=== PATIENT | male | born 1945 | race Two or more races ===

== ENCOUNTER 2020-02-05 03:41 | Emergency (ER) | payer MEDICAID, SELFPAY ==
[2020-02-05 03:40] VITALS: BP 144/79; PULSE 85; RESP 17; TEMP 36.6; O2SAT 97
[2020-02-05 04:21] LABS: Basophils Absolute Auto 0.1 K/mm3 (0.0-0.1); Basophils Percent Auto 0.6 % (0.2-1.2); Eosinophils Absolute Auto 0.3 K/mm3 (0-0.3); Eosinophils Percent Auto 2.2 % (0-4.4); Hemoglobin 11.4 g/dL (14.0-18.0); Immature Granulocyte Absolute 0.04 K/mm3 (0.00-0.031); Immature Granulocyte Percent A 0.3 % (0-0.5); Lymphocytes Absolute Auto 6.45 K/mm3 (0.9-3.2); Lymphocytes Percent Auto 51.7 % (18.3-44.2); Mean Corpuscular HGB Conc 30.8 g/dl (32-36); Mean Corpuscular Hemoglobin 26.5 pg (26-34); Mean Corpuscular Volume 85.8 fl (80-100); Monocytes Absolute Auto 0.9 K/mm3 (0.1-0.6); Neutrophils Absolute Auto 4.8 K/mm3 (1.3-6.7); Neutrophils Percent Auto 38.2 % (45.5-73.1); Platelet Count Result 405 k/mm3 (150-375); Red Blood Count 4.31 M/mm3 (4.6-6.20); Red Cell Distribution Width 16.6 % (11.5-14.5); White Blood Count 12.5 K/mm3 (4.5-10.0)
[2020-02-05 04:35] LABS: Add Urine Microscopic? YES; Appearance Urine Cloudy (Clear); Bacteria Urine Trace /hpf; Bilirubin Urine Negative (Negative); Blood Urine 3+ (Negative); Calcium Oxalate Crystals Urine Present /hpf; Color Urine Yellow (Yellow); Glucose Urine UA 1+ mg/dL (Negative); Ketones Urine Negative (Negative); Leukocyte Esterase Ur Negative LEU/UL (Negative); Mucus Urine Rare /lpf; Nitrate Urine Negative (Negative); Protein Urine 2+ mg/dL (Negative); RBC Urine >75 /hpf (0-2); Specific Grav Ur 1.014 (1.001-1.035); Squamous Epithelial Cell Urine Rare /hpf (Few); Urobilinogen Urine Negative mg/dL (<2.0)
[2020-02-05 04:37] LABS: Anion Gap 6 mmol/L (8-16); Blood Urea Nitrogen 17 mg/dL (9-20); Calcium 8.6 mg/dL (8.4-10.2); Carbon Dioxide 34 mmol/L (22-30); Chloride 98 mmol/L (98-107); Estimated Glomerular Filt Rate > 60; Glucose 208 mg/dL (75-110); Potassium 3.5 mmol/L (3.4-5.0); Sodium 138 mmol/L (137-145)
[2020-02-05 04:52] LABS: Atypical Lymphocytes Present; Hypochromasia 1+ (NORMAL); Platelet Estimate Adequate (Adequate); Stomatocytes 1+ (NORMAL)
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
--- NOTE | 2020-02-05 05:20 | PC.NURSE ---
Patient incont of stool-pericare given. Coccyx/buttock dressings remain in place that patient arrived with. Patient has large sore per his son
[2020-02-05 05:39] VITALS: BP 150/85; PULSE 87; RESP 17; O2SAT 99
--- NOTE | 2020-02-05 05:46 | PC.NURSE ---
Discharge instructions given to son. Explained about color of urine changing with the new prescription given. Encouraged follow up with patients private doctor
[2020-02-05 06:00] VITALS: BP 143/88; PULSE 79; RESP 15; O2SAT 98
[2020-02-05 07:00] VITALS: BP 162/82; PULSE 81; RESP 17; O2SAT 98
[2020-02-05 07:45] VITALS: BP 165/70; PULSE 80; RESP 12; O2SAT 99
== END 2020-02-05 07:45 | disposition home or self-care (01) ==
PROVIDERS: Emergency Provider Emergency Medicine
DX: Z46.6 Encounter for fitting and adjustment of urinary device (principal); E11.9 Type 2 diabetes mellitus without complications
CPT/HCPCS: 36415; 80048; 81001; 85025; 99283

== ENCOUNTER 2020-02-07 17:27 | Emergency (ER) | payer MEDICAID, SELFPAY ==
--- NOTE | ~2020-02-07 | CT_ITS ---
EXAMINATION: CT abdomen pelvis w con DATE: 02/07/2020 20:48 INDICATION: Abdominal pain. Epps catheter malfunction. TECHNIQUE: Computed tomography (CT) of the abdomen and pelvis was performed with 100 mL Omnipaque 350 intravenous contrast. Automated exposure control and iterative reconstruction technique were employe d. The dose-length product was 672.99 mGy-cm. COMPARISON: None. FINDINGS: The visualized portions of the lung bases demonstrate a small right-sided hydropneumothorax . There is mild atelectasis bilaterally. The heart size is normal. There are coronary artery calcific ations. No pericardial effusion. There are multiple healing right-sided rib fractures. There is plate and screw fixation of at least 5 of the right ribs. The liver, gallbladder, spleen, pancreas, and ad renal glands are normal. There are cysts in the kidneys measuring up to 4.1 cm on the left. There is cortical thinning of the kidneys. There is a large volume of stool in the colon. Stool distends the r ectum. The Epps catheter is in expected position. There are bilateral inguinal hernias containing fa t. The appendix is normal. There are no pathologically enlarged lymph nodes. There is no free intrape ritoneal fluid. There are comminuted fractures of the right superior and inferior pubic rami and righ t parasymphyseal pubis. There are fractures of the right sacral ala and right posterior ilium. There is screw fixation of the right sacroiliac joint and right sacral ala fracture. There is a fracture of the right L5 transverse process. A decubitus ulcer overlies the coccyx. There is no specific evidenc e of osteomyelitis. There is a chronic burst fracture of L1. IMPRESSION: 1. Epps catheter in expected position. 2. Small right-sided hydropneumothorax. 3. Large volume of stool in the colon with distention of the rectum. 4. Decubitus ulcer overlying the coccyx. 5. Many healing fractures. Reviewed, dictated and finalized at location A. RNMENT CLERK
[2020-02-07 17:23] VITALS: PULSE 88; RESP 18; TEMP 36.8; O2SAT 100
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
--- NOTE | 2020-02-07 18:45 | PC.NURSE ---
Patient refusing new addison cather but requesting old addison be removed. Patient's grandson on patient's cell phone. Grandson speaks Syriac and Greek. Grandson explained need for addison catheter to patient due to retention history. Patient agrees to allow addison catheter placement. 18 [place] addison placed x1 attempt. Small amount of pink tinged urine obtained. Unable to send sample at this time due to small amount of urine obtained upon placement. Patient denies pain. Patient refusing labs or IV. MD Haas informed.
[2020-02-07 19:13] LABS: Add Urine Microscopic? YES; Appearance Urine Cloudy (Clear); Bilirubin Urine Negative (Negative); Blood Urine 3+ (Negative); Color Urine Red (Yellow); Glucose Urine UA Negative (Negative); Ketones Urine Negative (Negative); Leukocyte Esterase Ur 1+ LEU/UL (Negative); Mucus Urine Rare /lpf; Nitrate Urine Negative (Negative); Protein Urine 2+ mg/dL (Negative); RBC Urine >75 /hpf (0-2); Specific Grav Ur 1.018 (1.001-1.035); Urobilinogen Urine Negative mg/dL (<2.0); WBC Clumps Urine Present /HPF; WBC Urine >75 /hpf
[2020-02-07 20:02] LABS: Basophils Absolute Auto 0.1 K/mm3 (0.0-0.1); Basophils Percent Auto 0.6 % (0.2-1.2); Eosinophils Absolute Auto 0.3 K/mm3 (0-0.3); Eosinophils Percent Auto 1.8 % (0-4.4); Hematocrit 35.7 % (42.0-52.0); Hemoglobin 11.1 g/dL (14.0-18.0); Immature Granulocyte Absolute 0.03 K/mm3 (0.00-0.031); Immature Granulocyte Percent A 0.2 % (0-0.5); Lymphocytes Absolute Auto 7.51 K/mm3 (0.9-3.2); Lymphocytes Percent Auto 52.4 % (18.3-44.2); Mean Corpuscular HGB Conc 31.1 g/dl (32-36); Mean Corpuscular Hemoglobin 26.1 pg (26-34); Mean Platelet Volume 9.8 fl (7.4-10.4); Monocytes Absolute Auto 1.1 K/mm3 (0.1-0.6); Monocytes Percent Auto 7.8 % (2.6-8.5); Neutrophils Absolute Auto 5.3 K/mm3 (1.3-6.7); Neutrophils Percent Auto 37.2 % (45.5-73.1); Platelet Count Result 432 k/mm3 (150-375); Red Blood Count 4.25 M/mm3 (4.6-6.20); Red Cell Distribution Width 16.3 % (11.5-14.5); White Blood Count 14.3 K/mm3 (4.5-10.0)
[2020-02-07 20:13] LABS: Atypical Lymphocytes Present; Platelet Estimate Increased (Adequate)
[2020-02-07 20:14] LABS: Anion Gap 10 mmol/L (8-16); Blood Urea Nitrogen 30 mg/dL (9-20); Calcium 8.6 mg/dL (8.4-10.2); Carbon Dioxide 29 mmol/L (22-30); Chloride 98 mmol/L (98-107); Estimated CRCL calculation 38 ml/min; Estimated Glomerular Filt Rate 60; Glucose 171 mg/dL (75-110); Potassium 3.5 mmol/L (3.4-5.0); Sodium 137 mmol/L (137-145)
--- NOTE | 2020-02-07 21:41 | PC.NURSE ---
Patient's daughter Destiney updated via phone with patient's permission. Destiney's phone number given to
--- NOTE | 2020-02-07 22:33 | PC.NURSE ---
Patient complaining of back pain from sitting up. Patient assisted to lying position. Patient given home dose of Gabapentin 100mg from prescription bottle labeled properly with VO from MD. Patient and spouse updated on plan of care and provided with ice water.
[2020-02-07 22:34] VITALS: BP 151/75; PULSE 83; RESP 16; O2SAT 99
--- NOTE | 2020-02-07 23:48 | PC.NURSE ---
called [facility] to transfer patient home. company declined. [employer] accepted eta [id number]
--- NOTE | 2020-02-07 23:51 | PC.NURSE ---
previous rn unable to get transport for pt home via family d/t falls . Previous rn attempted to set up ems to home from er. ETA [id number].
--- NOTE | 2020-02-08 01:39 | PC.NURSE ---
called [facility] for a new eta 0218
--- NOTE | 2020-02-08 02:23 | PC.NURSE ---
[facility] has arrived
--- NOTE | 2020-02-08 02:24 | PC.NURSE ---
report given to [facility] for transfer of pt to home.
--- NOTE | 2020-03-12 13:17 | PC.NURSE ---
03/12/20 - This is a late entry. Verbal Order from MD for addison catheter placement.
== END 2020-02-08 02:26 | disposition home or self-care (01) ==
PROVIDERS: Emergency Provider Emergency Medicine
DX: N30.01 Acute cystitis with hematuria (principal); E11.9 Type 2 diabetes mellitus without complications; L89.159 Pressure ulcer of sacral region, unspecified stage; S22.41XD Multiple fractures of ribs, right side, subsequent encounter for fracture with routine healing; S32.591D Other specified fracture of right pubis, subsequent encounter for fracture with routine healing; S27.30 Unspecified injury of lung; V49.9XXD Car occupant (driver) (passenger) injured in unspecified traffic accident, subsequent encounter
CPT/HCPCS: 36415; 51702; 74177; 80048; 81001; 85025; 87086; 96365; 99284; J0696; Q9967

== ENCOUNTER 2020-02-18 20:26 | Inpatient (IN) | payer MEDICAID, SELFPAY ==
--- NOTE | ~2020-02-18 | CT_ITS ---
EXAMINATION: CT pelvis w con INDICATION: Wound infection TECHNIQUE: Computed tomographic images of the pelvis were obtained after the administration of 100 cc of Omnipaque 350 intravenous contrast. The dose-length product (DLP) was 395.52 mGy-cm. Automated ex posure control and iterative reconstruction technique were employed. COMPARISON: None FINDINGS: There is screw fixation of the right sacroiliac joint traversing a subacute right sacral fr acture. There is a 2.7 x 2.0 cm rim-enhancing fluid collection in the right gluteus rachel muscle ad jacent to the head of the fixation screw. There are also healing fractures of the right ilium, the ri ght inferior and superior pubic rami, and the right L5 transverse process. The bladder is decompresse d by a Epps catheter. No pathologically enlarged pelvic lymph nodes are identified. A decubitus ulce ration is seen in the midline which extends to the coccyx. IMPRESSION: 1. 2.7 cm abscess of the right gluteus rachel muscle adjacent to the head of the sacroiliac stabiliz ation screw. 2. Healing fractures as detailed above. 3. Midline decubitus ulceration. Reviewed, dictated and finalized at location A. PRINT ASSEMBLER IMPRESSION: 1. 2.7 cm abscess of the right gluteus rachel muscle adjacent to the head of t he sacroiliac stabilization screw. 2. Healing fractures as detailed above. 3. Midline decubitus ulceration.
--- NOTE | 2020-02-18 20:48 | ED.WOUNDLAC ---
HPI - Wound/Laceration General Chief Complaint: Skin/Abscess/Foreign Body <Nirav Corona MD - Last Filed: 02/19/20 23:59> Stated Complaint: ulcer to buttocks <Nirav Corona MD - Last Filed: 02/19/20 23:59> Time Seen by Provider: 02/18/20 20:31 <Nirav Corona MD - Last Filed: 02/19/20 23:59> History of Present Illness HPI narrative: History limited by poor historians and language barrier stratus used. Brought in by EMS from home for a sacral ulcer. He has a chronic ulcer to his sacrum. They deny any wound care to the area. Over the past few days the wound has become very painful and begun putting out purulent drainage. No fever. He was recently put on antibiotics for a UTI. He should have completed the course by now, but still has several left. <Nirav Corona MD - Last Filed: 02/19/20 23:59> Related Data Home Medications: Home Medications Medication Instructions Recorded Confirmed apixaban [Eliquis] 5 mg PO BID 02/19/20 02/19/20 ascorbic acid (vitamin C) 500 mg PO DAILY 02/19/20 02/19/20 gabapentin 100 mg PO BID 02/19/20 02/19/20 melatonin 3 mg PO HS PRN 02/19/20 02/19/20 <Nirav Corona MD - Last Filed: 02/19/20 23:59> Allergies/Adverse Reactions: Allergies Allergy/AdvReac Type Severity Reaction Status Date / Time gentamicin Allergy Verified 06/21/13 23:36 <Nirav Corona MD - Last Filed: 02/19/20 23:59> Review of Systems Review of Systems: All systems reviewed & are unremarkable except as noted in HPI and below <Nirav Corona MD - Last Filed: 02/19/20 23:59> Constitutional: Constitutional: Denies fever(s) <Nirav Corona MD - Last Filed: 02/19/20 23:59> Cardiovascular: Cardiovascular: Denies chest pain <Nirav Corona MD - Last Filed: 02/19/20 23:59> Respiratory: Respiratory: Denies dyspnea <Nirav Corona MD - Last Filed: 02/19/20 23:59> Neurologic: Reports weakness <Nirav Corona MD - Last Filed: 02/19/20 23:59> PMFSH Social History Social History: Social History (Updated 02/18/20 @ 21:14 by Nirav Corona MD) Gender identity (if verbalized by the patient): Male Sexual Orientation (if Verbalized by the Patient): Straight or Heterosexual <Nirav Corona MD - Last Filed: 02/19/20 23:59> Exam Const: General: alert <Nirav Corona MD - Last Filed: 02/19/20 23:59> Nutritional Appearance: well nourished <Nirav Corona MD - Last Filed: 02/19/20 23:59> HENMT: Head: normal to inspection <Nirav Corona MD - Last Filed: 02/19/20 23:59> Resp: Effort & Inspection: normal respiratory effort <Nirav Corona MD - Last Filed: 02/19/20 23:59> Auscultation: clear to auscultation bilaterally <Nirav Corona MD - Last Filed: 02/19/20 23:59> Cardio: Rate: regular rate <Nirav Corona MD - Last Filed: 02/19/20 23:59> Rhythm: regular rhythm <Nirav Corona MD - Last Filed: 02/19/20 23:59> GI: GI Palp: Yes Soft to palpation and No Tenderness to palpation present (GI) <Nirav Corona MD - Last Filed: 02/19/20 23:59> Skin: Other: Large tunneling sacral ulcer with moderate purulent drainage <Nirav Corona MD - Last Filed: 02/19/20 23:59> Neuro: General: moves all extremities and no focal motor deficits <Nirav Corona MD - Last Filed: 02/19/20 23:59> Extrem: General: normal to inspection <Nirav Corona MD - Last Filed: 02/19/20 23:59> Course Course Emergency Course: He appears to have infected hardware at the surgical site. [facility] As this was a complication of the surgery performed there I attempted to arrange transfer there. I discussed this with [facility]o at [facility] and they asked me to transfer him to the ED there. Patient placement said that the ED is on diversion and would not be accepting the patient at this time. <Nirav Corona MD - Last Filed: 02/19/20 23:59> Reevaluation(s) Reevaluation #1
[2020-02-18 20:50] VITALS: BP 158/63; PULSE 73; RESP 18; TEMP 37.3; O2SAT 98
[2020-02-18 21:28] LABS: Basophils Absolute Auto 0.1 K/mm3 (0.0-0.1); Basophils Percent Auto 0.7 % (0.2-1.2); Eosinophils Absolute Auto 0.3 K/mm3 (0-0.3); Eosinophils Percent Auto 2.5 % (0-4.4); Hematocrit 37.5 % (42.0-52.0); Hemoglobin 11.6 g/dL (14.0-18.0); Immature Granulocyte Absolute 0.03 K/mm3 (0.00-0.031); Immature Granulocyte Percent A 0.2 % (0-0.5); Lymphocytes Absolute Auto 6.94 K/mm3 (0.9-3.2); Lymphocytes Percent Auto 56.6 % (18.3-44.2); Mean Corpuscular HGB Conc 30.9 g/dl (32-36); Mean Corpuscular Hemoglobin 26.1 pg (26-34); Mean Corpuscular Volume 84.3 fl (80-100); Mean Platelet Volume 9.7 fl (7.4-10.4); Monocytes Absolute Auto 0.9 K/mm3 (0.1-0.6); Monocytes Percent Auto 7.4 % (2.6-8.5); Neutrophils Percent Auto 32.6 % (45.5-73.1); Platelet Count Result 370 k/mm3 (150-375); Red Blood Count 4.45 M/mm3 (4.6-6.20); Red Cell Distribution Width 15.9 % (11.5-14.5); White Blood Count 12.3 K/mm3 (4.5-10.0)
[2020-02-18 21:39] LABS: Lactic Acid Reflex 0.9 mmol/L (0.7-2.1); Partial Thromboplastin Time 29.2 SECONDS (22.3-36.8); Prothrombin Time 13.9 Seconds (11.1-14.7)
[2020-02-18 21:45] LABS: Estimated CRCL calculation 49 ml/min; Estimated Glomerular Filt Rate > 60
[2020-02-18 22:42] VITALS: BP 162/80; PULSE 80; RESP 18; O2SAT 98
[2020-02-18 23:33] LABS: Anion Gap 8 mmol/L (8-16); Blood Urea Nitrogen 18 mg/dL (9-20); Calcium 8.8 mg/dL (8.4-10.2); Carbon Dioxide 32 mmol/L (22-30); Chloride 99 mmol/L (98-107); Estimated CRCL calculation 55 ml/min; Estimated Glomerular Filt Rate > 60; Glucose 173 mg/dL (75-110); Sodium 139 mmol/L (137-145)
[2020-02-19] VITALS (14 sets, daily range): BP systolic 114–168; BP diastolic 61–93; PULSE 66–89; RESP 15–20; O2SAT 95–100
--- NOTE | 2020-02-19 01:45 | PC.NURSE ---
Pt refusing pain medication. Richard used to translate. Pt also educated about plan of care with electronic typesetting machine operator. Pt verbalized that he wants to leave. Pt educated on risks of leaving and benefits of staying. Pt verbalized understanding and does not want medication at this time.
[2020-02-19] MEDS: MORPHINE SULFATE (*CRX) 2 MG/ML INJ IV PUSH ×2 (02:01→13:45)
--- NOTE | 2020-02-19 07:19 | PC.NURSE ---
Assumed care of pt, pt is alert on stretcher, family member at bedside. VSS.
[2020-02-19] MEDS: MORPHINE SULFATE (*CRX) 4 MG/ML INJ IV PUSH ×2 (11:02→22:11)
--- NOTE | 2020-02-19 15:57 | PC.NURSE ---
called [facility] at 1325, still waiting discharges, no bed at this time.
--- NOTE | 2020-02-19 17:54 | PC.NURSE ---
food tray ordered for pt at this time
[2020-02-20 00:42] VITALS: PULSE 72; RESP 18; O2SAT 95
[2020-02-20 04:33] VITALS: BP 120/78; PULSE 77; RESP 18; O2SAT 99
--- NOTE | 2020-02-20 05:01 | PC.NURSE ---
05:01: Called [facility] and spoke with Rhea regarding bed status. Still waiting for bed assignment. Nothing available at this time.
[2020-02-20 06:15] VITALS: BP 120/60; PULSE 78; RESP 18; O2SAT 97
[2020-02-20 09:13] VITALS: BP 121/68; PULSE 79; RESP 16; O2SAT 100
[2020-02-20 10:00] LABS: Estimated CRCL calculation 55 ml/min; Estimated Glomerular Filt Rate > 60
--- NOTE | 2020-02-20 11:36 | PC.NURSE ---
pt had very small bowel movement
[2020-02-20] MEDS: DOCUSATE SODIUM 100 MG CAPSULE PO (12:25)
[2020-02-20 15:11] VITALS: BP 120/81; PULSE 89; RESP 18; O2SAT 97
--- NOTE | 2020-02-20 15:18 | PC.NURSE ---
states that pt arrived to hospital with urinary cath in place
--- NOTE | 2020-02-20 15:33 | PC.NURSE ---
stat lock on addison adjusted to give more slack to avoid tugging/pulling on cath. dr. henriquez notified that hematuria increasing. family concerned. urine sent to lab per orders.
[2020-02-20 15:40] LABS: Add Urine Microscopic? YES; Appearance Urine Cloudy (Clear); Bacteria Urine Trace /hpf; Bilirubin Urine Negative (Negative); Blood Urine 3+ (Negative); Color Urine Red (Yellow); Glucose Urine UA 2+ mg/dL (Negative); Ketones Urine Negative (Negative); Leukocyte Esterase Ur Trace LEU/UL (Negative); Nitrate Urine Negative (Negative); Protein Urine 2+ mg/dL (Negative); RBC Urine >75 /hpf (0-2); Squamous Epithelial Cell Urine Few /hpf (Few); Urobilinogen Urine Negative mg/dL (<2.0); WBC Urine >75 /hpf
[2020-02-20 15:44] LABS: Specific Grav Ur 1.031 (1.001-1.035)
--- NOTE | 2020-02-20 17:13 | PC.NURSE ---
I called [facility] to touch base and see where we are standing on a bed. [facility] let me know that they still have no bed available
--- NOTE | 2020-02-20 19:52 | PC.NURSE ---
PT REQUESTS BED FOR HIS TO REST IN. INFORMED PT THAT THIS IS NOT POSSIBLE, BUT THIS RN WOULD CHECK TO SEE IF THERE IS ANOTHER OPTION AVAILABLE. PT VERBALIZED UNDERSTANDING AND RESPONDED BY SAYING ANYTHING YOU CAN DO .
[2020-02-20 20:42] VITALS: BP 118/65; PULSE 85; RESP 12; TEMP 36.6; O2SAT 100
--- NOTE | 2020-02-21 00:35 | PC.NURSE ---
02/21/2020 at 0025: addison catheter discontinued per QUIN from Dr. Marcos Duke per pt's request.
[2020-02-21 05:06] VITALS: BP 155/87; PULSE 84; RESP 15; TEMP 36.5; O2SAT 99
[2020-02-21 05:55] LABS: Vancomycin Trough 15.9 ug/mL (10.0-20.0)
--- NOTE | 2020-02-21 06:21 | PC.NURSE ---
0620- called [facility] transfer center to check status of bed placement- [facility] is still at capacity and will call if bed opens up.
--- NOTE | 2020-02-21 06:50 | PC.NURSE ---
fax to [facility] for medical records at [phone]
[2020-02-21 07:14] LABS: Anion Gap 9 mmol/L (8-16); Blood Urea Nitrogen 13 mg/dL (9-20); Carbon Dioxide 30 mmol/L (22-30); Chloride 98 mmol/L (98-107); Estimated CRCL calculation 55 ml/min; Estimated Glomerular Filt Rate > 60; Glucose 244 mg/dL (75-110); Potassium 3.9 mmol/L (3.4-5.0); Sodium 137 mmol/L (137-145)
[2020-02-21 07:21] VITALS: BP 155/87; PULSE 84; RESP 16; O2SAT 99
--- NOTE | 2020-02-21 07:30 | ADMGEN ---
This patient, Tal George, was admitted to 2 Medical Room 252-01. Patient/family oriented to hospital policies and general routines including ID bracelet, bed and alarms, visiting hours, pain management, procedures, bathroom and other care routines, personal items, smoking policy, room service/diet, and visiting hours. Information on how to activate the Rapid Response Team has been discussed. Patient/Family are encouraged to report perceived risks to care and to ask questions if they do not understand what they are told or what they should do.
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
[2020-02-21] MEDS: SODIUM CHLORIDE 0.9% IV 1,000 ML 75 ML IV CONT ×2 (07:46→21:53)
[2020-02-21] MEDS: ACETAMINOPHEN 325 MG TABLET 650 MG PO ×2 (07:48→21:49)
[2020-02-21 08:00] VITALS: BP 124/68; PULSE 80; RESP 20; TEMP 36.6; O2SAT 100; BMI 23.2
[2020-02-21 08:02] VITALS: PULSE 84; RESP 16; O2SAT 100
[2020-02-21 08:50] LABS: Basophils Absolute Auto 0.1 K/mm3 (0.0-0.1); Eosinophils Absolute Auto 0.2 K/mm3 (0-0.3); Hematocrit 36.3 % (42.0-52.0); Hemoglobin 11.3 g/dL (14.0-18.0); Immature Granulocyte Absolute 0.03 K/mm3 (0.00-0.031); Immature Granulocyte Percent A 0.4 % (0-0.5); Lymphocytes Absolute Auto 3.89 K/mm3 (0.9-3.2); Lymphocytes Percent Auto 50.5 % (18.3-44.2); Mean Corpuscular HGB Conc 31.1 g/dl (32-36); Mean Corpuscular Volume 83.6 fl (80-100); Monocytes Absolute Auto 0.6 K/mm3 (0.1-0.6); Monocytes Percent Auto 8.2 % (2.6-8.5); Neutrophils Absolute Auto 2.9 K/mm3 (1.3-6.7); Neutrophils Percent Auto 36.9 % (45.5-73.1); Platelet Count Result 249 k/mm3 (150-375); Red Blood Count 4.34 M/mm3 (4.6-6.20); Red Cell Distribution Width 15.8 % (11.5-14.5); White Blood Count 7.7 K/mm3 (4.5-10.0)
[2020-02-21] MEDS: GABAPENTIN 100 MG CAPSULE PO ×2 (10:42→17:20)
[2020-02-21] MEDS: traMADol HCL (*CRX) 50 MG TABLET PO ×3 (11:36→23:49)
--- NOTE | 2020-02-21 12:03 | WPDINFPN2 ---
Progress Note: A&P Assessment and Plan (1) Post-operative infection: Code(s): T81.40XA - Infection following a procedure, unspecified, initial encounter Status: Acute Assessment and Plan: Post op wound infection, deep REC Cefepime #1 and Vanc #4, until surgical intervention at [facility] is done. Will f/u prn, call if Qs Subjective Date/time seen: 02/21/20 12:03 Objective Data Vital Signs Vital Signs: Vital Signs - 24 hr 02/20/20 15:11 02/20/20 20:42 02/21/20 05:06 Temperature 36.6 C 36.5 C Pulse Rate 89 85 84 Respiratory Rate 18 12 15 Blood Pressure 120/81 118/65 155/87 H Pulse Oximetry 97 100 99 02/21/20 07:21 02/21/20 08:00 02/21/20 08:02 Temperature 36.6 C Pulse Rate 84 80 84 Respiratory Rate 16 20 16 Blood Pressure 155/87 H 124/68 Pulse Oximetry 99 100 100 Intake/Output Intake/Output: Intake & Output 02/18/20 02/19/20 02/20/20 02/21/20 23:59 23:59 23:59 23:59 Intake Total 50 400 700 470 Output Total 850 1075 575 Balance 94 -876 -375 -105 Meds/Results Medications: Active Medications Generic Name Dose Route Start Last Admin Trade Name Freq PRN Reason Stop Dose Admin Acetaminophen 650 mg 02/21/20 06:33 02/21/20 07:48 Acetaminophen 325 Mg Tablet PO 650 mg Q4H PRN Administration Mild Pain (1-3) or Fever Docusate Sodium 100 mg 02/20/20 12:00 Docusate Sodium 100 Mg Capsule PO Q12H PRN Constipation Gabapentin 100 mg 02/21/20 09:00 02/21/20 10:42 Gabapentin 100 Mg Capsule PO 100 mg BID DESIRAE Administration Piperacillin/Tazobactam/Dextrose 3.375 gm in 50 mls @ 100 mls/hr 02/20/20 12:00 02/21/20 07:51 Zosyn 3.375 Gm/D5w 50ml Pm IVPB Not Given Q6H DESIRAE Vancomycin HCl 1,000 mg in 250 mls @ 250 mls/hr 02/20/20 12:00 02/21/20 07:46 Vancomycin 1,000 Mg/D5w 250 Ml IVPB Infused Q18H DESIRAE Infusion Sodium Chloride 1,000 mls @ 75 mls/hr 02/21/20 07:40 02/21/20 07:46 Normal Saline Iv IV CONT 75 mls/hr .[id number] DESIRAE Administration Melatonin 3 mg 02/21/20 07:32 Melatonin 3 Mg Tablet PO HS PRN Sleep Tramadol HCl 50 mg 02/21/20 08:26 02/21/20 11:36 Tramadol Hcl (*Crx) 50 Mg Tablet PO 50 mg Q6H PRN Administration Pain Rated 7-10 Radiology Results: ITS Impressions Pelvis CT 02/19/20 10:09 IMPRESSION: 1. 2.7 cm abscess of the right gluteus rachel muscle adjacent to the head of the sacroiliac stabilization screw. 2. Healing fractures as detailed above. 3. Midline decubitus ulceration. Labs Labs: Laboratory Results - last 24 hr 02/20/20 02/21/20 02/21/20 15:20 05:04 05:07 WBC RBC Hgb Hct MCV MCH MCHC RDW Plt Count MPV Immature Gran % (Auto) Neut % (Auto) Lymph % (Auto) [place] % (Auto) Eos % (Auto) Baso % (Auto) Lymph # (Auto) [place] # (Auto) Eos # (Auto) Baso # (Auto) Abs Immat Gran (auto) Absolute Neuts (auto) Absolute Nucleated RBC Nucleated RBC % Sodium 137 Potassium 3.9 Chloride 98 Carbon Dioxide 30 Anion Gap 9 BUN 13 D Creatinine 0.90 Estim Creat Clear Calc 55 Estimated GFR > 60 Glucose 244 H Calcium 9.0 Urine Color Red H Urine Appearance Cloudy H Urine pH 6.0 Ur Specific [place] 1.031 Urine Protein 2+ H Urine Glucose (UA) 2+ H Urine Ketones Negative Ur Blood (Man) 3+ H Urine Nitrate Negative Urine Bilirubin Negative Urine Urobilinogen Negative Leukocyte Esterase Rfl Trace H Urine RBC >75 H Urine WBC >75 H Ur Squamous Epith Cells Few Urine Bacteria Trace Vancomycin Trough 15.9 02/21/20 08:40 WBC 7.7 RBC 4.34 L Hgb 11.3 L Hct 36.3 L MCV 83.6 MCH 26.0 MCHC 31.1 L RDW 15.8 H Plt Count 249 MPV 12.0 H Immature Gran % (Auto) 0.4 Neut % (Auto) 36.9 L Lymph % (Auto) 50.5 H [place] % (Auto) 8.2 Eos % (Auto) 3.0 Baso % (Auto) 1.0 Lymph # (Auto) 3.89 H [place]
[2020-02-21 14:00] VITALS: BP 117/54; PULSE 82; RESP 18; TEMP 36.2; O2SAT 99
--- NOTE | 2020-02-21 14:20 | CONS_ITS ---
DATE OF CONSULTATION: 02/21/2020 REASON FOR CONSULTATION: Wound abscess. HISTORY OF PRESENT ILLNESS: A 74-year-old male who can provide limited history. He was apparently at [facility] sometime in the recent past for a decubitus ulcer. He presented to the emergency room here with purulent drainage over his sacral decubitus. There is no documentation as to why he came to this hospital, but he is awaited transfer to [facility] ever since and eventually was brought to acute care floor while he awaits a bed. He has been on piperacillin and vancomycin since arrival. He still has pain. There has been no further drainage. He cannot provide any details about his recent surgical intervention if any. PRESENT MEDICATIONS: No immunosuppressants. ALLERGIES: GENTAMICIN, REACTION NOT AVAILABLE. PAST MEDICAL HISTORY: No chronic medical illnesses documented. HABITS: No tobacco. FAMILY HISTORY: Not pertinent to his present illness. SOCIAL HISTORY: He lives in [place]. Does not work outside the home and has a child who lives locally as well. REVIEW OF SYSTEMS: 5-point review otherwise negative though limited by the patient's language barrier. PHYSICAL EXAMINATION: GENERAL: This is an elderly male who appears his actual age, well nourished. No acute distress. VITAL SIGNS: His temperature readings have been quite intermittent. No fever has been found. 124/68, 80, 20, 100% room air. SKIN: Normal turgor with no rashes. EENT: The conjunctivae are normal. Pupils equal, round, and reactive to light. The oral mucosa is normal. NECK: No masses, thyromegaly or meningismus. LUNGS: Clear to auscultation. CARDIAC: Regular rate and rhythm. No murmur or gallop. ABDOMEN: Soft, nontender. No masses. No organomegaly. EXTREMITIES: Trace ankle edema. No clubbing. No cyanosis. BACK: He has a midline sacral decubitus ulcer without necrosis, surrounding erythema, tenderness, or warmth. There is no slough. RADIOLOGY: CT of the pelvis was performed on the , showed a 2.7 cm abscess in the right gluteus rachel adjacent to the head of the sacroiliac stabilization screw. Also healing are pubic ramus and other pelvic fractures, also right L5 transverse process. Epps catheter was present at the time, now removed. LABORATORY DATA: Blood cultures, no growth after 2-1/2 days incubation. White count 7.7, hemoglobin 11.3, platelets are 249, he has 37% PMNs 50% lymphocytes. Chemistry panel normal except for glucose of 244, was 173 on arrival. Urinalysis, multiple abnormalities, which are reviewed. Vancomycin trough 16. ASSESSMENT: 1. Decubitus ulcer, sacral. 2. Wound pain, multifactorial, perhaps in part due to the visualized abscess in the gluteus muscle. This sits adjacent to his metallic hardware, and I believe that the hardware itself is infected. Multiple microbiologic possibilities. 3. Hyperglycemia. Home medication list indicates no medical treatment for diabetes. RECOMMENDATIONS: 1. Glycemic control. 2. Cefepime and vancomycin day 1 and day 4 respectively until surgical intervention can be carried out at [facility]. 3. Further antibiotics depending upon his clinical course thereafter. Thank you very much for asking me to see him. Please call if further questions arise. ISAI VICTOR M.D. INVESTIGATIVE AGENT INVESTIGATIVE AGENT D I MT: [place]
[2020-02-21] MEDS: SILVERGEL (ELTA) 45 ML 1 APPLIC TOPICAL (14:39)
[2020-02-21 22:00] VITALS: BP 143/67; PULSE 72; RESP 18; TEMP 36.9; O2SAT 100
[2020-02-21] MEDS: diphenhydrAMINE HCl CAP 25 MG CAPSULE PO (22:30)
[2020-02-22 06:00] VITALS: BP 135/69; PULSE 63; RESP 18; TEMP 36.3; O2SAT 98
[2020-02-22 08:11] LABS: Basophils Absolute Auto 0.1 K/mm3 (0.0-0.1); Basophils Percent Auto 1.1 % (0.2-1.2); Eosinophils Absolute Auto 0.3 K/mm3 (0-0.3); Eosinophils Percent Auto 4.2 % (0-4.4); Hematocrit 34.9 % (42.0-52.0); Hemoglobin 10.8 g/dL (14.0-18.0); Immature Granulocyte Absolute 0.01 K/mm3 (0.00-0.031); Immature Granulocyte Percent A 0.1 % (0-0.5); Lymphocytes Absolute Auto 4.38 K/mm3 (0.9-3.2); Lymphocytes Percent Auto 58.7 % (18.3-44.2); Mean Corpuscular HGB Conc 30.9 g/dl (32-36); Mean Corpuscular Hemoglobin 26.5 pg (26-34); Mean Corpuscular Volume 85.7 fl (80-100); Mean Platelet Volume 9.9 fl (7.4-10.4); Monocytes Absolute Auto 0.7 K/mm3 (0.1-0.6); Monocytes Percent Auto 9.1 % (2.6-8.5); Neutrophils Percent Auto 26.8 % (45.5-73.1); Platelet Count Result 299 k/mm3 (150-375); Red Blood Count 4.07 M/mm3 (4.6-6.20); Red Cell Distribution Width 15.9 % (11.5-14.5); White Blood Count 7.5 K/mm3 (4.5-10.0)
[2020-02-22 08:26] LABS: Anion Gap 5 mmol/L (8-16); Blood Urea Nitrogen 11 mg/dL (9-20); Calcium 8.5 mg/dL (8.4-10.2); Carbon Dioxide 33 mmol/L (22-30); Chloride 100 mmol/L (98-107); Estimated CRCL calculation 58 ml/min; Estimated Glomerular Filt Rate > 60; Glucose 189 mg/dL (75-110); Potassium 3.6 mmol/L (3.4-5.0); Sodium 138 mmol/L (137-145)
[2020-02-22] MEDS: GABAPENTIN 100 MG CAPSULE PO ×2 (09:21→17:45)
[2020-02-22] MEDS: SILVERGEL (ELTA) 45 ML 1 APPLIC TOPICAL (09:22)
[2020-02-22 11:35] VITALS: BMI 23.2
--- NOTE | 2020-02-22 11:39 | PM.IMPN ---
Progress Note: A&P Assessment and Plan (1) Multiple pelvic fractures: Code(s): S32.82XA - Multiple fractures of pelvis without disruption of pelvic ring, initial encounter for closed fracture Status: Acute Assessment and Plan: Patient had care at [facility] currently at our facility due to no beds available at [facility]. Supportive care. Pain management. (2) Abscess of skin or subcutaneous tissue: Code(s): L02.91 - Cutaneous abscess, unspecified Status: Acute Assessment and Plan: Appreciate ID note. Will resume care with [facility] when bed becomes available. (3) Post-operative infection: Code(s): T81.40XA - Infection following a procedure, unspecified, initial encounter Status: Acute Assessment and Plan: On Cefepime and Vanc. Subjective Date/time seen: 02/22/20 11:39 Feels fine, not much pain. Review of Systems Review of Systems: Narrative: Unable to obtain a thorough review of systems as patient is non Croatian speaker can communicate some. Exam Narrative: Exam Narrative: In bed lying on his right side. Const: General: cooperative, comfortable, no acute distress and other (chronically ill looking.) Nutritional Appearance: thin HENMT: Head: normal to inspection and normocephalic Ears: hearing grossly normal bilaterally General nose exam: Normal external nose present Eyes: General: appearance normal, both eyes and all related structures Pupils: Equal, round and reactive pupils present EOM: EOMs intact bilaterally Neck: Neck: normal visual inspection, full ROM, no lymphadenopathy and no JVD Resp: Effort & Inspection: normal respiratory effort Auscultation: clear to auscultation bilaterally Cardio: Jugular venous distension: no JVD Rate: regular rate Rhythm: regular rhythm GI: Inspection: normal to inspection GI Palp: Yes Soft to palpation and Yes No hepatosplenomegaly present Auscultation: normal bowel sounds Skin: General skin exam: normal color Lesions: no lesions Rashes: no rashes Neuro: General: patient oriented x3 and CN's II-XI intact bilaterally Cranial nerves: Yes CN's II-XII intact bilaterally and Yes Equal, round and reactive pupils present Cognition (Neuro): normal cognition Motor exam (neuro): 5/5 motor strength present throughout Sensory Exam: normal sensation Extrem: General: normal to inspection Objective Data Vital Signs Vital Signs: Vital Signs - 24 hr 02/21/20 14:00 02/21/20 22:00 02/22/20 06:00 Temperature 97.2 F L 98.4 F 97.4 F L Pulse Rate 82 72 63 Respiratory Rate 18 18 18 Blood Pressure 117/54 L 143/67 H 135/69 Pulse Oximetry 99 100 98 Intake/Output Intake/Output: Intake & Output 02/19/20 02/20/20 02/21/20 02/22/20 23:59 23:59 23:59 23:59 Intake Total 308 015 3598 1240 Output Total 850 1075 575 200 Balance -450 -375 1535 1040 Meds/Results Medications: Active Medications Generic Name Dose Route Start Last Admin Trade Name Freq PRN Reason Stop Dose Admin Acetaminophen 650 mg 02/21/20 06:33 02/21/20 21:49 Acetaminophen 325 Mg Tablet PO 650 mg Q4H PRN Administration Mild Pain (1-3) or Fever Docusate Sodium 100 mg 02/20/20 12:00 Docusate Sodium 100 Mg Capsule PO Q12H PRN Constipation Gabapentin 100 mg 02/21/20 09:00 02/22/20 09:21 Gabapentin 100 Mg Capsule PO 100 mg BID DESIRAE Administration Vancomycin HCl 1,000 mg in 250 mls @ 250 mls/hr 02/20/20 12:00 02/22/20 07:00 Vancomycin 1,000 Mg/D5w 250 Ml IVPB Infused Q18H DESIRAE Infusion Sodium Chloride 1,000 mls @ 75 mls/hr 02/21/20 07:40 02/21/20 21:53 Normal Saline Iv IV CONT 75 mls/hr .[id number] DESIRAE Administration Cefepime HCl 1 gm in 50 mls @ 100 mls/hr 02/21/20 14:00 02/22/20 07:00 Maxipime 1 Gm/D5w 50 Ml IVPB Infused Q8H DESIRAE Infusion Melatonin 3 mg 02/21/20 07:32 Melatonin 3 Mg Tablet PO HS PRN Sleep Silver Nitrate 1 applic 02/21/20 09:00 02/22/20 09:22 Silvergel (Elta)
[2020-02-22] MEDS: SODIUM CHLORIDE 0.9% IV 1,000 ML 75 ML IV CONT (13:22)
[2020-02-22 14:00] VITALS: BP 115/55; PULSE 89; RESP 18; TEMP 36.7; O2SAT 98
[2020-02-22] MEDS: DOCUSATE SODIUM 100 MG CAPSULE PO (17:23)
[2020-02-22 20:00] VITALS: BP 150/82; PULSE 81; RESP 20; TEMP 37.3; O2SAT 99
[2020-02-22] MEDS: MELATONIN 3 MG TABLET PO (20:36)
[2020-02-22] MEDS: traMADol HCL (*CRX) 50 MG TABLET PO (20:36)
[2020-02-23 04:00] VITALS: BP 145/63; PULSE 70; RESP 20; TEMP 36.9; O2SAT 98
--- NOTE | 2020-02-23 04:14 | PC.NURSE ---
Call from Jeannette at [facility] to inform they are still at capacity and will transfer patient once a bed is available.
[2020-02-23 05:39] LABS: Estimated CRCL calculation 65 ml/min; Estimated Glomerular Filt Rate > 60
[2020-02-23] MEDS: SODIUM CHLORIDE 0.9% IV 1,000 ML 75 ML IV CONT (06:29)
[2020-02-23] MEDS: SILVERGEL (ELTA) 45 ML 1 APPLIC TOPICAL (08:17)
[2020-02-23] MEDS: GABAPENTIN 100 MG CAPSULE PO ×2 (08:17→17:17)
[2020-02-23 10:13] VITALS: O2SAT 98
[2020-02-23] MEDS: traMADol HCL (*CRX) 50 MG TABLET PO (10:34)
[2020-02-23] MEDS: DOCUSATE SODIUM 100 MG CAPSULE PO (10:35)
[2020-02-23 14:00] VITALS: BP 143/62; PULSE 77; RESP 12; TEMP 36.5; O2SAT 98
--- NOTE | 2020-02-23 14:09 | PM.IMPN ---
Progress Note: A&P Assessment and Plan (1) Multiple pelvic fractures: Code(s): S32.82XA - Multiple fractures of pelvis without disruption of pelvic ring, initial encounter for closed fracture Status: Acute Assessment and Plan: S/p ORIF at [facility] Will follow up as needed No beds available (2) Abscess of skin or subcutaneous tissue: Code(s): L02.91 - Cutaneous abscess, unspecified Status: Acute Assessment and Plan: Continue iv antibiotics Supportive care. (3) Post-operative infection: Code(s): T81.40XA - Infection following a procedure, unspecified, initial encounter Status: Acute Assessment and Plan: Currently on iv antibiotics Appreciate ID note. Subjective Date/time seen: 02/23/20 14:09 Has pain. Review of Systems Review of Systems: Narrative: Unable to obtain thorough review of systems as patient is other than Polish speaker. Exam Narrative: Exam Narrative: Apprehensive, grimaces to pain when walking and transferring. Const: General: cooperative, no acute distress, alert, awake, Physically active and uncomfortable Nutritional Appearance: thin Orientation/consciousness: patient oriented x3 Limitations: language barrier HENMT: Head: normal to inspection and normocephalic Ears: hearing grossly normal bilaterally General nose exam: Normal external nose present Face and sinus: normal facial exam Eyes: General: appearance normal, both eyes and all related structures Sclera: sclerae normal Pupils: Equal, round and reactive pupils present EOM: EOMs intact bilaterally Neck: Neck: full ROM, no lymphadenopathy and no JVD Resp: Effort & Inspection: normal respiratory effort Auscultation: clear to auscultation bilaterally Cardio: Jugular venous distension: no JVD Rate: regular rate Rhythm: regular rhythm GI: Inspection: normal to inspection GI Palp: Yes Soft to palpation and Yes No hepatosplenomegaly present Skin: Wounds: no wounds (Sacral area.) Neuro: General: patient oriented x3 Cranial nerves: Yes CN's II-XII intact bilaterally and Yes Equal, round and reactive pupils present Cognition (Neuro): normal cognition Speech: normal speech Gait exam (Neuro): Normal gait present Motor exam (neuro): 5/5 motor strength present throughout Sensory Exam: normal sensation Extrem: General: normal to inspection, full ROM and no pedal edema Objective Data Vital Signs Vital Signs: Vital Signs - 24 hr 02/22/20 20:00 02/23/20 04:00 02/23/20 10:13 Temperature 99.1 F 98.5 F Pulse Rate 81 70 Respiratory Rate 20 20 Blood Pressure 150/82 H 145/63 H Pulse Oximetry 99 98 98 Intake/Output Intake/Output: Intake & Output 02/20/20 02/21/20 02/22/20 02/23/20 23:59 23:59 23:59 23:59 Intake Total 700 2110 2990 1550 Output Total 8209 027 5734 900 Balance -375 1535 1945 650 Meds/Results Medications: Active Medications Generic Name Dose Route Start Last Admin Trade Name Freq PRN Reason Stop Dose Admin Acetaminophen 650 mg 02/21/20 06:33 02/21/20 21:49 Acetaminophen 325 Mg Tablet PO 650 mg Q4H PRN Administration Mild Pain (1-3) or Fever Docusate Sodium 100 mg 02/20/20 12:00 02/23/20 10:35 Docusate Sodium 100 Mg Capsule PO 100 mg Q12H PRN Administration Constipation Gabapentin 100 mg 02/21/20 09:00 02/23/20 08:17 Gabapentin 100 Mg Capsule PO 100 mg BID DESIRAE Administration Vancomycin HCl 1,000 mg in 250 mls @ 250 mls/hr 02/20/20 12:00 02/23/20 12:29 Vancomycin 1,000 Mg/D5w 250 Ml IVPB Infused Q18H DESIRAE Infusion Sodium Chloride 1,000 mls @ 75 mls/hr 02/21/20 07:40 02/23/20 06:29 Normal Saline Iv IV CONT 75 mls/hr .[id number] DESIRAE Administration Cefepime HCl 1 gm in 50 mls @ 100 mls/hr 02/21/20 14:00 02/23/20 14:01 Maxipime 1 Gm/D5w 50 Ml IVPB 100 mls/hr Q8H DESIRAE Administration Melatonin 3 mg 02/21/20 07:32 02/22/20 20:36 Melatonin 3 Mg Tablet PO 3 mg HS PRN Administrat
[2020-02-23 20:00] VITALS: BP 160/98; PULSE 78; RESP 20; TEMP 36.3; O2SAT 100
--- NOTE | 2020-02-23 20:28 | PC.NURSE ---
Samanta from [facility] called on 02/23/2020 at 2026 for an update on the transfer status of the pt. No bed available yet and the pt will remain on the waiting list.
[2020-02-24] MEDS: SODIUM CHLORIDE 0.9% IV 1,000 ML 75 ML IV CONT (00:30)
[2020-02-24 04:46] VITALS: BP 152/78; PULSE 75; RESP 18; TEMP 36.2; O2SAT 99
[2020-02-24] MEDS: GABAPENTIN 100 MG CAPSULE PO ×2 (09:26→17:48)
[2020-02-24] MEDS: SILVERGEL (ELTA) 45 ML 1 APPLIC TOPICAL (09:27)
[2020-02-24] MEDS: DOCUSATE SODIUM 100 MG CAPSULE PO (13:34)
[2020-02-24 14:00] VITALS: BP 126/60; PULSE 78; RESP 16; TEMP 36.7; O2SAT 98
--- NOTE | 2020-02-24 14:44 | PC.NURSE ---
call from Fay at [facility] about pending transfer of this patient, she states they are still waiting on a bed to become available for this transfer and they will continue to update us and be in touch
--- NOTE | 2020-02-24 15:04 | PM.IMPN ---
Progress Note: A&P Assessment and Plan (1) Multiple pelvic fractures: Code(s): S32.82XA - Multiple fractures of pelvis without disruption of pelvic ring, initial encounter for closed fracture Status: Acute Assessment and Plan: S/p ORIF at [facility]. (2) Abscess of skin or subcutaneous tissue: Code(s): L02.91 - Cutaneous abscess, unspecified Status: Acute Assessment and Plan: Continue iv antibiotics. Awaiting bed at [facility]. Follow ID recs. (3) Post-operative infection: Code(s): T81.40XA - Infection following a procedure, unspecified, initial encounter Status: Acute Assessment and Plan: On antibiotics. (4) Wound of sacral region: Code(s): S31.000A - Unspecified open wound of lower back and pelvis without penetration into retroperitoneum, initial encounter Status: Acute Assessment and Plan: Local care. 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 Subjective Date/time seen: 02/24/20 15:04 I'm fine. Review of Systems Review of Systems: Narrative: Unable to do a thorough review of systems as patient is other than Mohawk speaker so history obtaining is limited. Psychiatric: Comments: Patient became tearful and wants to go home. Exam Narrative: Exam Narrative: Sitting on the chair. Const: General: cooperative and comfortable Nutritional Appearance: thin Orientation/consciousness: patient oriented x3 HENMT: Head: normal to inspection Ears: hearing grossly normal bilaterally Eyes: General: appearance normal, both eyes and all related structures Pupils: Equal, round and reactive pupils present EOM: EOMs intact bilaterally Neck: Neck: no lymphadenopathy and no JVD Resp: Effort & Inspection: normal respiratory effort Auscultation: clear to auscultation bilaterally Cardio: Jugular venous distension: no JVD Heart sounds: S1 normal heart sound present and S2 normal heart sound present GI: Inspection: normal to inspection GI Palp: Yes Soft to palpation and Yes No hepatosplenomegaly present Skin: Wounds: wounds noted (Sacral area.) Neuro: General: patient oriented x3 and CN's II-XI intact bilaterally Cranial nerves: Yes CN's II-XII intact bilaterally and Yes Equal, round and reactive pupils present Cognition (Neuro): normal cognition Speech: normal speech Gait exam (Neuro): Normal gait present Motor exam (neuro): 5/5 motor strength present throughout Extrem: General: normal to inspection and no pedal edema Objective Data Vital Signs Vital Signs: Vital Signs - 24 hr 02/23/20 20:00 02/24/20 04:46 Temperature 97.4 F L 97.1 F L Pulse Rate 78 75 Respiratory Rate 20 18 Blood Pressure 160/98 H 152/78 H Pulse Oximetry 100 99 Intake/Output Intake/Output: Intake & Output 02/21/20 02/22/20 02/23/20 02/24/20 23:59 23:59 23:59 23:59 Intake Total 2110 2990 3290 740 Output Total 575 1045 1525 1200 Balance 1535 1945 1765 -460 Meds/Results Medications: Active Medications Generic Name Dose Route Start Last Admin Trade Name Freq PRN Reason Stop Dose Admin Acetaminophen 650 mg 02/21/20 06:33 02/21/20 21:49 Acetaminophen 325 Mg Tablet PO 650 mg Q4H PRN Administration Mild Pain (1-3) or Fever Docusate Sodium 100 mg 02/20/20 12:00 02/24/20 13:34 Docusate Sodium 100 Mg Capsule PO 100 mg Q12H PRN Administration Constipation Gabapentin 100 mg 02/21/20 09:00 02/24/20 09:26 Gabapentin 100 Mg Capsule PO 100 mg BID DESIRAE Administration Vancomycin HCl 1,000 mg in 250 mls @ 250 mls/hr 02/20/20 12:00 02/24/20 07:35 Vancomycin 1,000 Mg/D5w 250 Ml IVPB Infused Q18H DESIRAE Infusion Cefepime HCl 1 gm in 50 mls @ 100 mls/hr 02/21/20 14:00 02/24/20 14:13 Maxipime 1 Gm/D5w 50 Ml IVPB Infused Q8H DESIRAE Infusion Melatonin 3 mg
--- NOTE | 2020-02-24 18:46 | PC.NURSE ---
call from Fay at [facility] for update on bed situation, [facility] is needing to do a doctor to doctor consultation due to time from original acceptance of this pt, she requested Dr Acevedo's cell phone number which I provided
--- NOTE | 2020-02-24 20:19 | PC.NURSE ---
Calling report to [facility]. Angely asked to call back pt not sounding like pt she is supposed to be getting. Called daughter and let her know that he was accepted at a [facility] bed. Daughter wanting to speak with patient. Awaiting call back from [facility]. Wound pictures taken. Pt highly anxious and tearful.
--- NOTE | 2020-02-24 20:42 | PC.NURSE ---
Attempting second time to call [facility] back have not received call return. In pt room she will be calling me back.
[2020-02-24 21:00] VITALS: BP 151/65; PULSE 77; RESP 16; TEMP 36.8; O2SAT 99
--- NOTE | 2020-02-24 21:13 | PC.NURSE ---
report called to Angely at [facility]. [facility] will be here at 9:30 to 9:45. Pt made aware. Angely called back with ambulance time table.
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
== END 2020-02-24 21:38 | disposition swing bed (61) | DRG 349 ==
LOC: ANHED 02-21 06:35 → ANH2MED 02-21 06:57
PROVIDERS: Emergency Medicine; Admitting Provider Family Medicine; Emergency Provider Emergency Medicine; PCP Family Medicine Sports Medicine; Visit Provider Internal Medicine
DX: T84.63XA Infection and inflammatory reaction due to internal fixation device of spine, initial encounter (principal); L89.153 Pressure ulcer of sacral region, stage 3; L02.818 Cutaneous abscess of other sites; R73.9 Hyperglycemia, unspecified; F06.31 Mood disorder due to known physiological condition with depressive features; S32.82XD Multiple fractures of pelvis without disruption of pelvic ring, subsequent encounter for fracture with routine healing; V89.2XXD Person injured in unspecified motor-vehicle accident, traffic, subsequent encounter; Z79.01 Long term (current) use of anticoagulants; Z79.899 Other long term (current) drug therapy
CPT/HCPCS: 36415; 72193; 80048; 80202; 81001; 82565; 83605; 85025; 85610; 85730; 87040; 87086; 96361; 96365; 96366; 96367; 96375; 96376; 99285; A9270; G0378; G0379; J0692; J2270; J2543; J3370; J7030; Q9967

== ENCOUNTER 2020-11-13 13:23 | Emergency (ER) | payer OTHER, SELFPAY ==
--- NOTE | ~2020-11-13 | XR_ITS ---
EXAMINATION: XR humerus RT DATE: 11/13/2020 14:07 INDICATION: Right upper arm pain. TECHNIQUE: 2 views of right humerus were obtained. COMPARISON: None. FINDINGS: Bone alignment is normal. No acute fracture. There is plate and screw fixation of multiple right-sided ribs. There is mild osteoarthritis of glenohumeral joint. Acromioclavicular joint is norm al. There are enthesophytes at medial and lateral humeral epicondyles. IMPRESSION: 1. Mild right glenohumeral joint osteoarthritis. Reviewed, dictated and finalized at location A.
--- NOTE | ~2020-11-13 | XR_ITS ---
EXAMINATION: XR shoulder RT min 2V DATE: 11/13/2020 14:07 INDICATION: Right shoulder pain. TECHNIQUE: 4 views of right shoulder were obtained. COMPARISON: None. FINDINGS: Bone alignment is normal. No acute fracture. There is plate and screw fixation of multiple right-sided ribs. There is mild osteoarthritis of glenohumeral joint. Acromioclavicular joint is norm al. IMPRESSION: 1. Mild right glenohumeral joint osteoarthritis. Reviewed, dictated and finalized at location A.
[2020-11-13 13:47] VITALS: BP 157/74; PULSE 80; RESP 16; TEMP 36.5; O2SAT 100
--- NOTE | 2020-11-13 14:33 | ED.UPPEXIN ---
HPI - Extremity Injury (Upper) General Chief Complaint: Extremity Injury, Upper Stated Complaint: right arm pain Time Seen by Provider: 11/13/20 14:03 Source: patient, EMS and RN notes reviewed Mode of arrival: ambulatory Limitations: no limitations History of Present Illness HPI narrative: Patient tripped and fell last night, landed on the right upper extremity. Complaining of right shoulder, right arm pain. Patient denies other injuries. Patient denies any fever, chills, nausea, vomiting, shortness of breath, chest pain, headache, neck pain or back pain. Related Data Home Medications Medication Instructions Recorded Confirmed apixaban [Eliquis] 5 mg PO BID 02/19/20 02/19/20 ascorbic acid (vitamin C) 500 mg PO DAILY 02/19/20 02/19/20 gabapentin 100 mg PO BID 02/19/20 02/19/20 melatonin 3 mg PO HS PRN 02/19/20 02/19/20 Allergies Allergy/AdvReac Type Severity Reaction Status Date / Time gentamicin Allergy Verified 06/21/13 23:36 Review of Systems Review of Systems: CONSTITUTIONAL: Denies fever, chills, or sweats. EYES: Denies visual changes, redness, or discharge. ENT: Denies rhinorrhea, congestion, sore throat, or otalgia. CARDIOVASCULAR: Denies chest pain, palpitations, or edema. RESPIRATORY: Denies cough or dyspnea. GASTROINTESTINAL: Denies abdominal pain, nausea, vomiting, or diarrhea. GENITOURINARY: Denies dysuria or hematuria. SKIN: Denies rash or itching. MUSCULOSKELETAL: Denies back pain, joint pain, or myalgia. NEUROLOGIC: Denies headache, numbness, or weakness. PSYCHIATRIC: Denies anxiety or depression. [facility] Social History Social History Smoking status: Never smoker Alcohol intake: never Substance use: never Gender identity (if verbalized by the patient): Male Spiritual care concerns: No Exam Narrative: General appearance: Well-developed, well-nourished Skin: Normal color Head: Normocephalic, nontraumatic Eyes: Clear conjunctiva ENT: Oropharynx normal, ears normal, nose normal Neck: Supple, nontender Chest and respiratory: Airway patent, no respiratory distress, no accessory muscle use Heart: Regular rate/rhythm Abdomen: Soft, nontender, no organomegaly, quiet bowel sounds Vascular: Normal peripheral pulses, normal capillary refill. Musculoskeletal: Diffuse tenderness right shoulder, right no bruises, no swelling, slight limited range of motion. 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 is normal as tested, no gross motor deficit Course Course Emergency Course: Stable Vital Signs Vital signs: Vital Signs Temperature 36.5 C 11/13/20 13:47 Pulse Rate 80 11/13/20 13:47 Respiratory Rate 16 11/13/20 13:47 Blood Pressure 157/74 H 11/13/20 13:47 Pulse Oximetry 100 11/13/20 13:47 Temperature 36.5 C 11/13/20 13:47 Pulse Rate 80 11/13/20 13:47 Respiratory Rate 16 11/13/20 13:47 Blood Pressure 157/74 H 11/13/20 13:47 Pulse Oximetry 100 11/13/20 13:47 MDM - Extremity Injury (Upper) MDM Narrative Medical decision making narrative: Patient tripped and fell, complaining of right shoulder and right arm pain, x-ray ordered. Ibuprofen and Tylenol ordered. Differential Diagnosis Differential diagnosis: Likely dislocation of shoulder and fracture of humerus Imaging Data Radiologist's impression: Impressions Shoulder X-Ray 11/13/20 14:09 IMPRESSION: 1. Mild right glenohumeral joint osteoarthritis. Humerus X-Ray 11/13/20 14:10 IMPRESSION: 1. Mild right glenohumeral joint osteoarthritis. Critical Care Time Critical Care Time Critical Care Time: No Discharge Plan Discharge Clinical Impression: Cont
[2020-11-13] MEDS: ACETAMINOPHEN 325 MG TABLET 650 MG PO (14:47)
[2020-11-13] MEDS: IBUPROFEN 600 MG TABLET PO (14:48)
[2020-11-13 15:31] VITALS: BP 152/82; PULSE 76; RESP 18; O2SAT 100
== END 2020-11-13 15:10 | disposition home or self-care (01) ==
PROVIDERS: Emergency Provider Emergency Medicine; PCP Family Medicine Sports Medicine
DX: S40.021A Contusion of right upper arm, initial encounter (principal); Z79.01 Long term (current) use of anticoagulants; W01.0XXA Fall on same level from slipping, tripping and stumbling without subsequent striking against object, initial encounter
CPT/HCPCS: 73030; 73060; 99283; A9270

== ENCOUNTER 2021-04-27 09:58 | Emergency (ER) | payer OTHER, SELFPAY ==
--- NOTE | ~2021-04-27 | XR_ITS ---
XR knee LT 3V DATE: 04/27/2021 10:47 INDICATION: Anterior left knee pain following fall TECHNIQUE: AP, lateral, sunrise views COMPARISON: None FINDINGS: There is osteopenia. No fracture or dislocation or joint effusion. No periosteal reaction or bone destruction. No radiopaq ue intra-articular loose body or chondrocalcinosis. Joint spaces are relatively preserved. There is calcification of the femoral and popliteal and trifurcation arteries. IMPRESSION: No fracture or dislocation or joint effusion Osteopenia Reviewed, dictated and finalized at location A. 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
--- NOTE | ~2021-04-27 | XR_ITS ---
XR abdomen/kub 1V DATE: 04/27/2021 10:47 INDICATION: Constipation for one week. No nausea or vomiting. TECHNIQUE: 2 supine views of the abdomen and pelvis COMPARISON: 02/24/2020 CT abdomen pelvis FINDINGS: There is a prominent of fecal material in the rectum and sigmoid colon and. There is promin ent amount of fecal material scattered throughout the remainder of the colon. Findings suggest consti pation. No bowel obstruction is evident. The psoas shadows are intact. No visceromegaly or significant abnormal calcification is noted. Chronic fracture deformity of L1. Plate and screws of multiple right ribs and right iliosacral screw are noted. Diffuse osteopenia. IMPRESSION: Prominent amount of fecal material in the rectum and colon consistent with constipation; no apparent obstruction Reviewed, dictated and finalized at Location A. Reviewed, dictated and finalized at location A. T SERVICES LEAD IMPRESSION: Prominent amount of fecal material in the rectum and colon consiste nt with constipation; no apparent obstruction
[2021-04-27 10:01] VITALS: BP 155/91; PULSE 86; RESP 16; TEMP 37; O2SAT 100
--- NOTE | 2021-04-27 10:29 | ED.GENADULT ---
HPI - General Adult General Chief complaint: Extremity Injury, Lower Stated complaint: L knee pain Time Seen by Provider: 04/27/21 10:06 Source: patient Mode of arrival: ambulatory Limitations: no limitations History of Present Illness HPI narrative: Patient presents for evaluation of left knee pain. 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 He did not hit his head or have loss of consciousness. No other injury. Reports aching pain in the anterior aspect of the left knee that is constant, rated 8 out of 10 in severity, without radicular component. Ambulation makes the pain worse. He has been ambulating with a cane since the time of the injury. Baseline functional status is ambulatory without assistive device. He has not taken any medication for his symptoms. He also reports one week history of constipation. Normal bowel pattern is once every one to two days. He denies any abdominal pain, nausea, vomiting. No history of abdominal surgeries. Related Data Allergies Allergy/AdvReac Type Severity Reaction Status Date / Time No Known Allergies Allergy Verified 02/05/20 05:16 Review of Systems Review of Systems: CONSTITUTIONAL: Denies fever, chills, or sweats. EYES: Denies visual changes, redness, or discharge. ENT: Denies rhinorrhea, congestion, sore throat, or otalgia. CARDIOVASCULAR: Denies chest pain, palpitations, or edema. RESPIRATORY: Denies cough or dyspnea. GASTROINTESTINAL: Reports constipation. Denies abdominal pain, nausea, vomiting, or diarrhea. GENITOURINARY: Denies dysuria or hematuria. SKIN: Denies rash or itching. MUSCULOSKELETAL: Reports left knee pain. Denies back pain or myalgia. NEUROLOGIC: Denies headache, numbness, dizziness, or weakness. PSYCHIATRIC: Denies anxiety or depression. [facility] Past Medical History Medical History (Updated 04/27/21 @ 10:30 by Jens Chen, GEGE, BRITT) Chronic indwelling Epps catheter Diabetes type 2, controlled Hypertension Urinary retention Surgical History Surgical History Surgical history unknown Family History Family History Mother Family history unknown Social History Social History Smoking status: Never smoker Alcohol intake: never Substance use: never Living arrangements: with family Gender identity (if verbalized by the patient): Male Sexual Orientation (if Verbalized by the Patient): Straight or Heterosexual Spiritual care concerns: No Exam Narrative: GENERAL: Well-appearing, well-nourished, and in no acute distress. HEAD: Normocephalic, atraumatic. EYES: PERRLA and EOMI. ENT: Nares clear, no rhinorrhea or epistaxis. Mucous membranes moist. Oropharynx without tonsillar hypertrophy exudate or other lesions. Bilateral TMs pearly delarosa nonbulging NECK: Supple. No adenopathy or masses. No carotid bruits or JVD CHEST: Clear to auscultation. No respiratory distress. No wheezes rales or rhonchi HEART: Regular rate and rhythm. No murmur heard. Normal peripheral pulses. ABDOMEN: Soft, nontender, nondistended, normal active bowel sounds. EXTREMITIES: Tenderness noted to anterior aspect of left knee. Trace swelling noted to left knee. Normal range of motion. No crepitus or deformity. SKIN: (2) scabbed lesions to anterior aspect of left knee NEURO: No focal deficits. Alert and oriented x3. PSYCH: Normal mood and affect. Course Course Emergency Course: This is a 75-year-old male who presented with complaints of left knee pain following a fall a week ago. X-ray negative for fracture. He declined analgesics in the emergency department. He also reported constipation without any abdominal pain, nausea or vomiting. X-ray was consistent with constipation without evidence of obstruction. Will discharge with m
== END 2021-04-27 11:53 | disposition home or self-care (01) ==
PROVIDERS: Emergency Provider Nurse Practitioner
DX: S80.02XA Contusion of left knee, initial encounter (principal); K59.09 Other constipation; E11.9 Type 2 diabetes mellitus without complications; I10 Essential (primary) hypertension; M85.862 Other specified disorders of bone density and structure, left lower leg; W01.0XXA Fall on same level from slipping, tripping and stumbling without subsequent striking against object, initial encounter; Z79.84 Long term (current) use of oral hypoglycemic drugs
CPT/HCPCS: 73562; 74018; 99284

== ENCOUNTER 2022-01-22 09:25 | Outpatient (CLI) | payer OTHER, SELFPAY ==
--- NOTE | ~2022-01-22 | XR_ITS ---
EXAMINATION: XR hip BI wo pelvis DATE: 01/22/2022 10:06 INDICATION: Bilateral hip pain. TECHNIQUE: 2 views of right hip and 2 views of left hip were obtained. COMPARISON: None. FINDINGS: There are old fractures of right superior and inferior pubic rami. There is arthrodesis of right sacroiliac joint with a screw. No acute fracture. There is mild osteoarthritis of the hips. IMPRESSION: 1. Mild osteoarthritis of the hips. Reviewed, dictated and finalized at location B.
--- NOTE | ~2022-01-22 | XR_ITS ---
EXAMINATION: XR knee RT 3V DATE: 01/22/2022 10:06 INDICATION: Right knee pain. TECHNIQUE: 3 views of right knee were obtained. COMPARISON: None. FINDINGS: Bone alignment is normal. No fracture. There is mild osteoarthritis of medial and patellofe moral compartments characterized by tiny osteophytes. No joint space narrowing. No knee joint effusio n. IMPRESSION: 1. Mild right knee osteoarthritis. Reviewed, dictated and finalized at location B.
--- NOTE | ~2022-01-22 | XR_ITS ---
EXAMINATION: XR knee LT 3V DATE: 01/22/2022 10:06 INDICATION: Left knee pain. TECHNIQUE: 3 views of left knee were obtained. COMPARISON: Left knee radiographs 04/27/2021 FINDINGS: Bone alignment is normal. No fracture. There is mild osteoarthritis of medial and lateral c ompartments characterized by tiny osteophytes. No joint space narrowing. No knee joint effusion. IMPRESSION: 1. Mild left knee osteoarthritis. Reviewed, dictated and finalized at location B.
== END 2022-01-22 09:26 | disposition home or self-care (01) ==
PROVIDERS: PCP Family Medicine Sports Medicine; Visit Provider Family Medicine Sports Medicine
DX: M25.561 Pain in right knee (principal); M25.562 Pain in left knee; M16.0 Bilateral primary osteoarthritis of hip; M17.0 Bilateral primary osteoarthritis of knee
CPT/HCPCS: 73521; 73562

== ENCOUNTER 2022-05-07 20:25 | Inpatient (IN) | payer OTHER, SELFPAY ==
--- NOTE | ~2022-05-07 | CT_ITS ---
CT Abdomen and Pelvis with contrast. History: Abdominal pain. Spiral CT of the abdomen and pelvis was performed after the administration of intravenous contrast. 1 00 cc of Omnipaque 350 was administered intravenously without complication. Dose reduction technique was used on this scan by utilizing automated exposure control and iterative reconstruction technique. The dose-length product (DLP) was 923.67 mGy-cm. COMPARISON: 02/07/2020, 02/18/2020 Findings: Scans through the lung bases demonstrate mild atelectatic change. There is orthopedic hardw are along several right-sided lower ribs. The liver, spleen, pancreas, gallbladder, adrenals and kidneys are within normal limits. No evidence of aortic aneurysm. No lymphadenopathy is seen. There is no evidence of bowel obstruction. There is no evidence to suggest acute appendicitis or dive rticulitis. Images through the pelvis were performed. Urinary bladder unremarkable. Prostate gland mildly enlarge d. No ascites is seen. There are chronic fracture deformities of the right superior and inferior pubi c rami. Orthopedic bolt is present traversing the right SI joint, unchanged. Stable compression fract ure deformity of L1 noted. Impression: No acute abnormality seen. Stable compression fracture of L1. Postsurgical changes related to prior orthopedic surgical procedur es, as noted above. Reviewed, dictated and finalized at location M. L PHOTOGRAPHERS' Impression: No acute abnormality seen. Stable compression fracture of L1. Postsurgical changes related to prior orthop edic surgical procedures, as noted above.
--- NOTE | ~2022-05-07 | XR_ITS ---
EXAMINATION: XR chest 2V DATE: 05/07/2022 21:07 INDICATION: Leg swelling. TECHNIQUE: Frontal and lateral views of the chest were obtained. COMPARISON: CT abdomen and pelvis 02/07/2020 FINDINGS: There is mild atelectasis in left lower lung zone. No pleural effusion or pneumothorax. The heart size is normal. There is plate and screw fixation of multiple right-sided ribs. IMPRESSION: 1. Mild atelectasis in left lower lung zone. Reviewed, dictated and finalized at location A. 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
--- NOTE | ~2022-05-07 | CT_ITS ---
CT head without contrast Indication: Confusion COMPARISON: 10/26/2011 Technique: Serial scans were obtained through the brain without the administration of contrast. Dose reduction technique was used on this scan by utilizing automated exposure control and iterative recon struction technique. The dose-length product (DLP) was 605.33 mGy-cm. Findings: There is no evidence of intracranial hemorrhage, mass lesion, or acute infarct. The ventri cles and subarachnoid spaces are dilated, consistent with mild atrophy. Low attenuation regions are seen within the periventricular white matter bilaterally, likely representing changes from chronic mi crovascular ischemic disease. There is no evidence of edema, mass effect or midline shift. There is mild sinus disease in the bilateral maxillary sinuses and bilateral ethmoid air cells. The remaining visualized paranasal sinuses and mastoid air cells are clear. Impression: No intracranial hemorrhage, mass, or acute infarct. Atrophy and chronic white matter changes, as above. Mild sinus disease, as above. Reviewed, dictated and finalized at location . ULTING PSYCHIATRIST Impression: No intracranial hemorrhage, mass, or acute infarct. Atrophy and chronic white matter changes, as above. Mild sinus disease, as above.
--- NOTE | ~2022-05-07 | CT_ITS ---
CT Scan of the Chest without Contrast: Clinical Indication: Sepsis Technique: Contiguous sections were acquired throughout the chest without intravenous contrast. Dose reduction technique was used on this scan by utilizing automated exposure control and iterative recon struction technique. The dose-length product (DLP) was 273.50 mGy-cm. Findings: There is no evidence of any significant mediastinal, hilar or axillary lymphadenopathy. Coronary sandra ry calcifications are present. Ascending aorta is upper limits of normal in diameter. There is no evidence of pleural or pericardial effusion. The lungs are clear, aside from minimal dependent atelectatic changes. Images through the upper abdomen reveal no abnormalities. Prior ORIF of right-sided rib fractures not ed. Old, healed left rib fracture deformities are also present. Impression: No significant pulmonary abnormality. Bilateral rib fractures, with orthopedic hardware along right-sided ribs. Reviewed, dictated and finalized at [facility]. 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 Bilateral rib fractures, with orthopedic hardware along right-sided ribs.
[2022-05-07 20:36] VITALS: BP 154/98; PULSE 104; RESP 20; TEMP 37.5; O2SAT 98
--- NOTE | 2022-05-07 20:40 | ECG_ITS ---
Measurements Intervals [place] Rate: 110 P: 38 NV: 178 QRS: 2 QRSD: 86 T: 45 QT: 314 QTc: 426 Interpretive Statements SINUS TACHYCARDIA POSSIBLE LEFT ATRIAL ENLARGEMENT [-0.1mV P WAVE IN V1/V2] NONSPECIFIC T-WAVE ABNORMALITY ABNORMAL ECG NO PREVIOUS ECG AVAILABLE FOR COMPARISON Electronically Signed On 05-08-2022 10:05:41 GIFT CONSULTANT by Jens Dan M.D.
[2022-05-07 21:19] LABS: Basophils Absolute Auto 0.1 K/mm3 (0.0-0.1); Basophils Percent Auto 0.6 % (0.2-1.2); Eosinophils Percent Auto 0.2 % (0-4.4); Hematocrit 42.2 % (42.0-52.0); Immature Granulocyte Absolute 0.11 K/mm3 (0.00-0.031); Immature Granulocyte Percent A 0.6 % (0-0.5); Lymphocytes Absolute Auto 2.44 K/mm3 (0.9-3.2); Lymphocytes Percent Auto 13.5 % (18.3-44.2); Mean Corpuscular HGB Conc 33.2 g/dl (32-36); Mean Corpuscular Hemoglobin 28.6 pg (26-34); Mean Corpuscular Volume 86.3 fl (80-100); Mean Platelet Volume 11.1 fl (7.4-10.4); Monocytes Absolute Auto 1.2 K/mm3 (0.1-0.6); Monocytes Percent Auto 6.7 % (2.6-8.5); Neutrophils Absolute Auto 14.2 K/mm3 (1.3-6.7); Neutrophils Percent Auto 78.4 % (45.5-73.1); Platelet Count Result 253 k/mm3 (150-375); Red Blood Count 4.89 M/mm3 (4.6-6.20); Red Cell Distribution Width 13.3 % (11.5-14.5); White Blood Count 18.1 K/mm3 (4.5-10.0)
[2022-05-07 21:26] LABS: Prothrombin Time 12.7 Seconds (11.1-14.7)
[2022-05-07 21:27] LABS: Partial Thromboplastin Time 22.6 SECONDS (22.3-36.8)
[2022-05-07 22:33] VITALS: TEMP 38.6
--- NOTE | 2022-05-07 22:54 | PC.NURSE ---
Pt presents with his son with fever, chills, body aches, abdominal pain, new onset urinary incontinence, new onset mild confusion, and 3+ pitting edema to bilateral lower extremities that started 2 days ago. shelter monitor shows sinus tach with rate of 110. Pt also endorses mild SOB. No increase work of breathing noted. Abdomen soft and non-tender. Last BM was this afternoon and normal. Pt denies sore throat, cough, nausea, or vomiting.
[2022-05-07 23:01] VITALS: BP 168/79; PULSE 105; RESP 20; O2SAT 96
[2022-05-07 23:09] LABS: Alanine Aminotransferase 22 U/L (6-50); Albumin Level 4.3 g/dL (3.5-5.1); Alkaline Phosphatase 132 U/L (38-126); Anion Gap 7 mmol/L (8-16); Aspartate Amino Transferase 25 U/L (17-59); Bilirubin,Total 0.7 mg/dL (0.2-1.3); Blood Urea Nitrogen 22 mg/dL (9-20); Calcium 8.7 mg/dL (8.4-10.2); Carbon Dioxide 33 mmol/L (22-30); Chloride 86 mmol/L (98-107); Estimated CRCL calculation 39 ml/min; Estimated Glomerular Filt Rate 54; Glucose 372 mg/dL (65-110); Potassium 4.2 mmol/L (3.4-5.0); Sodium 126 mmol/L (137-145)
[2022-05-07 23:20] LABS: NT Pro B Type Natriuretic Pept 167 pg/mL (19.9-100); Troponin I < 0.012 ng/mL (0.000-0.034)
[2022-05-07 23:24] LABS: Lipase 188 U/L (23-300)
[2022-05-07] MEDS: SODIUM CHLORIDE 0.9% IV 1,000 ML 999 ML IV CONT (23:31)
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
[2022-05-07 23:39] LABS: Lactic Acid Reflex 2.5 mmol/L (0.7-2.0)
[2022-05-07 23:56] LABS: Appearance Urine Clear (Clear); Bilirubin Urine Negative (Negative); Blood Urine 2+ (Negative); Color Urine Yellow (Yellow); Glucose Urine UA 2+ mg/dL (Negative); Ketones Urine 1+ mg/dL (Negative); Leukocyte Esterase Ur Negative LEU/UL (Negative); Nitrate Urine Negative (Negative); Protein Urine 2+ mg/dL (Negative); Specific Grav Ur 1.015 (1.001-1.035); Urobilinogen Urine 0.2 mg/dL (<2.0); pH Urine 7.5 (5.0-9.0)
[2022-05-08] VITALS (7 sets, daily range): BP systolic 126–156; BP diastolic 68–77; PULSE 76–90; RESP 16–20; TEMP 36.6–37; O2SAT 95–100; BMI 23.3
[2022-05-08] LABS: Add Urine Microscopic? YES; Bacteria Urine Trace /hpf; WBC Urine 0-3 /hpf
--- NOTE | 2022-05-08 | ECHO_ITS ---
Patient Info Name: Tal Chan Age: 76 years : 1945 Gender: Male Ht: 65 in Wt: 139 lbs BSA: 1.71 m2 HR: 82 bpm BP: 156 / 73 mmHg Heart Rhythm: Sinus Rhythm Technical Quality: Good Exam Date: 05/08/2022 1:49 PM Exam Location: [facility] Pulmonary Patient Status: Inpatient Admit Date: 05/08/2022 Staff Ordering Physician: Gerry Rodriguez MD Mud Jack Nozzle Worker: Dariela Ponce RDCS Attending Provider: Heather Tripathi DO Exam Type: CA echo doppler color flow Study Info Indications R60.9 - Edema, unspecified R06.02 - Shortness of breath Complete two-dimensional, color flow and Doppler transthoracic echocardiogram is performed. Summary 1. Complete two-dimensional, color flow and Doppler transthoracic echocardiogram is performed. 2. Normal left ventricular size with hyperdynamic systolic function suggesting increased state of inotropic stimulation. 3. Grade 1 diastolic noncompliance. 4. No valvular dysfunction. Left Ventricle Left ventricular chamber dimension is normal. Left ventricular systolic function is hyperdynamic, estimated at >70%. The left ventricular diastolic function is grade I diastolic dysfunction. Right Ventricle Right ventricular chamber dimension is normal. Left Atria Left atrial chamber dimension is normal. Right Atria Right atrial chamber dimension is normal. Aortic Valve The aortic valve is normal. Pulmonic Valve The pulmonic valve is not well visualized. Mitral Valve The mitral valve has normal leaflets. Tricuspid Valve The tricuspid valve leaflets are normal. Pericardium/Pleural The pericardium appears normal. Aorta The aortic root size at the sinus of Valsalva is normal. Left Ventricular Outflow Tract Name Value Normal LVOT 2D LVOT Diameter 2.0 cm LVOT Doppler LVOT Peak Gradient 5 mmHg LVOT Mean Gradient 3 mmHg LVOT VTI 21 cm LVOT VTI/AV VTI Ratio 0.8 LVOT Stroke Volume 70 ml LVOT CO 5.6 l/min LVOT CI 3.3 l/min/m2 Pulmonic Valve Name Value Normal RVOT Doppler RVOT Peak Gradient 3 mmHg PV Doppler PV Peak Gradient 6 mmHg Mitral Valve Name Value Normal MV Doppler MV Decel Bell 482 cm/s2 MV PHT 46 ms MV Area (PHT) 4.7 cm2
[2022-05-08 00:08] LABS: Influenza A QL RT-PCR Negative (Negative); Influenza B QL RT-PCR Negative (Negative); RSV RNA, RT-PCR Negative (Negative); SARS-CoV-2 RNA PCR Negative
--- NOTE | 2022-05-08 01:23 | PC.NURSE ---
Reassessment completed using Bengali grain manager. Pt reports his abdominal pain has resolved and his bodyaches improved from 9/10 to 6/10. He still reports bilateral lower leg and feet pain. Informed him that we are waiting on reports for both of his scans. He has no questions, concerns, or complaints at this time. Instructed pt to use his call light if he needs anything. Son remains at bedside.
[2022-05-08 02:28] LABS: Reflex Lactic Acid Yes or No Add Lactic
[2022-05-08] MEDS: SODIUM CHLORIDE 0.9% IV 1,000 ML 999 ML IV CONT (02:30)
[2022-05-08 02:54] LABS: Glucose Point of Care 370 mg/dl (65-105)
[2022-05-08] MEDS: INSULIN HUMAN REGULAR (*BKC) 100 UNITS/ML 8 UNITS SUB-Q (03:14)
[2022-05-08 03:52] LABS: Glucose Point of Care 347 mg/dl (65-105)
[2022-05-08 04:05] LABS: Lactic Acid 1.1 mmol/L (0.7-2.0)
--- NOTE | 2022-05-08 04:57 | PC.NURSE ---
Admission Note: The patient,Tal Chan,76 y/o, was given written information regarding hospital policies, unit procedures and contact persons.
[2022-05-08 08:51] LABS: Glucose Point of Care 266 mg/dl (65-105)
[2022-05-08 12:26] LABS: Glucose Point of Care 372 mg/dl (65-105)
--- NOTE | 2022-05-08 12:45 | PM.IMHP ---
H&P: HPI History of Present Illness Date/Time: 05/08/22 12:45 Chief Complaint: Shortness of breath and leg edema Narrative: History was obtained through daughter who was at bedside, reported that patient presented to the ER on account of SOB and leg swelling. Noted that he has been having SOB and leg edema the past 3 weeks, worsening over this period, denies any chest pain, abd pain or vomiting but noted dysuria but no fever. In the ER evaluation notable for lactic acid 2.5, UA positive for leukocyte esterase, BG 347, CXR, CT AP, head CT unremarkable. T 101.5 and HR 105. He was started on Rocephin prior to admission. Review of Systems Review of Systems: All systems reviewed & are unremarkable except as noted in HPI and below PMFSH Past Medical History Medical History Chronic indwelling Epps catheter Diabetes type 2, controlled Hypertension Urinary retention Surgical History Surgical History (Updated 07/03/21 @ 14:46 by Anamika Jackson) Surgical history unknown Family History Family History (Updated 05/08/22 @ 13:15 by Gerry Rodriguez MD) Mother Family history unknown Social History Social History Smoking status: Never smoker Alcohol intake: never Substance use: never Living arrangements: with family Gender identity (if verbalized by the patient): Male Sexual Orientation (if Verbalized by the Patient): Straight or Heterosexual Spiritual care concerns: No Meds Home Medications and Allergies Home Medications Medication Instructions Recorded Confirmed Type phenazopyridine 200 mg tablet 200 mg PO TID 6 doses #6 tabs 02/05/20 05/08/22 Rx (Pyridium) polyethylene glycol 3350 17 17 g PO BID 10 days #340 grams 02/07/20 05/08/22 Rx gram/dose oral powder (Miralax) apixaban 5 mg tablet (Eliquis) 5 mg PO BID 02/19/20 05/08/22 History ascorbic acid (vitamin C) 500 mg 500 mg PO DAILY 02/19/20 05/08/22 History capsule,extended release melatonin 3 mg capsule 3 mg PO HS PRN Sleep 02/19/20 05/08/22 History magnesium citrate (Citrate of 150 ml PO DAILY PRN constipation 04/27/21 05/08/22 Rx Magnesia oral) #296 mL glipizide 5 mg tablet 5 mg PO QAM 05/08/22 05/08/22 History hydrochlorothiazide 12.5 mg capsule 12.5 mg PO QAM 05/08/22 05/08/22 History metformin 1,000 mg tablet 1,000 mg PO BID 05/08/22 05/08/22 History ofloxacin 0.3 % eye drops 1 drp ophthalmic (eye) DAILY 05/08/22 05/08/22 History prednisolone acetate 1 % eye 1 drp ophthalmic (eye) DAILY 05/08/22 05/08/22 History drops,suspension rosuvastatin 10 mg tablet 10 mg PO QAM 05/08/22 05/08/22 History valsartan 160 mg tablet 160 mg PO QAM 05/08/22 05/08/22 History Allergies Allergy/AdvReac Type Severity Reaction Status Date / Time gentamicin Allergy Swelling Verified 05/08/22 05:00 Vital Signs Vital Signs - 24 hr 05/07/22 20:36 05/07/22 22:33 05/08/22 01:26 Temperature 99.5 F 101.5 F H Pulse Rate 104 H 90 Respiratory Rate 20 20 Blood Pressure 154/98 H 156/73 H Pulse Oximetry 98 98 Oxygen Delivery Room Air 05/07/22 23:01 05/08/22 04:31 Temperature Pulse Rate 105 H 90 Respiratory Rate 20 20 Blood Pressure 168/79 H Pulse Oximetry 96 98 Oxygen Delivery Room Air Exam Narrative: Const:?? General: alert and oriented to perso n, place, year and month but not day , daughter noted i t is his baseline HENMT:?? Head: normal to in spection? Face and sinus: normal fac ial exam? Mouth: Y es Normal oral and palatal mucosa pr esent and Yes mois t mucous membranes ? Throat: posterio r oropharynx gorge
[2022-05-08] MEDS: INSULIN ASPART (*BKC) 100 UNITS/ML SUB-Q ×2 (13:55→17:28)
[2022-05-08 14:49] LABS: Basophils Absolute Auto 0.1 K/mm3 (0.0-0.1); Basophils Percent Auto 0.5 % (0.2-1.2); Eosinophils Absolute Auto 0.1 K/mm3 (0-0.3); Eosinophils Percent Auto 0.4 % (0-4.4); Hematocrit 38.3 % (42.0-52.0); Hemoglobin 12.9 g/dL (14.0-18.0); Immature Granulocyte Absolute 0.13 K/mm3 (0.00-0.031); Immature Granulocyte Percent A 0.8 % (0-0.5); Lymphocytes Absolute Auto 2.99 K/mm3 (0.9-3.2); Lymphocytes Percent Auto 17.3 % (18.3-44.2); Mean Corpuscular HGB Conc 33.7 g/dl (32-36); Mean Corpuscular Hemoglobin 29.5 pg (26-34); Mean Corpuscular Volume 87.4 fl (80-100); Mean Platelet Volume 11.1 fl (7.4-10.4); Monocytes Absolute Auto 1.1 K/mm3 (0.1-0.6); Monocytes Percent Auto 6.1 % (2.6-8.5); Neutrophils Absolute Auto 12.9 K/mm3 (1.3-6.7); Neutrophils Percent Auto 74.9 % (45.5-73.1); Platelet Count Result 196 k/mm3 (150-375); Red Blood Count 4.38 M/mm3 (4.6-6.20); Red Cell Distribution Width 13.6 % (11.5-14.5); White Blood Count 17.3 K/mm3 (4.5-10.0)
[2022-05-08 15:03] LABS: Alanine Aminotransferase 18 U/L (6-50); Albumin Level 3.5 g/dL (3.5-5.1); Alkaline Phosphatase 107 U/L (38-126); Anion Gap 8 mmol/L (8-16); Aspartate Amino Transferase 25 U/L (17-59); Bilirubin,Total 0.6 mg/dL (0.2-1.3); Blood Urea Nitrogen 20 mg/dL (9-20); Calcium 7.8 mg/dL (8.4-10.2); Carbon Dioxide 28 mmol/L (22-30); Chloride 93 mmol/L (98-107); Estimated CRCL calculation 46 ml/min; Estimated Glomerular Filt Rate > 60; Glucose 376 mg/dL (65-110); Magnesium 1.7 mg/dL (1.6-2.3); Potassium 3.3 mmol/L (3.4-5.0); Sodium 129 mmol/L (137-145)
[2022-05-08 15:05] LABS: Lactic Acid Reflex 1.5 mmol/L (0.7-2.0)
[2022-05-08 17:06] LABS: Glucose Point of Care 264 mg/dl (65-105)
[2022-05-08] MEDS: APIXABAN 5 MG TABLET PO (17:32)
[2022-05-08] MEDS: INSULIN GLARGINE (*BKC) 100 UNITS/ML 10 UNITS SUB-Q (21:07)
[2022-05-09] VITALS: PULSE 71
[2022-05-09 04:00] VITALS: PULSE 71
[2022-05-09 05:09] LABS: Basophils Absolute Auto 0.1 K/mm3 (0.0-0.1); Basophils Percent Auto 0.5 % (0.2-1.2); Eosinophils Absolute Auto 0.3 K/mm3 (0-0.3); Eosinophils Percent Auto 1.8 % (0-4.4); Hematocrit 37.9 % (42.0-52.0); Hemoglobin 12.2 g/dL (14.0-18.0); Immature Granulocyte Percent A 0.7 % (0-0.5); Lymphocytes Absolute Auto 3.96 K/mm3 (0.9-3.2); Lymphocytes Percent Auto 27.1 % (18.3-44.2); Mean Corpuscular HGB Conc 32.2 g/dl (32-36); Mean Corpuscular Hemoglobin 28.2 pg (26-34); Mean Corpuscular Volume 87.5 fl (80-100); Mean Platelet Volume 11.4 fl (7.4-10.4); Monocytes Absolute Auto 1.2 K/mm3 (0.1-0.6); Monocytes Percent Auto 8.2 % (2.6-8.5); Neutrophils Percent Auto 61.7 % (45.5-73.1); Platelet Count Result 185 k/mm3 (150-375); Red Blood Count 4.33 M/mm3 (4.6-6.20); Red Cell Distribution Width 13.5 % (11.5-14.5); White Blood Count 14.6 K/mm3 (4.5-10.0)
[2022-05-09 05:23] LABS: Alanine Aminotransferase 16 U/L (6-50); Albumin Level 3.3 g/dL (3.5-5.1); Alkaline Phosphatase 90 U/L (38-126); Anion Gap 4 mmol/L (8-16); Aspartate Amino Transferase 22 U/L (17-59); Bilirubin,Total 0.7 mg/dL (0.2-1.3); Blood Urea Nitrogen 20 mg/dL (9-20); Calcium 7.8 mg/dL (8.4-10.2); Carbon Dioxide 30 mmol/L (22-30); Chloride 97 mmol/L (98-107); Estimated CRCL calculation 46 ml/min; Estimated Glomerular Filt Rate > 60; Glucose 251 mg/dL (65-110); Potassium 3.2 mmol/L (3.4-5.0); Sodium 131 mmol/L (137-145)
[2022-05-09 06:00] VITALS: BP 131/61; PULSE 69; RESP 18; TEMP 36.8; O2SAT 96
[2022-05-09 08:00] VITALS: PULSE 67
[2022-05-09 08:33] LABS: Glucose Point of Care 230 mg/dl (65-105)
[2022-05-09] MEDS: INSULIN ASPART (*BKC) 100 UNITS/ML SUB-Q ×3 (09:49→17:04)
[2022-05-09] MEDS: hydroCHLOROthiazide 12.5 MG CAPSULE PO (09:51)
[2022-05-09] MEDS: ROSUVASTATIN 10 MG TABLET PO (09:51)
[2022-05-09] MEDS: APIXABAN 5 MG TABLET PO ×2 (09:51→17:06)
[2022-05-09 11:53] LABS: Glucose Point of Care 317 mg/dl (65-105)
[2022-05-09 12:00] VITALS: BP 149/67; PULSE 72; PULSE 76; RESP 18; TEMP 36.7; O2SAT 98
--- NOTE | 2022-05-09 12:58 | ECG_ITS ---
Measurements Intervals [place] Rate: 73 P: 44 WI: 182 QRS: 3 QRSD: 90 T: 32 QT: 401 QTc: 445 Interpretive Statements SINUS RHYTHM WITHIN NORMAL LIMITS COMPARED TO ECG 05/07/2022 20:48:28 HEART RATE IS REDUCED NO OTHER DIFFERENCE Electronically Signed On 05-09-2022 15:02:14 CONDITIONING YARD SUPERVISOR by Dk Schumacher M.D.
--- NOTE | 2022-05-09 13:06 | PC.NURSE ---
pt speaks limited yi, called to pt's room by daughter for c/o chest pain, upon arrival to room pt points to upper abdomen, has just finished a lunch tray of tuna and a banana, call to MD to report findings
--- NOTE | 2022-05-09 13:15 | PC.NURSE ---
stat EKG completed, NSR normal ECG
[2022-05-09] MEDS: FAMOTIDINE 20 MG/2 ML VIAL IV PUSH (13:42)
[2022-05-09 16:00] VITALS: PULSE 78
--- NOTE | 2022-05-09 16:11 | PM.IMPN ---
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 General: alert and oriented to perso n, place, year and month but not day , daughter noted i t is his baseline HENMT:?? Head: normal to in spection? Face and sinus: normal fac ial exam? Mouth: Y es Normal oral and palatal mucosa pr esent and Yes mois t mucous membranes ? Throat: posterio r oropharynx gorge l Neck:?? Neck: normal visua l inspection Chest:?? Chest palpation & inspection: normal inspection of the chest Resp:?? Effort & Inspectio n: normal respirat ory effort? Auscul tation: clear to a uscultation bilate rally Cardio:?? Rate: tachycardic? Rhythm: regular r hythm? Heart sound s: no murmurs GI:?? GI Palp: Yes Soft to palpation, Yes Tenderness to palp ation present (GI) (generalized), No Guarding due to p alpation present ( GI) and No Rigid d ue to palpation? A uscultation: gorge l bowel sounds Skin:?? General skin exam: normal color? Hermes hes: no rashes? Wo unds: no wounds Neuro:?? General: moves all extremities and C N's II-XI intact b ilaterally? Other: unable to assess gait Extrem:?? General: edema rey ateral (lower extr emity) Psych:?? Affect: Anxious af fect present Objective Data Vital Signs Vital Signs: Vital Signs - 24 hr 05/08/22 18:00 05/08/22 17:44 05/08/22 20:00 Temperature 98.4 F Pulse Rate 79 76 79 Respiratory Rate 16 16 Blood Pressure 149/76 H Pulse Oximetry 100 100 Oxygen Delivery Room Air 05/08/22 21:38 05/08/22 20:00 05/09/22 00:00 Temperature 98.6 F Pulse Rate 79 80 71 Respiratory Rate 20 Blood Pressure 126/77 Pulse Oximetry 99 Oxygen Delivery 05/09/22 04:00 05/09/22 06:00 05/09/22 08:20 Temperature 98.3 F Pulse Rate 71 69 Respiratory Rate 18 Blood Pressure 131/61 Pulse Oximetry 96 Oxygen Delivery Room Air 05/09/22 12:00 05/09/22 08:00 05/09/22 12:00 Temperature 98.0 F Pulse Rate 76 67 72 Respiratory Rate 18 Blood Pressure 149/67 H Pulse Oximetry 98 Oxygen Delivery Intake/Output I
--- NOTE | 2022-05-09 16:19 | PM.DS ---
DS: Admitting Diagnosis Discharge Date 05/09/22 Admitting Diagnosis Sepsis from UTI DS: Discharge Diagnosis Discharge Diagnosis Plan Sepsis likely from UTI Vital stable, lactic resolved Noted dysuria the past few days F/u blood and urine culture continue Rocephin CXR, CT head and CT AP unremarkable CT chest unremarkable SOB and leg edema ECHO showed normal EF with grade diastolic dysfunction Hyponatremia, resolved Na 131 gentle rehydration monitor DM2 with hyperglycemia SSI with acchucheks, and lantus monitor HTN Titrate home meds with clinical course Patient on Eliquis will investigate reason 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 blood culture negative, Confusion has resolved, vital signs stable. CT chest and abd unremarkable. ECHo notable for grade I diastolic dysfunction. Patient discharged home today on 3 more days of Levaquin. F/u w PCP in 3-5 days Time Spent with Patient Time attestation: Total time spent providing and/or coordinating discharge services: DS: Data Data Completed and Pending Labs on day of discharge: Labs from last 24 hours 05/09/22 05/09/22 05/09/22 11:48 08:28 04:47 WBC RBC Hgb Hct MCV MCH MCHC RDW Plt Count MPV Immature Gran % (Auto) Neut % (Auto) Lymph % (Auto) [place] % (Auto) Eos % (Auto) Baso % (Auto) Lymph # (Auto) [place] # (Auto) Eos # (Auto) Baso # (Auto) Abs Immat Gran (auto) Absolute Neuts (auto) Absolute Nucleated RBC Nucleated RBC % Sodium 131 L Potassium 3.2 L Chloride 97 L Carbon Dioxide 30 Anion Gap 4 L BUN 20 Creatinine 1.10 Estim Creat Clear Calc 46 Estimated GFR > 60 Glucose 251 H POC Capillary Glucose 317 H 230 H Calcium 7.8 L Total Bilirubin 0.7 AST 22 ALT 16 Alkaline Phosphatase 90 Total Protein 7.0 Albumin 3.3 L 05/09/22 05/08/22 04:47 16:59 WBC 14.6 H RBC 4.33 L Hgb 12.2 L Hct 37.9 L MCV 87.5 MCH 28.2 MCHC 32.2 RDW 13.5 Plt Count 185 MPV 11.4 H Immature Gran % (Auto) 0.7 H Neut % (Auto) 61.7 Lymph % (Auto) 27.1 [place] % (Auto) 8.2 Eos % (Auto) 1.8 Baso % (Auto) 0.5 Lymph # (Auto) 3.96 H [place] # (Auto) 1.2 H Eos # (Auto) 0.3 Baso # (Auto) 0.1 Abs Immat Gran (auto) 0.10 H Absolute Neuts (auto) 9.0 H Absolute Nucleated RBC 0.0 Nucleated RBC % 0.0 Sodium Potassium Chloride Carbon Dioxide Anion Gap BUN Creatinine Estim Creat Clear Calc Estimated GFR Glucose POC Capillary Glucose 264 H Calcium Total Bilirubin AST ALT Alkaline Phosphatase Total Protein Albumin Preliminary micro results at discharge 05/07/22 22:52 Blood Culture - Preliminary Blood 05/07/22 22:52 Blood Culture - Preliminary Blood Discharge Plan Discharge Attending physician on discharge: Gerry Rodriguez Discharging Clinician: Gerry Rodriguez Anticipated Discharge Date/Time: 05/09/22 16:14 Patient Disposition: Home, Self-Care Activity: as tolerated Diet: as tolerated Patient Instructions: Antibiotic Form Stand Alone Forms: General Discharge Information Follow-up/Referrals: Bonnie,Chad Perry MD [Primary Care Provider] - (f/u in 3-5 days ) Discharge Medications: New levofloxacin 750 mg tablet 750 mg PO DAILY Qty: 3 0RF potassium chloride 20 mEq tablet extended release 20 meq PO DAILY Qty: 4 0RF Continued phenazopyridine [Pyridium] 200 mg tablet 200 mg PO TID Qty: 6 0RF Eliquis 5 mg Tablet 5 mg PO BID ascorbic acid (vitamin C) 500 mg Capsule, Extended Release 500 mg PO DAILY melatonin 3 mg Capsule 3 mg PO HS PRN (Reason: Sleep) magnesium citrate [Citrate of Magnesia] Solution
[2022-05-09 16:40] LABS: Glucose Point of Care 314 mg/dl (65-105)
[2022-05-09] MEDS: POTASSIUM CHLORIDE 20 MEQ TABLET 40 MEQ PO (17:06)
== END 2022-05-09 19:40 | disposition home or self-care (01) | DRG 720 ==
LOC: ANHED 23:03 → ANH2MED 05-08 03:20
PROVIDERS: Emergency Medicine; Admitting Provider Internal Medicine; Emergency Provider General Practice; PCP Family Medicine Sports Medicine; Visit Provider Internal Medicine
DX: A41.9 Sepsis, unspecified organism (principal); N39.0 Urinary tract infection, site not specified; E11.65 Type 2 diabetes mellitus with hyperglycemia; E87.21 Acute metabolic acidosis; E87.1 Hypo-osmolality and hyponatremia; I10 Essential (primary) hypertension; Z20.822 Contact with and (suspected) exposure to COVID-19; R32 Unspecified urinary incontinence; R33.9 Retention of urine, unspecified; I51.89 Other ill-defined heart diseases
CPT/HCPCS: 36415; 70450; 71046; 71250; 74177; 80053; 81001; 82948; 83605; 83690; 83735; 83880; 84484; 85025; 85610; 85730; 87040; 87637; 93005; 93306; 96365; 96367; 99285; A9270; G0378; G0379; J0131; J0696; J1815; J1956; J7030; Q9967

== ENCOUNTER 2022-05-26 13:37 | Emergency (ER) | payer OTHER, SELFPAY ==
[2022-05-26 13:40] VITALS: BP 184/82; PULSE 83; RESP 17; TEMP 36.9; O2SAT 98
[2022-05-26 13:54] LABS: Glucose Point of Care 396 mg/dl (65-105)
[2022-05-26 15:18] VITALS: BP 153/84; PULSE 69; RESP 18; O2SAT 99
--- NOTE | 2022-05-26 16:02 | ED.RECABL ---
HPI - Recheck/Abnormal Lab/Rx General Chief Complaint: Recheck/Abnormal Lab/Rx Stated Complaint: elevated blood sugar Time Seen by Provider: 05/26/22 16:01 Source: patient Limitations: language barrier History of Present Illness HPI narrative: Patient is 76 years old male, from [place], speaks Yi, was scheduled for eye surgery today, blood glucose found to be elevated, at 438, the procedure postponed it and patient came to our emergency room to manage his hyperglycemia. Patient did not take his metformin today because of the procedure. He denies any symptoms. And he would like to go home. Related Data Allergies Allergy/AdvReac Type Severity Reaction Status Date / Time No Known Allergies Allergy Verified 05/26/22 15:57 Review of Systems Review of Systems: All systems reviewed & are unremarkable except as noted in HPI and below Exam Narrative: General appearance: Well-developed, well-nourished Skin: Normal color Head: Normocephalic, nontraumatic Eyes: Clear conjunctiva ENT: Dry oral Cavity Neck: Supple, nontender Chest and respiratory: Airway patent, no respiratory distress, no accessory muscle use Heart: Regular rate/rhythm Abdomen: Soft, nontender, no organomegaly, quiet bowel sounds Vascular: Normal peripheral pulses, normal capillary refill. Musculoskeletal: Normal range of motion, nontender back Neurologic: Alert and oriented ?3, SWING FRAME GRINDER OPERATOR is normal as tested, no gross motor deficit Course Vital Signs Vital signs: Vital Signs Temperature 36.9 C 05/26/22 13:40 Pulse Rate 83 05/26/22 13:40 Respiratory Rate 17 05/26/22 13:40 Blood Pressure 184/82 H 05/26/22 13:40 Pulse Oximetry 98 05/26/22 13:40 Oxygen Delivery Room Air 05/26/22 13:40 Temperature 37.1 C 05/26/22 17:47 Pulse Rate 70 05/26/22 18:47 Respiratory Rate 24 H 05/26/22 18:47 Blood Pressure 141/72 H 05/26/22 18:47 Pulse Oximetry 98 05/26/22 18:47 Oxygen Delivery Room Air 05/26/22 13:40 MDM - Recheck/Abnormal Lab/Rx Lab Data 05/26/22 18:53 05/26/22 18:53 Labs: Lab Results 02/20/23 02/20/23 02/20/23 Range/Units 13:50 17:42 18:23 WBC (4.5-10.0) K/mm3 RBC (4.6-6.20) M/mm3 Hgb (14.0-18.0) g/dL Hct (42.0-52.0) % MCV (80-100) fl MCH (26-34) pg MCHC (32-36) g/dl RDW (11.5-14.5) % Plt Count (150-375) k/mm3 MPV (7.4-10.4) fl Immature Gran % (Auto) (0-0.5) % Neut % (Auto) (45.5-73.1) % Lymph % (Auto) (18.3-44.2) % [place] % (Auto) (2.6-8.5) % Eos % (Auto) (0-4.4) % Baso % (Auto) (0.2-1.2) % Lymph # (Auto) (0.9-3.2) K/mm3 [place] # (Auto) (0.1-0.6) K/mm3 Eos # (Auto) (0-0.3) K/mm3 Baso # (Auto) (0.0-0.1) K/mm3 Abs Immat Gran (auto) (0.00-0.031) K/mm3 Absolute Neuts (auto) (1.3-6.7) K/mm3 Absolute Nucleated RBC (0.0-0.012) K/mm3 Nucleated RBC % (0.0-0.2) % Sodium (137-145) mmol/L Potassium (3.4-5.0) mmol/L Chloride (98-107) mmol/L Carbon Dioxide (22-30) mmol/L Anion Gap (8-16) mmol/L BUN (9-20) mg/dL Creatinine (0.7-1.3) mg/dL Estim Creat Clear Calc ml/min Estimated GFR (59 - ) Glucose (65-110) mg/dL POC Capillary Glucose 396 H 453 H (65-105) mg/dl Calcium (8.4-10.2) mg/dL Phosphorus (2.5-4.5) mg/dL Magnesium (1.6-2.3) mg/dL Total Bilirubin (0.2-1.3) mg/dL AST (17-59) U/L ALT (6-50) U/L Alkaline Phosphatase (38-126) U/L Total Protein (6.3-8.2) g/dL Albumin (3.5-5.1) g/dL Beta-Hydroxybutyrate/Acetoacetate (0.02-0.27) mmol/L Urine Color Yellow (Yellow) Urine Appearanc
[2022-05-26] MEDS: SODIUM CHLORIDE 0.9% IV 1,000 ML 999 ML IV CONT ×2 (16:15)
--- NOTE | 2022-05-26 16:59 | PC.NURSE ---
Spoke with Son Colton [phone], gave update regarding the current plan on the pt. Son did not voice any concerns and asked for a call back when patient is ready for discharge
--- NOTE | 2022-05-26 17:10 | PC.NURSE ---
This RN spoke to Colton (pts son) and requested he come sit with his father while fluids infusing due to pt is apprehensive and trying to get up. Pt is requesting someone stay with him and sit by him. Pt reassured by EDP at bedside, Dr Powers, who discussed son coming to sit w/ pt until discharge. Pt repositioned and fluids cont. to infuse. Pts son says he will be on the way.
[2022-05-26 17:47] VITALS: BP 146/69; PULSE 70; RESP 15; TEMP 37.1; O2SAT 100
[2022-05-26 17:56] LABS: Glucose Point of Care 453 mg/dl (65-105)
[2022-05-26 18:33] LABS: Appearance Urine Clear (Clear); Bilirubin Urine Negative (Negative); Blood Urine Trace-lysed (Negative); Color Urine Yellow (Yellow); Glucose Urine UA 2+ mg/dL (Negative); Ketones Urine Negative (Negative); Leukocyte Esterase Ur Negative LEU/UL (Negative); Nitrate Urine Negative (Negative); Protein Urine Negative (Negative); Urobilinogen Urine 0.2 mg/dL (<2.0)
[2022-05-26 18:38] LABS: RBC Urine 0-2 /hpf (0-2); Squamous Epithelial Cell Urine Rare /hpf (Few); WBC Urine 0-3 /hpf
[2022-05-26 18:39] LABS: Add Urine Microscopic? YES
[2022-05-26] MEDS: INSULIN HUMAN REGULAR (*BKC) 100 UNITS/ML 7 UNITS IV PUSH (18:45)
[2022-05-26 18:47] VITALS: BP 141/72; PULSE 70; RESP 24; O2SAT 98
[2022-05-26] MEDS: INSULIN HUMAN REGULAR (*BKC) 100 UNITS in SODIUM CHLORIDE 0.9% IV 99 ML 7.86 UNITS IV CONT (18:55)
[2022-05-26 19:00] LABS: Basophils Percent Auto 0.6 % (0.2-1.2); Eosinophils Absolute Auto 0.1 K/mm3 (0-0.3); Eosinophils Percent Auto 1.7 % (0-4.4); Hematocrit 40.1 % (42.0-52.0); Hemoglobin 12.8 g/dL (14.0-18.0); Immature Granulocyte Absolute 0.01 K/mm3 (0.00-0.031); Immature Granulocyte Percent A 0.2 % (0-0.5); Lymphocytes Absolute Auto 2.83 K/mm3 (0.9-3.2); Lymphocytes Percent Auto 44.3 % (18.3-44.2); Mean Corpuscular HGB Conc 31.9 g/dl (32-36); Mean Corpuscular Hemoglobin 28.4 pg (26-34); Mean Corpuscular Volume 88.9 fl (80-100); Mean Platelet Volume 10.7 fl (7.4-10.4); Monocytes Absolute Auto 0.2 K/mm3 (0.1-0.6); Monocytes Percent Auto 2.3 % (2.6-8.5); Neutrophils Absolute Auto 3.3 K/mm3 (1.3-6.7); Neutrophils Percent Auto 50.9 % (45.5-73.1); Platelet Count Result 240 k/mm3 (150-375); Red Blood Count 4.51 M/mm3 (4.6-6.20); Red Cell Distribution Width 13.5 % (11.5-14.5); White Blood Count 6.4 K/mm3 (4.5-10.0)
[2022-05-26 19:11] LABS: Fractional Inspired Oxygen 21 %; HCO3 VBG 28.7 mEq/l (24.0-30.0); PCO2 VBG 43.2 mmHg (42.0-48.0); PO2 VBG 50.7 mmHg (35.0-45.0)
[2022-05-26 19:13] LABS: Device ROOM AIR; pH VBG 7.441 (7.300-7.400)
[2022-05-26 19:15] LABS: Alanine Aminotransferase 23 U/L (6-50); Albumin Level 3.7 g/dL (3.5-5.1); Alkaline Phosphatase 91 U/L (38-126); Anion Gap 6 mmol/L (8-16); Aspartate Amino Transferase 29 U/L (17-59); Bilirubin,Total 0.4 mg/dL (0.2-1.3); Blood Urea Nitrogen 15 mg/dL (9-20); Calcium 7.9 mg/dL (8.4-10.2); Carbon Dioxide 30 mmol/L (22-30); Chloride 102 mmol/L (98-107); Estimated CRCL calculation 54 ml/min; Estimated Glomerular Filt Rate > 60; Glucose 431 mg/dL (65-110); Magnesium 1.7 mg/dL (1.6-2.3); Phosphorus 2.4 mg/dL (2.5-4.5); Potassium 3.8 mmol/L (3.4-5.0); Sodium 138 mmol/L (137-145)
[2022-05-26 19:17] LABS: Beta-Hydroxybutyrate/Acetoacetate 0.14 mmol/L (0.02-0.27)
[2022-05-26 20:42] LABS: Glucose Point of Care 115 mg/dl (65-105)
[2022-05-26 21:07] VITALS: BP 130/70; PULSE 75; RESP 17; TEMP 36.9; O2SAT 96
== END 2022-05-26 21:42 | disposition home or self-care (01) ==
PROVIDERS: Emergency Provider Emergency Medicine; PCP Family Medicine Sports Medicine
DX: E11.65 Type 2 diabetes mellitus with hyperglycemia (principal); Z91.14 Patient's other noncompliance with medication regimen
CPT/HCPCS: 36415; 80053; 81001; 82010; 82803; 82948; 83735; 84100; 85025; 96361; 96374; 96376; 99284; J1815; J7030

== ENCOUNTER 2022-06-02 12:43 | Observation (INO) | payer OTHER, SELFPAY ==
[2022-06-02] VITALS (58 sets, daily range): BP systolic 125–176; BP diastolic 65–98; PULSE 62–74; RESP 14–18; TEMP 35.9–36.8; O2SAT 92–100; BMI 25.8
--- NOTE | ~2022-06-02 | US_ITS ---
EXAMINATION:US venous doppler LE BI INDICATION:Calf pain for 2 days TECHNIQUE: Multiple grayscale, color flow and Doppler images of the right and left lower extremity de ep venous systems were obtained and reviewed. COMPARISON:No prior studies for comparison. FINDINGS: The common femoral, superficial femoral and popliteal veins demonstrate normal respiratory variation, augmentation and compressibility. Color flow is also seen within the posterior tibial, pe roneal, greater saphenous and profunda veins. IMPRESSION: 1: No lower extremity deep venous thrombosis. Reviewed, dictated and finalized at location B. HONER
--- NOTE | ~2022-06-02 | XR_ITS ---
EXAMINATION: XR abdomen obstructive series DATE: 06/05/2022 09:28 INDICATION: Abdominal pain. TECHNIQUE: Upright and supine views of the abdomen on 3 radiographs were obtained. COMPARISON: CT abdomen and pelvis 06/02/2022 FINDINGS: There are no dilated loops of bowel. There is a large volume of stool in the colon. No free intraperitoneal gas. There is plate and screw fixation of multiple ribs. There are old fractures of right superior and inferior pubic rami. There is arthrodesis of the right sacroiliac joint with a scr ew with washer. IMPRESSION: 1. Nonobstructive bowel gas pattern. Reviewed, dictated and finalized at location A. ENGINEER
--- NOTE | ~2022-06-02 | XR_ITS ---
EXAMINATION: XR sacroiliac joints min 3V DATE: 06/03/2022 15:28 INDICATION: Low back pain. Posterior hip pain. TECHNIQUE: 3 views of the sacroiliac joints were obtained. COMPARISON: Pelvis and hip radiograph 01/22/2022, CT abdomen and pelvis 06/02/2022 FINDINGS: There are old healed fractures of right superior and inferior pubic rami. There is a screw with washer across the right sacroiliac joint. No acute fracture. There is mild osteoarthritis of the hips characterized by tiny osteophytes. IMPRESSION: 1. Arthrodesis of right sacroiliac joint. 2. Mild osteoarthritis of the hips. Reviewed, dictated and finalized at location A. [facility]
--- NOTE | ~2022-06-02 | CT_ITS ---
EXAMINATION: CT abdomen pelvis w con DATE: 06/02/2022 17:12 INDICATION: abdominal pain, rectal bleeding TECHNIQUE: Computed tomography (CT) of the abdomen and pelvis was performed with 100 mL Omnipaque-350 intravenous contrast. Automated exposure control and iterative reconstruction technique were employe d. The dose-length product was 375.17 mGy-cm. COMPARISON: 05/07/2022. FINDINGS: Lower thorax: Heavy coronary artery calcification. Partially visualized, uncomplicated appearing scre w and plate fixation of multiple right posterior ribs. Motion artifact in the inferior lungs. Liver: Normal. Biliary/Gallbladder: Gallbladder is normal. No bile duct dilation. Pancreas: Mild fatty atrophy. Spleen: Normal. Adrenals:No mass. Kidneys: Punctate nonobstructing right upper pole calculus. Multiple bilateral simple cysts. No suspi cious mass. Mild bilateral ureterectasis and urothelial enhancement. GI tract: Mild distal esophageal and gastric wall edema. Distal rectal wall edema. No small or large bowel dilation. Normal appendix. Mesentery/Peritoneum: No ascites, mass, or free air. Retroperitoneum: No mass. Atherosclerotic abdominal aortic and/or arterial calcifications. Pelvis: Bladder wall thickening and inflammatory change. Prostatomegaly. Soft Tissues: Uncomplicated small fat-containing umbilical and left inguinal hernias. Small fat-conta ining right inguinal hernia with mild surrounding inflammatory change. Bones: No acute osseous finding. Stable old pelvic fractures. Stable old L1 compression fracture. Ri ght sacroiliac fixation screw extends 3.6 cm proud of the right iliac cortex, stable finding. IMPRESSION: Mild esophagitis/gastritis. Bladder wall thickening and mild bilateral ureterectasis with urothelial enhancement, may be secondary to outlet compromise or cystitis with ascending infection. Mildly infla med right inguinal hernia. Proctitis. Reviewed, dictated and finalized at location K. [employer]UC[employer] IMPRESSION: Mild esophagitis/gastritis. Bladder wall thickening and mild bilateral ureterec tasis with urothelial enhancement, may be secondary to outlet compromise or cys titis with ascending infection. Mildly inflamed right inguinal hernia. Proctiti s.
--- NOTE | 2022-06-02 13:28 | PC.NURSE ---
[facility] number- [phone] Brynn
--- NOTE | 2022-06-02 16:02 | ED.SKABFB ---
HPI - Skin/Abscess/Foreign Bdy General Chief complaint: Skin/Abscess/Foreign Body Stated complaint: back pain Time Seen by Provider: 06/02/22 14:43 History of Present Illness HPI narrative: Patient is a 76-year-old male presenting with GI bleed. Patient states that he has been struggling with constipation for the last 3 months. States that he last had a bowel movement 3 days ago and there was minimal stool but there was blood. States that he had severe pain with this bowel movement. Complains of decreased appetite but no nausea or vomiting. Patient is unsure if he has ever had a colonoscopy. Denies fevers or chills, chest pain, shortness of breath, cough, dysuria, hematuria. Patient is Italian speaking and history was obtained using the information technology teacher. Related Data Home Medications Medication Instructions Recorded Confirmed glipizide 5 mg tablet 5 mg PO QAM 05/08/22 06/03/22 hydrochlorothiazide 12.5 mg capsule 12.5 mg PO QAM 05/08/22 06/03/22 metformin 1,000 mg tablet 1,000 mg PO BID 05/08/22 06/03/22 rosuvastatin 10 mg tablet 10 mg PO QAM 05/08/22 06/03/22 valsartan 160 mg tablet 160 mg PO QAM 05/08/22 06/03/22 Allergies Allergy/AdvReac Type Severity Reaction Status Date / Time gentamicin Allergy Swelling Verified 06/02/22 19:48 Review of Systems Review of Systems: All systems reviewed & are unremarkable except as noted in HPI and below PMFSH Past Medical History Medical History (Updated 06/03/22 @ 19:43 by Gia Johnson DO) Chronic indwelling Epps catheter Diabetes Diabetes type 2, controlled Hyperlipidemia Hypertension Urinary retention Surgical History Surgical History Surgical history unknown Family History Family History Mother Family history unknown Social History Social History Smoking status: Never smoker Alcohol intake: never Substance use: never Living arrangements: with family Gender identity (if verbalized by the patient): Male Sexual Orientation (if Verbalized by the Patient): Straight or Heterosexual Spiritual care concerns: Yes Exam Narrative: GENERAL: Well-appearing, well-nourished, and in no acute distress. HEAD: Normocephalic, atraumatic. EYES: PERRLA and EOMI. ENT: Nares clear, no rhinorrhea or epistaxis. Mucous membranes moist. NECK: Supple. CHEST: Clear to auscultation. No respiratory distress. HEART: Regular rate and rhythm. No murmur heard. Normal peripheral pulses. ABDOMEN: Soft, nontender, nondistended RECTAL: rectum very tender with palpation, stool is light brown with small amount of blood in it EXTREMITIES: Normal range of motion. No edema. SKIN: Warm, dry, no rash. NEURO: No focal deficits. Alert and oriented x3. PSYCH: Normal mood and affect. Course Vital Signs Vital signs: Vital Signs Temperature 97.4 F L 06/02/22 12:49 Pulse Rate 74 06/02/22 12:49 Respiratory Rate 16 06/02/22 12:49 Blood Pressure 173/84 H 06/02/22 12:49 Pulse Oximetry 100 06/02/22 12:49 Oxygen Delivery Room Air 06/02/22 12:49 Temperature 96.7 F L 06/03/22 13:45 Pulse Rate 74 06/03/22 20:00 Respiratory Rate 18 06/03/22 20:00 Blood Pressure 143/65 H 06/03/22 13:45 Pulse Oximetry 100 06/03/22 20:00 Oxygen Delivery Room Air 06/03/22 20:00 MDM - Skin/Abscess/Foreign Bdy MDM Narrative Medical decision making narrative: Patient is a 76-year-old male presenting with rectal pain and bleeding. Vitals within normal limits. Exam remarkable for the above. CT abdomen pelvis is concerning for proctitis. There is evidence of chronic outlet obstruction. There is inflammation of the urinary bladder but his urine does not appear infected. We will go ahead and cover him with Rocephin. Will admit patient to medicine for further management. Urology will be consult
[2022-06-02 16:23] LABS: Appearance Urine Clear (Clear); Bilirubin Urine Negative (Negative); Blood Urine Negative (Negative); Color Urine Yellow (Yellow); Glucose Urine UA Negative (Negative); Ketones Urine Negative (Negative); Leukocyte Esterase Ur Negative LEU/UL (Negative); Nitrate Urine Negative (Negative); Protein Urine Negative (Negative); Urobilinogen Urine 0.2 mg/dL (<2.0)
[2022-06-02 16:36] LABS: Basophils Absolute Auto 0.1 K/mm3 (0.0-0.1); Basophils Percent Auto 0.5 % (0.2-1.2); Eosinophils Absolute Auto 0.1 K/mm3 (0-0.3); Eosinophils Percent Auto 1.2 % (0-4.4); Hematocrit 42.2 % (42.0-52.0); Hemoglobin 13.4 g/dL (14.0-18.0); Immature Granulocyte Absolute 0.03 K/mm3 (0.00-0.031); Immature Granulocyte Percent A 0.3 % (0-0.5); Lymphocytes Absolute Auto 3.65 K/mm3 (0.9-3.2); Lymphocytes Percent Auto 38.3 % (18.3-44.2); Mean Corpuscular HGB Conc 31.8 g/dl (32-36); Mean Corpuscular Hemoglobin 28.2 pg (26-34); Mean Corpuscular Volume 88.7 fl (80-100); Mean Platelet Volume 10.1 fl (7.4-10.4); Monocytes Absolute Auto 0.7 K/mm3 (0.1-0.6); Monocytes Percent Auto 7.1 % (2.6-8.5); Neutrophils Percent Auto 52.6 % (45.5-73.1); Platelet Count Result 261 k/mm3 (150-375); Red Blood Count 4.76 M/mm3 (4.6-6.20); Red Cell Distribution Width 13.6 % (11.5-14.5); White Blood Count 9.5 K/mm3 (4.5-10.0)
[2022-06-02 16:39] LABS: Add Urine Microscopic? NO
[2022-06-02 16:49] LABS: Partial Thromboplastin Time 25.4 SECONDS (22.3-36.8); Prothrombin Time 12.7 Seconds (11.1-14.7)
[2022-06-02 16:50] LABS: Alanine Aminotransferase 21 U/L (6-50); Albumin Level 4.3 g/dL (3.5-5.1); Alkaline Phosphatase 89 U/L (38-126); Anion Gap 5 mmol/L (8-16); Aspartate Amino Transferase 32 U/L (17-59); Bilirubin,Total 0.6 mg/dL (0.2-1.3); Blood Urea Nitrogen 14 mg/dL (9-20); Calcium 9.1 mg/dL (8.4-10.2); Carbon Dioxide 33 mmol/L (22-30); Chloride 96 mmol/L (98-107); Estimated CRCL calculation 52 ml/min; Estimated Glomerular Filt Rate > 60; Glucose 172 mg/dL (65-110); Potassium 3.6 mmol/L (3.4-5.0); Sodium 134 mmol/L (137-145)
--- NOTE | 2022-06-02 17:00 | PC.NURSE ---
CT at bedside, using customer development representative to explain procedure. Pt assisted OOB to urine, repositioned by radiology and nurse.
--- NOTE | 2022-06-02 17:01 | PC.NURSE ---
Pt off floor to CT scan
--- NOTE | 2022-06-02 17:28 | PC.NURSE ---
Daughter called with update.
--- NOTE | 2022-06-02 19:30 | PC.NURSE ---
PA at bedside explaining CT results.
--- NOTE | 2022-06-02 19:48 | PC.NURSE ---
Called son to inform him of patient's status. Pt to stay in the hospital overnight, start on antibiotics. Confirmed allergies with son. Son to report to ER to sit with patient. Pt tearful about being in ER and about staying in the hospital.
--- NOTE | 2022-06-02 19:59 | PM.IMHP ---
H&P: HPI History of Present Illness Date/Time: 06/02/22 19:59 Chief Complaint: RECTAL PAIN Narrative: This is a 76-year-old male with past medical history significant for hardware recurrent infection, chronic decubitus sacral ulcer. Patient is at a week speaking only. He comes to the emergency room due to rectal pain with rectal bleed a digital rectal exam was extremely painful and prostate felt enlarged. A CT of abdomen and pelvis was reported as: FINDINGS: Lower thorax: Heavy coronary artery calcification. Partially visualized, uncomplicated appearing screw and plate fixation of multiple right posterior ribs. Motion artifact in the inferior lungs. Liver: Normal.? Biliary/Gallbladder: Gallbladder is normal. No bile duct dilation. Pancreas: Mild fatty atrophy. Spleen: Normal. Adrenals:No mass. Kidneys: Punctate nonobstructing right upper pole calculus. Multiple bilateral simple cysts. No suspicious mass. Mild bilateral ureterectasis and urothelial enhancement. GI tract: Mild distal esophageal and gastric wall edema. Distal rectal wall edema. No small or large bowel dilation. Normal appendix. Mesentery/Peritoneum: No ascites, mass, or free air. Retroperitoneum: No mass. Atherosclerotic abdominal aortic and/or arterial calcifications. Pelvis: Bladder wall thickening and inflammatory change. Prostatomegaly. Soft Tissues: Uncomplicated small fat-containing umbilical and left inguinal hernias. Small fat-containing right inguinal hernia with mild surrounding inflammatory change. Bones:? No acute osseous finding. Stable old pelvic fractures. Stable old L1 compression fracture. Right sacroiliac fixation screw extends 3.6 cm proud of the right iliac cortex, stable finding. IMPRESSION: Mild esophagitis/gastritis. Bladder wall thickening and mild bilateral ureterectasis with urothelial enhancement, may be secondary to outlet compromise or cystitis with ascending infection. Mildly inflamed right inguinal hernia. Proctitis. Patient is been admitted for further evaluation management and treatment pending urology consult is in progress. Patient has been started on Rocephin for presumable prostatitis and proctitis. Review of Systems Review of Systems: Rectal pain, rectal bleed. [facility] Past Medical History Medical History Chronic indwelling Epps catheter Diabetes type 2, controlled Hypertension Urinary retention Surgical History Surgical History Surgical history unknown Family History Family History Mother Family history unknown Social History Social History Smoking status: Never smoker Alcohol intake: never Substance use: never Living arrangements: with family Gender identity (if verbalized by the patient): Male Sexual Orientation (if Verbalized by the Patient): Straight or Heterosexual Spiritual care concerns: Yes Meds Home Medications and Allergies Home Medications Medication Instructions Recorded Confirmed Type phenazopyridine 200 mg tablet 200 mg PO TID 6 doses #6 tabs 02/05/20 05/08/22 Rx (Pyridium) polyethylene glycol 3350 17 17 g PO BID 10 days #340 grams 02/07/20 05/08/22 Rx gram/dose oral powder (Miralax) apixaban 5 mg tablet (Eliquis) 5 mg PO BID 02/19/20 05/08/22 History ascorbic acid (vitamin C) 500 mg 500 mg PO DAILY 02/19/20 05/08/22 History capsule,extended release melatonin 3 mg capsule 3 mg PO HS PRN Sleep 02/19/20 05/08/22 History magnesium citrate (Citrate of 150 ml PO DAILY PRN constipation 04/27/21 05/08/22 Rx Magnesia oral) #296 mL glipizide 5 mg tablet 5 mg PO QAM 05/08/22 05/08/22 History hydrochlorothiazide 12.5 mg capsule 12.5 mg PO QAM 05/08/22 05/08/22 History metformin 1,000 mg tablet 1,000 mg PO BID 05/08/22 05/08/22 History ofloxacin 0.3 % eye drop
--- NOTE | 2022-06-02 21:18 | PC.NURSE ---
[facility]
[2022-06-02 21:21] LABS: Influenza A QL RT-PCR Negative (Negative); Influenza B QL RT-PCR Negative (Negative); SARS-CoV-2 RNA PCR Negative
--- NOTE | 2022-06-02 21:24 | PC.NURSE ---
Pt taken to room by Shelley research and development technician, to 3rd Med/Surg via wheelchair.
--- NOTE | 2022-06-02 22:44 | ADMGEN ---
This patient, Tal George, was admitted to [address] [place] [address] Room 305-02 at 2126. Patient/family oriented to hospital policies and general routines including ID bracelet, bed and alarms, visiting hours, pain management, procedures, bathroom and other care routines, personal items, smoking policy, room service/diet, and visiting hours. Information on how to activate the Rapid Response Team has been discussed. Patient/Family are encouraged to report perceived risks to care and to ask questions if they do not understand what they are told or what they should do.
[2022-06-03 06:00] VITALS: BP 116/68; PULSE 76; RESP 16; TEMP 35.9; O2SAT 99
--- NOTE | 2022-06-03 08:39 | PC.NURSE ---
Home medications verified with pt s home pharmacy.
--- NOTE | 2022-06-03 11:31 | PM.IMPN ---
Progress Note: A&P Assessment and Plan (1) Prostatitis: Code(s): N41.9 - Inflammatory disease of prostate, unspecified Status: Acute Assessment and Plan: Rocephin transition to Cipro for better prostate coverage, appreciate urology consultation, follow up urine culture Check PVRs to look for retention Continue tamsulosin and finasteride (2) Constipation: Code(s): K59.00 - Constipation, unspecified Status: Acute Assessment and Plan: Bowel regimen with MiraLax (3) Diabetes: Code(s): E11.9 - Type 2 diabetes mellitus without complications Status: Acute Assessment and Plan: Check A1c Accu-Cheks with sliding scale insulin ordered (4) Hypertension: Code(s): I10 - Essential (primary) hypertension Status: Acute Assessment and Plan: Blood pressures reviewed 06/03, continue home meds (5) Hyperlipidemia: Code(s): E78.5 - Hyperlipidemia, unspecified Status: Acute Assessment and Plan: Check lipid panel in the morning Plan DVT prophylaxis with ambulation, SCDs ordered when patient is resting GI prophylaxis not indicated Code status full code Subjective Date/time seen: 06/03/22 11:31 Interval history: Patient is primarily Hungarian speaking and history taking utilized the translation service. No overnight events noted. No chest pain or shortness of breath. No nausea, vomiting or diarrhea. No fevers or chills. Patient continues to complain of back pain for the last year, he would like an x-ray of this. He also states he is constipated and has not had a bowel movement in several days. He denies dysuria, urgency, frequency or retention. Review of Systems Review of Systems: 12 point review of systems was assessed and was negative except as noted in the HPI Exam Narrative: General: No acute distress, alert and oriented per baseline HEENT: Atraumatic, normocephalic, mucous membranes moist CV: Regular rate and rhythm, S1, S2 Lungs: Clear to auscultation bilaterally, no rales or crackles noted, no wheezes, good air entry Abdomen: Soft, nontender, nondistended Extremities: Normal to inspection, back without point tenderness over thoracolumbar sacral vertebral bodies as well as transverse vertebral bodies Skin: No rashes noted, no lesions or wounds seen Psych: Euthymic, normal affect Objective Data Vital Signs Vital Signs: Vital Signs - 24 hr 06/02/22 12:49 06/02/22 14:30 06/02/22 14:46 Temperature 97.4 F L 98.1 F Pulse Rate 74 69 Respiratory Rate 16 18 Blood Pressure 173/84 H 176/87 H Pulse Oximetry 100 100 100 Oxygen Delivery Room Air Room Air 06/02/22 14:47 06/02/22 14:48 06/02/22 15:00 Temperature Pulse Rate Respiratory Rate Blood Pressure 165/87 H Pulse Oximetry 97 99 99 Oxygen Delivery 06/02/22 15:02 06/02/22 15:03 06/02/22 15:15 Temperature Pulse Rate 68 Respiratory Rate Blood Pressure 139/97 H Pulse Oximetry 99 99 99 Oxygen Delivery 06/02/22 15:17 06/02/22 15:31 06/02/22 15:33 Temperature Pulse Rate 63 Respiratory Rate Blood Pressure Pulse Oximetry 100 98 99 Oxygen Delivery 06/02/22 15:34 06/02/22 15:45 06/02/22 15:46 Temperature Pulse Rate 63 Respiratory Rate Blood Pressure 149/87 H 149/87 H Pulse Oximetry 92 99 100 Oxygen Delivery 06/02/22 16:00 06/02/22 16:01 06/02/22 16:02 Temperature Pulse Rate Respiratory Rate Blood Pressure 147/65 H Pulse Oximetry 100 98 97 Oxygen Delivery 06/02/22 16:15 06/02/22 16:30 06/02/22 16:45 Temperature Pulse Rate Respiratory Rate Blood Pressure Pulse Oximetry 100 99 98 Oxygen Delivery 06/02/22 17:15 06/02/22 17:17 06/02/22 17:18 Temperature Pulse Rate Respiratory Rate Blood Pressure 169/92 H Pulse Oximetry 100 100 100 Oxygen Delivery 06/02/22 17:30 06/02/22 17:31 06/02/22 17:45 Temperat
[2022-06-03 13:45] VITALS: BP 143/65; PULSE 74; RESP 18; TEMP 35.9; O2SAT 100
--- NOTE | 2022-06-03 14:36 | WPDURCON ---
Assessment and Plan Assessment and plan (1) Prostatitis: Code(s): N41.9 - Inflammatory disease of prostate, unspecified Status: Acute Assessment and Plan: Continue Cipro, UA isn't suggestive of a UTI which is common with prostatitis, however CT does show inflammation in the bladder and bilateral ureters. Would recommend doing a repeat SANCHEZ in a few weeks to a month to re-evaluate. (2) BPH (benign prostatic hyperplasia): Code(s): N40.0 - Benign prostatic hyperplasia without lower urinary tract symptoms Status: Acute Assessment and Plan: Start Tamsulosin and FInasteride. Bladder scan to ensure proper emptying, place addison if PVR is >300cc. No further evaluation at this time. (3) Cystitis: Code(s): N30.90 - Cystitis, unspecified without hematuria Status: Acute Urology Consult Note HPI Date Seen: 06/03/22 Time Seen: 12:30 Requesting Physician: Selene Acevedo MD Primary Care Provider: Chad Nicole, Consult Narrative Reason for consult: Prostatitis/Bilateral Ascending infection/Cystitis Narrative: Tal George is a 76 year old male who initially was seen in the ER for a GI bleed 06/02/22. Incidentally he was found to have rectal pain from what was thought to be not only his sacral wound but prostatitis as he was tender on his MAGGIE. He had a CT scan showing bladder wall thickening with mild bilateral ureterectasis and urothelial enhancement indicating possible ascending infection on 06/02/22. Creatinine is 1.00, WBC is 9.5, UA is negative for UTI, he is afebrile and otherwise c/o regular frequency of urination, nocturia x 5 and straining/hesitancy of his stream. He has never been diagnosed with a UTI or BPH/OAB. His daughter is at the bedside and is translating for us since he speaks only Korean. She states he is an uncontrolled diabetic and has trouble with chronic infections. Review of Systems Cardiovascular: Cardiovascular: Denies chest pain Gastrointestinal: Gastrointestinal: Reports no additional gastrointestinal complaints Genitourinary: Genitourinary: Denies hematuria, Denies dysuria, Denies flank pain, Reports urinary frequency, Reports urinary hesitancy, Denies urinary incontinence and Reports urinary urgency [facility] Past Medical History Medical History Chronic indwelling Addison catheter Diabetes type 2, controlled Hypertension Urinary retention Surgical History Surgical History Surgical history unknown Family History Family History Mother Family history unknown Social History Social History Smoking status: Never smoker Alcohol intake: never Substance use: never Living arrangements: with family Gender identity (if verbalized by the patient): Male Sexual Orientation (if Verbalized by the Patient): Straight or Heterosexual Spiritual care concerns: Yes Meds Home Medications and Allergies Home Medications Medication Instructions Recorded Confirmed Type glipizide 5 mg tablet 5 mg PO QAM 05/08/22 06/03/22 History hydrochlorothiazide 12.5 mg capsule 12.5 mg PO QAM 05/08/22 06/03/22 History metformin 1,000 mg tablet 1,000 mg PO BID 05/08/22 06/03/22 History rosuvastatin 10 mg tablet 10 mg PO QAM 05/08/22 06/03/22 History valsartan 160 mg tablet 160 mg PO QAM 05/08/22 06/03/22 History Allergies Allergy/AdvReac Type Severity Reaction Status Date / Time gentamicin Allergy Swelling Verified 06/02/22 19:48 Vital Signs Vital Signs - 24 hr 06/02/22 14:46 06/02/22 14:47 06/02/22 14:48 Temperature Pulse Rate Respiratory Rate Blood Pressure 165/87 H Pulse Oximetry 100 97 99 Oxygen Delivery 06/02/22 15:00 06/02/22 15:02 06/02/22 15:03 Temperature Pulse Rate 68 Re
[2022-06-03] MEDS: TAMSULOSIN HCL 0.4 MG CAPSULE PO (14:55)
[2022-06-03 15:11] LABS: Basophils Absolute Auto 0.1 K/mm3 (0.0-0.1); Basophils Percent Auto 0.9 % (0.2-1.2); Eosinophils Absolute Auto 0.2 K/mm3 (0-0.3); Eosinophils Percent Auto 2.7 % (0-4.4); Hematocrit 42.4 % (42.0-52.0); Hemoglobin 13.4 g/dL (14.0-18.0); Immature Granulocyte Absolute 0.02 K/mm3 (0.00-0.031); Immature Granulocyte Percent A 0.3 % (0-0.5); Lymphocytes Percent Auto 37.4 % (18.3-44.2); Mean Corpuscular HGB Conc 31.6 g/dl (32-36); Mean Corpuscular Hemoglobin 28.5 pg (26-34); Mean Platelet Volume 10.2 fl (7.4-10.4); Monocytes Absolute Auto 0.8 K/mm3 (0.1-0.6); Monocytes Percent Auto 10.1 % (2.6-8.5); Neutrophils Absolute Auto 3.8 K/mm3 (1.3-6.7); Neutrophils Percent Auto 48.6 % (45.5-73.1); Platelet Count Result 246 k/mm3 (150-375); Red Blood Count 4.71 M/mm3 (4.6-6.20); Red Cell Distribution Width 13.7 % (11.5-14.5); White Blood Count 7.8 K/mm3 (4.5-10.0)
[2022-06-03 15:23] LABS: Alanine Aminotransferase 21 U/L (6-50); Albumin Level 4.2 g/dL (3.5-5.1); Alkaline Phosphatase 87 U/L (38-126); Anion Gap 9 mmol/L (8-16); Aspartate Amino Transferase 28 U/L (17-59); Bilirubin,Total 0.7 mg/dL (0.2-1.3); Blood Urea Nitrogen 19 mg/dL (9-20); Calcium 8.7 mg/dL (8.4-10.2); Carbon Dioxide 31 mmol/L (22-30); Chloride 93 mmol/L (98-107); Estimated CRCL calculation 47 ml/min; Estimated Glomerular Filt Rate > 60; Glucose 186 mg/dL (65-110); Potassium 3.7 mmol/L (3.4-5.0); Sodium 133 mmol/L (137-145)
[2022-06-03] MEDS: CIPROFLOXACIN 400 MG/D5W 200ML 200 ML 200 MG IVPB ×2 (15:37→22:39)
[2022-06-03] MEDS: FAMOTIDINE 20 MG TABLET PO ×2 (15:38→20:09)
[2022-06-03] MEDS: polyethylene glycoL 3350 17 GM POWD.PACK PO ×2 (15:41→20:24)
--- NOTE | 2022-06-03 17:33 | PC.NURSE ---
Pt voided per BR. Bladder scan results 31mls.
[2022-06-03 20:00] VITALS: PULSE 74; RESP 18; O2SAT 100
[2022-06-03] MEDS: ACETAMINOPHEN 500 MG TABLET 1000 MG PO (20:01)
[2022-06-03] MEDS: SENNA/DOCUSATE SODIUM TABLET 1 TAB PO (20:09)
[2022-06-03 22:00] VITALS: BP 116/66; PULSE 59; RESP 16; TEMP 35.8; O2SAT 99
[2022-06-03 22:51] LABS: Glucose Point of Care 248 mg/dl (65-105)
[2022-06-04 01:45] LABS: Glucose Point of Care 239 mg/dl (65-105)
[2022-06-04 06:00] VITALS: BP 115/63; PULSE 60; RESP 17; TEMP 35.9; O2SAT 100
[2022-06-04 06:19] LABS: Alanine Aminotransferase 17 U/L (6-50); Albumin Level 3.6 g/dL (3.5-5.1); Alkaline Phosphatase 79 U/L (38-126); Anion Gap 6 mmol/L (8-16); Aspartate Amino Transferase 24 U/L (17-59); Bilirubin,Total 0.6 mg/dL (0.2-1.3); Blood Urea Nitrogen 19 mg/dL (9-20); Calcium 8.1 mg/dL (8.4-10.2); Carbon Dioxide 32 mmol/L (22-30); Chloride 92 mmol/L (98-107); Cholesterol 172 mg/dL (0-200); Estimated CRCL calculation 47 ml/min; Estimated Glomerular Filt Rate > 60; Glucose 257 mg/dL (65-110); HDL Direct 27 mg/dL; Potassium 3.4 mmol/L (3.4-5.0); Sodium 130 mmol/L (137-145); Triglycerides 161 mg/dL (<150)
[2022-06-04 06:30] LABS: Basophils Absolute Auto 0.1 K/mm3 (0.0-0.1); Basophils Percent Auto 1.1 % (0.2-1.2); Eosinophils Absolute Auto 0.2 K/mm3 (0-0.3); Eosinophils Percent Auto 4.2 % (0-4.4); Hematocrit 35.6 % (42.0-52.0); Hemoglobin 11.5 g/dL (14.0-18.0); Immature Granulocyte Absolute 0.01 K/mm3 (0.00-0.031); Immature Granulocyte Percent A 0.2 % (0-0.5); LDL Cholesterol Direct 110 mg/dL; Lymphocytes Absolute Auto 2.81 K/mm3 (0.9-3.2); Lymphocytes Percent Auto 49.6 % (18.3-44.2); Mean Corpuscular HGB Conc 32.3 g/dl (32-36); Mean Corpuscular Volume 86.6 fl (80-100); Mean Platelet Volume 10.5 fl (7.4-10.4); Monocytes Absolute Auto 0.6 K/mm3 (0.1-0.6); Monocytes Percent Auto 11.1 % (2.6-8.5); Neutrophils Absolute Auto 1.9 K/mm3 (1.3-6.7); Neutrophils Percent Auto 33.8 % (45.5-73.1); Platelet Count Result 210 k/mm3 (150-375); Red Blood Count 4.11 M/mm3 (4.6-6.20); Red Cell Distribution Width 13.5 % (11.5-14.5); White Blood Count 5.7 K/mm3 (4.5-10.0)
[2022-06-04 07:37] LABS: Hemoglobin A1C 11.1 % (<5.7)
[2022-06-04 07:54] LABS: Glucose Point of Care 247 mg/dl (65-105)
[2022-06-04] MEDS: CIPROFLOXACIN 400 MG/D5W 200ML 200 ML 200 MG IVPB ×2 (09:03→20:19)
[2022-06-04] MEDS: VALSARTAN 160 MG TABLET PO (09:03)
[2022-06-04] MEDS: FAMOTIDINE 20 MG TABLET PO ×2 (09:04→20:19)
[2022-06-04] MEDS: hydroCHLOROthiazide 12.5 MG CAPSULE PO (09:04)
[2022-06-04] MEDS: FINASTERIDE 5 MG TABLET PO (09:04)
[2022-06-04] MEDS: ROSUVASTATIN 10 MG TABLET PO (09:04)
[2022-06-04] MEDS: INSULIN ASPART (*BKC) 100 UNITS/ML SUB-Q ×3 (09:05→16:47)
[2022-06-04] MEDS: polyethylene glycoL 3350 17 GM POWD.PACK PO ×2 (09:06→16:45)
[2022-06-04 11:42] LABS: Glucose Point of Care 368 mg/dl (65-105)
[2022-06-04 14:00] VITALS: BP 159/72; PULSE 68; RESP 18; TEMP 35.8; O2SAT 100
[2022-06-04] MEDS: BISACODYL 10 MG SUPPOSITORY RECTAL (14:25)
[2022-06-04 16:32] LABS: Glucose Point of Care 225 mg/dl (65-105)
[2022-06-04] MEDS: metFORMIN HCL 500 MG TABLET 1000 MG PO (16:45)
[2022-06-04] MEDS: glipiZIDE 5 MG TABLET PO (16:45)
--- NOTE | 2022-06-04 18:39 | PM.IMPN ---
Progress Note: A&P Assessment and Plan (1) Prostatitis: Code(s): N41.9 - Inflammatory disease of prostate, unspecified Status: Acute Assessment and Plan: UA clear. No UCx collected. BCx NGTD. WBC normal and remains normal. CT Abdomen/Pelvis showing bladder wall thickening an dmild bilateral ureterectasis with urothelial enhancement possibly from outlet compromise. or cystitis with ascending infection. Urine clear so doubt an ascending infection. Mildly inflamed right inguinual hernia and proctitis also noted. Prostatomegaly noted. Started on Rocephin but transitioned to Cipro for better prostate coverage. Appreciate urology consultation. Check PVRs as needed for evidence of urine retention. Tamsulosin and finasteride added. Consider proctitis causing some of his pain; Cipro should cover this. (2) Constipation: Code(s): K59.00 - Constipation, unspecified Status: Acute Assessment and Plan: Bowel regimen with MiraLax. Add suppositories. (3) Diabetes: Code(s): E11.9 - Type 2 diabetes mellitus without complications Status: Acute Assessment and Plan: A1c 11.1 The patient's blood glucose was reviewed on 06/04 Glucose is poorly controlled. Continue AccuCheks covering with sliding scale. Hypoglycemia protocol available as needed. Resume current medications. Advance Glipizide. (4) Hypertension: Code(s): I10 - Essential (primary) hypertension Status: Acute Assessment and Plan: Patient's blood pressure was reviewed on 06/04 Blood pressure remains reasonably well controlled. Will continue current medications. (5) Hyperlipidemia: Code(s): E78.5 - Hyperlipidemia, unspecified Status: Acute Assessment and Plan: LFTs normal. Lipid panel noted. Continue Crestor. Plan DVT prophylaxis with ambulation, SCDs ordered when patient is resting Code status full code Subjective Date/time seen: 06/04/22 18:39 Interval history: 76yo male with DM here for back pain. Assuming care. Chart reviewed. Patient is primarily Estonian speaking but does understand some Hebrew. His family is in the room and does translate as well. He denied dysuria. No Cp. No abdominal pain. Complains of no BM x 2 or more days. He was having crampy abdominal pain on my 2nd visit and repeats 'I am sick'. Exam Narrative: AF 96.4 159/72 68 18 100% ra Gen - NARD Chest - CTA bilaterally, nml RR CV - RRR S1/S2 Abd - Soft, NT/ND, Positive BS. No inguinal hernias appreciated and no pain in the lower abdomen to suggest incarcerated hermia. Ext - trace pedal edema with right Homans sign Psych - Nml mood and affect Skin - Warm and dry Objective Data Vital Signs Vital Signs: Vital Signs - 24 hr 06/03/22 20:00 06/03/22 22:00 06/04/22 06:00 Temperature 96.5 F L 96.6 F L Pulse Rate 74 59 L 60 Respiratory Rate 18 16 17 Blood Pressure 116/66 115/63 Pulse Oximetry 100 99 100 Oxygen Delivery Room Air 06/04/22 14:00 Temperature 96.4 F L Pulse Rate 68 Respiratory Rate 18 Blood Pressure 159/72 H Pulse Oximetry 100 Oxygen Delivery Intake/Output Intake/Output: Intake & Output 06/01/22 06/02/22 06/03/22 06/04/22 23:59 23:59 23:59 23:59 Intake Total 50 2700 2200 Output Total 250 Balance 50 2450 2200 Meds/Results Medications: Active Medications Generic Name Dose Route Start Last Admin Trade Name Freq PRN Reason Stop Dose Admin Acetaminophen 1,000 mg 06/03/22 14:45 06/03/22 20:01 Acetaminophen 500 Mg Tablet PO 1,000 mg Q6H PRN Administration Mild Pain (1-3) or Fever Bisacodyl 10 mg 06/05/22 09:00 Bisacodyl 10 Mg Suppository RECTAL 06/06/22 09:01 QAM [facility] Dextrose 12.5 gm 06/03/22 19:43 Dextrose 50% 25 Gm/50 Ml Syringe IV PUSH PRN PRN Hypoglycemia Protocol Famotidine 20 mg 06/03/22 14:50 06/04/22 09:04 Famotidine 20 Mg Tablet PO 20 mg Q12HR [facility] Adminis
[2022-06-04] MEDS: POTASSIUM CHLORIDE 20 MEQ TABLET PO (20:19)
[2022-06-04] MEDS: SENNA/DOCUSATE SODIUM TABLET 1 TAB PO (20:19)
[2022-06-04 20:22] LABS: Glucose Point of Care 195 mg/dl (65-105)
[2022-06-04 22:00] VITALS: BP 158/94; PULSE 87; RESP 19; TEMP 35.9; O2SAT 100
[2022-06-05 06:00] VITALS: BP 150/70; PULSE 68; RESP 18; TEMP 36.3; O2SAT 91
[2022-06-05 06:44] LABS: Basophils Percent Auto 0.3 % (0.2-1.2); Eosinophils Absolute Auto 0.3 K/mm3 (0-0.3); Eosinophils Percent Auto 3.3 % (0-4.4); Hemoglobin 12.1 g/dL (14.0-18.0); Immature Granulocyte Absolute 0.02 K/mm3 (0.00-0.031); Immature Granulocyte Percent A 0.3 % (0-0.5); Lymphocytes Absolute Auto 3.34 K/mm3 (0.9-3.2); Lymphocytes Percent Auto 42.5 % (18.3-44.2); Mean Corpuscular HGB Conc 31.8 g/dl (32-36); Mean Corpuscular Hemoglobin 27.9 pg (26-34); Mean Corpuscular Volume 87.8 fl (80-100); Monocytes Absolute Auto 0.9 K/mm3 (0.1-0.6); Monocytes Percent Auto 11.3 % (2.6-8.5); Neutrophils Absolute Auto 3.3 K/mm3 (1.3-6.7); Neutrophils Percent Auto 42.3 % (45.5-73.1); Platelet Count Result 191 k/mm3 (150-375); Red Blood Count 4.33 M/mm3 (4.6-6.20); Red Cell Distribution Width 13.6 % (11.5-14.5); White Blood Count 7.9 K/mm3 (4.5-10.0)
[2022-06-05 06:55] LABS: Alanine Aminotransferase 18 U/L (6-50); Albumin Level 3.7 g/dL (3.5-5.1); Alkaline Phosphatase 76 U/L (38-126); Anion Gap 5 mmol/L (8-16); Aspartate Amino Transferase 24 U/L (17-59); Bilirubin,Total 0.5 mg/dL (0.2-1.3); Blood Urea Nitrogen 16 mg/dL (9-20); Calcium 8.7 mg/dL (8.4-10.2); Carbon Dioxide 32 mmol/L (22-30); Chloride 98 mmol/L (98-107); Estimated CRCL calculation 47 ml/min; Estimated Glomerular Filt Rate > 60; Glucose 155 mg/dL (65-110); Potassium 3.3 mmol/L (3.4-5.0); Sodium 135 mmol/L (137-145)
[2022-06-05 07:46] LABS: Glucose Point of Care 176 mg/dl (65-105)
[2022-06-05] MEDS: hydroCHLOROthiazide 12.5 MG CAPSULE PO (08:40)
[2022-06-05] MEDS: ROSUVASTATIN 10 MG TABLET PO (08:40)
[2022-06-05] MEDS: VALSARTAN 160 MG TABLET PO (08:40)
[2022-06-05] MEDS: glipiZIDE 5 MG TABLET PO ×2 (08:40→17:11)
[2022-06-05] MEDS: FAMOTIDINE 20 MG TABLET PO (08:40)
[2022-06-05] MEDS: FINASTERIDE 5 MG TABLET PO (08:40)
[2022-06-05] MEDS: polyethylene glycoL 3350 17 GM POWD.PACK PO (08:41)
[2022-06-05] MEDS: BISACODYL 10 MG SUPPOSITORY RECTAL (08:43)
[2022-06-05] MEDS: CIPROFLOXACIN 400 MG/D5W 200ML 200 ML 200 MG IVPB (08:46)
[2022-06-05] MEDS: metFORMIN HCL 500 MG TABLET 1000 MG PO ×2 (08:56→17:11)
[2022-06-05 11:59] LABS: Glucose Point of Care 254 mg/dl (65-105)
[2022-06-05] MEDS: INSULIN ASPART (*BKC) 100 UNITS/ML SUB-Q (12:23)
[2022-06-05 13:47] VITALS: BP 152/84; PULSE 68; RESP 16; O2SAT 100
--- NOTE | 2022-06-05 15:40 | PM.DS ---
DS: Admitting Diagnosis Discharge Date 06/05/22 Admitting Diagnosis back pain DS: Discharge Diagnosis Discharge Diagnosis (1) Prostatitis: Code(s): N41.9 - Inflammatory disease of prostate, unspecified Status: Acute (2) Constipation: Code(s): K59.00 - Constipation, unspecified Status: Acute (3) Diabetes: Code(s): E11.9 - Type 2 diabetes mellitus without complications Status: Acute (4) Hypertension: Code(s): I10 - Essential (primary) hypertension Status: Acute (5) Hyperlipidemia: Code(s): E78.5 - Hyperlipidemia, unspecified Status: Acute (6) Acute proctitis: Code(s): K62.89 - Other specified diseases of anus and rectum Status: Acute DS: Summary Hospital Course Reason for hospitalization: 76yo male with DM here for back pain. Please see H&P for details Hospital Course: Patient presents with back pain. UA was clear. No UCx collected. BCx NGTD. WBC normal and remained normal. CT Abdomen/Pelvis showing bladder wall thickening and mild bilateral ureterectasis with urothelial enhancement possibly from outlet compromise or cystitis with ascending infection. Urine clear so doubt an ascending infection. Mildly inflamed right inguinal hernia and proctitis also noted. Prostatomegaly noted. o clinical evidence of incarcerated hernia. He was started on Rocephin but transitioned to Cipro for better prostate coverage. Appreciate urology consultation. Finasteride and Flomax added. Consider proctitis causing some of his pain; Cipro should cover this. He was complaining of constipation. KUB showing no obstruction but large volume of stools. Miralax started with benefits. A1c 11.1 The patient's blood glucose was monitored with AccuCheks covering with sliding scale.? Hypoglycemia protocol was available as needed.?We resumed home medications and advanced his Glipizide. Glucose did improve probably related to controlling his diet here. He does have a meter at home. Blood pressure remained reasonably well controlled.? Patient overall did well and was able to be discharged home on 06/05/2022. Discharge instructions were discussed at length with the patient with a family cloth bleaching supervisor in the room. All questions were answered. Status at Discharge Cognitive/behavioral status at discharge: stable Time Spent with Patient Time attestation: Total time spent providing and/or coordinating discharge services: 38 minutes Time spent: Greater than 30 minutes Exam Narrative: AF 152/84 68 16 100% ra Gen - NARD Chest - CTA bilaterally, nml RR CV - RRR S1/S2 Abd - Soft, NT/ND, Positive BS Ext - No pedal edema Psych - Nml mood and affect Skin - Warm and dry DS: Data Data Completed and Pending Labs on day of discharge: Labs from last 24 hours 06/05/22 06/05/22 06/05/22 11:47 07:34 06:06 WBC RBC Hgb Hct MCV MCH MCHC RDW Plt Count MPV Immature Gran % (Auto) Neut % (Auto) Lymph % (Auto) [place] % (Auto) Eos % (Auto) Baso % (Auto) Lymph # (Auto) [place] # (Auto) Eos # (Auto) Baso # (Auto) Abs Immat Gran (auto) Absolute Neuts (auto) Absolute Nucleated RBC Nucleated RBC % Sodium 135 L Potassium 3.3 L Chloride 98 Carbon Dioxide 32 H Anion Gap 5 L BUN 16 Creatinine 1.10 Estim Creat Clear Calc 47 Estimated GFR > 60 Glucose 155 H POC Capillary Glucose 254 H 176 H Calcium 8.7 Total Bilirubin 0.5 AST 24 ALT 18 Alkaline Phosphatase 76 Total Protein 7.0 Albumin 3.7 06/05/22 06/04/22 06/04/22 06:06 20:17 16:29 WBC 7.9 RBC 4.33 L Hgb 12.1 L Hct 38.0 L MCV 87.8 MCH 27.9 MCHC 31.8 L RDW 13.6 Plt Count 191 MPV 11.0 H Immature Gran % (Auto) 0.3 Neut % (Auto) 42.3 L Lymph % (Auto) 42.5 [place] % (Auto) 11.3 H Eos % (Auto) 3.3 Baso % (Auto) 0.3 Lymph # (Auto) 3.34 H
== END 2022-06-05 17:55 | disposition home or self-care (01) ==
LOC: ANHED 15:27 → ANH3MEDSUR 22:58
PROVIDERS: Student in an Organized Health Care Education/Training Program; Admitting Provider Internal Medicine; Emergency Provider Emergency Medicine; PCP Family Medicine Sports Medicine; Visit Provider Internal Medicine
DX: N41.9 Inflammatory disease of prostate, unspecified (principal); K59.00 Constipation, unspecified; E11.9 Type 2 diabetes mellitus without complications; I10 Essential (primary) hypertension; E78.5 Hyperlipidemia, unspecified; K62.89 Other specified diseases of anus and rectum; N30.90 Cystitis, unspecified without hematuria; K40.90 Unilateral inguinal hernia, without obstruction or gangrene, not specified as recurrent; Z20.822 Contact with and (suspected) exposure to COVID-19; M54.9 Dorsalgia, unspecified; M25.552 Pain in left hip; M25.551 Pain in right hip; M79.606 Pain in leg, unspecified; Z98.1 Arthrodesis status; R63.0 Anorexia; Z68.25 Body mass index [BMI] 25.0-25.9, adult; R33.9 Retention of urine, unspecified; L89.159 Pressure ulcer of sacral region, unspecified stage; Z96.0 Presence of urogenital implants; Z79.01 Long term (current) use of anticoagulants; Z79.52 Long term (current) use of systemic steroids; Z79.84 Long term (current) use of oral hypoglycemic drugs; Z79.899 Other long term (current) drug therapy; M16.9 Osteoarthritis of hip, unspecified
CPT/HCPCS: 36415; 72202; 74019; 74177; 80053; 80061; 81003; 82948; 83036; 85025; 85610; 85730; 86850; 86900; 86901; 87636; 93970; 96365; 96366; 96367; 99285; A9270; G0378; G0379; J0696; J0744; J1815; Q9967

== ENCOUNTER 2022-06-06 15:09 | Emergency (ER) | payer OTHER, SELFPAY ==
[2022-06-06 15:34] VITALS: BP 135/78; PULSE 78; RESP 16; TEMP 36.6; O2SAT 99
[2022-06-06 16:21] LABS: Alanine Aminotransferase 22 U/L (6-50); Albumin Level 4.2 g/dL (3.5-5.1); Alkaline Phosphatase 86 U/L (38-126); Anion Gap 7 mmol/L (8-16); Aspartate Amino Transferase 32 U/L (17-59); Bilirubin,Total 0.7 mg/dL (0.2-1.3); Blood Urea Nitrogen 18 mg/dL (9-20); Calcium 8.7 mg/dL (8.4-10.2); Carbon Dioxide 31 mmol/L (22-30); Chloride 97 mmol/L (98-107); Estimated Glomerular Filt Rate 50; Glucose 143 mg/dL (65-110); Lipase 157 U/L (23-300); Potassium 3.8 mmol/L (3.4-5.0); Sodium 135 mmol/L (137-145)
[2022-06-06 16:30] LABS: Basophils Absolute Auto 0.1 K/mm3 (0.0-0.1); Basophils Percent Auto 0.5 % (0.2-1.2); Eosinophils Absolute Auto 0.2 K/mm3 (0-0.3); Eosinophils Percent Auto 2.2 % (0-4.4); Hematocrit 39.9 % (42.0-52.0); Hemoglobin 12.6 g/dL (14.0-18.0); Immature Granulocyte Absolute 0.03 K/mm3 (0.00-0.031); Immature Granulocyte Percent A 0.3 % (0-0.5); Lymphocytes Absolute Auto 3.84 K/mm3 (0.9-3.2); Lymphocytes Percent Auto 40.4 % (18.3-44.2); Mean Corpuscular HGB Conc 31.6 g/dl (32-36); Mean Corpuscular Hemoglobin 28.3 pg (26-34); Mean Corpuscular Volume 89.7 fl (80-100); Mean Platelet Volume 10.1 fl (7.4-10.4); Monocytes Absolute Auto 0.9 K/mm3 (0.1-0.6); Neutrophils Absolute Auto 4.5 K/mm3 (1.3-6.7); Neutrophils Percent Auto 47.6 % (45.5-73.1); Platelet Count Result 246 k/mm3 (150-375); Red Blood Count 4.45 M/mm3 (4.6-6.20); Red Cell Distribution Width 13.8 % (11.5-14.5); White Blood Count 9.5 K/mm3 (4.5-10.0)
--- NOTE | 2022-06-06 18:35 | PC.NURSE ---
Pt son ambulatory to intake desk w/ pt, states Yeah, he isnt willing to wait any longer. He is just gonna leave. Pt ambulated out to bench w/ tech assist and pt son went to get car for [address]. NAD noted.
== END 2022-06-06 18:35 | disposition left against medical advice (07) ==
PROVIDERS: Emergency Provider Emergency Medicine; PCP Family Medicine Sports Medicine
DX: R10.9 Unspecified abdominal pain (principal)
CPT/HCPCS: 36415; 80053; 83690; 85025; 99199

== ENCOUNTER 2022-07-17 22:57 | Emergency (ER) | payer OTHER, SELFPAY ==
--- NOTE | ~2022-07-17 | CT_ITS ---
Non-contrast CT scan of the Abdomen and Pelvis Clinical indication: Left-sided pain Technique: 2.5 mm axial scans were obtained through the abdomen and pelvis without intravenous or or al contrast. Dose reduction technique was used on this scan by utilizing automated exposure control a nd iterative reconstruction technique. The dose-length product (DLP) was 591.64 mGy-cm. COMPARISON: 06/02/2022 Findings: Images through the lung bases reveal no abnormalities. Prior ORIF of right-sided rib fract ures noted, unchanged. The liver, spleen, pancreas, gallbladder, and adrenals appear normal. Small nonobstructing right yovani l stone present. Bilateral renal cysts present. There are atherosclerotic calcifications of the aorta . There is no evidence of bowel obstruction. Images through the pelvis were performed. There is no evidence of ascites or lymphadenopathy. Urinary bladder unremarkable. Prostate gland mildly enlarged. Chronic fracture deformities of the right superior and inferior pubic rami are present. Orthopedic sc rew is present through the right SI joint. Stable chronic compression fracture of L1 noted. There is probable minimal loss of height of L4 as compared to prior exam. Impression: Probable mild acute compression fracture the superior endplate of L4, new since 06/02/2022. No other acute abnormality seen. Additional chronic findings, as noted above, are stable from prior e xam. Reviewed, dictated and finalized at location . Impression: Probable mild acute compression fracture the superior endplate of L4, new since 06/02/2022. No other acute abnormality seen. Additional chronic findings, as noted above, a re stable from prior exam.
[2022-07-17 23:08] VITALS: BP 162/92; PULSE 87; RESP 18; TEMP 36.9; O2SAT 97
--- NOTE | 2022-07-18 02:05 | ED.BACK ---
HPI - Back Pain/Injury General Chief Complaint: Back Pain/Injury Stated Complaint: LOW BACK PAIN S/P FALL 2 DAYS AGO Time Seen by Provider: 07/18/22 01:13 Source: patient Mode of arrival: ambulatory Limitations: language barrier History of Present Illness HPI Narrative: Patient is a 76 y/o male who presents to the ED with c/o L low back/hip/flank pain. Patient is primarily Slovak speaking. He does understand some Maltese. [employer] top lift compresser was utilized for assistance with translation. Patient reports he slipped and fell while walking up the stairs 2 days ago. He denied any prodromal symptoms prior to the fall. Denied head injury or LOC. He landed on his left buttock. He complains of pain to his left flank/lower back/upper hip. He has not taken anything for the pain. He has been able to ambulate since the fall, but complains of pain with this. Denies any other injuries. Denies numbness, saddle anesthesia, incontinence, weakness of legs, abdominal pain. Related Data Home Medications Medication Instructions Recorded Confirmed hydrochlorothiazide 12.5 mg capsule 12.5 mg PO QAM 05/08/22 06/03/22 metformin 1,000 mg tablet 1,000 mg PO BID 05/08/22 06/03/22 rosuvastatin 10 mg tablet 10 mg PO QAM 05/08/22 06/03/22 valsartan 160 mg tablet 160 mg PO QAM 05/08/22 06/03/22 Allergies Allergy/AdvReac Type Severity Reaction Status Date / Time gentamicin Allergy Swelling Verified 06/02/22 19:48 Review of Systems Review of Systems: CONSTITUTIONAL: Denies fever, chills, or sweats. CARDIOVASCULAR: Denies chest pain. RESPIRATORY: Denies dyspnea. GASTROINTESTINAL: Denies abdominal pain, nausea, vomiting. GENITOURINARY: Denies incontinence, dysuria or hematuria. MUSCULOSKELETAL: See HPI. NEUROLOGIC: See HPI. All systems reviewed & are unremarkable except as noted in HPI and below PMFSH Past Medical History Medical History (Updated 07/18/22 @ 04:54 by Zahida Morejon PA-C) Chronic indwelling Epps catheter Compression fracture of L4 vertebra Diabetes Diabetes type 2, controlled Hyperlipidemia Hypertension Urinary retention Surgical History Surgical History Surgical history unknown Family History Family History Mother Family history unknown Social History Social History Smoking status: Never smoker Alcohol intake: never Substance use: never Living arrangements: with family Gender identity (if verbalized by the patient): Male Sexual Orientation (if Verbalized by the Patient): Straight or Heterosexual Spiritual care concerns: Yes Exam Narrative: GENERAL: Well appearing, well-nourished, non-toxic, in mild acute distress due to pain. HEAD: Normocephalic, atraumatic. NECK: Supple. No adenopathy, no masses. RESPIRATORY: Airway patent, respirations nonlabored. Clear to auscultation bilaterally, no rales, rhonchi, wheezing. CARDIOVASCULAR: Regular rate and rhythm without murmurs, rubs, or gallops. Peripheral pulses 2+ and equal bilaterally. ABDOMINAL: Soft, no tenderness throughout abdomen, nondistended, no hepatosplenomegaly. Normoactive BS. MUSCULOSKELETAL: Moves all extremities. Strength/ROM intact without gross deformities. No significant midline lumbar or thoracic spinal tenderness. Tenderness to palpation over left-sided lumbosacral region, left iliac crest. Pain reported in left sided low back with flexion and extension of left lower extremity. No tenderness to palpation directly over left hip. No tenderness along thigh or knee. SKIN: Warm, dry, normal color. No rashes. NEURO: A&O X3. Speech clear. Cranial nerves II-XII grossly intact. No ataxic movements. PSYCHIATRIC: Appropriate mood and affect. Normal interaction. Course Vital Signs Vital signs: Vital Signs Temperature 98.5 F 07/17/22 23:08 Pulse Rate
[2022-07-18] MEDS: ACETAMINOPHEN 325 MG TABLET 650 MG PO (02:12)
[2022-07-18] MEDS: traMADol HCL (*CRX) 50 MG TABLET PO (04:30)
[2022-07-18 07:14] VITALS: BP 165/89; PULSE 74; RESP 15; O2SAT 99
--- NOTE | 2022-07-18 07:17 | PC.NURSE ---
Assumed care of pt, pt is resting - alert to verbal stimuli w/ VSS. Per Shama COLLADO during bedside report - pt is d/c'd and awaiting or family to pick pt up.
== END 2022-07-18 08:10 | disposition home or self-care (01) ==
PROVIDERS: Emergency Provider Physician Assistant; PCP Family Medicine Sports Medicine
DX: S32.040A Wedge compression fracture of fourth lumbar vertebra, initial encounter for closed fracture (principal); E11.9 Type 2 diabetes mellitus without complications; E78.5 Hyperlipidemia, unspecified; I10 Essential (primary) hypertension; Z79.84 Long term (current) use of oral hypoglycemic drugs; W10.9XXA Fall (on) (from) unspecified stairs and steps, initial encounter
CPT/HCPCS: 74176; 99284; A9270

== ENCOUNTER 2024-01-19 14:03 | Emergency (ER) | payer OTHER, SELFPAY ==
--- NOTE | ~2024-01-19 | CT_ITS ---
CT chest abdomen pelvis w con Ordering provider: Landy Pinon APRN History: 78 years Male with . generalized abominal pain, no BM 15 days . Comparison: None. Technique: CT chest with IV contrast. CT abdomen and pelvis CT abdomen and pelvis with IV and with or al contrast. Radiation reduction technique utilized The dose-length product was 749.17 mGy-cm. 100 MLO Omnipaque 350 was given IV. FINDINGS: CHEST: --VISUALIZED THORACIC INLET: Normal. --MEDIASTINUM: Aorta/coronary arteries: Mild atheromatous disease. Heart/other: The heart is not enlarged. Ascending aorta to measures 3.9 cm. Small lymph nodes are see n in the mediastinum and axillary areas. Lymph nodes: No mediastinal or hilar adenopathy. --LUNGS: No pulmonary nodules or masses. No infiltrates or effusions. No pneumothorax. Dependent atel ectatic changes. --MUSCULOSKELETAL: Soft tissues: Small Left inguinal hernia with fat content. The superficial soft tissues are normal. Bones: Age appropriate degenerative changes of the spine. No suspicious bony lytic or sclerotic lesio ns. Multiple right hemithorax fixation of fractures by plate and screws. Healed second, third and fou rth rib fractures in the left hemithorax. ABDOMEN/PELVIS: --MUSCULOSKELETAL: Bones: Age appropriate degenerative changes of the spine. No suspicious bony lytic or sclerotic lesio ns. Compression fracture of L1 is noted. Fixation of the right sacroiliac joint by a screw. Bilateral sacroiliacs. All old fracture in the right superior and inferior pubic ramus Superficial soft tissues: The superficial soft tissues are normal. --UPPER ABDOMINAL ORGANS: Liver: Normal. Gallbladder: Normal. Spleen: Normal. Stomach/duodenum: Normal. Pancreas: Normal. Adrenals: Slightly prominent left adrenal gland. Kidneys: Bilateral renal cyst the largest on the left side in the lower pole measures 4.7 cm and on t he right side in the mid pole measures 3.5 cm. --PELVIC ORGANS: The bladder is normal. No bladder stones. --BOWEL AND MESENTERY: Colon: No evidence of diverticulitis.. Thickened wall of the rectum suggestive of proctitis. The appe ndix is not demonstrated. Fecal material is loaded in the colon. Small Bowel: Normal. No obstruction. Peritoneum/mesentery: No free air or free fluid. No mesenteric lymphadenopathy. --RETROPERITONEUM: Mild atheromatous disease of the abdominal aorta. No retroperitoneal lymphadenop athy. IMPRESSION: CHEST: 1. No acute cardiopulmonary pathology. ABDOMEN/PELVIS: 1. No acute abdominal process with no evidence of appendicitis, diverticulitis or intestinal obstruc tion. 2. Thickened wall of the rectum suggestive of proctitis. 3. Constipation 4. Bilateral renal cysts. Reviewed, dictated and finalized at location A. IMPRESSION: CHEST: 1. No acute cardiopulmonary pathology. ABDOMEN/PELVIS: 1. No acute abdominal process with no evidence of appendicitis, diverticulitis or intestinal obstruction. 2. Thickened wall of the rectum suggestive of proctitis. 3. Constipation 4. Bilateral renal cysts.
[2024-01-19 14:08] VITALS: BP 158/85; PULSE 78; RESP 18; TEMP 36.4; O2SAT 99
[2024-01-19 14:35] LABS: Basophils Absolute Auto 0.1 K/mm3 (0.0-0.1); Basophils Percent Auto 0.8 % (0.2-1.2); Eosinophils Absolute Auto 0.2 K/mm3 (0-0.3); Eosinophils Percent Auto 1.9 % (0-4.4); Hematocrit 49.5 % (42.0-52.0); Hemoglobin 16.2 g/dL (14.0-18.0); Immature Granulocyte Absolute 0.04 K/mm3 (0.00-0.031); Immature Granulocyte Percent A 0.3 % (0-0.5); Lymphocytes Absolute Auto 3.33 K/mm3 (0.9-3.2); Lymphocytes Percent Auto 27.4 % (18.3-44.2); Mean Corpuscular HGB Conc 32.7 g/dl (32-36); Mean Corpuscular Hemoglobin 28.8 pg (26-34); Mean Corpuscular Volume 87.9 fl (80-100); Mean Platelet Volume 10.9 fl (7.4-10.4); Monocytes Absolute Auto 0.8 K/mm3 (0.1-0.6); Monocytes Percent Auto 6.7 % (2.6-8.5); Neutrophils Absolute Auto 7.6 K/mm3 (1.3-6.7); Neutrophils Percent Auto 62.9 % (45.5-73.1); Platelet Count Result 230 k/mm3 (150-375); Red Blood Count 5.63 M/mm3 (4.6-6.20); White Blood Count 12.1 K/mm3 (4.5-10.0)
[2024-01-19 14:47] LABS: Alanine Aminotransferase 19 U/L (6-50); Albumin Level 4.7 g/dL (3.5-5.1); Alkaline Phosphatase 113 U/L (38-126); Anion Gap 14 mmol/L (4-12); Aspartate Amino Transferase 30 U/L (17-59); Bilirubin,Total 0.6 mg/dL (0.2-1.3); Blood Urea Nitrogen 24 mg/dL (9-20); Calcium 9.4 mg/dL (8.4-10.2); Carbon Dioxide 24 mmol/L (22-30); Chloride 99 mmol/L (98-107); Estimated CRCL calculation 50 ml/min; Estimated Glomerular Filt Rate > 60; Glucose 166 mg/dL (65-110); Lipase 183 U/L (23-300); Potassium 4.3 mmol/L (3.4-5.0); Sodium 137 mmol/L (137-145)
--- NOTE | 2024-01-19 14:58 | ECG_ITS ---
Test Date: 2024-01-19 15:27:53 Measurements Intervals [place] Rate: 73 P: 27 MO: 178 QRS: 2 QRSD: 86 T: 46 QT: 367 QTc: 405 Interpretive Statements SINUS RHYTHM NONSPECIFIC T-WAVE ABNORMALITY No previous ECG available for comparison Electronically Signed On 01-20-2024 09:37:45 CDT by Milo Sumner M.D.
--- NOTE | 2024-01-19 15:01 | ED.ABDPAIN ---
HPI - Abdominal Pain General Chief Complaint: Abdominal Pain <Landy Pinon APRN - Last Filed: 01/19/24 15:09> Stated Complaint: CONSTIPATION <Landy Pinon APRN - Last Filed: 01/19/24 15:09> Time Seen by Provider: 01/19/24 14:55 <Landy Pinon APRN - Last Filed: 01/19/24 15:09> Focused HPI: Patient is a 78-year-old male who presents to the ER with abdominal pain. He reports he has not had a bowel movement for 15 days. Patient endorses abdominal pain and his left lower, right upper and left upper quadrants. He denies nausea or vomiting. According to patient's chart he has a history of diabetes, abscess, and proctitis. GENERAL: Well-appearing, well-nourished, and in no acute distress. HEAD: Normocephalic, atraumatic. CHEST: Clear to auscultation. ?No respiratory distress. HEART: Regular rate and rhythm.? ABDOMEN: Increased tenderness with palpation in RUQ, LUQ, and LLQ. + BS NEURO: ?Alert and oriented x3. Patient screened in triage and initial orders placed.? ?Additional care and disposition to be based upon?diagnostic testing and treatment. <Landy Pinon APRN - Last Filed: 01/19/24 15:09> History of Present Illness HPI narrative: I agree with the above HPI <Stephen Granado MD - Last Filed: 01/19/24 21:04> Related Data Home Medications: Home Medications Medication Instructions Recorded Confirmed hydrochlorothiazide 12.5 mg capsule 12.5 mg PO QAM 05/08/22 06/03/22 metformin 1,000 mg tablet 1,000 mg PO BID 05/08/22 06/03/22 rosuvastatin 10 mg tablet 10 mg PO QAM 05/08/22 06/03/22 valsartan 160 mg tablet 160 mg PO QAM 05/08/22 06/03/22 <Landy Pinon APRN - Last Filed: 01/19/24 15:09> Allergies/Adverse Reactions: Allergies Allergy/AdvReac Type Severity Reaction Status Date / Time gentamicin Allergy Swelling Verified 01/19/24 14:13 <Landy Pinon APRN - Last Filed: 01/19/24 15:09> Review of Systems Review of Systems: All systems reviewed & are unremarkable except as noted in HPI and below <Stephen Granado MD - Last Filed: 01/19/24 21:04> PMFSH Past Medical History Medical History: Medical History (Updated 01/19/24 @ 18:21 by Stephen Granado MD) Chronic indwelling Epps catheter Compression fracture of L4 vertebra Diabetes Diabetes type 2, controlled Hyperlipidemia Hypertension Urinary retention <Landy Pinon APRN - Last Filed: 01/19/24 15:09> Surgical History Surgical History: Surgical History Surgical history unknown <Landy Pinon APRN - Last Filed: 01/19/24 15:09> Family History Family History: Family History Mother Family history unknown <Landy Pinon APRN - Last Filed: 01/19/24 15:09> Social History Social History: Social History Smoking status: Never smoker Alcohol intake: never Substance use: never Living arrangements: with family Gender identity (if verbalized by the patient): Male Sexual Orientation (if Verbalized by the Patient): Straight or Heterosexual Spiritual care concerns: Yes <Landy Pinon APRN - Last Filed: 01/19/24 15:09> Exam Narrative: APPEARANCE: Well appearing, no pain, no distress, well-nourished. HEAD: normocephalic, atraumatic. EYES: PERRLA/EOMI, conjunctivae clear. NOSE: Normal no drainage EARS:TMS clear with good light reflex. THROAT: Pharynx clear, no exudate. NECK: Supple. No adenopathy, no masses. RESPIRATORY: Airway patent, respirations nonlabored. Clear to auscultation bilaterally, no rales, rhonchi, wheezing. CARDIOVASCULAR: Regular rate and rhythm without murmurs rubs or gallops. ABDOMINAL: Soft, nontender, nondistended, normal bowel sounds MUSCULOSKELETAL: Moves all extremities. Strength/ROM intact, No edema, No calf tenderness. NE
[2024-01-19 15:56] LABS: Lactic Acid Reflex 1.1 mmol/L (0.7-2.0)
[2024-01-19 16:03] LABS: INR 0.9; Prothrombin Time 12.8 Seconds (11.1-14.7)
[2024-01-19 16:04] LABS: Partial Thromboplastin Time 25.3 Seconds (22.3-36.8)
[2024-01-19 16:09] VITALS: BP 189/94; PULSE 83; RESP 18; O2SAT 97
[2024-01-19 16:09] LABS: Troponin I < 0.012 ng/mL (0.000-0.034)
[2024-01-19 16:21] LABS: Add Urine Microscopic? YES; Appearance Urine Clear (Clear); Bacteria Urine None Seen /hpf; Bilirubin Urine Negative (Negative); Blood Urine Negative (Negative); Color Urine Yellow (Yellow); Glucose Urine UA Negative (Negative); Ketones Urine Trace mg/dL (Negative); Leukocyte Esterase Ur Negative LEU/UL (Negative); Nitrate Urine Negative (Negative); Non Pathogenic Casts 0-2; Protein Urine Trace mg/dL (Negative); Squamous Epithelial Cell Urine None Seen /hpf (Few); Urobilinogen Urine 0.2 mg/dL (<2.0); WBC Urine 0-5 /hpf (0-3)
--- NOTE | 2024-01-19 16:48 | PC.NURSE ---
Pts daughter called for an update on pt as well as to discuss POC. Per request, please call at time of discharge. [phone]
[2024-01-19 18:11] VITALS: BP 184/87; PULSE 75; RESP 16; O2SAT 100
--- NOTE | 2024-01-19 18:25 | PC.NURSE ---
called daughter Mary regarding pt discharge and update on pt, will send brother Juan Antonio to order picker pt
== END 2024-01-19 18:50 | disposition home or self-care (01) ==
PROVIDERS: Registered Nurse; Emergency Provider Emergency Medicine; PCP Family Medicine Sports Medicine
DX: K59.00 Constipation, unspecified (principal); E11.9 Type 2 diabetes mellitus without complications; Z79.84 Long term (current) use of oral hypoglycemic drugs; I10 Essential (primary) hypertension; E78.5 Hyperlipidemia, unspecified
CPT/HCPCS: 36415; 71260; 74177; 80053; 81001; 83605; 83690; 84484; 85025; 85610; 85730; 87040; 93005; 99284; Q9967

== ENCOUNTER 2024-04-30 13:52 | Inpatient (IN) | payer OTHER, SELFPAY ==
[2024-04-30] VITALS (22 sets, daily range): BP systolic 107–138; BP diastolic 55–78; PULSE 62–83; RESP 16–212; TEMP 36.4–37.2; O2SAT 94–98
--- NOTE | ~2024-04-30 | XR_ITS ---
CHEST RADIOGRAPH CLINICAL HISTORY: stemi . COMPARISON: None available TECHNIQUE: Single portable view of the chest. FINDINGS The cardiomediastinal silhouette is unremarkable. The lungs are clear. Fixation hardware projecting over multiple right sided rib fractures IMPRESSION: No focal infiltrate or effusion. Reviewed, dictated and finalized at location A. CLEANING MANAGER
--- NOTE | 2024-04-30 13:56 | ECG_ITS ---
Test Date: 2024-04-30 13:54:40 Measurements Intervals [place] Rate: 78 P: 7 AK: 187 QRS: -30 QRSD: 86 T: -7 QT: 367 QTc: 419 Interpretive Statements SINUS RHYTHM WITH OCCASIONAL SUPRAVENTRICULAR PREMATURE COMPLEXES POSSIBLE RIGHT VENTRICULAR CONDUCTION DELAY [RSR (QR) IN V1/V2] SEPTAL MYOCARDIAL INFARCTION , POSSIBLY ACUTE [40+ ms Q WAVE IN V1/V2] ACUTE CA Compared to ECG 09/05/2023 20:47:57 Myocardial infarct finding now present T-wave abnormality no longer present Electronically Signed On 04-30-2024 14:17:40 COMPANY MANAGER by Sergio Ojeda M.D.
--- NOTE | 2024-04-30 14:04 | ED.CHESTPAIN ---
HPI - Chest Pain General Chief Complaint: Chest Pain Stated Complaint: stemi Time Seen by Provider: 04/30/24 13:57 Source: patient and EMS Mode of arrival: EMS History of Present Illness HPI narrative: 78 YEARS OLD MAN CAME FROM HOME BY AMBULANCE BECAUSE SUDDEN ONSETS OF RETROSTERNAL LEFT CHEST PAIN STARTED FEW HOURS AGO WHILE SITTING. HE DENIES RADIATION OF PAIN OR SHORTNESS OF BREATH. PAIN IS 10/10. HISTORY OF DIABETES, HYPERTENSION, HYPERLIPIDEMIA. DOES NOT SMOKE OR DRINK. EKG ON ARRIVAL POSITIVE FOR STEMI. JAVASCRIPT APPLICATION DEVELOPER IS IN THE EMERGENCY ROOM ON PATIENT ARRIVAL. Related Data Home Medications ?Medication ?Instructions ?Recorded ?Confirmed ?Last Taken ?Type clonidine HCl 0.1 mg tablet 0.1 mg PO TID high blood pressure 09/05/23 09/05/23 Unknown History dapagliflozin propanediol 10 mg 10 mg PO DAILY 09/05/23 09/05/23 Unknown History tablet (Farxiga) insulin glargine 100 unit/mL 18 unit subcut DAILY DM 09/06/23 09/06/23 Unknown History subcutaneous solution (Lantus U-100 Insulin) insulin lispro 100 unit/mL 1 sliding scale dose subcut ACHS dm 09/06/23 09/06/23 Unknown History subcutaneous pen Allergies Allergy/AdvReac Type Severity Reaction Status Date / Time No Known Allergies Allergy Verified 09/05/23 19:10 Review of Systems Review of Systems: All systems reviewed & are unremarkable except as noted in HPI and below PMFSH Social History Social History Smoking status: Never smoker Alcohol intake: never Substance use: never Do You Feel Safe in your Home?: Yes Lack of Transportation: No Lack of Food: Never True Current Housing: I Have Housing Concerned About Future Housing: No Difficulty Paying Gas/Electric Bills: No Difficulty Paying for Meds: No Currently Unemployed: No Education: Bachelor's Degree Difficulty w/ Childcare or Family Care: No Spiritual care concerns: No Exam Narrative: GENERAL APPEARANCE: WELL-DEVELOPED, WELL-NOURISHED SKIN: NORMAL COLOR HEAD: NORMOCEPHALIC, NONTRAUMATIC EYES: CLEAR CONJUNCTIVA ENT: OROPHARYNX NORMAL, EARS NORMAL, NOSE NORMAL NECK: SUPPLE, NONTENDER CHEST AND RESPIRATORY: AIRWAY PATENT, NO RESPIRATORY DISTRESS, NO ACCESSORY MUSCLE USE HEART: REGULAR RATE/RHYTHM ABDOMEN: SOFT, NONTENDER, NO ORGANOMEGALY, QUIET BOWEL SOUNDS NEUROLOGIC: ALERT AND ORIENTED ?3, INPATIENT CODER IS NORMAL TESTED, NO GROSS MOTOR DEFICIT Course Vital Signs Vital signs: Vital Signs Temperature 36.4 C L 04/30/24 13:52 Pulse Rate 81 04/30/24 13:52 Respiratory Rate 18 04/30/24 13:52 Blood Pressure 138/74 04/30/24 13:52 Pulse Oximetry 97 04/30/24 13:52 Oxygen Delivery Room Air 04/30/24 13:52 Temperature 36.4 C L 04/30/24 13:52 Pulse Rate 81 04/30/24 13:52 Respiratory Rate 18 04/30/24 13:52 Blood Pressure 138/74 04/30/24 13:52 Pulse Oximetry 97 04/30/24 13:52 Oxygen Delivery Room Air 04/30/24 14:01 MDM - Chest Pain MDM Narrative Medical decision making narrative: PATIENT CAME TO THE ED BY AMBULANCE WITH CHEST PAIN VITAL SIGNS WITHIN NORMAL LIMIT EKG ON ARRIVAL SHOWED STEMI STEMI PROTOCOL APPLIED, PATIENT WAS TRANSFERRED TO THE CARDIAC CATHETERIZATION IMMEDIATELY. Differential Diagnosis Differential diagnosis: Likely other (STEMI) Medical Records Data Attestation: I reviewed the patient's medical records. Lab Data Attestation: I reviewed the patient's lab results. Imaging Data Radiologist's impression: CHEST X-RAY SHOWED NO ACUTE ABNORMALITIES ECG Data EKG #1: Attestation: I personally reviewed and interpreted this ECG as follows: ECG completion date: 04/30/24 Interpretation: NORMAL SINUS RHYTHM 78 BEATS PER MINUTE, OCCASIONAL PVCS, ACUTE SEPTAL INFARCTION, STEMI, Critical Care Time Critical Care Time Critical Care Time: No Discharge Plan Discharge Clinical Impression: ST elevation (STEMI) myocardial infarction Patient Disposition: Still a Patient Condition: Guarded Prognosis Patient Language: Divehi Prescriptions: No Action clonidine HCl 0.1 mg tablet 0.1 mg PO TID dapagliflozin propanediol [Farxiga] 10 mg tablet 10 mg PO DAILY insulin glargine [Lantus U-100 Insulin] 100 unit/mL solution 18 unit SUBCUT DAILY insulin lispro 100 unit/mL insulin pen 1 sliding scale dose SUBCUT ACHS polyethylene glycol 3350 [Miralax] 17 gram Powder In Packet 17 g PO QAM 14 Days Qty: 14 0RF levofloxacin 750 mg tablet 750 mg PO DAILY Qty: 7 0RF multivitamin with folic acid [Thera] 400 mcg tablet 1 tablet PO DAILY Qty: 30 0RF Follow-up/Referrals: Bonnie,Chad Perry MD [Primary Care Provider] -
--- NOTE | 2024-04-30 14:05 | PC.NURSE ---
Heparin 5000 units given at this time via IVP per cpc verbal order
[2024-04-30 14:08] LABS: Basophils Absolute Auto 0.1 K/mm3 (0.0-0.1); Basophils Percent Auto 0.5 % (0.2-1.2); Eosinophils Absolute Auto 0.2 K/mm3 (0-0.3); Eosinophils Percent Auto 1.5 % (0-4.4); Hematocrit 40.6 % (42.0-52.0); Hemoglobin 13.6 g/dL (14.0-18.0); Immature Granulocyte Absolute 0.03 K/mm3 (0.00-0.031); Immature Granulocyte Percent A 0.3 % (0-0.5); Lymphocytes Absolute Auto 3.53 K/mm3 (0.9-3.2); Lymphocytes Percent Auto 33.3 % (18.3-44.2); Mean Corpuscular HGB Conc 33.5 g/dl (32-36); Mean Corpuscular Hemoglobin 29.1 pg (26-34); Mean Corpuscular Volume 86.9 fl (80-100); Mean Platelet Volume 11.5 fl (7.4-10.4); Monocytes Percent Auto 9.7 % (2.6-8.5); Neutrophils Absolute Auto 5.8 K/mm3 (1.3-6.7); Neutrophils Percent Auto 54.7 % (45.5-73.1); Platelet Count Result 213 k/mm3 (150-375); Red Blood Count 4.67 M/mm3 (4.6-6.20); Red Cell Distribution Width 13.6 % (11.5-14.5); White Blood Count 10.6 K/mm3 (4.5-10.0)
--- NOTE | 2024-04-30 14:09 | PC.NURSE ---
STEMI 1337 - O/H [address] 2[address] [facility] due to no response from 1st [facility] 1420 Cath Team to ER 1352 [facility] ETA 16min
[2024-04-30 14:19] LABS: Alanine Aminotransferase 26 U/L (6-50); Albumin Level 3.8 g/dL (3.5-5.1); Alkaline Phosphatase 102 U/L (38-126); Anion Gap 10 mmol/L (4-12); Aspartate Amino Transferase 24 U/L (17-59); Bilirubin,Total 0.6 mg/dL (0.2-1.3); Blood Urea Nitrogen 26 mg/dL (9-20); Calcium 8.4 mg/dL (8.4-10.2); Carbon Dioxide 24 mmol/L (22-30); Chloride 101 mmol/L (98-107); Cholesterol 232 mg/dL (0-200); Estimated CRCL calculation 61 ml/min; Estimated Glomerular Filt Rate > 60; Glucose 199 mg/dL (65-110); HDL Direct 29 mg/dL; Potassium 3.7 mmol/L (3.4-5.0); Sodium 135 mmol/L (137-145); Triglycerides 379 mg/dL (<150)
[2024-04-30 14:21] LABS: Partial Thromboplastin Time 25.6 Seconds (22.3-36.8); Prothrombin Time 13.1 Seconds (11.1-14.7)
[2024-04-30 14:30] LABS: LDL Cholesterol Direct 144 mg/dL
--- NOTE | 2024-04-30 15:56 | PM.IMHP ---
H&P: HPI History of Present Illness Date/Time: 04/30/24 14:15 Chief Complaint: Chest pain Narrative: 78 year old Indonesian speaking male with past medical history of hypertension, diabetes mellitus presented with chief complaint of chest pain that started 3-4 hours prior to presentation. Pain is located in the left chest without any radiation and is of intensity 7/10. No diaphoresis, shortness of breath, lightheadedness, dizziness, presyncope, syncope, leg swelling, recent weight gain. EKG shows ST elevation in anterior leads with reciprocal depressions in inferior leads. Troponin is elevated. Review of Systems Review of Systems: A complete review of systems was performed and negative other than those mentioned in the HPI. [facility] Social History Social History Smoking status: Never smoker Alcohol intake: never Substance use: never Do You Feel Safe in your Home?: Yes Lack of Transportation: No Lack of Food: Never True Current Housing: I Have Housing Concerned About Future Housing: No Difficulty Paying Gas/Electric Bills: No Difficulty Paying for Meds: No Currently Unemployed: No Education: Bachelor's Degree Difficulty w/ Childcare or Family Care: No Spiritual care concerns: No Meds Home Medications and Allergies Home Medications ?Medication ?Instructions ?Recorded ?Confirmed ?Type clonidine HCl 0.1 mg tablet 0.1 mg PO TID high blood pressure 09/05/23 09/05/23 History dapagliflozin propanediol 10 mg 10 mg PO DAILY 09/05/23 09/05/23 History tablet (Farxiga) insulin glargine 100 unit/mL 18 unit subcut DAILY DM 09/06/23 09/06/23 History subcutaneous solution (Lantus U-100 Insulin) insulin lispro 100 unit/mL 1 sliding scale dose subcut ACHS dm 09/06/23 09/06/23 History subcutaneous pen levofloxacin 750 mg tablet 750 mg PO DAILY #7 tabs 09/08/23 Rx multivitamin with folic acid 400 1 tablet PO DAILY #30 tabs 09/08/23 Rx mcg tablet (Thera) polyethylene glycol 3350 17 gram 17 g PO QAM 14 days #14 ea 09/08/23 Rx oral powder packet (Miralax) Allergies Allergy/AdvReac Type Severity Reaction Status Date / Time No Known Allergies Allergy Verified 09/05/23 19:10 Vital Signs Vital Signs - 24 hr 04/30/24 13:52 04/30/24 14:01 04/30/24 14:08 Temperature 36.4 C L Pulse Rate 81 76 Respiratory Rate 18 18 Blood Pressure 138/74 128/75 Pulse Oximetry 97 97 Oxygen Delivery Room Air Room Air Exam Narrative: General: Alert oriented x3, no acute distress Neck: Supple, no JVD Chest: Bilaterally clear to auscultation, no rales or rhonchi Cardiac: S1, S2 +, regular rate, regular rhythm, no murmurs or rubs Extremities: no pedal edema, no skin rash Neurologic: Alert and oriented x3, no focal neurological deficits H&P: Results Labs Labs: Short CBC 04/30/24 Range/Units 14:02 WBC 10.6 H (4.5-10.0) K/mm3 Hgb 13.6 L (14.0-18.0) g/dL Hct 40.6 L (42.0-52.0) % Plt Count 213 (150-375) k/mm3 BMP 04/30/24 14:02 Sodium 135 L Potassium 3.7 Chloride 101 Carbon Dioxide 24 BUN 26 H Creatinine 0.88 Glucose 199 H Calcium 8.4 Cardiac Enzymes 04/30/24 Range/Units 14:02 Troponin I 0.050 H* (0.000-0.034) ng/mL Liver Function 04/30/24 Range/Units 14:02 Total Bilirubin 0.6 (0.2-1.3) mg/dL AST 24 (17-59) U/L ALT 26 (6-50) U/L Alkaline Phosphatase 102 (38-126) U/L Albumin 3.8 (3.5-5.1) g/dL Assessment and Plan Assessment and plan (1) Diabetes mellitus: Qualifiers: Diabetes mellitus type: type 2 Diabetes mellitus complication status: without complication Code(s): E11.9 - Type 2 diabetes mellitus without complications Status: Acute (2) ST elevation (STEMI) myocardial infarction: Qualifiers: Involved coronary artery: LAD coronary artery Qualified Code(s): I21.02 - ST elevation (STEMI) myocardial infarction involving left anterior descending coronary artery Code(s): I21.3 - ST elevation (STEMI) myocardial infarction of unspecified site Status: Acute Plan Assessment: Anterior STEMI s/p PCI to proximal to mid LAD with 2.75 x18mm and 3.0x26mm [place] JOSE; 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 Hold for SBP<90mmHg and/or HR<50 -TTE in am -EKG post PCI -Continue home meds for HTN and DM -Monitor on telemetry -Staged PCI to LCX and RCA in 1 month -Cardiac rehab at one month Quality VTE Prophylaxis VTE prophylaxis: pharmacologic ordered
--- NOTE | 2024-04-30 16:09 | WPDHPUPDATE1 ---
History and Physical Update Update Date/Time: 04/30/24 14:30 History and Physical has been reviewed, including an updated exam of the patient. There are NO changes in the patient's condition. Risks, benefits, and alternatives have been discussed and questions answered. Patient agrees to proceed with procedure.
--- NOTE | 2024-04-30 16:09 | WPDCARDPROC ---
Cardiac Cath Procedure Note Date of procedure:: 04/30/24 Performing physician:: Raysa Mays MD Indication:: Anterior STEMI Brief clinical history:: 78 year old Mongolian speaking male with past medical history of hypertension, diabetes mellitus presented with chief complaint of chest pain that started 3-4 hours prior to presentation. Pain is located in the left chest without any radiation and is of intensity 7/10. No diaphoresis, shortness of breath, lightheadedness, dizziness, presyncope, syncope, leg swelling, recent weight gain. EKG shows ST elevation in anterior leads with reciprocal depressions in inferior leads. Troponin is elevated. Procedure Procedure performed:: Radial artery access Selective left and right coronary angiogram PCI to proximal to mid LAD with 2.75 x18mm and 3.0x26mm [employer] JOSE stents from distal to proximal post dilated with 3.0x12mm NC balloon Sedation/Medication given:: Versed 2mg Fentanyl 100mcg Procedure and sedation start time: 14:28 Procedure and sedation end time: 15:49 Total time for sedation monitorinmin Access site:: Right radial artery Estimated blood loss:: 30cc Procedure note:: Hemodynamic data: Opening aortic pressure: 112/59mmHg Closing aortic pressure: 121/67mmHg Procedure technique: After informed consent was obtained, the patient was brought to the cardiac cytology laboratory manager and was placed in the supine position. Access site was prepped and draped in usual sterile manner. Right radial access was obtained using modified Seldinger technique. [place] sheath was inserted in the right radial artery. 200mg of nitroglycerin was administered through the radial sheath. We started 1st with coronary angiography. Selective right coronary angiography was performed in a standard fashion using diagnostic JR 4 catheter. The JR4 catheter was removed from the body. 5000 Units of heparin were administered. Patient already received 5000 units of heparin in the ER for a total of 10,000 unites of heparin. ACT was 251. Following heparin administration, an EBU 3.5 guide catheter was used to engage the left coronary artery and selective left coronary angiography was performed. A coronary Runthrough wire was advanced into the hypertrophied septal branch of the LAD to anchor the guide and a second Runthrough coronary wire was advanced into the distal LAD. The 90% stenotic lesion in the mid LAD which is the culprit lesion and the 80% stenosis in the mid LAD were predilated with 2.0x15 and 3.0x20mm compliant balloons with PIA flow in the distal LAD. An IVUS was advanced after predilation but did not pass the proximal mid LAD lesion due to calcification and tortuosity. The mid LAD lesions were predilated again with 2.0x15 and 3.0x20mm compliant balloon at higher pressures. The IVUS was re-advanced but did not cross the lesions. A [id number] [employer] stent did not cross the proximal lesion. The stent was removed from the body and a guideliner was advanced into the LAD beyond the proximal lesion with the help of a 2.0x15mm compliant balloon. Two [employer] stents of size 2.20x16bt and 3.0x26mm were deployed in the mid LAD from distal to proximal in an overlapping fashion. The LAD stents were postdilated with 3.0x12mm non compliant balloons to high pressures. Coronary angiography after postdilation showed PIA III flow in the distal LAD without any complications. The coronary guidewires and guide catheter were removed from the body. Patient tolerated the procedure well without any complications. Radial artery sheath was removed from the body. TR band was applied to the radial access site. Catheters used for selective coronary angiograms: [place] EBU 3.[address] [place] JR4 diagnostic catheter Coronary guidewires: Runthrough hypercoat wire x2 Findings:: 1. The left main coronary artery arises from the left coronary cusp and divides into the left anterior descending and left circumflex. It is free of angiographic disease. 2. The left anterior descending artery arises from the left main and gives off multiple diagonals. The proximal LAD has kqadnty89% stenosis, mid LAD has 90% (culprit lesion) 80% serial stenosis. The distal LAD is diffusely diseased. There is a large septal branch that takes off from the proximal LAD. 3. The left circumflex artery arises from the left main and is a non dominant artery. The proximal left circumflex has 80% stenosis, mid left circumflex has 80% stenosis just prior to take off of a large OM2 branch. There are 2 large OM branches. OM1 has diffuse 90% stenosis in its proximal portion and OM2 has 80% stenosis in its body. 4. RCA is a large vessel and dominant. Mid RCA has 6% stenosis. The distal RPDA is a small vessel with 90% stenosis in the distal vessel. Conclusion:: Anterior STEMI s/p PCI to proximal to mid LAD with 2.75 x18mm and 3.0x26mm [employer] JOSE stents from distal to proximal post dilated with 3.0x12mm NC balloon Obstructive CAD in the proximal LCX and mid RCA Assessment and Plan Assessment and plan (1) ST elevation (STEMI) myocardial infarction: Qualifiers: Involved coronary artery: LAD coronary artery Qualified Code(s): I21.02 - ST elevation (STEMI) myocardial infarction involving left anterior descending coronary artery Code(s): I21.3 - ST elevation (STEMI) myocardial infarction of unspecified site Status: Acute (2) Diabetes mellitus: Qualifiers: Diabetes mellitus type: type 2 Diabetes mellitus complication status: without complication Code(s): E11.9 - Type 2 diabetes mellitus without complications Status: Acute Plan Assessment: Anterior STEMI s/p PCI to proximal to mid LAD with 2.75 x18mm and 3.0x26mm [place] JOSE; 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 Hold for SBP<90mmHg and/or HR<50 -TTE in am -EKG post PCI -Continue home meds for HTN and DM -Monitor on telemetry -Staged PCI to LCX and RCA in 1 month -Cardiac rehab at one month
--- NOTE | 2024-04-30 16:24 | ADMGEN ---
This patient, Tal Dillon, was admitted to Intensive Care Unit-3 at 1624. Patient/family oriented to hospital policies and general routines including ID bracelet, bed and alarms, visiting hours, pain management, procedures, bathroom and other care routines, personal items, smoking policy, room service/diet, and visiting hours. Information on how to activate the Rapid Response Team has been discussed. Patient/Family are encouraged to report perceived risks to care and to ask questions if they do not understand what they are told or what they should do.
[2024-04-30 17:27] LABS: Glucose Point of Care 173 mg/dl (65-105)
[2024-04-30] MEDS: SODIUM CHLORIDE 0.9% IV 1,000 ML 125 ML IV CONT (18:06)
[2024-04-30 18:07] LABS: Activated Clotting Time 222 SEC (74-137)
[2024-04-30 18:07] LABS: Activated Clotting Time 251 SEC (74-137)
[2024-04-30 19:48] LABS: MRSA (PCR) NOT DETECTED (NOT DETECTE)
[2024-04-30] MEDS: METOPROLOL TARTRATE 25 MG TABLET PO (20:58)
--- NOTE | 2024-04-30 21:08 | ECG_ITS ---
Test Date: 2024-04-30 21:11:53 Measurements Intervals [place] Rate: 68 P: 48 [place]: 189 QRS: 25 QRSD: 92 T: 116 QT: 408 QTc: 435 Interpretive Statements SINUS RHYTHM SEPTAL MYOCARDIAL INFARCTION [40+ ms Q WAVE IN V1/V2], PROBABLY RECENT ACUTE [place] Compared to ECG 04/30/2024 13:54:[address] elevation V2 Electronically Signed On 04-30-2024 21:21:49 CAREER RESOURCE TECHNICIAN by Sergio Ojeda M.D.
[2024-04-30] MEDS: NITROGLYCERIN SL 0.4 MG TABLET (21:13)
[2024-04-30] MEDS: NITROGLYCERIN SL 0.4 MG TABLET SUBLINGUAL (23:15)
--- NOTE | 2024-04-30 23:16 | ECG_ITS ---
Test Date: 2024-04-30 23:19:40 Measurements Intervals [place] Rate: 67 P: 63 [place]: 189 QRS: 24 QRSD: 82 T: 110 QT: 442 QTc: 469 Interpretive Statements SINUS RHYTHM SEPTAL MYOCARDIAL INFARCTION [40+ ms Q WAVE IN V1/V2], PROBABLY RECENT ACUTE [place] Compared to ECG 04/30/2024 21:11:53 No significant changes Electronically Signed On 05-01-2024 22:12:16 FACILITIES SUPERVISOR by Sergio Ojeda M.D.
[2024-04-30] MEDS: NITROGLYCERIN OINTMENT 1 INCH DOSE TRANSDERM (23:42)
[2024-05-01] VITALS (26 sets, daily range): BP systolic 100–144; BP diastolic 59–93; PULSE 62–83; RESP 16–26; TEMP 36.3–37.1; O2SAT 93–99
--- NOTE | 2024-05-01 00:52 | ECG_ITS ---
Test Date: 2024-05-01 00:56:42 Measurements Intervals [place] Rate: 68 P: 35 VA: 171 QRS: 25 QRSD: 84 T: 106 QT: 408 QTc: 436 Interpretive Statements SINUS RHYTHM WITH OCCASIONAL VENTRICULAR PREMATURE COMPLEXES SEPTAL MYOCARDIAL INFARCTION [40+ ms Q WAVE IN V1/V2], PROBABLY RECENT ACUTE [place] Compared to ECG 04/30/2024 23:19:40 Ventricular premature complex(es) now present Myocardial infarct finding still present Electronically Signed On 05-01-2024 22:11:35 BOMB LOADER by Sergio Ojeda M.D.
[2024-05-01] MEDS: NITROGLYCERIN/D5W 200 MCG/ML 50 MG/250 ML BTL IV CONT (01:17)
[2024-05-01 02:08] LABS: Basophils Absolute Auto 0.1 K/mm3 (0.0-0.1); Basophils Percent Auto 0.5 % (0.2-1.2); Eosinophils Absolute Auto 0.1 K/mm3 (0-0.3); Eosinophils Percent Auto 1.1 % (0-4.4); Hematocrit 36.1 % (42.0-52.0); Hemoglobin 12.1 g/dL (14.0-18.0); Immature Granulocyte Absolute 0.03 K/mm3 (0.00-0.031); Immature Granulocyte Percent A 0.3 % (0-0.5); Lymphocytes Absolute Auto 2.13 K/mm3 (0.9-3.2); Lymphocytes Percent Auto 21.8 % (18.3-44.2); Mean Corpuscular HGB Conc 33.5 g/dl (32-36); Mean Corpuscular Hemoglobin 28.7 pg (26-34); Mean Corpuscular Volume 85.5 fl (80-100); Monocytes Absolute Auto 1.1 K/mm3 (0.1-0.6); Monocytes Percent Auto 11.1 % (2.6-8.5); Neutrophils Absolute Auto 6.4 K/mm3 (1.3-6.7); Neutrophils Percent Auto 65.2 % (45.5-73.1); Platelet Count Result 202 k/mm3 (150-375); Red Blood Count 4.22 M/mm3 (4.6-6.20); Red Cell Distribution Width 13.4 % (11.5-14.5); White Blood Count 9.8 K/mm3 (4.5-10.0)
[2024-05-01 02:21] LABS: INR 1.1; Prothrombin Time 14.9 Seconds (11.1-14.7)
[2024-05-01 02:22] LABS: Partial Thromboplastin Time 27.9 Seconds (22.3-36.8)
[2024-05-01] MEDS: HEPARIN SOD/D5W 100 UNITS/ML 25,000 UNITS/250 ML BAG 8 UNITS IV CONT (02:38)
[2024-05-01 05:03] LABS: Alanine Aminotransferase 36 U/L (6-50); Albumin Level 3.6 g/dL (3.5-5.1); Alkaline Phosphatase 86 U/L (38-126); Anion Gap 10 mmol/L (4-12); Aspartate Amino Transferase 149 U/L (17-59); Bilirubin,Total 1.1 mg/dL (0.2-1.3); Blood Urea Nitrogen 15 mg/dL (9-20); Calcium 8.2 mg/dL (8.4-10.2); Carbon Dioxide 21 mmol/L (22-30); Chloride 107 mmol/L (98-107); Estimated CRCL calculation 62 ml/min; Estimated Glomerular Filt Rate > 60; Glucose 241 mg/dL (65-110); Magnesium 1.8 mg/dL (1.6-2.3); Phosphorus 2.7 mg/dL (2.5-4.5); Potassium 3.4 mmol/L (3.4-5.0); Sodium 138 mmol/L (137-145)
[2024-05-01 08:54] LABS: Partial Thromboplastin Time 29.2 Seconds (22.3-36.8)
[2024-05-01] MEDS: ATORVASTATIN 40 MG TABLET 80 MG PO (08:55)
[2024-05-01] MEDS: TICAGRELOR 90 MG TABLET PO ×2 (08:56→21:44)
[2024-05-01] MEDS: METOPROLOL TARTRATE 25 MG TABLET PO ×2 (08:56→21:44)
[2024-05-01] MEDS: ASPIRIN 81 MG ENTERIC TABLET PO (08:56)
[2024-05-01] MEDS: MAGNESIUM SULF 2 GM/WATER 50ML 2 GM/50 ML BAG IVPB (09:00)
[2024-05-01] MEDS: INSULIN GLARGINE (*BKC) 100 UNITS/ML 15 UNITS SUB-Q (09:08)
[2024-05-01] MEDS: POTASSIUM CHLORIDE 20 MEQ PACKET (FOR LIQUID) 40 MEQ PO (09:08)
[2024-05-01] MEDS: INSULIN ASPART (*BKC) 100 UNITS/ML SUB-Q ×3 (09:09→17:03)
[2024-05-01 09:16] LABS: Glucose Point of Care 210 mg/dl (65-105)
[2024-05-01] MEDS: HEPARIN SODIUM 5,000 UNITS/ML VIAL 4000 UNITS IV PUSH ×2 (09:58→09:59)
--- NOTE | 2024-05-01 09:59 | WPDCNINT ---
Assessment and Plan Assessment and plan (1) ST elevation (STEMI) myocardial infarction: Qualifiers: Involved coronary artery: LAD coronary artery Qualified Code(s): I21.02 - ST elevation (STEMI) myocardial infarction involving left anterior descending coronary artery Code(s): I21.3 - ST elevation (STEMI) myocardial infarction of unspecified site Status: Acute Assessment and Plan: Status post PCI and 2 stents placement in LAD Patient has other lesions also which will need staged management Patient complaining of very mild chest pain which is hard to differentiate whether it is cardiac or not. Discussed with Cardiology Continue heparin infusion and nitroglycerin infusion for now and try to wean off nitroglycerin infusion through the day Continue aspirin Brilinta statin and beta-jacquelyn Check echocardiogram ICU telemetry monitoring (2) Diabetes mellitus: Qualifiers: Diabetes mellitus type: type 2 Diabetes mellitus complication status: without complication Code(s): E11.9 - Type 2 diabetes mellitus without complications Status: Acute Assessment and Plan: Resume Lantus and continue sliding scale (3) Hypertension: Code(s): I10 - Essential (primary) hypertension Status: Acute Assessment and Plan: Continue metoprolol Plan DVT prophylaxis -heparin infusion Nutrition - npo Code Status - Full Code Total Critical Care Time - 35 minutes Due to a high probability of clinically significant, life threatening deterioration, the patient required my highest level of preparedness to intervene emergently and I personally spent this critical care time directly and personally managing the patient. This critical care time included obtaining a history; examining the patient; pulse oximetry; ordering and review of studies; arranging urgent treatment with development of a management plan; evaluation of patient's response to treatment; frequent reassessment; and discussions with other providers. It was exclusive of separately billable procedures and treating other patients and teaching time. Please see Assessment and Plan section and the rest of the note for further information on patient assessment and treatment Counter Checker Consult Note Consult date: 05/01/24 Reason for consult: STEMI HPI: Tal Dillon is a 78 year old male Welsh speaking male with past medical history of hypertension and diabetes mellitus presented yesterday to ER with with chief complaint of chest pain that started 3-4 hours prior to presentation. Pain was located in the left chest without any radiation and is of intensity 8/10. He denied diaphoresis, shortness of breath, lightheadedness, dizziness, presyncope, syncope, leg swelling, recent weight gain. EKG shows ST elevation in anterior leads with reciprocal depressions in inferior leads. Troponin was elevated. Patient was diagnosed in STEMI and was taken to cardiac catheterization lab where he had 2 stents placed in LAD had admitted to ICU for further evaluation management. Later in the night patient complained of chest pain and was started on nitroglycerin infusion and heparin infusion. This morning when I saw the patient I spoke to him and used his daughter as senior living sales counselor who speaks [place]ian. He states that he has /10 pain in left side of his chest. He was unable to give me any further details about the pain whether it was quality radiation or aggravating or relieving factors. He kept on repeating 10 for every question. He denied any shortness of breath nausea vomiting belly pain cough fever. Daughter states the patient has had balance issues and mostly uses walker for his mobility. She does states the patient has memory issues. During my interview patient appeared very anxious and fidgety and kept on pointing towards the alarm security or surveillance monitor Review of Systems Review of Systems: All systems reviewed & are unremarkable except as noted in HPI and below (HPI) [facility] Past Medical History Medical History (Updated 05/01/24 @ 10:18 by Kyler Tobin MD) Hypertension Diabetes mellitus Social History Social History Smoking status: Never smoker Alcohol intake: never Substance use: never Substance use type: does not use Do You Feel Safe in your Home?: Yes Lack of Transportation: No Lack of Food: Never True Current Housing: I Have Housing Concerned About Future Housing: No Difficulty Paying Gas/Electric Bills: YES Difficulty Paying for Meds: No Currently Unemployed: No Education: Bachelor's Degree Difficulty w/ Childcare or Family Care: No Spiritual care concerns: No Meds Home Medications and Allergies Home Medications ?Medication ?Instructions ?Recorded ?Confirmed ?Type insulin glargine 100 unit/mL 18 unit subcut DAILY DM 09/06/23 04/30/24 History subcutaneous solution (Lantus U-100 Insulin) insulin lispro 100 unit/mL 1 sliding scale dose subcut ACHS dm 09/06/23 04/30/24 History subcutaneous pen amlodipine 5 mg tablet 5 mg PO DAILY 04/30/24 04/30/24 History lactulose 10 gram/15 mL oral 30 ml PO TID 04/30/24 04/30/24 History solution losartan 25 mg tablet 25 mg PO DAILY 04/30/24 04/30/24 History Allergies Allergy/AdvReac Type Severity Reaction Status Date / Time No Known Allergies Allergy Verified 04/30/24 16:45 Vital Signs Vital Signs - 24 hr 04/30/24 13:52 04/30/24 14:01 04/30/24 14:08 Temperature 36.4 C L Pulse Rate 81 76 Pulse Rate [Right Radial Palpation] Respiratory Rate 18 18 Blood Pressure 138/74 128/75 Pulse Oximetry 97 97 Oxygen Delivery Room Air Room Air 04/30/24 16:25 04/30/24 16:33 04/30/24 16:48 Temperature Pulse Rate 72 72 Pulse Rate [Right Radial Palpation] Respiratory Rate 20 20 Blood Pressure 110/75 110/56 L 110/56 L Pulse Oximetry 96 96 Oxygen Delivery 04/30/24 17:03 04/30/24 17:18 04/30/24 17:48 Temperature Pulse Rate 72 68 83 Pulse Rate [Right Radial Palpation] Respiratory Rate 20 17 212 H Blood Pressure 122/78 110/67 118/69 Pulse Oximetry 97 94 96 Oxygen Delivery 04/30/24 18:00 04/30/24 18:00 04/30/24 18:18 Temperature Pulse Rate 63 66 66 Pulse Rate [Right Radial Palpation] Respiratory Rate 20 18 Blood Pressure 122/55 L 124/58 L Pulse Oximetry 94 98 Oxygen Delivery 04/30/24 18:40 04/30/24 19:40 04/30/24 20:00 Temperature Pulse Rate 68 64 Pulse Rate [Right Radial Palpation] 68 Respiratory Rate 20 22 H Blood Pressure 124/58 L 121/64 Pulse Oximetry 97 98 Oxygen Delivery Room Air 04/30/24 20:00 04/30/24 20:34 04/30/24 20:58 Temperature Pulse Rate 64 62 75 Pulse Rate [Right Radial Palpation] Respiratory Rate 24 H Blood Pressure 128/62 Pulse Oximetry 98 Oxygen Delivery 04/30/24 21:00 04/30/24 21:15 04/30/24 21:30 Temperature Pulse Rate 66 73 70 Pulse Rate [Right Radial Palpation] 73 Respiratory Rate 20 20 16 Blood Pressure 118/71 108/57 L 138/61 Pulse Oximetry 95 94 95 Oxygen Delivery 04/30/24 22:00 04/30/24 22:11 04/30/24 23:15 Temperature 37.2 C Pulse Rate 63 63 64 Pulse Rate [Right Radial Palpation] Respiratory Rate 20 Blood Pressure 109/72 Pulse Oximetry 94 Oxygen Delivery 04/30/24 23:16 05/01/24 00:00 05/01/24 00:00 Temperature Pulse Rate 69 69 62 Pulse Rate [Right Radial Palpation] Respiratory Rate 18 18 Blood Pressure 107/61 Pulse Oximetry 94 94 Oxygen Delivery Room Air 05/01/24 00:00 05/01/24 00:17 05/01/24 01:17 Temperature 37.0 C Pulse Rate 62 64 67 Pulse Rate [Right Radial Palpation] Respiratory Rate 20 20 Blood Pressure 128/75 128/75 138/66 Pulse Oximetry 95 95 Oxygen Delivery 05/01/24 01:40 05/01/24 02:00 05/01/24 02:00 Temperature Pulse Rate 69 70 70 Pulse Rate [Right Radial Palpation] Respiratory Rate Blood Pressure 115/66 118/68 Pulse Oximetry Oxygen Delivery 05/01/24 02:00 05/01/24 02:30 05/01/24 03:30 Temperature Pulse Rate 70 82 72 Pulse Rate [Right Radial Palpation] Respiratory Rate 16 Blood Pressure 118/68 123/59 L 126/70 Pulse Oximetry 95 Oxygen Delivery 05/01/24 03:36 05/01/24 03:38 05/01/24 04:09 Temperature 36.9 C Pulse Rate 69 71 77 Pulse Rate [Right Radial Palpation] Respiratory Rate 16 26 H Blood Pressure 120/82 Pulse Oximetry 95 93 Oxygen Delivery Room Air 05/01/24 05:27 05/01/24 06:09 05/01/24 08:00 Temperature 37.1 C Pulse Rate 63 72 79 Pulse Rate [Right Radial Palpation] Respiratory Rate 21 H Blood Pressure 110/74 134/77 Pulse Oximetry 96 Oxygen Delivery 05/01/24 08:56 Temperature Pulse Rate 68 Pulse Rate [Right Radial Palpation] Respiratory Rate Blood Pressure Pulse Oximetry Oxygen Delivery Exam Narrative: General: Pt is alert awake and in NAD Lungs/Chest: Trachea central Clear BS B/L, No crackles or wheezing. On palpation of left side of his chest he does state that it hurts but unable to differentiate whether this is the pain he is having or defer Cardiac: RRR. Normal S1 S2. No murmurs Circulation: Pedal pulses are intact and symmetrical. Abdomen: Normal bowel sounds.. Soft. NT. ND. Extremities: No clubbing, cyanosis or edema. Warm right hand has adequate cap refill : Epps in place Neurologic: Follows commands. Moves all 4 extremities PERRL AO x2 Skin: No Rash Results Labs 05/01/24 02:02 05/01/24 04:01 Labs: Short CBC 04/30/24 05/01/24 Range/Units 14:02 02:02 WBC 10.6 H 9.8 (4.5-10.0) K/mm3 Hgb 13.6 L 12.1 L (14.0-18.0) g/dL Hct 40.6 L 36.1 L (42.0-52.0) % Plt Count 213 202 (150-375) k/mm3 BMP 04/30/24 05/01/24 14:02 04:01 Sodium 135 L 138 Potassium 3.7 3.4 Chloride 101 107 Carbon Dioxide 24 21 L BUN 26 H 15 D Creatinine 0.88 0.80 Glucose 199 H 241 H Calcium 8.4 8.2 L Cardiac Enzymes 04/30/24 Range/Units 14:02 Troponin I 0.050 H* (0.000-0.034) ng/mL Liver Function 04/30/24 05/01/24 Range/Units 14:02 04:01 Total Bilirubin 0.6 1.1 (0.2-1.3) mg/dL AST 24 149 H (17-59) U/L ALT 26 36 (6-50) U/L Alkaline Phosphatase 102 86 (38-126) U/L Albumin 3.8 3.6 (3.5-5.1) g/dL Quality VTE Prophylaxis VTE prophylaxis: pharmacologic ordered Hospitalist MIPS Advance Care Plan I have confirmed that the patient's Advanced Care Plan is present, code status is documented, or surrogate decision maker is listed in patient medical record.: Yes Medication Reconciliation I have utilized all available resources to obtain, update and review the patients current medications (includes all prescriptions, OTC, herbals, cannabis, and nutritional supplements).: Yes
--- NOTE | 2024-05-01 11:49 | PM.PNCARD ---
Progress Note: A&P Assessment and Plan (1) ST elevation (STEMI) myocardial infarction: Qualifiers: Involved coronary artery: LAD coronary artery Qualified Code(s): I21.02 - ST elevation (STEMI) myocardial infarction involving left anterior descending coronary artery Code(s): I21.3 - ST elevation (STEMI) myocardial infarction of unspecified site Status: Acute (2) Chest pain: Qualifiers: Chest pain type: chest pain due to myocardial ischemia Ischemic chest pain type: unspecified angina pectoris type Qualified Code(s): I25.9 - Chronic ischemic heart disease, unspecified Code(s): R07.9 - Chest pain, unspecified Status: Acute (3) Hypertension: Qualifiers: Hypertension type: primary hypertension Qualified Code(s): I10 - Essential (primary) hypertension Code(s): I10 - Essential (primary) hypertension Status: Acute (4) Diabetes mellitus: Qualifiers: Diabetes mellitus type: type 2 Diabetes mellitus complication status: without complication Code(s): E11.9 - Type 2 diabetes mellitus without complications Status: Acute Plan Assessment: Anterior STEMI s/p PCI to proximal to mid LAD with 2.75 x18mm and 3.0x26mm Cliff Maries JOSE; 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 Will reassess patient after stopping nitro and heparin pain -Continue DAPT with asa and ticagrelor for 1 year, then asa only indefinitely -Continue atorvastatin -Continue metoprolol 25 mg BID. Hold for SBP<90mmHg and/or HR<50 -TTE today -Staged PCI to LCX -Cardiac rehab at one month Subjective Date/time seen: 05/01/24 11:49 Interval history: Reason for the encounter: Anterior STEMI status post PCI to proximal LAD on 02/28/25 Relevant history: 78 year old Green[place]ic speaking male with past medical history of hypertension, diabetes mellitus presented with chest pain and noted to have anterior STEMI. He underwent emergent cardiac catheterization on 02/28/2025 with PCI to 90% stenosis (culprit lesion) in the proximal LAD. Catheterization also showed obstructive 90% stenosis in the proximal left circumflex artery and nonobstructive 60% stenosis in the proximal RCA. He is on DAPT with aspirin and Brilinta. Interval history: Post cardiac catheterization, patient's chest pain relieved but he developed 5/10 chest pain last night requiring nitroglycerin drip and heparin drip was resumed. Patient's chest pain came down to 1/10 with this intervention. This morning he complains of chest pain of 1/10 in intensity. No shortness of breath, dizziness, lightheadedness, palpitations, bleeding, nausea, abdominal pain. Review of Systems Review of Systems: Review of systems was performed and pertinent positives are noted in HPI Exam Narrative: General: Alert oriented x3, no acute distress Neck: Supple, no JVD Chest: Bilaterally clear to auscultation, no rales or rhonchi Cardiac: S1, S2 +, regular rate, regular rhythm, no murmurs or rubs Extremities: No pedal edema, no skin rash Neurologic: Alert and oriented x3, no focal neurological deficits Objective Data Vital Signs Vital Signs: Vital Signs - 24 hr 04/30/24 13:52 04/30/24 14:01 04/30/24 14:08 Temperature 36.4 C L Pulse Rate 81 76 Pulse Rate [Right Radial Palpation] Respiratory Rate 18 18 Blood Pressure 138/74 128/75 Pulse Oximetry 97 97 Oxygen Delivery Room Air Room Air 04/30/24 16:25 04/30/24 16:33 04/30/24 16:48 Temperature Pulse Rate 72 72 Pulse Rate [Right Radial Palpation] Respiratory Rate 20 20 Blood Pressure 110/75 110/56 L 110/56 L Pulse Oximetry 96 96 Oxygen Delivery 04/30/24 17:03 04/30/24 17:18 04/30/24 17:48 Temperature Pulse Rate 72 68 83 Pulse Rate [Right Radial Palpation] Respiratory Rate 20 17 212 H Blood Pressure 122/78 110/67 118/69 Pulse Oximetry 97 94 96 Oxygen Delivery 04/30/24 18:00 04/30/24 18:00 04/30/24 18:18 Temperature Pulse Rate 63 66 66 Pulse Rate [Right Radial Palpation] Respiratory Rate 20 18 Blood Pressure 122/55 L 124/58 L Pulse Oximetry 94 98 Oxygen Delivery 04/30/24 18:40 04/30/24 19:40 04/30/24 20:00 Temperature Pulse Rate 68 64 Pulse Rate [Right Radial Palpation] 68 Respiratory Rate 20 22 H Blood Pressure 124/58 L 121/64 Pulse Oximetry 97 98 Oxygen Delivery Room Air 04/30/24 20:00 04/30/24 20:34 04/30/24 20:58 Temperature Pulse Rate 64 62 75 Pulse Rate [Right Radial Palpation] Respiratory Rate 24 H Blood Pressure 128/62 Pulse Oximetry 98 Oxygen Delivery 04/30/24 21:00 04/30/24 21:15 04/30/24 21:30 Temperature Pulse Rate 66 73 70 Pulse Rate [Right Radial Palpation] 73 Respiratory Rate 20 20 16 Blood Pressure 118/71 108/57 L 138/61 Pulse Oximetry 95 94 95 Oxygen Delivery 04/30/24 22:00 04/30/24 22:11 04/30/24 23:15 Temperature 37.2 C Pulse Rate 63 63 64 Pulse Rate [Right Radial Palpation] Respiratory Rate 20 Blood Pressure 109/72 Pulse Oximetry 94 Oxygen Delivery 04/30/24 23:16 05/01/24 00:00 05/01/24 00:00 Temperature Pulse Rate 69 69 62 Pulse Rate [Right Radial Palpation] Respiratory Rate 18 18 Blood Pressure 107/61 Pulse Oximetry 94 94 Oxygen Delivery Room Air 05/01/24 00:00 05/01/24 00:17 05/01/24 01:17 Temperature 37.0 C Pulse Rate 62 64 67 Pulse Rate [Right Radial Palpation] Respiratory Rate 20 20 Blood Pressure 128/75 128/75 138/66 Pulse Oximetry 95 95 Oxygen Delivery 05/01/24 01:40 05/01/24 02:00 05/01/24 02:00 Temperature Pulse Rate 69 70 70 Pulse Rate [Right Radial Palpation] Respiratory Rate Blood Pressure 115/66 118/68 Pulse Oximetry Oxygen Delivery 05/01/24 02:00 05/01/24 02:30 05/01/24 03:30 Temperature Pulse Rate 70 82 72 Pulse Rate [Right Radial Palpation] Respiratory Rate 16 Blood Pressure 118/68 123/59 L 126/70 Pulse Oximetry 95 Oxygen Delivery 05/01/24 03:36 05/01/24 03:38 05/01/24 04:09 Temperature 36.9 C Pulse Rate 69 71 77 Pulse Rate [Right Radial Palpation] Respiratory Rate 16 26 H Blood Pressure 120/82 Pulse Oximetry 95 93 Oxygen Delivery Room Air 05/01/24 05:27 05/01/24 06:09 05/01/24 08:00 Temperature 37.1 C Pulse Rate 63 72 79 Pulse Rate [Right Radial Palpation] Respiratory Rate 21 H Blood Pressure 110/74 134/77 Pulse Oximetry 96 Oxygen Delivery 05/01/24 08:00 05/01/24 08:00 05/01/24 08:00 Temperature 36.4 C Pulse Rate 74 83 Pulse Rate [Right Radial Palpation] Respiratory Rate 22 H Blood Pressure 134/77 Pulse Oximetry 95 Oxygen Delivery Room Air 05/01/24 08:56 05/01/24 10:00 05/01/24 10:00 Temperature Pulse Rate 68 70 62 Pulse Rate [Right Radial Palpation] Respiratory Rate 19 Blood Pressure 100/62 Pulse Oximetry 96 Oxygen Delivery 05/01/24 11:10 Temperature Pulse Rate Pulse Rate [Right Radial Palpation] Respiratory Rate Blood Pressure Pulse Oximetry Oxygen Delivery Room Air Intake/Output Intake/Output: Intake & Output 04/28/24 04/29/24 04/30/24 05/01/24 23:59 23:59 23:59 23:59 Intake Total 342.6 Output Total 300 450 Balance -300 -107.4 Meds/Results Medications: Active Medications Generic Name Dose Route Start Last Admin Trade Name Freq PRN Reason Stop Dose Admin Hydrocodone Bitart/Acetaminophen 1 tab 05/01/24 08:27 Hydrocodone/Acetaminophen (*Crx) 5-325 Mg Tablet PO Q4H PRN Pain Rated 4-6 Aspirin 81 mg 05/01/24 09:00 05/01/24 08:56 Aspirin 81 Mg Enteric Tablet PO 81 mg QAM DESIRAE Administration Atorvastatin Calcium 80 mg 05/01/24 09:00 05/01/24 08:55 Atorvastatin 40 Mg Tablet PO 80 mg DAILY DESIRAE Administration Dextrose 12.5 gm 04/30/24 17:32 Dextrose 50% 25 Gm/50 Ml Syringe IV PUSH PRN PRN Hypoglycemia Protocol Glucagon 1 mg 04/30/24 17:32 Glucagon For Inj 1 Mg Vial IM PRN PRN Hypoglycemia Protocol Glucose 15 gm 04/30/24 17:32 Glucose Oral Gel 15 Gm Of Glucse In 37.5 Gm Tube PO PRN PRN Hypoglycemia Protocol Heparin Sodium (Porcine) 4,000 units 05/01/24 01:26 05/01/24 09:59 Heparin Sodium 5,000 Units/Ml Vial IV PUSH 4,000 units PRN PRN Administration aPTT less than 55 seconds Heparin Sodium (Porcine) 3,000 units 05/01/24 01:26 Heparin Sodium 5,000 Units/Ml Vial IV PUSH PRN PRN aPTT 55 - 70 seconds Dextrose 1,000 mls @ 100 mls/hr 04/30/24 17:32 Dextrose 5% 1,000 Ml IVPB PRN PRN Hypoglycemia Protocol Nitroglycerin/Dextrose 50 mg in 250 mls @ 7.5 mls/hr 05/01/24 01:25 05/01/24 08:00 Nitroglycerin In 5% Dextrose 50 Mg IV CONT 25 mcg/min .Q24H DESIRAE 7.5 mls/hr Titration Protocol 25 MCG/MIN Heparin Sodium/Dextrose 25,000 units in 250 mls @ 11 mls/hr 05/01/24 01:30 05/01/24 10:00 Heparin Sodium/D5w 100 Units/Ml IV CONT 1,100 units/hr .[id number] DESIRAE 11 mls/hr Titration Protocol 1,100 UNITS/HR Insulin Aspart 3 - 6 units 05/01/24 08:00 05/01/24 09:09 Insulin Aspart (*Bkc) 100 Units/Ml SUB-Q 3 units TIDWM DESIRAE Administration Protocol Insulin Glargine 15 units 05/01/24 09:00 05/01/24 09:08 Insulin Glargine (*Bkc) 100 Units/Ml SUB-Q 15 units QAM DESIRAE Administration Metoprolol Tartrate 25 mg 04/30/24 21:00 05/01/24 08:56 Metoprolol Tartrate 25 Mg Tablet PO 25 mg Q12HR DESIRAE Administration Nitroglycerin 0.4 mg 04/30/24 23:17 04/30/24 23:15 Nitroglycerin Sl 0.4 Mg Tablet SUBLINGUAL 0.4 mg Q5MIN PRN Administration Chest Pain Perflutren Lipid Microsphere 0 ml 05/01/24 08:27 Perflutren Lipid Microspheres 1.5 Ml Vial Diluted To 10 Ml Total Volume IV PUSH 05/04/24 08:27 ONCE PRN adequate visualization Protocol Ticagrelor 90 mg 05/01/24 08:00 05/01/24 08:56 Ticagrelor 90 Mg Tablet PO 90 mg Q12HR DESIRAE Administration Radiology Results: ITS Impressions Chest X-Ray 04/30/24 14:13 IMPRESSION: No focal infiltrate or effusion. Labs Labs: Laboratory Results - last 24 hr 04/30/24 04/30/24 04/30/24 14:02 14:36 15:48 WBC 10.6 H RBC 4.67 Hgb 13.6 L Hct 40.6 L MCV 86.9 MCH 29.1 MCHC 33.5 RDW 13.6 Plt Count 213 MPV 11.5 H Immature Gran % (Auto) 0.3 Neut % (Auto) 54.7 Lymph % (Auto) 33.3 [place] % (Auto) 9.7 H Eos % (Auto) 1.5 Baso % (Auto) 0.5 Lymph # (Auto) 3.53 H [place] # (Auto) 1.0 H Eos # (Auto) 0.2 Baso # (Auto) 0.1 Abs Immat Gran (auto) 0.03 Absolute Neuts (auto) 5.8 Absolute Nucleated RBC 0.000 Nucleated RBC % 0.0 PT 13.1 INR 1.0 APTT 25.6 Activ Coag Time Kaolin 222 H 251 H Sodium 135 L Potassium 3.7 Chloride 101 Carbon Dioxide 24 Anion Gap 10 BUN 26 H Creatinine 0.88 Estim Creat Clear Calc 61 Estimated GFR > 60 Glucose 199 H POC Capillary Glucose Calcium 8.4 Phosphorus Magnesium Total Bilirubin 0.6 AST 24 ALT 26 Alkaline Phosphatase 102 Troponin I 0.050 H* Total Protein 7.0 Albumin 3.8 Triglycerides 379 H Cholesterol 232 H LDL Cholesterol Direct 144 HDL Direct 29 Nasal MRSA (PCR) Blood Type AB Positive Antibody Screen Negative 04/30/24 04/30/24 05/01/24 17:22 18:32 02:02 WBC 9.8 RBC 4.22 L Hgb 12.1 L Hct 36.1 L MCV 85.5 MCH 28.7 MCHC 33.5 RDW 13.4 Plt Count 202 MPV 11.0 H Immature Gran % (Auto) 0.3 Neut % (Auto) 65.2 Lymph % (Auto) 21.8 [place] % (Auto) 11.1 H Eos % (Auto) 1.1 Baso % (Auto) 0.5 Lymph # (Auto) 2.13 [place] # (Auto) 1.1 H Eos # (Auto) 0.1 Baso # (Auto) 0.1 Abs Immat Gran (auto) 0.03 Absolute Neuts (auto) 6.4 Absolute Nucleated RBC 0.000 Nucleated RBC % 0.0 PT 14.9 H INR 1.1 APTT 27.9 Activ Coag Time Kaolin Sodium Potassium Chloride Carbon Dioxide Anion Gap BUN Creatinine Estim Creat Clear Calc Estimated GFR Glucose POC Capillary Glucose 173 H Calcium Phosphorus Magnesium Total Bilirubin AST ALT Alkaline Phosphatase Troponin I Total Protein Albumin Triglycerides Cholesterol LDL Cholesterol Direct HDL Direct Nasal MRSA (PCR) Not detected Blood Type Antibody Screen 05/01/24 05/01/24 05/01/24 04:01 08:30 08:53 WBC RBC Hgb Hct MCV MCH MCHC RDW Plt Count MPV Immature Gran % (Auto) Neut % (Auto) Lymph % (Auto) [place] % (Auto) Eos % (Auto) Baso % (Auto) Lymph # (Auto) [place] # (Auto) Eos # (Auto) Baso # (Auto) Abs Immat Gran (auto) Absolute Neuts (auto) Absolute Nucleated RBC Nucleated RBC % PT INR APTT 29.2 Activ Coag Time Kaolin Sodium 138 Potassium 3.4 Chloride 107 Carbon Dioxide 21 L Anion Gap 10 BUN 15 D Creatinine 0.80 Estim Creat Clear Calc 62 Estimated GFR > 60 Glucose 241 H POC Capillary Glucose 210 H Calcium 8.2 L Phosphorus 2.7 Magnesium 1.8 Total Bilirubin 1.1 AST 149 H ALT 36 Alkaline Phosphatase 86 Troponin I Total Protein 7.0 Albumin 3.6 Triglycerides Cholesterol LDL Cholesterol Direct HDL Direct Nasal MRSA (PCR) Blood Type Antibody Screen
[2024-05-01 15:14] LABS: Glucose Point of Care 157 mg/dl (65-105)
[2024-05-01 17:03] LABS: Glucose Point of Care 246 mg/dl (65-105)
[2024-05-01 21:49] LABS: Glucose Point of Care 106 mg/dl (65-105)
[2024-05-02] VITALS (19 sets, daily range): BP systolic 125–175; BP diastolic 65–92; PULSE 55–107; RESP 12–18; TEMP 36.1–37.1; O2SAT 96–100
--- NOTE | 2024-05-02 | ECHO_ITS ---
Patient Info Name: Tal Dillon Age: 78 years : 1945 Gender: Male Ht: 66 in Wt: 179 lbs BSA: 1.97 m2 HR: 70 bpm BP: 158 / 76 mmHg Heart Rhythm: Sinus Rhythm Technical Quality: Good Exam Date: 05/02/2024 9:09 AM Exam Location: Echo Lab Patient Status: Inpatient Admit Date: 04/30/2024 Staff Ordering Physician: Kyler Tobin MD Conference Organizer: Maisha Montague RDCS Attending Provider: Raysa Mays MD ([email or web address]) Exam Type: CA echo dop color flow w con Study Info Indications - STEMI Complete two-dimensional, color flow and Doppler transthoracic echocardiogram is performed with contrast to opacify the left ventricle and to improve the deliniation of the left ventricle endocardial borders. Contrast/Agitated Saline Contrast/Ag. Saline: Definity Amount: 2.00 ml Administered By: Maisha Montague RDCS Existing IV Access: Yes IV Access Condition: patent with no signs of infiltration Summary 1. Left ventricular systolic function is normal, estimated at 40%. Hypokinesis of anteroseptum, mid inferoseptum, apical septum, apical lateral. 2. The left ventricular diastolic function is grade I diastolic dysfunction. 3. There is trace aortic valve regurgitation. 4. There is trace mitral valve regurgitation. 5. There is mild tricuspid valve regurgitation. 6. No pulmonary hypertension, estimated pulmonary arterial systolic pressure is 25 mmHg. Left Ventricle Left ventricular chamber dimension is normal. Left ventricular systolic function is normal, estimated at 40%. Hypokinesis of anteroseptum, mid inferoseptum, apical septum, apical lateral. There is no increased left ventricular wall thickness. The left ventricular diastolic function is grade I diastolic dysfunction. Right Ventricle Right ventricular chamber dimension is normal. Right ventricular systolic function is normal. Left Atria Left atrial chamber dimension is normal. Right Atria Right atrial chamber dimension is normal. Aortic Valve The aortic valve is trileaflet. There is mild aortic valve sclerosis. There is no aortic valve stenosis. There is trace aortic valve regurgitation. Pulmonic Valve The pulmonic valve is normal. There is no pulmonic valve stenosis. There is no pulmonic regurgitation. Mitral Valve The mitral valve has normal leaflets. There is no mitral valve stenosis. There is trace mitral valve regurgitation. Tricuspid Valve The tricuspid valve leaflets are normal. There is no significant tricuspid valve stenosis. There is mild tricuspid valve regurgitation. No pulmonary hypertension, estimated pulmonary arterial systolic pressure is 25 mmHg. Pericardium/Pleural The pericardium appears normal. There is no pericardial effusion. Inferior Vena Cava Not well visualized inferior vena cava with >50% collapse upon inspiration consistent with Empty right atrial pressure, 10 mmHg. Aorta The aortic root size at the sinus of Valsalva is normal. The prox ascending aorta size is normal. Left Ventricular Outflow Tract Name Value Normal LVOT 2D LVOT Diameter 1.98 cm LVOT Doppler LVOT Peak Gradient 2 mmHg LVOT Mean Gradient 1 mmHg LVOT VTI 15.02 cm LVOT VTI/AV VTI Ratio 0.62 LVOT Stroke Volume 46.18 ml LVOT CO 3.30 l/min LVOT CI 1.68 L/min/m2 Pulmonic Valve Name Value Normal RVOT Doppler RVOT Peak Gradient 3 mmHg PV Doppler PV Peak Gradient 5 mmHg Mitral Valve Name Value Normal MV Doppler MV Decel Swisher 354.42 cm/s2 MV PHT 0 s MV Area (PHT) 3.63 cm2 4.00-5.00 MV Diastolic Function MV E Peak Velocity 74.13 cm/s MV A Peak Velocity 110.38 cm/s MV E/A 0.67 MV Decel Time 0 s MV Annular TDI MV E/e' (Septal) 15.57 <=8.00 MV E/e' (Lateral) 9.73 <=8.00 MV E/e' (Average) 12.65 Tricuspid Valve Name Value Normal TV Regurgitation Doppler TR Peak Velocity 192.69 cm/s TR Peak Gradient 15 mmHg Estimated PAP/RSVP RA Pressure 10 mmHg <=5 PA Systolic Pressure 25 mmHg <36 RV Systolic Pressure 25 mmHg <36 Aorta Name Value Normal Ascending Aorta Ao Root Diameter (MM) 3.01 cm Ao Root Diam Index (MM) 1.53 cm/m2 Aortic Valve Name Value Normal AV Doppler AV Peak Velocity 128.23 cm/s AV Peak Gradient 7 mmHg AV Mean Gradient 3 mmHg AV VTI 24.14 cm AV Area (Cont Eq VTI) 1.91 cm2 >=3.00 AV Area (Cont Eq Esau) 1.81 cm2 AV Regurgitation 2D LVOT Area 3.07 cm2 Ventricles Name Value Normal LV Dimensions 2D/MM IVS Diastolic Thickness (2D) 0.95 cm 0.60-1.00 LVID Diastole (2D) 4.69 cm 4.20-5.80 LVIW Diastolic Thickness (2D) 0.87 cm 0.60-1.00 LVID Systole (2D) 3.39 cm 2.50-4.00 LVOT Diameter 1.98 cm LV Mass (2D Cubed) 144.83 g 88.00-224.00 LV Mass Index (2D Cubed) 0.01 g/cm2 0.00-0.01 Relative Wall Thickness (2D) 0.37 LV Fractional Shortening/Ejection Fraction 2D/MM LV Fractional Shortening (2D) 28 % 25-43 LV EF (2D Teicholz) 54 % 52-72 LV Diastolic Volume (4C MOD) 86.30 ml LV EF (4C MOD) 51 % LV Diastolic Volume (2C MOD) 81.84 ml LV EF (2C MOD) 48 % LV Diastolic Volume (BP MOD) 85.97 ml 62.00-150.00 LV Diastolic Volume Index (BP MOD) 0.04 l/m2 0.03-0.07 LV Systolic Volume (BP MOD) 42.35 ml 21.00-61.00 LV Systolic Volume Index (BP MOD) 0.02 l/m2 0.01-0.03 LV EF (BP MOD) 51 % 52-72 LV Diastolic Length (4C) 8.32 cm LV Systolic Length (4C) 6.93 cm LV Stroke Volume (4C MOD) 43.95 ml Atria Name Value Normal LA Dimensions LA Dimension (MM) 3.97 cm 3.00-4.10 LA Volume (4C A-L) 32.24 ml LA Volume (BP A-L) 32.51 ml RA Dimensions RA Area (4C) 12.01 cm2 <=18.00 Report Signatures
[2024-05-02 05:22] LABS: Basophils Absolute Auto 0.1 K/mm3 (0.0-0.1); Basophils Percent Auto 0.9 % (0.2-1.2); Eosinophils Absolute Auto 0.3 K/mm3 (0-0.3); Eosinophils Percent Auto 3.3 % (0-4.4); Hematocrit 41.7 % (42.0-52.0); Hemoglobin 13.3 g/dL (14.0-18.0); Immature Granulocyte Absolute 0.03 K/mm3 (0.00-0.031); Immature Granulocyte Percent A 0.3 % (0-0.5); Mean Corpuscular HGB Conc 31.9 g/dl (32-36); Mean Corpuscular Hemoglobin 27.9 pg (26-34); Mean Corpuscular Volume 87.4 fl (80-100); Mean Platelet Volume 12.3 fl (7.4-10.4); Monocytes Absolute Auto 1.1 K/mm3 (0.1-0.6); Monocytes Percent Auto 11.9 % (2.6-8.5); Neutrophils Absolute Auto 4.4 K/mm3 (1.3-6.7); Neutrophils Percent Auto 49.6 % (45.5-73.1); Platelet Count Result 166 k/mm3 (150-375); Red Blood Count 4.77 M/mm3 (4.6-6.20); Red Cell Distribution Width 13.7 % (11.5-14.5); White Blood Count 8.8 K/mm3 (4.5-10.0)
[2024-05-02 05:29] LABS: Alanine Aminotransferase 31 U/L (6-50); Albumin Level 3.5 g/dL (3.5-5.1); Alkaline Phosphatase 78 U/L (38-126); Anion Gap 8 mmol/L (4-12); Aspartate Amino Transferase 94 U/L (17-59); Blood Urea Nitrogen 15 mg/dL (9-20); Carbon Dioxide 26 mmol/L (22-30); Chloride 104 mmol/L (98-107); Estimated CRCL calculation 64 ml/min; Estimated Glomerular Filt Rate > 60; Glucose 161 mg/dL (65-110); Magnesium 2.2 mg/dL (1.6-2.3); Potassium 3.7 mmol/L (3.4-5.0); Sodium 138 mmol/L (137-145)
--- NOTE | 2024-05-02 06:48 | PC.NURSE ---
Patient's bed zeroed while patient on BSC. Weight change documented.
[2024-05-02 07:53] LABS: Glucose Point of Care 151 mg/dl (65-105)
[2024-05-02] MEDS: METOPROLOL TARTRATE 25 MG TABLET PO ×2 (08:29→20:04)
[2024-05-02] MEDS: TICAGRELOR 90 MG TABLET PO ×2 (08:29→20:04)
[2024-05-02] MEDS: ATORVASTATIN 40 MG TABLET 80 MG PO (08:29)
[2024-05-02] MEDS: ASPIRIN 81 MG ENTERIC TABLET PO (08:30)
[2024-05-02] MEDS: ENOXAPARIN 40 MG/0.4 ML SYRINGE SUB-Q (08:30)
[2024-05-02] MEDS: INSULIN ASPART (*BKC) 100 UNITS/ML SUB-Q ×2 (08:33→11:39)
[2024-05-02] MEDS: INSULIN GLARGINE (*BKC) 100 UNITS/ML 10 UNITS SUB-Q (08:35)
[2024-05-02] MEDS: PERFLUTREN LIPID MICROSPHERES 1.5 ML VIAL DILUTED TO 10 ML TOTAL VOLUME IV PUSH (09:30)
--- NOTE | 2024-05-02 09:57 | PM.PNCARD ---
Progress Note: A&P Assessment and Plan (1) ST elevation (STEMI) myocardial infarction: Qualifiers: Involved coronary artery: LAD coronary artery Qualified Code(s): I21.02 - ST elevation (STEMI) myocardial infarction involving left anterior descending coronary artery Code(s): I21.3 - ST elevation (STEMI) myocardial infarction of unspecified site Status: Acute (2) Hypertension: Qualifiers: Hypertension type: primary hypertension Qualified Code(s): I10 - Essential (primary) hypertension Code(s): I10 - Essential (primary) hypertension Status: Acute (3) Diabetes mellitus: Qualifiers: Diabetes mellitus type: type 2 Diabetes mellitus complication status: without complication Code(s): E11.9 - Type 2 diabetes mellitus without complications Status: Acute Plan Assessment: Anterior STEMI s/p PCI to proximal to mid LAD with 2.75mm x 18mm and 3.0mm x26 mm Orsiro JOSE; 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 Provided reassurance. -Continue ASA 81mg once daily indefinitely. -Continue Brilinta 90mg BID for at least 1 year. Rx sent to [facility]. -Continue high intensity statin. -Continue Metoprolol -Start low dose Losartan given elevated blood pressures this morning. -TTE today -Staged PCI to LCX -Cardiac rehab at one month -Transfer out of the ICU today. Anticipate discharge home tomorrow. Recommendations and plan discussed with ICU Physician. Subjective Date/time seen: 05/02/24 09:57 Interval history: Reason for visit: STEMI HPI: 78 year old Pashto speaking male with past medical history of hypertension, diabetes mellitus presented with chief complaint of chest pain that started 3-4 hours prior to presentation. Pain is located in the left chest without any radiation and is of intensity 7/10. No diaphoresis, shortness of breath, lightheadedness, dizziness, presyncope, syncope, leg swelling, recent weight gain. EKG shows ST elevation in anterior leads with reciprocal depressions in inferior leads. Troponin is elevated. Date of service 05/01: Post cardiac catheterization, patient's chest pain relieved but he developed 5/10 chest pain last night requiring nitroglycerin drip and heparin drip was resumed. Patient's chest pain came down to 1/10 with this intervention. This morning he complains of chest pain of 1/10 in intensity. No shortness of breath, dizziness, lightheadedness, palpitations, bleeding, nausea, abdominal pain. Date of service 05/02: art psychotherapist or therapist was used to communicate to the patient. Patient reports he is feeling well this morning. Has mild chest wall tenderness that is reproducible on examination. Review of Systems Review of Systems: All systems reviewed & are unremarkable except as noted in HPI and below (HPI) Exam Const: General: comfortable and no acute distress HENMT: Mouth: Yes moist mucous membranes Eyes: General: appearance normal, both eyes and all related structures Sclera: sclerae normal Resp: Effort & Inspection: normal respiratory effort Cardio: Rate: regular rate Rhythm: regular rhythm Heart sounds: no murmurs Other: Reproducible chest wall tenderness Skin: General skin exam: normal color Neuro: Speech: normal speech Psych: Mental Status: mental status grossly normal Affect: normal affect Objective Data Vital Signs Vital Signs: Vital Signs - 24 hr 05/01/24 10:00 05/01/24 10:00 05/01/24 10:00 Temperature Pulse Rate 70 62 71 Respiratory Rate 19 Blood Pressure 100/62 130/74 Pulse Oximetry 96 Oxygen Delivery 05/01/24 11:10 05/01/24 12:00 05/01/24 12:00 Temperature Pulse Rate 69 63 Respiratory Rate Blood Pressure 100/62 Pulse Oximetry Oxygen Delivery Room Air 05/01/24 12:30 05/01/24 12:48 05/01/24 14:00 Temperature 36.6 C Pulse Rate 66 66 69 Respiratory Rate 23 H Blood Pressure 110/78 110/78 Pulse Oximetry 97 Oxygen Delivery 05/01/24 14:00 05/01/24 16:00 05/01/24 16:00 Temperature 36.3 C L Pulse Rate 71 72 Respiratory Rate 21 H 19 Blood Pressure 129/86 135/93 H Pulse Oximetry 98 98 Oxygen Delivery Room Air 05/01/24 16:00 05/01/24 17:33 05/01/24 18:00 Temperature 36.7 C Pulse Rate 77 66 63 Respiratory Rate 17 Blood Pressure 126/73 Pulse Oximetry 97 Oxygen Delivery 05/01/24 20:00 05/01/24 20:00 05/01/24 20:00 Temperature 36.3 C L Pulse Rate 71 63 Respiratory Rate 21 H Blood Pressure 115/72 Pulse Oximetry 96 Oxygen Delivery Room Air 05/01/24 21:44 05/01/24 22:00 05/01/24 22:08 Temperature 36.4 C Pulse Rate 66 65 81 Respiratory Rate 20 Blood Pressure 144/86 H Pulse Oximetry 99 Oxygen Delivery 05/02/24 00:00 05/02/24 00:00 05/02/24 00:42 Temperature 36.2 C L Pulse Rate 65 62 Respiratory Rate 17 Blood Pressure 134/92 H Pulse Oximetry 99 Oxygen Delivery Room Air 05/02/24 02:00 05/02/24 02:15 05/02/24 04:00 Temperature 36.4 C L Pulse Rate 68 65 60 Respiratory Rate 15 Blood Pressure 125/65 Pulse Oximetry 98 Oxygen Delivery 05/02/24 04:00 05/02/24 04:33 05/02/24 06:00 Temperature 36.4 C L Pulse Rate 55 L 69 Respiratory Rate 12 Blood Pressure 158/76 H Pulse Oximetry 98 Oxygen Delivery Room Air 05/02/24 06:12 05/02/24 08:00 05/02/24 08:29 Temperature 36.3 C L 36.3 C L Pulse Rate 55 L 79 80 Respiratory Rate 12 17 Blood Pressure 158/76 H 175/81 H Pulse Oximetry 98 100 Oxygen Delivery Intake/Output Intake/Output: Intake & Output 04/29/24 04/30/24 05/01/24 05/02/24 23:59 23:59 23:59 23:59 Intake Total 732.4 190 Output Total 870 953 0360 Balance -300 -167.6 -835 Meds/Results Medications: Active Medications Generic Name Dose Route Start Last Admin Trade Name Freq PRN Reason Stop Dose Admin Hydrocodone Bitart/Acetaminophen 1 tab 05/01/24 08:27 Hydrocodone/Acetaminophen (*Crx) 5-325 Mg Tablet PO Q4H PRN Pain Rated 4-6 Aspirin 81 mg 05/01/24 09:00 05/02/24 08:30 Aspirin 81 Mg Enteric Tablet PO 81 mg QAM DESIRAE Administration Atorvastatin Calcium 80 mg 05/01/24 09:00 05/02/24 08:29 Atorvastatin 40 Mg Tablet PO 80 mg DAILY DESIRAE Administration Dextrose 12.5 gm 04/30/24 17:32 Dextrose 50% 25 Gm/50 Ml Syringe IV PUSH PRN PRN Hypoglycemia Protocol Enoxaparin Sodium 40 mg 05/02/24 09:00 05/02/24 08:30 Enoxaparin 40 Mg/0.4 Ml Syringe SUB-Q 40 mg DAILY DESIRAE Administration Glucagon 1 mg 04/30/24 17:32 Glucagon For Inj 1 Mg Vial IM PRN PRN Hypoglycemia Protocol Glucose 15 gm 04/30/24 17:32 Glucose Oral Gel 15 Gm Of Glucse In 37.5 Gm Tube PO PRN PRN Hypoglycemia Protocol Dextrose 1,000 mls @ 100 mls/hr 04/30/24 17:32 Dextrose 5% 1,000 Ml IVPB PRN PRN Hypoglycemia Protocol Insulin Aspart 3 - 6 units 05/01/24 08:00 05/02/24 08:24 Insulin Aspart (*Bkc) 100 Units/Ml SUB-Q Not Given TIDWM DESIRAE Protocol Insulin Aspart 5 units 05/01/24 17:00 05/02/24 08:33 Insulin Aspart (*Bkc) 100 Units/Ml SUB-Q 5 units TIDWM DESIRAE Administration Insulin Glargine 10 units 05/02/24 09:00 05/02/24 08:35 Insulin Glargine (*Bkc) 100 Units/Ml SUB-Q 10 units QAM DESIRAE Administration Losartan Potassium 25 mg 05/02/24 09:55 Losartan Potassium 25 Mg Tablet PO DAILY DESIRAE Metoprolol Tartrate 25 mg 04/30/24 21:00 05/02/24 08:29 Metoprolol Tartrate 25 Mg Tablet PO 25 mg Q12HR DESIRAE Administration Nitroglycerin 0.4 mg 04/30/24 23:17 04/30/24 23:15 Nitroglycerin Sl 0.4 Mg Tablet SUBLINGUAL 0.4 mg Q5MIN PRN Administration Chest Pain Perflutren Lipid Microsphere 0 ml 05/01/24 08:27 Perflutren Lipid Microspheres 1.5 Ml Vial Diluted To 10 Ml Total Volume IV PUSH 05/04/24 08:27 ONCE PRN adequate visualization Protocol Ticagrelor 90 mg 05/01/24 08:00 05/02/24 08:29 Ticagrelor 90 Mg Tablet PO 90 mg Q12HR DESIRAE Administration Radiology Results: ITS Impressions Chest X-Ray 04/30/24 14:13 IMPRESSION: No focal infiltrate or effusion. Labs Labs: Laboratory Results - last 24 hr 05/01/24 05/01/24 05/01/24 15:11 17:00 21:44 WBC RBC Hgb Hct MCV MCH MCHC RDW Plt Count MPV Immature Gran % (Auto) Neut % (Auto) Lymph % (Auto) [place] % (Auto) Eos % (Auto) Baso % (Auto) Lymph # (Auto) [place] # (Auto) Eos # (Auto) Baso # (Auto) Abs Immat Gran (auto) Absolute Neuts (auto) Absolute Nucleated RBC Nucleated RBC % Sodium Potassium Chloride Carbon Dioxide Anion Gap BUN Creatinine Estim Creat Clear Calc Estimated GFR Glucose POC Capillary Glucose 157 H 246 H 106 H Calcium Magnesium Total Bilirubin AST ALT Alkaline Phosphatase Total Protein Albumin 05/02/24 05/02/24 05:00 07:50 WBC 8.8 RBC 4.77 Hgb 13.3 L Hct 41.7 L MCV 87.4 MCH 27.9 MCHC 31.9 L RDW 13.7 Plt Count 166 MPV 12.3 H Immature Gran % (Auto) 0.3 Neut % (Auto) 49.6 Lymph % (Auto) 34.0 [place] % (Auto) 11.9 H Eos % (Auto) 3.3 Baso % (Auto) 0.9 Lymph # (Auto) 3.00 [place] # (Auto) 1.1 H Eos # (Auto) 0.3 Baso # (Auto) 0.1 Abs Immat Gran (auto) 0.03 Absolute Neuts (auto) 4.4 Absolute Nucleated RBC 0.000 Nucleated RBC % 0.0 Sodium 138 Potassium 3.7 Chloride 104 Carbon Dioxide 26 Anion Gap 8 BUN 15 Creatinine 0.77 Estim Creat Clear Calc 64 Estimated GFR > 60 Glucose 161 H POC Capillary Glucose 151 H Calcium 8.0 L Magnesium 2.2 Total Bilirubin 1.0 AST 94 H ALT 31 Alkaline Phosphatase 78 Total Protein 7.0 Albumin 3.5
[2024-05-02] MEDS: LOSARTAN POTASSIUM 25 MG TABLET PO (10:17)
[2024-05-02 11:33] LABS: Glucose Point of Care 182 mg/dl (65-105)
--- NOTE | 2024-05-02 12:31 | IVDEFINITY ---
Prior to administration of IV Definity the patient was educated on the risks and benefits of the imaging enhancing agent including potential adverse side effects. The patient verbalized understanding. Allergies were verified. No exclusion criteria were identified and at least one of the following inclusion criteria were met: 1) physician request, 2) patient technically difficult to image (per the [place] [employer] guidelines of two or more segments not discernable within the apical view), or 3) questionable left ventricular function. ?
--- NOTE | 2024-05-02 13:55 | WPDINTPN ---
Progress Note: A&P Assessment and Plan (1) ST elevation (STEMI) myocardial infarction: Qualifiers: Involved coronary artery: LAD coronary artery Qualified Code(s): I21.02 - ST elevation (STEMI) myocardial infarction involving left anterior descending coronary artery Code(s): I21.3 - ST elevation (STEMI) myocardial infarction of unspecified site Status: Acute Assessment and Plan: Status post PCI and 2 stents placement in LAD Patient has other lesions also which will need staged management Chest pain has now resolved Patient was weaned off nitroglycerin infusion and heparin infusion was discontinued yesterday Continue aspirin Brilinta statin Cozaar and beta-jacquelyn Continue telemetry monitoring Echo Summary 1. Left ventricular systolic function is normal, estimated at 40%. Hypokinesis of anteroseptum, mid inferoseptum, apical septum, apical lateral. 2. The left ventricular diastolic function is grade I diastolic dysfunction. 3. There is trace aortic valve regurgitation. 4. There is trace mitral valve regurgitation. 5. There is mild tricuspid valve regurgitation. 6. No pulmonary hypertension, estimated pulmonary arterial systolic pressure is 25 mmHg. (2) Diabetes mellitus: Qualifiers: Diabetes mellitus complication status: without complication Diabetes mellitus type: type 2 Code(s): E11.9 - Type 2 diabetes mellitus without complications Status: Acute Assessment and Plan: Continue Lantus and continue sliding scale (3) Hypertension: Qualifiers: Hypertension type: primary hypertension Qualified Code(s): I10 - Essential (primary) hypertension Code(s): I10 - Essential (primary) hypertension Status: Acute Assessment and Plan: Continue metoprolol Plan DVT prophylaxis -Lovenox Nutrition -diet or Code Status - Full Code Discussed with Cardiology. Transfer out of ICU today Subjective Date/time seen: 05/02/24 Overnight events reviewed. Afebrile Denies any complaints today states the chest pain has resolved. Patient denies fever, shortness of breath, cough, nausea vomiting, abdominal pain,, diarrhea, headache or constipation. He states he had trouble swallowing eggs but otherwise ate his breakfast. All other systems were reviewed and were negative Adequate blood pressure. Sinus rhythm on the monitor On room air Good urine output Other Vitals acceptable Review of Systems Review of Systems: All systems reviewed & are unremarkable except as noted in HPI and below (HPI) Exam Narrative: General: Pt is alert awake and in NAD Lungs/Chest: Trachea central Clear BS B/L, No crackles or wheezing. On palpation of left side of his chest he does state that it hurts but unable to differentiate whether this is the pain he is having or defer Cardiac: RRR. Normal S1 S2. No murmurs Circulation: Pedal pulses are intact and symmetrical. Abdomen: Normal bowel sounds.. Soft. NT. ND. Extremities: No clubbing, cyanosis or edema. Warm right hand has adequate cap refill : Epps in place Neurologic: Follows commands. Moves all 4 extremities PERRL AO x2 Skin: No Rash Objective Data Vital Signs Vital Signs: Vital Signs - 24 hr 05/01/24 14:00 05/01/24 14:00 05/01/24 16:00 Temperature 36.3 C L Pulse Rate 69 71 72 Respiratory Rate 21 H 19 Blood Pressure 129/86 135/93 H Pulse Oximetry 98 98 Oxygen Delivery 05/01/24 16:00 05/01/24 16:00 05/01/24 17:33 Temperature Pulse Rate 77 66 Respiratory Rate Blood Pressure Pulse Oximetry Oxygen Delivery Room Air 05/01/24 18:00 05/01/24 20:00 05/01/24 20:00 Temperature 36.7 C Pulse Rate 63 71 Respiratory Rate 17 Blood Pressure 126/73 Pulse Oximetry 97 Oxygen Delivery Room Air 05/01/24 20:00 05/01/24 21:44 05/01/24 22:00 Temperature 36.3 C L Pulse Rate 63 66 65 Respiratory Rate 21 H Blood Pressure 115/72 Pulse Oximetry 96 Oxygen Delivery 05/01/24 22:08 05/02/24 00:00 05/02/24 00:00 Temperature 36.4 C Pulse Rate 81 65 Respiratory Rate 20 Blood Pressure 144/86 H Pulse Oximetry 99 Oxygen Delivery Room Air 05/02/24 00:42 05/02/24 02:00 05/02/24 02:15 Temperature 36.2 C L 36.4 C L Pulse Rate 62 68 65 Respiratory Rate 17 15 Blood Pressure 134/92 H 125/65 Pulse Oximetry 99 98 Oxygen Delivery 05/02/24 04:00 05/02/24 04:00 05/02/24 04:33 Temperature 36.4 C L Pulse Rate 60 55 L Respiratory Rate 12 Blood Pressure 158/76 H Pulse Oximetry 98 Oxygen Delivery Room Air 05/02/24 06:00 05/02/24 06:12 05/02/24 08:00 Temperature 36.3 C L 36.3 C L Pulse Rate 69 55 L 79 Respiratory Rate 12 17 Blood Pressure 158/76 H 175/81 H Pulse Oximetry 98 100 Oxygen Delivery 05/02/24 08:00 05/02/24 08:00 05/02/24 08:29 Temperature Pulse Rate 70 80 Respiratory Rate Blood Pressure Pulse Oximetry Oxygen Delivery Room Air 05/02/24 10:00 05/02/24 10:00 05/02/24 12:00 Temperature 36.4 C 36.1 C L Pulse Rate 67 67 71 Respiratory Rate 18 18 Blood Pressure 148/79 H 153/75 H Pulse Oximetry 100 100 Oxygen Delivery 05/02/24 12:00 Temperature Pulse Rate 73 Respiratory Rate Blood Pressure Pulse Oximetry Oxygen Delivery Intake/Output Intake/Output: Intake & Output 04/29/24 04/30/24 05/01/24 05/02/24 23:59 23:59 23:59 23:59 Intake Total 732.4 310 Output Total 928 745 0436 Balance -300 -167.6 -915 Meds/Results Medications: Active Medications Generic Name Dose Route Start Last Admin Trade Name Freq PRN Reason Stop Dose Admin Hydrocodone Bitart/Acetaminophen 1 tab 05/01/24 08:27 Hydrocodone/Acetaminophen (*Crx) 5-325 Mg Tablet PO Q4H PRN Pain Rated 4-6 Aspirin 81 mg 05/01/24 09:00 05/02/24 08:30 Aspirin 81 Mg Enteric Tablet PO 81 mg QAM DESIRAE Administration Atorvastatin Calcium 80 mg 05/01/24 09:00 05/02/24 08:29 Atorvastatin 40 Mg Tablet PO 80 mg DAILY DESIRAE Administration Dextrose 12.5 gm 04/30/24 17:32 Dextrose 50% 25 Gm/50 Ml Syringe IV PUSH PRN PRN Hypoglycemia Protocol Enoxaparin Sodium 40 mg 05/02/24 09:00 05/02/24 08:30 Enoxaparin 40 Mg/0.4 Ml Syringe SUB-Q 40 mg DAILY DESIRAE Administration Glucagon 1 mg 04/30/24 17:32 Glucagon For Inj 1 Mg Vial IM PRN PRN Hypoglycemia Protocol Glucose 15 gm 04/30/24 17:32 Glucose Oral Gel 15 Gm Of Glucse In 37.5 Gm Tube PO PRN PRN Hypoglycemia Protocol Dextrose 1,000 mls @ 100 mls/hr 04/30/24 17:32 Dextrose 5% 1,000 Ml IVPB PRN PRN Hypoglycemia Protocol Insulin Aspart 3 - 6 units 05/01/24 08:00 05/02/24 11:39 Insulin Aspart (*Bkc) 100 Units/Ml SUB-Q Not Given TIDWM DESIRAE Protocol Insulin Aspart 5 units 05/01/24 17:00 05/02/24 11:39 Insulin Aspart (*Bkc) 100 Units/Ml SUB-Q 5 units TIDWM DESIRAE Administration Insulin Glargine 10 units 05/02/24 09:00 05/02/24 08:35 Insulin Glargine (*Bkc) 100 Units/Ml SUB-Q 10 units QAM DESIRAE Administration Losartan Potassium 25 mg 05/02/24 09:55 05/02/24 10:17 Losartan Potassium 25 Mg Tablet PO 25 mg DAILY DESIRAE Administration Metoprolol Tartrate 25 mg 04/30/24 21:00 05/02/24 08:29 Metoprolol Tartrate 25 Mg Tablet PO 25 mg Q12HR DESIRAE Administration Nitroglycerin 0.4 mg 04/30/24 23:17 04/30/24 23:15 Nitroglycerin Sl 0.4 Mg Tablet SUBLINGUAL 0.4 mg Q5MIN PRN Administration Chest Pain Ticagrelor 90 mg 05/01/24 08:00 05/02/24 08:29 Ticagrelor 90 Mg Tablet PO 90 mg Q12HR DESIARE Administration Radiology Results: ITS Impressions Chest X-Ray 04/30/24 14:13 IMPRESSION: No focal infiltrate or effusion. Labs Labs: Laboratory Results - last 24 hr 05/01/24 05/01/24 05/01/24 15:11 17:00 21:44 WBC RBC Hgb Hct MCV MCH MCHC RDW Plt Count MPV Immature Gran % (Auto) Neut % (Auto) Lymph % (Auto) [place] % (Auto) Eos % (Auto) Baso % (Auto) Lymph # (Auto) [place] # (Auto) Eos # (Auto) Baso # (Auto) Abs Immat Gran (auto) Absolute Neuts (auto) Absolute Nucleated RBC Nucleated RBC % Sodium Potassium Chloride Carbon Dioxide Anion Gap BUN Creatinine Estim Creat Clear Calc Estimated GFR Glucose POC Capillary Glucose 157 H 246 H 106 H Calcium Magnesium Total Bilirubin AST ALT Alkaline Phosphatase Total Protein Albumin 05/02/24 05/02/24 05/02/24 05:00 07:50 11:13 WBC 8.8 RBC 4.77 Hgb 13.3 L Hct 41.7 L MCV 87.4 MCH 27.9 MCHC 31.9 L RDW 13.7 Plt Count 166 MPV 12.3 H Immature Gran % (Auto) 0.3 Neut % (Auto) 49.6 Lymph % (Auto) 34.0 [place] % (Auto) 11.9 H Eos % (Auto) 3.3 Baso % (Auto) 0.9 Lymph # (Auto) 3.00 [place] # (Auto) 1.1 H Eos # (Auto) 0.3 Baso # (Auto) 0.1 Abs Immat Gran (auto) 0.03 Absolute Neuts (auto) 4.4 Absolute Nucleated RBC 0.000 Nucleated RBC % 0.0 Sodium 138 Potassium 3.7 Chloride 104 Carbon Dioxide 26 Anion Gap 8 BUN 15 Creatinine 0.77 Estim Creat Clear Calc 64 Estimated GFR > 60 Glucose 161 H POC Capillary Glucose 151 H 182 H Calcium 8.0 L Magnesium 2.2 Total Bilirubin 1.0 AST 94 H ALT 31 Alkaline Phosphatase 78 Total Protein 7.0 Albumin 3.5 Quality VTE Prophylaxis VTE prophylaxis: pharmacologic ordered
[2024-05-02 16:38] LABS: Glucose Point of Care 93 mg/dl (65-105)
[2024-05-02 20:59] LABS: Glucose Point of Care 174 mg/dl (65-105)
[2024-05-03] VITALS (7 sets, daily range): BP systolic 117–127; BP diastolic 71–72; PULSE 91–117; RESP 18–20; TEMP 36.7–37.4; O2SAT 92–100
[2024-05-03 04:58] LABS: Hematocrit 45.6 % (42.0-52.0); Hemoglobin 15.1 g/dL (14.0-18.0); Mean Corpuscular HGB Conc 33.1 g/dl (32-36); Mean Corpuscular Hemoglobin 28.5 pg (26-34); Mean Corpuscular Volume 86.2 fl (80-100); Mean Platelet Volume 12.6 fl (7.4-10.4); Platelet Count Result 198 k/mm3 (150-375); Red Blood Count 5.29 M/mm3 (4.6-6.20); Red Cell Distribution Width 13.8 % (11.5-14.5); White Blood Count 8.5 K/mm3 (4.5-10.0)
[2024-05-03 05:07] LABS: Alanine Aminotransferase 27 U/L (6-50); Alkaline Phosphatase 88 U/L (38-126); Anion Gap 15 mmol/L (4-12); Aspartate Amino Transferase 58 U/L (17-59); Bilirubin,Total 1.2 mg/dL (0.2-1.3); Blood Urea Nitrogen 15 mg/dL (9-20); Calcium 8.3 mg/dL (8.4-10.2); Carbon Dioxide 21 mmol/L (22-30); Chloride 100 mmol/L (98-107); Estimated CRCL calculation 46 ml/min; Estimated Glomerular Filt Rate > 60; Glucose 196 mg/dL (65-110); Potassium 3.9 mmol/L (3.4-5.0); Sodium 136 mmol/L (137-145)
[2024-05-03 08:05] LABS: Glucose Point of Care 205 mg/dl (65-105)
[2024-05-03] MEDS: ATORVASTATIN 40 MG TABLET 80 MG PO (08:11)
[2024-05-03] MEDS: TICAGRELOR 90 MG TABLET PO (08:11)
[2024-05-03] MEDS: METOPROLOL TARTRATE 25 MG TABLET PO (08:11)
[2024-05-03] MEDS: LOSARTAN POTASSIUM 25 MG TABLET PO (08:15)
[2024-05-03] MEDS: ASPIRIN 81 MG ENTERIC TABLET PO (08:15)
[2024-05-03] MEDS: INSULIN GLARGINE (*BKC) 100 UNITS/ML 10 UNITS SUB-Q (08:15)
[2024-05-03] MEDS: INSULIN ASPART (*BKC) 100 UNITS/ML SUB-Q ×2 (08:16)
[2024-05-03] MEDS: ENOXAPARIN 40 MG/0.4 ML SYRINGE SUB-Q (08:16)
--- NOTE | 2024-05-03 09:17 | PM.IMPN ---
Progress Note: A&P Assessment and Plan (1) ST elevation (STEMI) myocardial infarction: Qualifiers: Involved coronary artery: LAD coronary artery Qualified Code(s): I21.02 - ST elevation (STEMI) myocardial infarction involving left anterior descending coronary artery Code(s): I21.3 - ST elevation (STEMI) myocardial infarction of unspecified site Status: Acute Assessment and Plan: Status post PCI and 2 stents placement in LAD Patient has other lesions also which will need staged management Chest pain has now resolved Patient was weaned off nitroglycerin infusion and heparin infusion was discontinued yesterday Continue aspirin Brilinta statin Cozaar and beta-jacquelyn Continue telemetry monitoring Echo Summary 1. Left ventricular systolic function is normal, estimated at 40%. Hypokinesis of anteroseptum, mid inferoseptum, apical septum, apical lateral. 2. The left ventricular diastolic function is grade I diastolic dysfunction. 3. There is trace aortic valve regurgitation. 4. There is trace mitral valve regurgitation. 5. There is mild tricuspid valve regurgitation. 6. No pulmonary hypertension, estimated pulmonary arterial systolic pressure is 25 mmHg. (2) Diabetes mellitus: Qualifiers: Diabetes mellitus type: type 2 Diabetes mellitus complication status: without complication Code(s): E11.9 - Type 2 diabetes mellitus without complications Status: Acute Assessment and Plan: Continue Lantus and continue sliding scale (3) Hypertension: Qualifiers: Hypertension type: primary hypertension Qualified Code(s): I10 - Essential (primary) hypertension Code(s): I10 - Essential (primary) hypertension Status: Acute Assessment and Plan: Continue metoprolol Plan DVT prophylaxis -Lovenox Nutrition -diet or Code Status - Full Code Discussed with Cardiology. Transfer out of ICU today Subjective Date/time seen: 05/03/24 09:17 Interval history: Reason for visit: STEMI HPI: 78 year old Khmer speaking male with past medical history of hypertension, diabetes mellitus presented with chief complaint of chest pain that started 3-4 hours prior to presentation. Pain is located in the left chest without any radiation and is of intensity 7/10. No diaphoresis, shortness of breath, lightheadedness, dizziness, presyncope, syncope, leg swelling, recent weight gain. EKG shows ST elevation in anterior leads with reciprocal depressions in inferior leads. Troponin is elevated. Date of service 05/01: Post cardiac catheterization, patient's chest pain relieved but he developed 5/10 chest pain last night requiring nitroglycerin drip and heparin drip was resumed. Patient's chest pain came down to 1/10 with this intervention. This morning he complains of chest pain of 1/10 in intensity. No shortness of breath, dizziness, lightheadedness, palpitations, bleeding, nausea, abdominal pain. Date of service 05/02: manager delivery was used to communicate to the patient. Patient reports he is feeling well this morning. Has mild chest wall tenderness that is reproducible on examination. Assumed care today. Patient was cleared to discharge from cardiac standpoint. During the evaluation no evidence of any chest pain, shortness a breath or palpitation Review of Systems Review of Systems: All systems reviewed & are unremarkable except as noted in HPI and below (HPI) Exam Narrative: General: Pt is alert awake and in NAD Lungs/Chest: Trachea central Clear BS B/L, No crackles or wheezing. On palpation of left side of his chest he does state that it hurts but unable to differentiate whether this is the pain he is having or defer Cardiac: RRR. Normal S1 S2. No murmurs Circulation: Pedal pulses are intact and symmetrical. Abdomen: Normal bowel sounds.. Soft. NT. ND. Extremities: No clubbing, cyanosis or edema. Warm right hand has adequate cap refill : Epps in place Neurologic: Follows commands. Moves all 4 extremities PERRL AO x2 Skin: No Rash Objective Data Vital Signs Vital Signs: Vital Signs - 24 hr 05/02/24 10:00 05/02/24 10:00 05/02/24 12:00 Temperature 97.6 F 96.9 F L Pulse Rate 67 67 71 Respiratory Rate 18 18 Blood Pressure 148/79 H 153/75 H Pulse Oximetry 100 100 Oxygen Delivery 05/02/24 12:00 05/02/24 14:00 05/02/24 16:00 Temperature 97.6 F Pulse Rate 73 77 77 Respiratory Rate 16 Blood Pressure 156/83 H Pulse Oximetry 96 Oxygen Delivery 05/02/24 16:00 05/02/24 18:00 05/02/24 20:00 Temperature 98.5 F Pulse Rate 92 98 107 H Respiratory Rate 16 Blood Pressure 145/87 H Pulse Oximetry 99 Oxygen Delivery 05/02/24 20:00 05/02/24 20:00 05/02/24 20:04 Temperature Pulse Rate 103 H 100 Respiratory Rate Blood Pressure Pulse Oximetry Oxygen Delivery Room Air 05/02/24 22:00 05/02/24 23:58 05/03/24 00:00 Temperature 98.7 F Pulse Rate 94 105 H Respiratory Rate 18 Blood Pressure 128/77 Pulse Oximetry 100 Oxygen Delivery Room Air 05/03/24 00:00 05/03/24 02:00 05/03/24 04:00 Temperature Pulse Rate 117 H 99 Respiratory Rate Blood Pressure Pulse Oximetry Oxygen Delivery Room Air 05/03/24 04:00 05/03/24 04:00 05/03/24 06:00 Temperature 98.0 F Pulse Rate 96 113 H 95 Respiratory Rate 20 Blood Pressure 117/71 Pulse Oximetry 92 Oxygen Delivery 05/03/24 08:00 05/03/24 08:11 Temperature 99.3 F Pulse Rate 102 H 102 H Respiratory Rate 18 Blood Pressure 127/72 Pulse Oximetry 100 Oxygen Delivery Intake/Output Intake/Output: Intake & Output 04/30/24 05/01/24 05/02/24 05/03/24 23:59 23:59 23:59 23:59 Intake Total 732.4 660 120 Output Total 515 590 5663 Balance -300 -167.6 -565 120 Meds/Results Medications: Active Medications Generic Name Dose Route Start Last Admin Trade Name Freq PRN Reason Stop Dose Admin Hydrocodone Bitart/Acetaminophen 1 tab 05/01/24 08:27 Hydrocodone/Acetaminophen (*Crx) 5-325 Mg Tablet PO Q4H PRN Pain Rated 4-6 Aspirin 81 mg 05/01/24 09:00 05/03/24 08:15 Aspirin 81 Mg Enteric Tablet PO 81 mg QAM DESIRAE Administration Atorvastatin Calcium 80 mg 05/01/24 09:00 05/03/24 08:11 Atorvastatin 40 Mg Tablet PO 80 mg DAILY DESIRAE Administration Dextrose 12.5 gm 04/30/24 17:32 Dextrose 50% 25 Gm/50 Ml Syringe IV PUSH PRN PRN Hypoglycemia Protocol Enoxaparin Sodium 40 mg 05/02/24 09:00 05/03/24 08:16 Enoxaparin 40 Mg/0.4 Ml Syringe SUB-Q 40 mg DAILY DESIRAE Administration Glucagon 1 mg 04/30/24 17:32 Glucagon For Inj 1 Mg Vial IM PRN PRN Hypoglycemia Protocol Glucose 15 gm 04/30/24 17:32 Glucose Oral Gel 15 Gm Of Glucse In 37.5 Gm Tube PO PRN PRN Hypoglycemia Protocol Dextrose 1,000 mls @ 100 mls/hr 04/30/24 17:32 Dextrose 5% 1,000 Ml IVPB PRN PRN Hypoglycemia Protocol Insulin Aspart 3 - 6 units 05/01/24 08:00 05/03/24 08:16 Insulin Aspart (*Bkc) 100 Units/Ml SUB-Q 3 units TIDWM DESIRAE Administration Protocol Insulin Aspart 5 units 05/01/24 17:00 05/03/24 08:16 Insulin Aspart (*Bkc) 100 Units/Ml SUB-Q 5 units TIDWM DESIRAE Administration Insulin Glargine 10 units 05/02/24 09:00 05/03/24 08:15 Insulin Glargine (*Bkc) 100 Units/Ml SUB-Q 10 units QAM DESIRAE Administration Losartan Potassium 25 mg 05/02/24 09:55 05/03/24 08:15 Losartan Potassium 25 Mg Tablet PO 25 mg DAILY DESIRAE Administration Metoprolol Tartrate 25 mg 04/30/24 21:00 05/03/24 08:11 Metoprolol Tartrate 25 Mg Tablet PO 25 mg Q12HR DESIRAE Administration Nitroglycerin 0.4 mg 04/30/24 23:17 04/30/24 23:15 Nitroglycerin Sl 0.4 Mg Tablet SUBLINGUAL 0.4 mg Q5MIN PRN Administration Chest Pain Ticagrelor 90 mg 05/01/24 08:00 05/03/24 08:11 Ticagrelor 90 Mg Tablet PO 90 mg Q12HR DESIRAE Administration Radiology Results: ITS Impressions Chest X-Ray 04/30/24 14:13 IMPRESSION: No focal infiltrate or effusion. Labs Labs: Laboratory Results - last 24 hr 05/02/24 05/02/24 05/02/24 11:13 16:34 20:56 WBC RBC Hgb Hct MCV MCH MCHC RDW Plt Count MPV Sodium Potassium Chloride Carbon Dioxide Anion Gap BUN Creatinine Estim Creat Clear Calc Estimated GFR Glucose POC Capillary Glucose 182 H 93 174 H Calcium Magnesium Total Bilirubin AST ALT Alkaline Phosphatase Total Protein Albumin 05/03/24 05/03/24 04:50 08:01 WBC 8.5 RBC 5.29 Hgb 15.1 Hct 45.6 MCV 86.2 MCH 28.5 MCHC 33.1 RDW 13.8 Plt Count 198 MPV 12.6 H Sodium 136 L Potassium 3.9 Chloride 100 Carbon Dioxide 21 L Anion Gap 15 H BUN 15 Creatinine 1.09 Estim Creat Clear Calc 46 Estimated GFR > 60 Glucose 196 H POC Capillary Glucose 205 H Calcium 8.3 L Magnesium 2.0 Total Bilirubin 1.2 AST 58 ALT 27 Alkaline Phosphatase 88 Total Protein 8.0 Albumin 4.0 Quality VTE Prophylaxis VTE prophylaxis: pharmacologic ordered Hospitalist MIPS Advance Care Plan I have confirmed that the patient's Advanced Care Plan is present, code status is documented, or surrogate decision maker is listed in patient medical record.: Yes Medication Reconciliation I have utilized all available resources to obtain, update and review the patients current medications (includes all prescriptions, OTC, herbals, cannabis, and nutritional supplements).: Yes
--- NOTE | 2024-05-03 10:06 | PM.DS ---
DS: Admitting Diagnosis Discharge Date 05/03/2024 Admitting Diagnosis STEMI DS: Discharge Diagnosis Discharge Diagnosis (1) ST elevation (STEMI) myocardial infarction: Qualifiers: Involved coronary artery: LAD coronary artery Qualified Code(s): I21.02 - ST elevation (STEMI) myocardial infarction involving left anterior descending coronary artery Code(s): I21.3 - ST elevation (STEMI) myocardial infarction of unspecified site Status: Acute (2) Ischemic cardiomyopathy: Code(s): I25.5 - Ischemic cardiomyopathy Status: Acute (3) Hypertension: Qualifiers: Hypertension type: primary hypertension Qualified Code(s): I10 - Essential (primary) hypertension Code(s): I10 - Essential (primary) hypertension Status: Acute (4) Diabetes mellitus: Qualifiers: Diabetes mellitus type: type 2 Diabetes mellitus complication status: without complication Code(s): E11.9 - Type 2 diabetes mellitus without complications Status: Acute DS: Summary Hospital Course Reason for hospitalization: STEMI Hospital Course: Assessment: Anterior STEMI s/p PCI to proximal to mid LAD with 2.75mm x 18mm and 3.0mm x26 mm Orsiro JOSE on 04/30/2024; 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 -Continue Brilinta 90mg BID for at least 1 year. -Continue high intensity statin. -Continue Losartan, started Toprol. -TTE showed LVEF 40%. Continue Losartan, Toprol. Further uptitration of heart failure GDMT to be done as outpatient. -Staged PCI as an outpatient. -Will arrange close outpatient follow up in our office. Status at Discharge Cognitive/behavioral status at discharge: Stable Functional status at discharge: independent ambulation Overall status at discharge: patient is back to baseline Time Spent with Patient Time attestation: Total time spent providing and/or coordinating discharge services: Exam Const: General: no acute distress HENMT: Mouth: Yes moist mucous membranes Eyes: General: appearance normal, both eyes and all related structures Sclera: sclerae normal Resp: Effort & Inspection: normal respiratory effort Cardio: Rate: regular rate Rhythm: regular rhythm Skin: General skin exam: normal color Psych: Mental Status: mental status grossly normal Affect: normal affect DS: Data Data Completed and Pending Labs on day of discharge: Labs from last 24 hours 05/03/24 05/03/24 05/02/24 08:01 04:50 20:56 WBC 8.5 RBC 5.29 Hgb 15.1 Hct 45.6 MCV 86.2 MCH 28.5 MCHC 33.1 RDW 13.8 Plt Count 198 MPV 12.6 H Sodium 136 L Potassium 3.9 Chloride 100 Carbon Dioxide 21 L Anion Gap 15 H BUN 15 Creatinine 1.09 Estim Creat Clear Calc 46 Estimated GFR > 60 Glucose 196 H POC Capillary Glucose 205 H 174 H Calcium 8.3 L Magnesium 2.0 Total Bilirubin 1.2 AST 58 ALT 27 Alkaline Phosphatase 88 Total Protein 8.0 Albumin 4.0 05/02/24 05/02/24 16:34 11:13 WBC RBC Hgb Hct MCV MCH MCHC RDW Plt Count MPV Sodium Potassium Chloride Carbon Dioxide Anion Gap BUN Creatinine Estim Creat Clear Calc Estimated GFR Glucose POC Capillary Glucose 93 182 H Calcium Magnesium Total Bilirubin AST ALT Alkaline Phosphatase Total Protein Albumin Discharge Plan Discharge Attending physician on discharge: Milo Sumner Consulting providers: Kyler Tobin Discharging Clinician: Milo Sumner Anticipated Discharge Date/Time: 05/03/24 10:02 Patient Disposition: Home, Self-Care Activity: august shower Diet: heart healthy and diabetic Patient Instructions: Antibiotic Form, Heart Attack (DC), After Radial Heart Catheterization (GEN) Patient Language: Kazakh Stand Alone Forms: General Discharge Information Follow-up/Referrals: Sergio Ojeda MD [Physician] - Discharge Medications: New Brilinta 90 mg Tablet 90 mg PO Q12HR Qty: 90 3RF aspirin 81 mg Tablet,Delayed Release (Dr/Ec) 81 mg PO QAM Qty: 90 3RF atorvastatin [Lipitor] 80 mg tablet 80 mg PO DAILY Qty: 90 3RF losartan 25 mg Tablet 25 mg PO DAILY Qty: 90 3RF metoprolol succinate [Toprol XL] 50 mg tablet extended release 24 hr 50 mg PO DAILY Qty: 90 3RF Continued lactulose 10 gram/15 mL solution 30 ml PO TID insulin glargine [Lantus U-100 Insulin] 100 unit/mL solution 18 unit SUBCUT DAILY insulin lispro 100 unit/mL insulin pen 1 sliding scale dose SUBCUT ACHS Discontinued amlodipine 5 mg tablet 5 mg PO DAILY losartan 25 mg tablet 25 mg PO DAILY Date of admission: 04/30/24 14:23 Primary Care Provider: Bonnie,Chad Perry Admitting Provider: Girish Linn Attending physician on admission: Raysa Mays Condition: Stable
== END 2024-05-03 11:31 | disposition home health service (06) | DRG 174 ==
LOC: ANHED 14:11 → ANHICU 16:05 → ANHIMU 05-03 10:03 → ANHICU 05-04 08:58
PROVIDERS: Internal Medicine; Admitting Provider Internal Medicine Interventional Cardiology; Emergency Provider Emergency Medicine; PCP Family Medicine Sports Medicine; Visit Provider Internal Medicine
PROC: 027035Z Dilation of Coronary Artery, One Artery with Two Drug-eluting Intraluminal Devices, Percutaneous Approach (ICD-10-PCS; CPT 93454; principal; 2024-04-30 14:05)
PROC: 027035Z Dilation of Coronary Artery, One Artery with Two Drug-eluting Intraluminal Devices, Percutaneous Approach (ICD-10-PCS; 2024-04-30 14:05)
PROC: 027035Z Dilation of Coronary Artery, One Artery with Two Drug-eluting Intraluminal Devices, Percutaneous Approach (ICD-10-PCS; 2024-04-30 14:05)
DX: I21.02 ST elevation (STEMI) myocardial infarction involving left anterior descending coronary artery (principal); I25.10 Atherosclerotic heart disease of native coronary artery without angina pectoris; I11.9 Hypertensive heart disease without heart failure; E11.9 Type 2 diabetes mellitus without complications; E78.5 Hyperlipidemia, unspecified; I25.5 Ischemic cardiomyopathy; Z79.4 Long term (current) use of insulin; Z79.84 Long term (current) use of oral hypoglycemic drugs
CPT/HCPCS: 36415; 71045; 80053; 80061; 82948; 83735; 84100; 84484; 85025; 85027; 85610; 85730; 86850; 86900; 86901; 87641; 92978; 93005; 93454; 99285; A9270; C1725; C1753; C1769; C1784; C1874; C1887; C1894; C8929; C9606; J1644; J1650; J1815; J2003; J2250; J2305; J2371; J3010; J3475; J7030; J7040; Q9957

== ENCOUNTER 2024-05-04 12:03 | Inpatient (IN) | payer OTHER, SELFPAY ==
[2024-05-04] VITALS (16 sets, daily range): BP systolic 91–123; BP diastolic 48–69; PULSE 72–103; RESP 13–24; TEMP 36.6–37.9; O2SAT 91–97; BMI 24.5
--- NOTE | ~2024-05-04 | CT_ITS ---
EXAMINATION: CT soft tissue neck chest wo DATE: 05/04/2024 15:52 INDICATION: Dysphagia. Chest pain. TECHNIQUE: Computed tomography (CT) of the neck and chest was performed without intravenous contrast. Automated exposure control and iterative reconstruction technique were employed. The dose-length pro duct was 590.54 mGy-cm. COMPARISON: Chest CT 01/19/2024 FINDINGS: CT NECK: There are likely changes of ocular lens replacement surgeries. There are no pathologically e nlarged lymph nodes. There is mucosal thickening in the paranasal sinuses. The mastoid air cells are normal. There is severe spondylosis at C5-C6. CT CHEST: The lungs demonstrate mild atelectasis. No pleural effusion. The heart size is normal. Ther e are coronary artery calcifications. No pericardial effusion. There are multiple old healed right ri b fractures, some with plate and screw fixation. There are multiple old healed left rib fractures. Th ere is mild thoracic spondylosis. There is a benign bone island in T4 vertebral body. IMPRESSION: 1. No etiology for the patient's symptoms. Reviewed, dictated and finalized at location A. GIVER
--- NOTE | ~2024-05-04 | US_ITS ---
EXAMINATION: US renal BI DATE: 05/04/2024 14:26 INDICATION: Acute renal insufficiency TECHNIQUE: Multiple ultrasound grayscale images of the kidneys were obtained. COMPARISON: None. FINDINGS: The right kidney measures 11.2 x 5.9 x 5.4 cm. The left kidney measures 9.5 x 5.2 x 3.7 cm. The kidne ys demonstrate normal echogenicity. Bilateral anechoic renal cysts measuring up to 3.4 cm at the mid right kidney and 4.6 mm the lower pole of the left kidney. There is no hydronephrosis in either kidne y. No stones identified. The bladder is normal. IMPRESSION: 1. Bilateral renal cysts measuring up to 4.6 cm. Otherwise normal kidneys with no hydronephrosis. Reviewed, dictated and finalized at location B. [facility] [employer] [employer]
--- NOTE | ~2024-05-04 | CT_ITS ---
EXAMINATION: CT brain wo con DATE: 05/07/2024 14:10 INDICATION: Altered mental status . TECHNIQUE: Computed tomography (CT) of the head was performed without intravenous contrast. The mA wa s adjusted according to patient size. Iterative reconstruction technique was employed. The dose-lengt h product was 605.33 mGy-cm. COMPARISON: 09/05/2023. FINDINGS: No acute intracranial hemorrhage or extra-axial fluid collection. No hydrocephalus, mass, or herniation. No acute ischemic infarct. Unremarkable dural venous sinus attenuation. No acute osseous abnormality. Pansinus mucosal thickening, the mastoid air cells are clear. Moderate atrophy and chronic white matter change. Atherosclerotic intracranial calcification. Bilater al lens replacements. 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 Focal rig ht posterior frontal encephalomalacia. IMPRESSION: No acute intracranial process. Reviewed, dictated and finalized at location K. ER MIXER
--- NOTE | ~2024-05-04 | XR_ITS ---
Exam: Abdomen 1V HISTORY: urinary retention, r/o bowel distention COMPARISON: Reference is made to a CT examination of the chest abdomen and pelvis dated 01/19/2024 TECHNIQUE: Supine images of the abdomen FINDINGS: Bowel gas pattern is nonspecific and non-obstructive. There is no free air or deep sulci. No pathologic calcifications are seen. Fixation hardware within the right hemipelvis and the right ribs. Lung bases are unremarkable. Remainder of the bones and soft tissues are unremarkable. IMPRESSION: Nonspecific, nonobstructive bowel gas pattern, as detailed above. Reviewed, dictated and finalized at location A. T SCIENCE PROFESSOR
--- NOTE | 2024-05-04 12:06 | ECG_ITS ---
Test Date: 2024-05-04 12:06:08 Measurements Intervals [place] Rate: 101 P: 17 OK: 175 QRS: -13 QRSD: 89 T: 87 QT: 331 QTc: 430 Interpretive Statements SINUS TACHYCARDIA POSSIBLE LEFT ATRIAL ENLARGEMENT [-0.1mV P WAVE IN V1/V2] ST ELEVATION, CONSIDER SEPTAL INJURY [MARKED ST ELEVATION W/O NORMALLY INFLECTED T WAVE IN V1/V2] ACUTE GA Compared to ECG 01/19/2024 15:27:53 ST (T wave) deviation now present Electronically Signed On 05-04-2024 16:10:41 STATISTICAL CLERK by Milo Sumner M.D.
--- NOTE | 2024-05-04 12:12 | ED.GENADULT ---
HPI - General Adult General Chief complaint: Chest Pain Stated complaint: STEMI History of Present Illness HPI narrative: 78-year-old male presenting emergency department for evaluation for worsening chest pain. Patient was recently discharged after her cardiac evaluation and cardiac stenting. Family states the patient has had persistent chest pain worsening shortness of breath and cough since being discharged. Patient states the pain worsened today so they called EMS. EMS range EKG that was concerning for acute STEMI and code STEMI was called. Cardiology was notified and they were in the emergency department when the patient arrived. EMS states that aspirin was given, nitro was held due to lack of IV. IV access was established when patient arrived to the emergency department. Repeat EKG confirmed STEMI. Patient was treated with p.o. Brilinta and heparin bolus prior to going to the recyclable materials distributor. Related Data Home Medications ?Medication ?Instructions ?Recorded ?Confirmed ?Last Taken ?Type insulin glargine 100 unit/mL 18 unit subcut DAILY DM 09/06/23 05/04/24 05/03/24 History subcutaneous solution (Lantus U-100 Insulin) insulin lispro 100 unit/mL 1 sliding scale dose subcut ACHS dm 09/06/23 05/04/24 Unknown History subcutaneous pen lactulose 10 gram/15 mL oral 30 ml PO TID 04/30/24 05/04/24 Unknown History solution Allergies Allergy/AdvReac Type Severity Reaction Status Date / Time No Known Allergies Allergy Verified 05/04/24 17:17 Review of Systems Review of Systems: All systems reviewed & are unremarkable except as noted in HPI and below PMFSH Past Medical History Medical History Compression fracture of L4 vertebra Hyperlipidemia Diabetes Hypertension Urinary retention Chronic indwelling Epps catheter Diabetes type 2, controlled Surgical History Surgical History Surgical history unknown Family History Family History Mother Family history unknown Social History Social History (System 05/04/24 @ 15:55 by Balaji Ramos) Smoking status: Never smoker Alcohol intake: never Substance use: never Substance use type: does not use Do You Feel Safe in your Home?: Yes Lack of Transportation: No Lack of Food: Never True Current Housing: I Have Housing Concerned About Future Housing: No Difficulty Paying Gas/Electric Bills: No Difficulty Paying for Meds: No Currently Unemployed: No Education: Master's Degree or Higher Difficulty w/ Childcare or Family Care: No Living arrangements: with family Gender identity (if verbalized by the patient): Male Sexual Orientation (if Verbalized by the Patient): Straight or Heterosexual Spiritual care concerns: No Exam Narrative: APPEARANCE: Ill-appearing HEAD: normocephalic, atraumatic. EYES: PERRLA/EOMI, conjunctivae clear. NOSE: Normal no drainage EARS:TMS clear with good light reflex. THROAT: Pharynx clear, no exudate. NECK: Supple. No adenopathy, no masses. RESPIRATORY: Decreased breath sounds bilaterally CARDIOVASCULAR: Regular rate and rhythm without murmurs rubs or gallops. ABDOMINAL: Soft, nontender, nondistended, normal bowel sounds MUSCULOSKELETAL: Moves all extremities. Strength/ROM intact, No edema, No calf tenderness. NEURO: Alert. Cranial nerves II through XII intact. Good gait. Good coordination SKIN: Warm, dry. Normal Color Course Vital Signs Vital signs: Vital Signs Temperature 97.8 F 05/04/24 11:58 Pulse Rate 103 H 05/04/24 11:58 Respiratory Rate 17 05/04/24 11:58 Blood Pressure 117/69 05/04/24 11:58 Pulse Oximetry 93 05/04/24 11:58 Oxygen Delivery Room Air 05/04/24 11:58 Temperature 100.3 F H 05/04/24 13:15 Pulse Rate 81 05/04/24 19:00 Respiratory Rate 24 H 05/04/24 19:00 Blood Pressure 111/59 L 05/04/24 19:00 Pulse Oximetry 93 05/04/24 19:00 Oxygen Delivery Room Air 05/04/24 16:00 Medical Decision Making [facility] Narrative Medical decision making narrative: 78-year-old male present to the emergency department for evaluation for chest pain after code STEMI was called. Patient was treated with heparin bolus, Brilinta. Patient does describe having low-grade fevers so viral swabs were ordered. Patient did go to the recyclable materials distributor Vital Signs Vital Signs: Vital Signs Temperature 97.8 F 05/04/24 11:58 Pulse Rate 103 H 05/04/24 11:58 Respiratory Rate 17 05/04/24 11:58 Blood Pressure 117/69 05/04/24 11:58 Pulse Oximetry 93 05/04/24 11:58 Oxygen Delivery Room Air 05/04/24 11:58 Temperature 100.3 F H 05/04/24 13:15 Pulse Rate 81 05/04/24 19:00 Respiratory Rate 24 H 05/04/24 19:00 Blood Pressure 111/59 L 05/04/24 19:00 Pulse Oximetry 93 05/04/24 19:00 Oxygen Delivery Room Air 05/04/24 16:00 Lab Data 05/04/24 12:16 05/04/24 18:37 Discharge Plan Discharge Clinical Impression: Chest pain Qualifiers: Chest pain type: chest pain due to myocardial ischemia Ischemic chest pain type: unspecified angina pectoris type Qualified Code(s): I25.9 - Chronic ischemic heart disease, unspecified Patient Disposition: Still a Patient Condition: Serious
[2024-05-04] MEDS: HEPARIN SODIUM 5,000 UNITS/ML VIAL 4000 UNITS IV PUSH (12:18)
[2024-05-04 12:23] LABS: Basophils Absolute Auto 0.1 K/mm3 (0.0-0.1); Basophils Percent Auto 0.7 % (0.2-1.2); Eosinophils Absolute Auto 0.9 K/mm3 (0-0.3); Eosinophils Percent Auto 8.8 % (0-4.4); Hematocrit 44.5 % (42.0-52.0); Hemoglobin 14.6 g/dL (14.0-18.0); Immature Granulocyte Absolute 0.06 K/mm3 (0.00-0.031); Immature Granulocyte Percent A 0.6 % (0-0.5); Lymphocytes Absolute Auto 1.58 K/mm3 (0.9-3.2); Lymphocytes Percent Auto 15.8 % (18.3-44.2); Mean Corpuscular HGB Conc 32.8 g/dl (32-36); Mean Corpuscular Hemoglobin 28.5 pg (26-34); Mean Corpuscular Volume 86.9 fl (80-100); Monocytes Absolute Auto 1.3 K/mm3 (0.1-0.6); Monocytes Percent Auto 13.2 % (2.6-8.5); Neutrophils Absolute Auto 6.1 K/mm3 (1.3-6.7); Neutrophils Percent Auto 60.9 % (45.5-73.1); Platelet Count Result 221 k/mm3 (150-375); Red Blood Count 5.12 M/mm3 (4.6-6.20); Red Cell Distribution Width 14.3 % (11.5-14.5)
[2024-05-04 12:36] LABS: Anisocytosis 1+; Ovalocytes 1+; Platelet Estimate Adequate (Adequate); Schistocytes None Seen
[2024-05-04 12:38] LABS: Prothrombin Time 13.8 Seconds (11.1-14.7)
[2024-05-04 12:39] LABS: Partial Thromboplastin Time 29.8 Seconds (22.3-36.8)
[2024-05-04 12:40] LABS: Alanine Aminotransferase 28 U/L (6-50); Albumin Level 3.9 g/dL (3.5-5.1); Alkaline Phosphatase 80 U/L (38-126); Anion Gap 19 mmol/L (4-12); Aspartate Amino Transferase 60 U/L (17-59); Bilirubin,Total 1.1 mg/dL (0.2-1.3); Blood Urea Nitrogen 44 mg/dL (9-20); Calcium 8.6 mg/dL (8.4-10.2); Carbon Dioxide 20 mmol/L (22-30); Chloride 95 mmol/L (98-107); Cholesterol 224 mg/dL (0-200); Estimated CRCL calculation 24 ml/min; Estimated Glomerular Filt Rate 30; Glucose 268 mg/dL (65-110); HDL Direct 28 mg/dL; Potassium 4.1 mmol/L (3.4-5.0); Sodium 134 mmol/L (137-145); Triglycerides 166 mg/dL (<150)
[2024-05-04 12:50] LABS: LDL Cholesterol Direct 147 mg/dL
--- NOTE | 2024-05-04 12:54 | WPDMODSED ---
Moderate Sedation Note-Pt Data Patient Data Diagnosis: STEMI Present Complaint: STEMI Procedure to be performed/Plan: Primary PCI Allergies Allergy/AdvReac Type Severity Reaction Status Date / Time gentamicin Allergy Swelling Verified 01/19/24 14:13 Home Medications ?Medication ?Instructions ?Recorded ?Confirmed ?Type hydrochlorothiazide 12.5 mg capsule 12.5 mg PO QAM 05/08/22 06/03/22 History metformin 1,000 mg tablet 1,000 mg PO BID 05/08/22 06/03/22 History rosuvastatin 10 mg tablet 10 mg PO QAM 05/08/22 06/03/22 History valsartan 160 mg tablet 160 mg PO QAM 05/08/22 06/03/22 History ciprofloxacin HCl 500 mg tablet 500 mg PO Q12H #22 tabs 06/05/22 Rx (Cipro) finasteride 5 mg tablet (Proscar) 5 mg PO QAM #30 tabs 06/05/22 Rx glipizide 5 mg tablet 5 mg PO BIDWM #60 tabs 06/05/22 06/03/22 Rx polyethylene glycol 3350 17 gram 17 g PO BID #30 ea 06/05/22 Rx oral powder packet (Miralax) sennosides 8.6 mg-docusate sodium 1 tab PO HS #30 tabs 06/05/22 Rx 50 mg tablet (Senokot-S) tamsulosin 0.4 mg capsule (Flomax) 0.4 mg PO HS #30 caps 06/05/22 Rx tramadol 50 mg tablet 50 mg PO Q6H PRN pain #20 tabs 07/18/22 Rx polyethylene glycol 3350 17 17 g PO BID #510 grams 01/19/24 Rx gram/dose oral powder (Powderlax) Sedation/Anesthesia: No previous sedation/anesthesia problems (including family history). [facility] Past Medical History Medical History Compression fracture of L4 vertebra Hyperlipidemia Diabetes Hypertension Urinary retention Chronic indwelling Epps catheter Diabetes type 2, controlled Surgical History Surgical History Surgical history unknown Family History Family History Mother Family history unknown Social History Social History Smoking status: Never smoker Alcohol intake: never Substance use: never Living arrangements: with family Gender identity (if verbalized by the patient): Male Sexual Orientation (if Verbalized by the Patient): Straight or Heterosexual Spiritual care concerns: Yes Mod Sed Physical Exam Physical Exam Pre Procedural Exam: Normal: Lungs, Heart Rate, Heart Rhythm, Abdomen, Extremities and Skin and Variation: Appearance (In mild distress) Hours since solid foods: 0 Hours since liquid intake: 0 Mallampati Classification: class III Internal Medicine - PN: Obj Da Vital Signs Vital Signs: Vital Signs - 24 hr 05/04/24 11:58 05/04/24 12:12 Temperature 36.6 C Pulse Rate 103 H 98 Respiratory Rate 17 Blood Pressure 117/69 Pulse Oximetry 93 Oxygen Delivery Room Air Labs 05/04/24 12:16 05/04/24 12:16 Labs: Laboratory Results - last 24 hr 05/04/24 12:16 WBC 10.0 RBC 5.12 Hgb 14.6 Hct 44.5 MCV 86.9 MCH 28.5 MCHC 32.8 RDW 14.3 Plt Count 221 MPV 12.0 H Immature Gran % (Auto) 0.6 H Neut % (Auto) 60.9 Lymph % (Auto) 15.8 L [place] % (Auto) 13.2 H Eos % (Auto) 8.8 H Baso % (Auto) 0.7 Lymph # (Auto) 1.58 [place] # (Auto) 1.3 H Eos # (Auto) 0.9 H Baso # (Auto) 0.1 Abs Immat Gran (auto) 0.06 H Absolute Neuts (auto) 6.1 Absolute Nucleated RBC 0.000 Nucleated RBC % 0.0 Platelet Estimate Adequate Anisocytosis 1+ Ovalocytes 1+ Schistocytes None seen PT 13.8 INR 1.0 APTT 29.8 Sodium 134 L Potassium 4.1 Chloride 95 L Carbon Dioxide 20 L Anion Gap 19 H BUN 44 H D Creatinine 2.18 H Estim Creat Clear Calc 24 Estimated GFR 30 L Glucose 268 H Calcium 8.6 Total Bilirubin 1.1 AST 60 H ALT 28 Alkaline Phosphatase 80 Total Protein 8.0 Albumin 3.9 Triglycerides 166 H Cholesterol 224 H LDL Cholesterol Direct 147 HDL Direct 28 Blood Type AB Positive ASA Classification/Sedation ASA Classification/Sedation ASA Class: IV Emergent: Yes Risks: Risks, benefits and alternatives explained and patient/family accepted plan for sedation. Patient re-evaluated immediately prior to sedation.
--- NOTE | 2024-05-04 12:55 | PM.IMHP ---
H&P: HPI History of Present Illness Date/Time: 05/04/24 12:55 Chief Complaint: Chest pain Narrative: This is a 78 year old male who was recently discharged from [place] after an anterior STEMI s/p 2 JOSE to the LAD. Had an uncomplicated hospital course. Patient is Sami speaking only so family present with him was used for emergent interpretation. Family reports that after hospital discharge, he started having runny nose, cough, subjective fevers. Upon EMS arrival, he had reported chest pain, although unable to further elicit any details. EKG showed ST elevations in the anterior leads, particularly V2, with reciprocal depression in the inferior leads. Although he did have mild persistent ST elevations post PCI after his initial STEMI, these ST elevations are more prominent. Therefore, we decided to proceed with emergent cardiac catheterization to ensure patency of the LAD stents. Family reports full compliance with DAPT therapy since hospital discharge. Review of Systems Review of Systems: Unable to obtain emergently from patient due to language barrier. [facility] Past Medical History Medical History Compression fracture of L4 vertebra Hyperlipidemia Diabetes Hypertension Urinary retention Chronic indwelling Epps catheter Diabetes type 2, controlled Surgical History Surgical History Surgical history unknown Family History Family History Mother Family history unknown Social History Social History Smoking status: Never smoker Alcohol intake: never Substance use: never Living arrangements: with family Gender identity (if verbalized by the patient): Male Sexual Orientation (if Verbalized by the Patient): Straight or Heterosexual Spiritual care concerns: Yes Meds Home Medications and Allergies Home Medications ?Medication ?Instructions ?Recorded ?Confirmed ?Type hydrochlorothiazide 12.5 mg capsule 12.5 mg PO QAM 05/08/22 06/03/22 History metformin 1,000 mg tablet 1,000 mg PO BID 05/08/22 06/03/22 History rosuvastatin 10 mg tablet 10 mg PO QAM 05/08/22 06/03/22 History valsartan 160 mg tablet 160 mg PO QAM 05/08/22 06/03/22 History ciprofloxacin HCl 500 mg tablet 500 mg PO Q12H #22 tabs 03/02/23 Rx (Cipro) finasteride 5 mg tablet (Proscar) 5 mg PO QAM #30 tabs 06/05/22 Rx glipizide 5 mg tablet 5 mg PO BIDWM #60 tabs 06/05/22 06/03/22 Rx polyethylene glycol 3350 17 gram 17 g PO BID #30 ea 06/05/22 Rx oral powder packet (Miralax) sennosides 8.6 mg-docusate sodium 1 tab PO HS #30 tabs 06/05/22 Rx 50 mg tablet (Senokot-S) tamsulosin 0.4 mg capsule (Flomax) 0.4 mg PO HS #30 caps 06/05/22 Rx tramadol 50 mg tablet 50 mg PO Q6H PRN pain #20 tabs 07/18/22 Rx polyethylene glycol 3350 17 17 g PO BID #510 grams 01/19/24 Rx gram/dose oral powder (Powderlax) Allergies Allergy/AdvReac Type Severity Reaction Status Date / Time gentamicin Allergy Swelling Verified 01/19/24 14:13 Vital Signs Vital Signs - 24 hr 05/04/24 11:58 05/04/24 12:12 Temperature 36.6 C Pulse Rate 103 H 98 Respiratory Rate 17 Blood Pressure 117/69 Pulse Oximetry 93 Oxygen Delivery Room Air Exam Const: Other: In mild distress HENMT: Mouth: Yes dry mucous membranes Eyes: General: appearance normal, both eyes and all related structures Sclera: sclerae normal Resp: Effort & Inspection: normal respiratory effort Cardio: Rate: regular rate Rhythm: regular rhythm Skin: General skin exam: normal color Psych: Affect: normal affect H&P: Results Labs Labs: Short CBC 05/04/24 Range/Units 12:16 WBC 10.0 (4.5-10.0) K/mm3 Hgb 14.6 (14.0-18.0) g/dL Hct 44.5 (42.0-52.0) % Plt Count 221 (150-375) k/mm3 BMP 05/04/24 12:16 Sodium 134 L Potassium 4.1 Chloride 95 L Carbon Dioxide 20 L BUN 44 H D Creatinine 2.18 H Glucose 268 H Calcium 8.6 Liver Function 05/04/24 Range/Units 12:16 Total Bilirubin 1.1 (0.2-1.3) mg/dL AST 60 H (17-59) U/L ALT 28 (6-50) U/L Alkaline Phosphatase 80 (38-126) U/L Albumin 3.9 (3.5-5.1) g/dL Assessment and Plan Assessment and plan (1) STEMI (ST elevation myocardial infarction): Code(s): I21.3 - ST elevation (STEMI) myocardial infarction of unspecified site Status: Acute Assessment and Plan: Recent LAD STEMI on 04/30/2023. Family reports that after hospital discharge, he started having runny nose, cough, subjective fevers. Upon EMS arrival, he had reported chest pain, although unable to further elicit any details. EKG showed ST elevations in the anterior leads, particularly V2, with reciprocal depression in the inferior leads. Although he did have mild persistent ST elevations post PCI after his initial STEMI, these ST elevations are more prominent. Therefore, we decided to proceed with emergent cardiac catheterization to ensure patency of the LAD stents. Family reports full compliance with DAPT therapy since hospital discharge. Cardiac catheterization shows patent LAD stents, otherwise stable angiographic findings of LCX/RCA disease. LVEDP is 16mmHg. Given his symptoms of runny nose, cough, fever, recommend infectious workup. Continue ASA, Brilinta, high intensity statin. Will obtain limited TTE to evaluate for pericardial effusion. Recommendations and plan discussed with ICU Physician.
[2024-05-04 12:58] LABS: Influenza A QL RT-PCR Positive (Negative); Influenza B QL RT-PCR Negative (Negative); RSV RNA, RT-PCR Negative (Negative); SARS-CoV-2 RNA PCR Negative (Negative)
--- NOTE | 2024-05-04 13:07 | WPDCARDPROC ---
Cardiac Cath Procedure Note Date of procedure:: 05/04/24 Performing physician:: CATHETERIZATION LABORATORY REPORT Procedure Date: 05/04/2023 Engineer Byproduct: Milo Sumner M.D., [facility]? Referring Physician: Stephen Granado M.D. ([facility]) Anesthesia: Versed and Fentanyl were ordered and given in my presence at 12:32, procedure ended at 12:50. Supervision of nurse monitored moderate sedation with Versed and Fentanyl was provided for 18 minutes. Total of Versed 1mg and Fentanyl 50mcg were administered by the Fitness Attendant RN Yesica Robbins. Pre-op Diagnosis: STEMI Post-op Diagnosis: Procedure(s): 1. Moderate sedation 2. Ultrasound-guided access of the right common femoral artery 3. Coronary angiography 4. Left heart cath 5. Angioseal closure of the right common femoral artery Access Site: Right radial artery Brief History and Clinical Indications: Patient is a 78 year old male who was recently discharged from [place] after an anterior STEMI s/p 2 JOSE to the LAD. Had an uncomplicated hospital course. Patient is Chinese speaking only so family present with him was used for emergent interpretation. Family reports that after hospital discharge, he started having runny nose, cough, subjective fevers. Upon EMS arrival, he had reported chest pain, although unable to further elicit any details. EKG showed ST elevations in the anterior leads, particularly V2, with reciprocal depression in the inferior leads. Although he did have mild persistent ST elevations post PCI after his initial STEMI, these ST elevations are more prominent. Therefore, we decided to proceed with emergent cardiac catheterization to ensure patency of the LAD stents. Family reports full compliance with DAPT therapy since hospital discharge. All risks, benefits and alternatives to left heart catheterization with or without percutaneous coronary intervention was discussed at length with the patient and family. Risk of complications including but not limited to bleeding, infection, arrhythmia, stroke, worsening kidney function, blood loss, groin hematoma, limb loss, emergency coronary artery bypass grafting, and even were discussed with the patient and family and all questions were answered. The patient and his family understood and wished to proceed. Time out called, patient name, date of , medical record number, allergies, procedure performed, identify Engineer Byproduct, patient and staff member concurred with accurate data, procedure carried on. Findings: LEFT HEART CATHETERIZATION FINDINGS: 1. Left main: The left main coronary artery is widely patent without any significant obstructive disease. 2. Left anterior descending: Patent stents in the proximal and mid LAD. No obstructive disease in the LAD. 3. Left circumflex: The proximal LCX has a 70-80% stenosis. The mid LCX has 80% stenosis just prior to take off of OM2. The remainder of the LCX branch is diffusely diseased. OM1 is a small caliber vessel with diffuse 90% stenosis in the proximal-mid portion. OM2 has 80% stenosis. 4. Right coronary artery: The RCA is the dominant vessel. The RCA is heavily calcified. The mid RCA has a 50% stenosis. Remainder of the RCA has diffuse mild disease. The distal RPDA is a small caliber vessel with a 90% stenosis in the mid portion. 5. Left ventricle: A. End-diastolic pressure 16 mmHg. B. LV gram deferred. C. No significant gradient across aortic valve on catheter pullback. Description of Procedure: Informed consent signed and placed in the chart. Patient transferred to ear mold laboratory technician room. Prepped and draped in usual sterile fashion. 2% lidocaine in right groin area. Micropuncture needle used to access right common femoral artery with Seldinger technique under fluoroscopic and ultrasound guidance. J wire advanced, micropuncture cannula placed. Right iliofemoral angiogram performed, access confirmed and micropuncture cannula exchanged for 6-FR sheath. 5F FL 4 diagnostic catheter engaged Left Main Coronary Artery. 5F FR 4 diagnostic catheter engaged Right Coronary Artery. Multiple orthogonal angiogram obtained and reviewed 5F Pigtail diagnostic catheter crossed aortic valve to obtain LVEDP, LV angiogram deferred. Hemostasis was achieved by 6F Angioseal. Disposition: ICU Plan: Patient will be admitted to the ICU. Continue aggressive medical therapy and risk factor modification. ? Milo Sumner M.D. Interventional Cardiology
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
--- OUTSIDE RECORDS SUMMARY | 2024-05-04 13:11 | XMS_ITS | Clinical Summary ---
Author Organization [facility] [employer] Address [address] [place] [address] Care Team Providers Care Detective Supervisor Name Role Phone Unknown, Provider Primary Care Provider Chad Collazo MD Unavailable [phone] Source Comments [facility],non-owned Affiliates and Associated Physician Practices is amultiple site organization consisting of ambulatory clinics and hospital sitesin [place], [place], [place] and [place]. This disclosure is being madepursuant to the Care Everywhere program and may not contain all information available regarding this patient. Last updated 17.[facility] Allergies Active Allergy Reactions Criticality Noted Date [...] tablet 11/09/2022 Active Blood Glucose Monitoring Suppl ([employer] Verio Flex System) w/Device KIT USE DIRECTED THREE TIMES DAILY 11/09/2022 Active erythromycin (Romycin) 5 MG/GM ophthalmic ointment 01/29/2023 Active Ice Energyuch Ultra test strip USE TO TEST FOUR TIMES DAILY 02/02/2023 Active TRUEplus 5-Bevel Pen [place] 32G X 4 MM MISC USE TO INJECT INSULIN UP TO 5 TIMES DAILY 05/19/2023 Active TRUEplus Insulin Syringe 30G X 5/16 0.5 ML MISC USE DIRECTED EVERY DAY 11/09/2022 Active Lancets (Fight My MonsterTOUCH DELICA PLUS 33G EXTRA FINE LANCET) TEST [...] original. Could not [facility] afford to provide a Home Health nurse [...] Follow up in: three months with PCP, Anesthesiology Tech, French Binder, Utility Repairer, Established eye home health care worker and Mailing Jogger Last Assessment & Plan: Not on any [...] Follow up in: three months with PCP, Anesthesiology Tech, French Binder, Utility Repairer, Established eye home health care worker and Mailing Jogger Infected wound 02/19/2020 Sacral wound 12/28/2019 Urinary [...] Mass Index 24.5 08/06/2023 7:22 AM CDT Plan of Treatment Upcoming Encounters Date Type Department Care Team (Late st Contact Info) Description 10/05/2024 10:30 AM CDT Office Visit [facility] - Ophthalmology [address] [place] [address] [phone] Health Maintenance Due Date Last Done Comments HEPATITIS C SCREENING 12/07/1965 DTAP/TDAP/TD VACCINES (1 - Tdap) 12/11/1966 PNEUMOCOCCAL VACCINE 50+ (1 of 2 - PCV) 12/11/1966 ZOSTER VACCINE (1 of 2) 12/11/1997 Respiratory Syncytial Virus (RSV) Vaccine Pt: or over 60 yrs (1 - 1-dose 75+ series) 12/11/2022 DIABETES-FOOT EXAM WITH MONOFILAMENT 07/08/2023 DIABETES-HGB A1C 10/30/2023 05/01/2023, 07/2022, 07/27/2020, Additional history exists COVID-19 VACCINE ( season) 2023 09/21/2020, 08/30/2020 INFLUENZA VACCINE (#1) 2023 DEPRESSION SCREENING 04/06/2024 DIABETES - URINE PROTEIN SCREENING 04/06/2024 MEDICARE AWV ? CALENDAR YEAR 2024 DIABETES-SERUM CREATININE 07/13/20242023, 07/14/2023, 05/03/2023, Additional history exists DIABETES RETINOPATHY SCREENING 10/01/2025 10/02/2023, 07/08/2023 HEPATITIS B VACCINE Aged Out No longe r eligible based on patient's age to complete this topic HIB VACCINE Aged Out No longer eligi ble based on patient's age to complete this topic HPV VACCINE Aged Out No longer eligi ble based on patient's age to complete this topic MENINGOCOCCAL (Group B) VACCINE Aged Out No longer eligible based on patient's age to complete this topic MENINGOCOCCAL VACCINE Aged Out No marianne july eligible based on patient's age to complete this topic Medical Devices Implanted Type Area Anesthesiologist And Critical Care Device Identifier Shelf Expiration Date Model / Serial / Lot Gd Pin Orth 450mm 3.2mm Cocr Xtd Acc Implanted:Qty: 1 on 12/09/2019 by Marco Mantilla MD at [facility] Right: Sacral Iliac Joint [employer] [id number] / / Wshr 12.7mm 6.5mm Set Unv Orth Ss 1mm Implanted:Qty: 1 on 12/09/2019 by Marco Mantilla MD at [facility] Right: Sacral Iliac Joint [employer] [id number] / / Cannulated Screw, 4.0mm X40mm 1/2 Thread Implanted:Qty: 2 on 12/09/2019 by Marco Mantilla MD at [facility] Right: Ankle [id number] / / 8.0 X 9.5 Fully Threaded Screw Implanted:Qty: 1 on 12/09/2019 by Marco Mantilla MD at [facility] [id number] / / Plate 8 Hl Unv Matrixrib Ti Bone Nonster Implanted:Qty: 5 on 12/14/2019 by Marco Reddy MD at [facility] Right: Chest Wall [employer] [id number] / / 2.7 Mm Matrixrib Locking Screw, Self-Drilling, 11mm Implanted:Qty: 35 on 12/14/2019 by Marco Reddy MD at [facility] Right: Chest Wall 04.501.211.0 1 / / 2.7 Mm Matrixrib Locking Screw, Self-Drilling, 12mm Implanted:Qty: 2 on 12/14/2019 by Marco Reddy MD at [facility] Right: Chest Wall 04.501.212.0 1 / / Plate 16 Hl Precontr Lck Lopro 4th Rb Implanted:Qty: 1 on 12/14/2019 by Marco Reddy MD at [facility] Right: Chest Wall [employer] [id number] / / [employer] Uv Iol Ccaoto +23.0d Implanted:Qty: 1 on 08/06/2023 by Jarvis Padilla MD at [facility] Left: Eye [employer] 12/29/2026 CCAOTO+23.0D / [id number] / N/A [employer] Iol Aspheric Uv Absorbing Iol Implanted:Qty: 1 on 08/20/2023 by Jarvis Padilla MD at [facility] Right: [employer] 12/27/2026 CCA0T0 +23.5D / [id number] / NA Procedures Procedure Name Priority Date/Time Associated Diagnosis Comments COMPREHENSIVE METABOLIC PANEL STAT 05/08/2020 2:29 PM [facility] HEMOGLOBIN A1C Routine 02/25/2020 11:09 AM [facility] from Last 3 Months or Most Recently Relevant to Health Maintenance Results * (ABNORMAL) COMPREHENSIVE METABOLIC PANEL (05/08/2020 2:29 PM [facility]) BUN 29(H) 7 - 26 mg/dL 05/08/2020 3:00 PM [facility] Creatinine 1.2 0.6 - 1.2 mg/dL 05/08/2020 3:00 PM [facility] Sodium 138 136 - 145 mmol/L 05/08/2020 3:00 PM [facility] Potassium 3.7 3.5 - 4.5 mmol/L 05/08/2020 3:00 PM [facility] Chloride 96(L) 98 - 107 mmol/L 05/08/2020 3:00 PM [facility] CO2 28 22 - 29 mmol/L 05/08/2020 3:00 PM [facility] Glucose 144(H) 70 - 115 mg/dL 05/08/2020 3:00 PM [facility] Calcium 8.8 8.4 - 10.2 mg/dL 05/08/2020 3:00 PM [facility] Protein Total 6.5 6.0 - 8.3 g/dL 05/08/2020 3:00 PM [facility] Albumin 2.8(L) 3.4 - 5.0 g/dL 05/08/2020 3:00 PM [facility] Bilirubin Total 0.4 0.2 - 1.2 mg/dL 05/08/2020 3:00 PM [facility] Alkaline Phosphatase 108 40 - 150 Units/L 05/08/2020 3:00 PM [facility] ALT 20 0 - 55 Units/L 05/08/2020 3:00 PM [facility] AST 17 5 - 34 Units/L 05/08/2020 3:00 PM [facility] Anion Gap 18 8 - 18 05/08/2020 3:00 PM [facility] BUN/Creatinine Ratio 24(H) 7 - 23 05/08/2020 3:00 PM [facility] Osmolality Calculated 294 270 - 300 mOsm/kg 05/08/2020 3:00 PM [facility] Albumin/Globulin Ratio 0.8(L) 1.1 - 2.3 05/08/2020 3:00 PM [facility] eGFR 60(L) >60 mL/min/1.7 3 m2 05/08/2020 3:00 PM [facility] Blood BLOOD SPECIMEN / Unknown Venipuncture / Unknown 05/08/2020 2:29 PM [facility] 05/08/2020 2:37 PM [facility] Kristopher Grewal MD LAB - CHEMISTRY JAKE LIN [facility] [address] [place] [address], [facility] [phone] * (ABNORMAL) HEMOGLOBIN A1C (02/25/2020 11:09 AM [facility]) Hemoglobin A1c 7.6(H) 4.4 - 6.3 % 02/26/2020 9:00 AM [facility] Estimated Average Glucose 171 mg/dL 02/26/2020 9:00 AM [facility] Comment: HbA1c Interpretation: Treatment target values recommended by ADA and other clinical organizations should be used to evaluate metabolic control in patients. Treatment Target Values: Normal : < 5.7% Pre-diabetes: 5.7-6.4% Diabetes: Equal to or greater than 6.5% Reference: [place] [employer] Standards of Care in Diabetes -2014 In patients 70 years and older consider HbA1c target range of 7.0-7.5% Reference: ??Diabetes Mellitus in Older People: Position Statement on behalf of the International Association of Gerontology and Geriatrics (IAGG), the Diabetes Working Constitution Party for Older People (EDWPOP), and the International Task Force of Experts in Diabetes. ??Bryon Garcia, et al. J [place] [employer]. 2012 Test results diagnostic of diabetes should be repeated for confirmation. The Sebia Capillary 2 assay for the measurement of HbA1c is a National Glycohemoglobin Standardization Program (NGSP)certified method. Blood BLOOD SPECIMEN / Unknown Lab Venipuncture / Unknown 02/25/2020 11:09 AM [facility] 02/25/2020 11:40 AM [facility] Narrative [facility] - 02/26/2020 9:00 AM [facility] note^note Anita Pitts MD LAB - CHEMISTRY OR DERABLES [facility] [address] [place] [address], [place] [phone] from Last 3 Months or Most Recently [...] 3:26 PM 12/28/2019 5:52 PM Care Teams Detective Supervisor Relationship Specialty Start Date End Date Unknown, Provider PCP - General 07/08/23 Chad Nicole MD Family Medicine 07/08/23
--- OUTSIDE RECORDS SUMMARY | 2024-05-04 13:12 | XMS_ITS | Patient Health Summary ---
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 scale image was documented. Afteradministering 1% lidocaine for local anesthesia, the right brachial vein was accessed using a micropuncture needle. The needle entry was documented. A 0.018-inch guidewire was then advanced centrally. A small dermatotomy was made at the puncture site, and a peel-away sheath was advanced into the vein. The PICC was then introduced through the peel-away sheath and advanced to the right atrium under fluoroscopic guidance. A final fluoroscopic image confirmed proper position of the catheter tip at the superior cavoatrial junction. The catheter was secured with Stat-Lock. A sterile dressing was placed. The port(s) aspirated and flushed without difficulty. The patient tolerated the procedure well and was transferred to the holding area in stable condition. There were no immediate complications associated with the procedure. Impression: Successful placement of a 5 Pashto x 37 cm triple-lumenpower PICC via the right brachial vein under ultrasound and fluoroscopic guidance. Note: The catheter can be used now. I, Myrna Walker, performed the entire procedure. Dr. Gee was available for immediate assistance. This report was approved by Myrna Walker on 02/29/2020 3:54 PM . IDr. ANNEMARIE have personally reviewed and interpreted this examination/study. This report was electronically signed by ANNEMARIE SAMSON on 02/29/2020 6:35 PM . Ashley Victor MD IR ORDERABLES * EKG 12-LEAD (02/27/2020 6:58 PM [facility]) Only the most recent of4 resultswithin the time period is included. Ventricular Rate 76 BPM [facility] Atrial Rate 76 BPM [facility] P-R Interval 164 ms [facility] QRS Duration ms 76 ms [facility] Q-T Interval ms 398 ms [facility] QTC Calculation (Bezet) 447 ms [facility] Calculated P Mercedes 61 degrees [facility] Calculated R Mercedes -5 degrees [facility] Calculated T Mercedes 26 degrees [facility] Interpretation EKG NORMAL SINUS RHYTHM NORMAL ECG WHEN COMPARED WITH ECG OF 08-Dec-2019 06:44 NO SIGNIFICANT CHANGE WAS FOUND Confirmed by fellow Marlon Rodriguez ([id number]) on 02/27/2020 8:18:27 PM Confirmed by Kyle Mane ([id number]) on 02/29/2020 11:00:31 PM [facility] 02/27/2020 6:58 PM [facility] 02/29/2020 11:00 PM [facility] Ashley Victor MD ECG ORDERABLES [facility] * XR FEMUR RIGHT 1VW (02/26/2020 11:22 AM [facility]) Anatomical Region Laterality Modality Lower Extremity Radiographic Corazon ging 02/26/2020 1:16 PM [facility] Impressions 02/27/2020 12:30 PM [facility] FINDINGS/IMPRESSION: A right sacroiliac joint fixation screw is present without evidence of loosening. The femur is intact without acute fracture or subluxation/dislocation. There is partially imaged superiorly displaced fracture of the right superior pubic ramus. There are lucencies involving the right ischial tuberosity and right inferior pubic ramus corresponding to the osseous erosions noted on CT pelvis study dated 02/18/2020. A tubing is projecting over the right inferior thalamus and right tissue tuberosity which may represent a drainage catheter; correlate with physical exam. Dictated by Cruz Lee MD (resident care provider). I, Dr. TRACE IQBAL have personally reviewed and interpreted this examination/study. This report was electronically signed by TRACE IQBAL ??on 02/27/2020 12:30 PM . Narrative 02/27/2020 12:30 PM [facility] EXAMINATION: XR FEMUR RIGHT 1VW HISTORY: W19.XXXA: Fall, initial encounter COMPARISON: No prior study is available for comparison at the time of this dictation. Procedure Note jannetTrace preston Jose DO - 02/27/2020 EXAMINATION: XR FEMUR RIGHT 1VW HISTORY: W19.XXXA: Fall, initial encounter COMPARISON: No prior study is available for comparison at the time ofthis dictation. FINDINGS/IMPRESSION: A right sacroiliac joint fixation screw is present without evidence of loosening. The femur is intact without acute fracture or subluxation/dislocation. There is partially imaged superiorly displaced fracture of the right superior pubic ramus. There are lucencies involving the right ischial tuberosity and right inferior pubic ramus corresponding to the osseous erosions noted on CT pelvis study dated 02/18/2020. A tubing isprojecting over the right inferior thalamus and right tissue tuberosity which may represent a drainage catheter; correlate with physical exam. Dictated by Cruz Lee MD (resident care provider). IDr. TRACE have personally reviewed and interpreted this examination/study. This report was electronically signed by TRACE IQBAL on 02/27/2020 12:30 PM . West Clayton MD DIAGNOSTIC IMAGING O RDERABLES * XR HIP RIGHT 2VW OR MORE (02/26/2020 11:21 AM [facility]) Anatomical Region Laterality Modality Pelvis, Lower Extremity Radiogra [facility] 02/27/2020 7:45 AM [facility] Impressions 02/27/2020 12:31 PM [facility] IMPRESSION: No acute fracture or dislocation identified. Dictated by Bg Vasquez MD (resident care provider). Dr. TRACE Lake have personally reviewed and interpreted this examination/study. This report was electronically signed by TRACE IQBAL ??on 02/27/2020 12:31 PM . Narrative 02/27/2020 12:31 PM [facility] EXAMINATION: XR HIP RIGHT 2VW OR MORE HISTORY: W19.XXXA: Fall, initial encounter COMPARISON: Comparison is made with a study from CT pelvis dated 02/18/2020 and pelvis x-ray dated 12/22/2019 FINDINGS: There is a screw fixation of the right sacroiliac joint, but no evidence of hardware complication. Redemonstrated displaced fracture of superior and inferior pubic rami with interval callus formation. The hip joint space is preserved. Bone density and texture are normal. Procedure Note Trace Iqbal, - 02/27/2020 EXAMINATION: XR HIP RIGHT 2VW OR MORE HISTORY: W19.XXXA: Fall, initial encounter COMPARISON: Comparison is made with a study from CT pelvis dated 02/18/2020 and pelvis x-ray dated 12/22/2019 FINDINGS: There is a screw fixation of the right sacroiliac joint, but no evidence of hardware complication. Redemonstrated displaced fracture of superior and inferior pubic rami with interval callus formation. The hip joint space is preserved. Bone density and texture are normal. IMPRESSION: No acute fracture or dislocation identified. Dictated by Bg Vasquez MD (resident care provider). I, Dr. TRACE IQBAL have personally reviewed and interpreted this examination/study. This report was electronically signed by TRACE IQBAL on 02/27/2020 12:31 PM . West Clayton MD DIAGNOSTIC IMAGING O RDERABLES * CULTURE BLOOD (02/25/2020 11:22 AM [facility]) Only the most recent of14 resultswithin the time period is included. Culture No growth day 5 ALEX 03/01/2020 2:01 PM PAD TU[facility] Blood PERIPHERAL BLOOD / Unknown Lab Venipuncture / Unknown 02/25/2020 11:22 AM [facility] 02/25/2020 11:36 AM [facility] TU[facility] Johnny Portillo MD LAB - MICROBIOLOGY O RDERABLES [facility] [address] [place], [place] [address], [facility] [phone] * (ABNORMAL) HEMOGLOBIN A1C (02/25/2020 11:09 AM PAD TU[facility]TER) Only the most recent of2 resultswithin the time period is included. Hemoglobin A1c 7.6(H) 4.4 - 6.3 % 02/26/2020 9:00 AM [facility] Estimated Average Glucose 171 mg/dL 02/26/2020 9:00 AM [facility] Comment: HbA1c Interpretation: Treatment target values recommended by ADA and other clinical organizations should be used to evaluate metabolic control in patients. Treatment Target Values: Normal : < 5.7% Pre-diabetes: 5.7-6.4% Diabetes: Equal to or greater than 6.5% Reference: [place] [employer] Standards of Care in Diabetes -2014 In patients 70 years and older consider HbA1c target range of 7.0-7.5% Reference: ??Diabetes Mellitus in Older People: Position Statement on behalf of the International Association of Gerontology and Geriatrics (IAGG), the Diabetes Working Green Party for Older People (EDWPOP), and the International Task Force of Experts in Diabetes. ??Bryon Garcia, et al. J [employer] [employer]. 2012 Test results diagnostic of diabetes should be repeated for confirmation. The Sebia Capillary 2 assay for the measurement of HbA1c is a National Glycohemoglobin Standardization Program (NGSP)certified method. Blood BLOOD SPECIMEN / Unknown Lab Venipuncture / Unknown 02/25/2020 11:09 AM [facility] 02/25/2020 11:40 AM [facility] Narrative [facility] - 02/26/2020 9:00 AM P[facility] note^note Anita Pitts MD LAB - CHEMISTRY OR DERABLES Performing Organization Address City/State/[facility] Co de Phone Number [facility] [address] [place] [phone], [facility] [phone] * FOLATE (02/25/2020 11:09 AM [facility]) Folate 10.4 7.0 - 31.4 ng/mL 02/25/2020 12:39 PM [facility] Blood BLOOD SPECIMEN / Unknown Lab Venipuncture / Unknown 02/25/2020 11:09 AM [facility] 02/25/2020 11:40 AM [facility] Anita Pitts MD LAB - CHEMISTRY OR DERABLES Performing Organization Address City/[facility]/ZIP Co de Phone Number [address] [address], [facility] [phone] * VITAMIN B12 (02/25/2020 11:09 AM PAD TU[facility]TER) Only the most recent of2 resultswithin the time period is included. Vitamin B12 239 213 - 816 pg/mL 02/25/2020 12:39 PM PAD TU[facility]TER [facility] Blood BLOOD SPECIMEN / Unknown Lab Venipuncture / Unknown 02/25/2020 11:09 AM [facility] 02/25/2020 11:40 AM [facility] Anita Pitts MD LAB - CHEMISTRY OR DERABLES Performing Organization Address [facility] Co de Phone Number [address] [address], [facility] [phone] * XR CHEST 1VW PORTABLE (02/25/2020 5:50 AM PAD TU[facility]TER) Only the most recent of18 resultswithin the time period is included. Anatomical Region Laterality Modality Chest Radiographic Corazon ging 02/25/2020 10:3 0 AM [facility]TER Impressions 02/26/2020 12:14 PM [facility] FINDINGS/IMPRESSION: There is redemonstrated internal fixation of multiple right rib fractures. The lungs are hypoinflated with bronchovascular crowding. There is no focal consolidation, pleural effusion, or pneumothorax. The cardiomediastinal silhouette is normal. Displaced fractures of the left clavicle and multiple left ribs are grossly unchanged in osseous alignment. Dictated by Stalin Ronquillo MD (resident care provider). I, Dr. TRACE IQBAL have personally reviewed and interpreted this examination/study. This report was electronically signed by TRACE IQBAL ??on 02/26/2020 12:14 PM . Narrative 02/26/2020 12:14 PM [facility] EXAMINATION: XR CHEST 1VW PORTABLE HISTORY: T14.8XXA: Infected wound L08.9: Infected wound S22.41XD: Closed fracture of multiple ribs of right side with routine healing, subsequent encounter S32.111K: Closed minimally displaced zone I fracture of sacrum with nonunion, subsequent encounter COMPARISON: 01/23/2020 Procedure Note Trace Iqbal, DO - 02/26/2020 EXAMINATION: XR CHEST 1VW PORTABLE HISTORY: T14.8XXA: Infected wound L08.9: Infected wound S22.41XD: Closed fracture of multiple ribs of right side with routine healing, subsequent encounter S32.111K: Closed minimally displaced zone I fracture of sacrum with nonunion, subsequent encounter COMPARISON: 01/23/2020 FINDINGS/IMPRESSION: There is redemonstrated internal fixation of multiple right ribfractures. The lungs are hypoinflated with bronchovascular crowding. There is no focal consolidation, pleural effusion, or pneumothorax. The cardiomediastinal silhouette is normal. Displaced fractures of the left clavicle and multiple left ribs are grossly unchanged in osseous alignment. Dictated by Stalin Ronquillo MD (resident care provider). I, Dr. TRACE IQBAL have personally reviewed and interpreted this examination/study. This report was electronically signed by TRACE IQBAL on 02/26/2020 12:14 PM . Johnny Portillo MD DIAGNOSTIC IMAGING O RDERABLES * (ABNORMAL) URINALYSIS W/MICROSCOPIC NO CULTURE (02/25/2020 5:46 AM PAD TU[facility]TER) Only the most recent of4 resultswithin the time period is included. Color UA Straw Straw, Yellow, Colorless 02/25/2020 6:23 AM [facility] Clarity UA Clear Clear, Slt Cloudy 02/25/2020 6:23 AM [facility] Specific [place] UA 1.008 1.005 - 1.030 02/25/2020 6:23 AM [facility] pH UA 7.0 5.0 - 8.0 pH 02/25/2020 6:23 AM [facility] Protein UA Negative Negative mg/dL 02/25/2020 6:23 AM [facility] Glucose UA 1+(A) Negative mg/dL 02/25/2020 6:23 AM [facility] Ketone UA Negative Negative mg/dL 02/25/2020 6:23 AM [facility] Bilirubin UA Negative Negative mg/dL 02/25/2020 6:23 AM [facility] Blood UA Negative Negative 02/25/2020 6:23 AM [facility] Nitrite UA Negative Negative 02/25/2020 6:23 AM [facility] Leukocyte Esterase Negative Negative 02/25/2020 6:23 AM [facility] Urobilinogen UA Negative Negative mg/dL 02/25/2020 6:23 AM [facility] RBC UA None Seen None Seen, 0-2, 3-5 /HPF 02/25/2020 6:23 AM [facility] WBC UA None Seen None Seen, 0-5 /HPF 02/25/2020 6:23 AM [facility] Squamous Epithelial Cells UA None Seen None Seen, 0-2 /HPF 02/25/2020 6:23 AM [facility] Urine URINE SPECIMEN OBTAINED BY CLEAN CATCH PROCEDURE / Unknown Collection / Unknown 02/25/2020 5:46 AM P[facility] 02/25/2020 6:03 AM [facility] - 02/25/2020 6:23 AM [facility] note^note Johnny Portillo MD LAB - URINALYSIS ORD ERABLES [address] [address], [facility] [phone] * PTT [facility] (02/24/2020 11:38 PM PAD TU[facility]) Only the most recent of19 resultswithin the time period is included. APTT 26.4 23.0 - 38.4 Seconds 02/25/2020 12:07 AM [facility] Comment:Suggested therapeuti c range for full dose I.V. unfractionated heparin therapy for venous thromboembolism is 71 to 109 seconds. Blood BLOOD SPECIMEN / Unknown Lab Venipuncture / Unknown 02/24/2020 11:38 PM [facility] 02/24/2020 11:59 PM [facility] T[facility]TER Narrative [facility] - 02/25/2020 12:07 AM [facility] note^note Johnny Portillo MD LAB - COAGULATION OR DERABLES [address] [address], [facility] [phone] * PT-INR [facility] (02/24/2020 11:38 PM PAD TU[facility]TER) Only the most recent of8 resultswithin the time period is included. [facility] PT 12.8 12.1 - 14.8 Seconds 02/25/2020 12:06 AM PAD TUFTER [facility] INR 1.0 See Comment 02/25/2020 12:06 AM [facility] Comment:The suggested therap eutic range for standard coumadin (warfarin) therapy is an INR of 2.0-3.0. For high-risk patients (Mechanical Mitral Valve Prosthesis, etc.), the suggested prophylactic therapeutic range is an INR of 2.5-3.5. Blood BLOOD SPECIMEN / Unknown Lab Venipuncture / Unknown 02/24/2020 11:38 PM [facility] 02/24/2020 11:59 PM [facility] Narrative [facility] - 02/25/2020 12:06 AM [facility] note^note Johnny Portillo MD LAB - COAGULATION OR DERABLES [address] [address], [facility] [phone] * TROPONIN I (02/24/2020 11:38 PM PAD TU[facility]TER) Only the most recent of3 resultswithin the time period is included. [facility] Troponin I <0.010 <0.032 ng/mL 02/25/2020 12:26 AM [facility] Blood BLOOD SPECIMEN / Unknown Lab Venipuncture / Unknown 02/24/2020 11:38 PM [facility] 02/24/2020 6:15 PM [facility] Johnny Portillo MD LAB - CHEMISTRY ORDE RABLES [address] [address], [facility] [phone] * LACTIC ACID BLOOD (02/24/2020 11:38 PM PAD TU[facility]TER) Only the most recent of2 resultswithin the time period is included. [facility] Lactic Acid-Stat 1.9 0.5 - 2.2 mmol/L 02/25/2020 12:18 AM [facility] T[facility] Blood BLOOD SPECIMEN / Unknown Lab Venipuncture / Unknown 02/24/2020 11:38 PM [facility] 02/24/2020 6:15 PM PAD TU[facility]TER Johnny Portillo MD LAB - CHEMISTRY JAKE LIN Performing Organization Address City/[facility]/ZIP Co de Phone Number [facility] [place] [address], [facility] [phone] * (ABNORMAL) C DIFFICILE [facility] + TOXIN A+B (01/28/2020 12:42 PM CDT) Pathologist [facility] Interpretation C difficile Indeterm inate(A) Negative for toxigenic C. difficile 01/28/2020 8:57 PM CDT [facility] Stool STOOL SPECIMEN / Unknown Collection / Unknown 01/28/2020 12:42 PM CDT 01/28/2020 12:55 PM CDT Narrative [facility] - 01/28/2020 8:57 PM CDT Indeterminate results reflex to a C. difficile by PCR test. See separate report. Sharyn Cabral MD LAB - MICROBIOLOGY [place] Performing Organization Address [facility] Co de Phone Number [facility] [address] [place] [address], [facility] [phone] * (ABNORMAL) C DIFFICILE BY PCR (01/28/2020 12:42 PM CDT) [facility] C difficile Toxin B Gene Detected( A) Not detected, Invalid 01/29/2020 6:19 PM CDT [facility] Stool STOOL SPECIMEN / Unknown Collection / Unknown 01/28/2020 12:42 PM CDT 01/28/2020 12:55 PM CDT Sharyn Cabral MD LAB - MICROBIOLOGY O [place] Performing Organization Address City/[facility]/ZIP Co de Phone Number [facility] [address] [place] [address], [facility] [phone] * CT ABDOMEN PELVIS WO CONTRAST (01/26/2020 1:37 PM CDT) Anatomical Region Laterality Modality Abdomen, Pelvis Computed Tomogra phy 01/26/2020 2:16 PM CDT Impressions 01/26/2020 3:08 PM CDT Impression: 1.Moderately distended, stool-filled distal colon and rectum with wall thickening and adjacent fat stranding. These findings suggest stercoral colitis. 2.Mildly enlarged external iliac lymph nodes are likely reactive. 3.Trace right pneumothorax is not significantly changed. Small right pleural effusion. 4.Pressure wound overlying the coccyx has progressed. 5.Comminuted fracture of the right inferior pubic ramus appears worsened alignment. The numerous other fractures are not significantly changed. Report dictated by Kevon Sommer MD (resident care provider). I, Dr. NOMEI WHITE M.D. have personally reviewed and interpreted this examination/study. This report was electronically signed by NOEMI WHITE M.D. ??on 01/26/2020 3:08 PM . Narrative 01/26/2020 3:08 PM CDT Procedure Information DATE: 01/26/2020 1:38 PM EXAMINATION: Computed tomography (CT) of the abdomen and pelvis without contrast TECHNIQUE: CT of the abdomen and pelvis was performed without intravenous contrast according to standard protocol. Clinical Information HISTORY: R10.817: Generalized abdominal tenderness without rebound tenderness COMPARISON: CT abdomen and pelvis 01/01/2020 Findings Evaluation of visceral and vascular structures is degraded due to lack of intravenous contrast administration. Images are partially degraded by motion artifact. Lower Chest: There is a small right pleural effusion with adjacent atelectasis. A trace pneumothorax is again seen in the imaged right lung. The left lung base is clear. Liver: Normal. Gallbladder and Bile Ducts: The gallbladder appears normal. The bile ducts are nondilated. Kidneys: Bilateral renal cysts are unchanged. A right kidney upper pole hypoattenuating lesion does not measure simple fluid measure 2.6 cm (series 3 image 37). This is unchanged. No hydronephrosis. Adrenals: Normal. Spleen: Normal. Pancreas: Normal. Gastrointestinal: The distal esophagus and stomach appear normal. The small bowel is of normal caliber without wall thickening. The distal colon and rectum are distended with stool and demonstrate wall thickening with pericolonic and perirectal fat stranding. No pneumatosis is seen. The appendix appears normal. Mesentery/Peritoneum: No intra-abdominal free fluid or free air. Retroperitoneum: Normal. Pelvic Structures: A urinary balloon catheter is noted within the nondistended bladder. The prostate is partially calcified. Nodes: Bilateral external iliac lymph nodes measure up to 1.1 cm in short axis on the right and 1.0 cm in short axis on the left (series 3, images 115 and 120). Vasculature: Scattered atherosclerotic vasculature changes. Bones: An L1 fracture is unchanged. Comminuted fracture of the right inferior pubic ramus appears in worsened alignment. There is increased surrounding periosteal reaction. Right superior pubic ramus fracture is unchanged. Stable postoperative appearance of internal fixation of the right sacroiliac joint with fixation screw. Unchanged fractures of the right sacrum and right iliac bone. Stable postoperative appearance of internal fixation of the posterior eighth and ninth ribs. Fracture of the 10th posterior rib is also unchanged. Soft tissues: Posterior soft tissue defect overlying the coccyx near the gluteal cleft has progressed from prior CT and is compatible with a pressure wound. Packing material seen within the wound. Other findings: None. Procedure Note Noemi White MD - 01/26/2020 Procedure Information DATE: 01/26/2020 1:38 PM EXAMINATION: Computed tomography (CT) of the abdomen and pelvis without contrast TECHNIQUE: CT of the abdomen and pelvis was performed without intravenous contrast according to standard protocol. Clinical Information HISTORY: R10.817: Generalized abdominal tenderness without rebound tenderness COMPARISON: CT abdomen and pelvis 01/01/2020 Findings Evaluation of visceral and vascular structures is degraded due to lackof intravenous contrast administration. Images are partially degraded by motion artifact. Lower Chest: There is a small right pleural effusion with adjacent atelectasis. Atrace pneumothorax is again seen in the imaged right lung. The left lung baseis clear. Liver: Normal. Gallbladder and Bile Ducts: The gallbladder appears normal. The bile ducts are nondilated. Kidneys: Bilateral renal cysts are unchanged. A right kidney upper pole hypoattenuating lesion does not measure simple fluid measure 2.6 cm (series 3 image 37). This is unchanged. No hydronephrosis. Adrenals: Normal. Spleen: Normal. Pancreas: Normal. Gastrointestinal: The distal esophagus and stomach appear normal. The small bowel is of normal caliber without wall thickening. The distal colon and rectum are distended with stool and demonstrate wall thickening with pericolonicand perirectal fat stranding. No pneumatosis is seen. The appendix appears normal. Mesentery/Peritoneum: No intra-abdominal free fluid or free air. Retroperitoneum: Normal. Pelvic Structures: A urinary balloon catheter is noted within the nondistended bladder. The prostate is partially calcified. Nodes: Bilateral external iliac lymph nodes measure up to 1.1 cm in short axison the right and 1.0 cm in short axis on the left (series 3, images 115 and 120). Vasculature: Scattered atherosclerotic vasculature changes. Bones: An L1 fracture is unchanged. Comminuted fracture of the right inferior pubic ramus appears in worsened alignment. There is increasedsurrounding periosteal reaction. Right superior pubic ramus fracture is unchanged. Stable postoperative appearance of internal fixation of the right sacroiliac joint with fixation screw. Unchanged fractures of the right sacrum and right iliac bone. Stable postoperative appearance of internal fixation of the posterior eighth and ninth ribs. Fracture of the 10th posterior rib is also unchanged. Soft tissues: Posterior soft tissue defect overlying the coccyx near the gluteal cleft has progressed from prior CT and is compatible with a pressure wound. Packing material seen within the wound. Other findings: None. Impression: 1.Moderately distended, stool-filled distal colon and rectum with wall thickening and adjacent fat stranding. These findings suggest stercoral colitis. 2.Mildly enlarged external iliac lymph nodes are likely reactive. 3.Trace right pneumothorax is not significantly changed. Small right pleural effusion. 4.Pressure wound overlying the coccyx has progressed. 5.Comminuted fracture of the right inferior pubic ramus appears worsened alignment. The numerous other fractures are not significantly changed. Report dictated by Kevon Sommer MD (resident care provider). I, Dr. NOEMI WHITE M.D. have personally reviewed and interpretedthis examination/study. This report was electronically signed by NOEMI WHITE M.D. on 01/26/2020 3:08 PM . Sharyn Cabral MD CT ORDERABLES * US RETROPERITONEAL COMPLETE (01/23/2020 12:44 PM CDT) Anatomical Region Laterality Modality Abdomen Ultrasound 01/23/2020 1:21 PM CDT Impressions 01/23/2020 1:47 PM CDT IMPRESSION: Left kidney poorly visualized. Within these limitations, unremarkable renal ultrasound. Dictated by Alondra Marx MD (resident). Dr. SAMY Lake have personally reviewed and interpreted this examination/study. This report was electronically signed by SAMY JAIMES ??on 01/23/2020 1:47 PM . Narrative 01/23/2020 1:47 PM CDT EXAMINATION: Complete retroperitoneal sonogram HISTORY: N10: Pyelonephritis, acute COMPARISON: CT abdomen and pelvis dated 01/01/2020 FINDINGS: Exam limited by patient body habitus and sedated patient who could not follow commands. Right kidney: 11.2 x 5.6 x 4.4 cm Left kidney: Only limited views achievable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
--- OUTSIDE RECORDS SUMMARY | 2024-05-04 13:12 | XMS_ITS | Clinical Summary ---
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
--- OUTSIDE RECORDS SUMMARY | 2024-05-04 13:12 | XMS_ITS | Encounter Summary ---
Author Organization [facility] Address Formerly [facility] [facility] [place] [address] [place] [address] Care Team Providers Care Aircraft Maintenance Technician Name Role Phone Chad Nicole MD Primary Care Provider [phone] Reason for Visit * Reason Onset Date Comments Advice 05/04/2024 Encounter Details Date Type Department Care Team (Late st Contact Info) Description 05/04/2024 Telephone [facility] Family and [facility] Medicine - [place] [address] [place] [address] Chad Nicole MD [address] [id number] Advice Social History Tobacco Use Types Packs/Day Years Used Date Smoking Tobacco: Never Passive Smoke Exposure: Never Smokeless Tobacco: Never Alcohol Use Standard Drinks/Week Comments Not Currently 0 (1 standard drink = 0.6 oz pur e alcohol) OASIS D0700: Social Isolation Answer Da te Recorded Frequency of experiencing loneliness or isolatio n Never 03/23/2024 OASIS A1250: Transportation Answer Date Recorded Lack of Transportation (Medical) No 03/23/2024 Lack of Transportation (Non-Medical) No 03/23/2024 Patient Unable or Declines to Respond No 03/23/2024 OASIS B1300: Health Literacy Answer Rolando e Recorded Frequency of needing help to read materials from doctor or pharmacy Sometimes 03/23/2024 [facility] Utilities Answer Date Recorded In the past 12 months has e electric, gas, oil, or water company threatened to shut off services in your home? No 02/17/2024 Humiliation, Afraid, Rape, and Kick questionnair e Answer Date Recorded Within the last year, have y ou been afraid of your partner or ex-partner? No 02/17/2024 Within the last year, have y ou been humiliated or emotionally abused in other ways by your partner or ex-partner? No Within the last year, have y ou been kicked, hit, slapped, or otherwise physically hurt by your partner or ex-partner? No 02/17/2024 Within the last year, have y ou been raped or forced to have any kind of sexual activity by your partner or ex-partner? No 02/17/2024 Social Connection and Isolat ion Panel [NHANES] Answer Date Recorded In a typical week, how many times do you talk on the phone with family, friends, or neighbors? More than three times a week 11/07/2022 How often do you get togethe r with friends or relatives? More than three times a week 11/07/2022 Attends Gnosticist Services Not on file 11/07 Do you belong to any clubs o r organizations such as judaism groups, unions, fraternal or athletic groups, or school groups? No 11/07/2022 Attends Club or Organization Meetings Not on bree e 11/07/2022 Are you , , di vorced, , never , or living with a partner? 11/07/2022 AUDIT-C Answer Date Recorded Q1: How often do you have a drink containing alcohol? Never 11/07/2022 Q2: How many drinks containi ng alcohol do you have on a typical day when you are drinking? Patient does not drink Q3: How often do you have si x or more drinks on one occasion? Never 11/07/2022 Overall Financial Resource Strain (CARDIA) Answe r Date Recorded How hard is it for you to pa y for the very basics like food, housing, medical care, and heating? Not hard at all 02/17/2024 PHQ-2 Answer Date Recorded Patient Health Questionnaire-2 Score 0 02/26/2024 Exercise Vital Sign Answer Date Recorde d On average, how many days pe r week do you engage in moderate to strenuous exercise (like a brisk walk)? 0 days 11/07/2022 On average, how many minutes do you engage in exercise at this level? 0 min 11/07/2022 Hunger Vital Sign Answer Date Recorded Within the past 12 months, y ou worried that your food would run out before you got the money to buy more. Never true 02/17/20 24 Within the past 12 months, t he food you bought just didn't last and you didn't have money to get more. Never true 02/17/2024 PRAPARE - Transportation Answer Date Re corded In the past 12 months, has l ack of transportation kept you from medical appointments or from getting medications? No 02/04 In the past 12 months, has l ack of transportation kept you from meetings, work, or from getting things needed for daily living? No 02/17/2024 Housing Stability Vital Sign Answer Rolando e Recorded In the last 12 months, was t here a time when you were not able to pay the mortgage or rent on time? No 05/02/2023 In the last 12 months, how many places have you lived? 1 05/02/2023 In the last 12 months, was t here a time when you did not have a steady place to sleep or slept in a half-way (including now)? No 05/02/2023 Housing Stability Vital Sign Answer Rolando e Recorded In the last 12 months, was t here a time when you were not able to pay the mortgage or rent on time? No 02/17/2024 In the past 12 months, how m any times have you moved where you were living? 0 02/17/2024 At any time in the past 12 m [facility], were you homeless or living in a half-way (including now)? No 02/17/2024 Sex and Gender Information Value Date Recorded Sex Assigned at Male 02/16/2024 9:16 PM GRANITE POLISHER Legal Sex Male 8:36 PM CDT Gender Identity Male 02/16/2024 9:16 PM GRANITE POLISHER Sexual Orientation Straight 02/16/2024 9: 16 PM GRANITE POLISHER documented as of this encounter Functional Status * Are you deaf or do you have serious difficulty hearing Answer Date of Assessment Author Status No 02/16/2024 9:27 PM GRANITE POLISHER Layne Banegas RN Active * Are you blind or do you have serious difficulty seeing, even when wearing glasses? Answer Date of Assessment Author Status No 02/16/2024 9:27 PM Layne Brito RN Active * Do you have serious difficulty walking or climbing stairs? Answer Date of Assessment Author Status No 02/16/2024 9:27 PM Layne Brito RN Active * Do you have difficulty dressing or bathing? Answer Date of Assessment Author Status No 02/16/2024 9:27 PM Layne Brito RN Active * Because of a physical, mental, or emotional condition, do you have difficulty doing errands alone such as visiting a doctor's office or shopping? Answer Date of Assessment Author Status Yes 02/16/2024 9:27 PM Layen Brito RN Active documented as of this encounter Mental Status * Because of a physical, mental, or emotional condition, do you have serious difficulty concentrating, remembering, or making decisions? Answer Entry Date Author Status Yes 02/16/2024 9:27 PM Layne Brito RN Active documented in this encounter Progress Notes * Luz Fitzgerald CMA - 05/04/2024 10:41 AM CST I spoke with patient's daughter and she is going to take him back to the ER due to SOB, Cough and fever. ITE POLISHER * OLGA Riley - 05/04/2024 8:44 AM CST Patients daughter Brynn called regarding her father, she states that he had a heart attack and surgery. He was discharged yesterday. Now he has a bad cough and she would like to know what to do. She can be reached at [phone]. ITE POLISHER documented in this encounter Plan of Treatment Upcoming Encounters Date Type Department Care Team (Late st Contact Info) Description 05/10/2024 9:00 AM GRANITE POLISHER Office Visit [facility] Family and Sports Medicine - [place] [phone] Chad Nicole MD [address] [facility] [address] [place] [address] documented as of this encounter Goals Goal Patient Goal Type Associated Problems Recent Progress Patient-Stated? 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
--- OUTSIDE RECORDS SUMMARY | 2024-05-04 13:12 | XMS_ITS | Clinical Summary ---
Author Organization [facility] Address [facility] [place] [address] [place] [address] Care Team Providers Care Intelligence Engineer Name Role Phone Chad Nicole MD Primary Care Provider [phone] Allergies Active Allergy Reactions Criticality Noted Date Comments Gentamicin Other (see comment),Unknown Low 04/14/2019 Reaction: Reaction: Hydroxypropyl Methylcellulose Unknown 11/21/2013 Artificial tears ingredient Medications vitamin B-12 (CYANOCOBALAMI N) 500 MCG tabletIndicati ons:vitamin deficiency Take 1 tablet (500 mcg total) by mouth daily. 30 tablet 024 Active tamsulosin (FLOMAX) 0.4 MG CapIndications :Benign prostatic hyperplasia (BPH) suspected Take 1 capsule (0.4 mg total) by mouth daily. 30 capsule 024 Active polyethylene glycol (GLYCOLAX) packetIndicati ons:Constipati on Take 240 mLs (17 g total) by mouth 2 (two) times daily as needed. Dissolve powder in 240 mL water 30 each 024 Active amLODIPine (NORVASC) 5 MG tabletIndicati ons:Hypertensi on Take 1 tablet (5 mg total) by mouth daily. Indications: High Blood Pressure 90 tablet Active Oixyajzk-Rwf-K e-FA (, W/IRON & FA, OR)Indications :Nutritional Support Take 1 tablet by mouth daily. Indications: Nutritional Support Active lactulose (ENULOSE) 10 GM/15ML solutionIndica tions:Encephal opathy TAKE 30 ML BY MOUTH THREE TIMES DAILY FOR CONSTIPATION 2700 mL 025 Active losartan (COZAAR) 25 MG tabletIndicati ons:Hypertensi on Take 1 tablet (25 mg total) by mouth daily. Indications: High Blood Pressure 30 tablet 11 025 Active insulin glargine (LANTUS) 100 UNIT/ML injection (VIAL)Indicati ons:Diabetes Mellitus Indications: Diabetes ADMINISTER 9 UNITS UNDER THE SKIN EVERY MORNING 10 mL 5 025 Active insulin lispro, 1 Unit Dial, (HUMALOG KWIKPEN) 100 UNIT/ML injection (PEN)Indicatio ns:Diabetes Mellitus Inject 4-10 Units into the skin see administration instructions. Indications: Diabetes Sliding Scale: 200-250+4u, 250-300 6u, 300-350+8u, 350-400 10u, >400 take 10u and re-measure after 30 min if still above 400 call a doctor 12 mL 3 025 Active insulin lispro, 1 Unit Dial, (HUMALOG KWIKPEN) 100 UNIT/ML injection (PEN)Indicatio ns:Diabetes Mellitus [The details of the medication are not available because there are pending changes by a home health clinician.] 3 pen. 5 024 2024 Discontinued(R eorder) insulin glargine (LANTUS) 100 UNIT/ML injection (VIAL)Indicati ons:Diabetes Mellitus Indications: Diabetes ADMINISTER 9 UNITS UNDER THE SKIN EVERY MORNING 10 mL 5 024 2024 Discontinued(R eorder) losartan (COZAAR) 25 MG tabletIndicati ons:Hypertensi on Take 1 tablet (25 mg total) by mouth daily. Indications: High Blood Pressure 30 tablet 024 2024 Discontinued(R eorder) lactulose (CHRONULAC) 10 GM/15ML solutionIndica tions:Constipa tion Take 30 mLs (20 g total) by mouth 3 (three) times daily. 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 Encephalopathy 04/30/2023 Hyperglycemia 11/07/2022 Edema 03/14/2022 Overview (05/13/2022): Last Assessment & Plan: Condition: stable Follow up in: six months Full incontinence of feces 05/04/2020 Hyperlipidemia 11/21/2013 Resolved Problems Problem Noted Date Diagnosed Date Resolved Date Preop examination 10/30/2021 11/04/2021 Abscess 07/26/2020 2020 Dehydration 05/11/2020 2020 Type 2 diabetes mellitus wit hout complication, with long-term current use of insulin ([facility]) 04/02/2020 03/12/2022 Essential hypertension 04/02/202003/12 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, stage 3 ([facility]) 04/02/2020 03/12/2022 Decreased mobility 12/19/2019 Fracture of left clavicle 12/04/2019 Fracture of manubrium 12/04/20192021 Fracture of medial malleolus of right tibia 12/04/2019 03/12/2022 L1 vertebral fracture ([facility]) 12/03/2019 03/12/2022 Diabetes mellitus ([facility]) 11/21/2013 2020 Encounters Date Type Department Care Team Description 05/04/2024 Telephone [facility] [address] [place] [address] Chad Nicole MD Advice 05/02/2024 Telephone [facility] Family and Sports Medicine - [address] [place] [address] Chad Nicole MD Refill Request 03/23/2024 9:00 AM [facility]STER Home Care Visit [facility] Home Care [address] [place] [address] [place] [address] Elida Natarajan, PT PT OASIS DISCHARGE 03/22/2024 Telephone [facility] Family and Sports Medicine - [address] [place] [address] Chad Nicole MD Refill Request 03/20/2024 Home Care Visit [address] [address] Elida Natarajan, PT [facility] INTERDISCIPLINARY MTG 03/16/2024 1:45 PM [facility]STER Home Care Visit [address] [address] Angus Houser, MANAGER AUDIT MANAGER AUDIT HOME VISIT 03/14/2024 12:45 PM [facility] Home Care Visit [address] [address] Angus Houser, MANAGER AUDIT MANAGER AUDIT HOME VISIT 03/09/2024 1:00 PM [facility] Home Care Visit [address] [address] Angus oHuser, MANAGER AUDIT MANAGER AUDIT HOME VISIT 03/07/2024 1:45 PM [facility]STER Home Care Visit [address] [address] Angus Houser, MANAGER AUDIT MANAGER AUDIT HOME VISIT 03/07/2024 11:00 AM [facility] Home Care Visit [address] [address] Evangelina Cesar, RN SN DISCIPLINE DISCHARGE 03/02/2024 11:00 AM [facility] Home Care Visit [address] [address] Angus Houser, MANAGER AUDIT MANAGER AUDIT HOME VISIT 03/01/2024 10:00 AM [facility] Home Care Visit [address] [address] Evangelina Cesar, RN SN HOME VISIT 02/29/2024 1:45 PM [facility] Home Care Visit [address] [address] Fara Huerta, REPRODUCTIVE HEALTHCARE ASSISTANT REPRODUCTIVE HEALTHCARE ASSISTANT INITIAL EVALUATION 02/26/2024 10:20 AM R[facility]STER Office Visit [facility] Family and Sports Medicine - [address] [place] [phone] Chad Nicole MD TCM (Constipation) 02/26/2024 Travel 02/25/2024 2:00 PM [facility] Home Care Visit [address] [place], [place] [phone] Elida Natarajan, PT PT INITIAL EVALUATION 02/25/2024 Telephone [facility] Multispecialty [facility] [address] [facility], [address] [place] [address] Cordell Covarrubias MD Results 02/24/2024 Telephone [facility] Family and Sports Medicine [facility] [address] [place] [address] Chad Nicole MD Refill Request 02/23/2024 10:30 AM [facility] Home Care Visit [address] [facility] [address] [place], [place] [phone] Evangelina Cesar, RN SN OASIS RESUMPTION OF CARE 02/23/2024 Orders Only [facility] Family and Sports Medicine - [address] [place] [address] Chad Nicole MD 02/23/2024 Orders Only [facility] Family and Sports Medicine - [address] [place] [phone] Chad Nicole MD 02/23/2024 Plan of Care Documentation [address] [facility] [address] [place], [place] [id number] 02/22/2024 Scan HEALTH INFO SRVCS Scanned, [facility] Dilated Eye Exam (SCAN) 02/22/2024 Telephone [facility] Family and Sports Medicine - [address] [place] [address] Chad Nicole MD [facility] (/) 02/22/2024 Telephone [facility] Family and Sports Medicine - [address] [phone] Chad Nicole MD Refill Request 02/20/2024 11:16 AM R[facility]BUSTER Anesthesia Event [facility] [place] [address] Cordell Mistry MD 02/20/2024 9:00 AM RODBUSTER - 02/20/2024 9:[address] [facility] [address] Cordell Covarrubias MD COLONOSCOPY WITH CECAL POLYPECTOMY VIA COLD SNARE 02/19/2024 11:59 PM RODBUSTER [facility]est[facility] Event [facility] [place] [address] Cordell Mistry MD 02/19/2024 3:00 PM [facility]BUSTER Anesthesia Event [facility] [place] [address] Isaiah Acosta MD 02/18/2024 Home Care Visit [facility] Care [address] [place] [address] [place] [address] Alma Garcia RN SN OASIS TRANSFER W/OUT DC 02/17/2024 Home Care Visit [facility] Care [address] [facility] [address] [place], [place] [phone] Aria Puri, REPORTING CONSULTANT VISIT 02/17/2024 Home Care Visit [address] [place], [place] [id number] Elida Natarajan, PT CASE COMMUNICATION 02/16/2024 11:53 AM RODBUSTER - 02/20/2024 1:28 PM R[facility]STER Hospital Encounter [facility] Med/Surg 3rd [place] [address] Karla Lay MD Heberer, Brian James, DO D'Souza, Dominique C, MD Helmholt, Jennifer, TODDLER CAREGIVER Rosalba Maldonado MD Constipation; Abdominal Pain Discharge Disposition: Home or Self Care (Routine Discharge) 02/16/2024 Travel 02/15/2024 9:00 AM [facility]STER Home Care Visit [address] [address] Unique Lo, MANAGER AUDIT MANAGER AUDIT HOME VISIT 02/12/2024 2:45 PM [facility]STER Home Care Visit [address] [address] Evangelina Cesar, RN SN DISCIPLINE DISCHARGE 02/11/2024 10:00 AM [facility]STER Home Care Visit [address] [address] Camila Correa, PT PT HOME VISIT 02/08/2024 9:15 AM [facility]STER Home Care Visit [address] [address] Unique Lo, MANAGER AUDIT MANAGER AUDIT HOME VISIT 02/05/2024 9:15 AM CDT Home Care Visit [address] [address] Unique Lo, MANAGER AUDIT MANAGER AUDIT HOME VISIT 02/04/2024 11:00 AM CDT Home Care Visit [address] [address] Evangelina Cesar, RN SN HOME VISIT 02/04/2024 10:00 AM CDT Home Care Visit [address] [address] Unique Lo, MANAGER AUDIT MANAGER AUDIT HOME VISIT 02/02/2024 11:00 AM CDT Office Visit [facility] Family and Sports Medicine [facility] [address] [place] [address] Chad Nicole MD TCM (Stercoral Colitis) 02/02/2024 Travel from Last 3 Months Immunizations Name Administration Dates Next Due Influenza Adult (Generic) 03/26/2020(Def erred: Patient/family declined) PFIZER COVID-19 (ORIGINAL FORMULATION, PURPLE CAP) mRNA, LNP-S, PF, 30 MCG/0.3 ML DOSE 09/21/2020,08/30/2020 Social History Tobacco Use Types Packs/Day Years Used Date Smoking Tobacco: Never Passive Smoke Exposure: Never Smokeless Tobacco: Never Tobacco Cessation:Counseling Given: No Alcohol Use Standard Drinks/Week Comments Not Currently [...] materials from doctor or pharmacy Sometimes 03/23/2024 [facility] Utilities Answer Date Recorded In the past 12 months has th e [employer] gas, oil, or water [employer] threatened to shut off services in your [...] than three times a week 11/07/2022 Attends [facility] Not on file 11/07 Do you belong to any clubs o r organizations such as mormonism groups, unions, fraternal or athletic groups, or [...] place to sleep or slept in a mcc (including now)? No 05/02/2023 Housing Stability Vital Sign Answer Rolando e Recorded In the last 12 months, was t here a time when you were not able to pay the mortgage or rent on time? No 02/17/2024 In the past 12 months, how m any times have you moved where you were living? 0 02/17/2024 At any time in the past 12 m [facility], were you homeless or living in a mcc (including now)? No 02/17/2024 Sex and Gender Information Value Date Recorded Sex Assigned at Male 02/16/2024 9:16 PM R[facility]STER Legal Sex Male 8:36 PM CDT Gender Identity Male 02/16/2024 9:16 PM R[facility]BUSTER Sexual Orientation Straight 02/16/2024 9: 16 PM RODBUSTER Last Filed Vital Signs Vital Sign Reading Time Taken Comments Blood Pressure 138/70 03/23/2024 9:15 AM RODBUSTER Pulse 70 03/23/2024 9:15 AM R[facility]BUSTER Temperature 36.4 ??C (97.6 ??F) 03/23/2024 9:15 AM CS T Respiratory Rate 18 03/23/2024 9:15 AM RODBUSTER Oxygen Saturation 97% 03/23/2024 9:15 AM R[facility]BUSTER Inhaled Oxygen Concentration - - Weight 70.3 kg (155 lb) 02/26/2024 9:34 AM RODBUSTER Height 162.6 cm (5' 4 ) 02/26/2024 9:34 AM RODBUSTER Body Mass Index 26.61 02/26/2024 9:34 AM R[facility]BUSTER Plan of Treatment Upcoming Encounters Date Type Department Care Team (Late st Contact Info) Description 05/10/2024 9:00 AM RODBUSTER Office Visit [facility] Family and Sports Medicine - [place] [address] [place] [address]' [place], [place] [phone] Chad Nicole MD [address] [facility] [address] [place] [address] Health Maintenance Due Date Last Done Comments Kidney Health Evaluation 1945 Pneumococcal Vaccine: 65+ Years (1 of 2 - PCV) 12/11/1951 DTaP, Tdap and Td Vaccines (1 - Tdap) 12/11/1966 Zoster Vaccines (1 of 2) 12/11/1997 RSV Immunization or 60+ Years (1 - 1-dose 75+ series) 12/11/2022 COVID-19 Vaccine (3 - season) 2023 09/21/2020, 08/30/2020 Influenza Adult (#1) 2024 PHQ-2 (Physician [place]) 04/06/2024 02/26/2024 Hemoglobin A1C 07/08/2024 01/08/2024, 04/07, 11/07/2022, Additional history exists Lipid Panel 01/07/2025 01/08/2024, 08/0 07/2022, 11/07/2022, Additional history exists Diabetes: Retinopathy Eye Exam 02/21/2026 02/22/2024 Hepatitis C 04/16/2053 Postponed from 12/11/1965 (Patient Refused) Colorectal Cancer Screening Colonoscopy (10 Years) Discontinued 02/20/2024 Meningococcal B Vaccine Aged Out No l onger eligible based on patient's age to complete this topic Meningococcal Vaccine Aged Out No marianne july eligible based on patient's age to complete this topic RSV Immunizations Under 20 Months Aged Out No longer eligible based on patient's age to complete this topic Goals Goal Patient Goal Type Associated Problems Recent Progress Patient-Stated? Author Family - family caregiver with be involved in care transitions and discharge planning Lifestyle No Marcella Mejia, RN Medical Devices Implanted Type Area Engine Dispatcher Device Identifier Shelf Expiration Date Model / Serial / Lot Mesh Bard Marlex 3 X 6 [id number] - [id number] Implanted:Qty : 1 on 11/05/2021 by Dk Serrano MD at [facility] Mesh Right: Abdomen [employer] [id number] 03/03/2026 [id number] / / [id number] Procedures Procedure Name Priority Date/Time Associated Diagnosis Comments DIABETIC RETINOPATHY EXAM (NEGATIVE)(SCAN ORDER) Routine 02/22/2024 POCT GLUCOSE - ZEPEDA DOCKED DEVICE Routine 02/20/2024 12:22 PM R[facility]STER COLSC FLX W/RMVL OF TUMOR POLYP LESION SNARE TQ 02/20/2024 11:15 AM RODBUSTER Constipation POCT GLUCOSE - ZEPEDA DOCKED DEVICE Routine 02/20/2024 10:49 AM [facility] MAGNESIUM Routine 02/20/2024 9:02 AM [facility]STER BASIC METABOLIC PANEL Routine 02/20/2024 9:02 AM R[facility]STER CBC W/DIFF AUTOMATED Routine 02/20/2024 9:02 AM R[facility]STER POCT GLUCOSE - ZEPEDA DOCKED DEVICE Routine 02/20/2024 7:12 AM R[facility]STER PATHOLOGY Routine 02/20/2024 12:00 AM R[facility]STER POCT GLUCOSE - ZEPEDA DOCKED DEVICE Routine 02/19/2024 10:19 PM [facility]STER MAGNESIUM Routine 02/19/2024 6:40 AM [facility]STER BASIC METABOLIC PANEL Routine 02/19/2024 6:40 AM R[facility]STER CBC W/DIFF AUTOMATED Routine 02/19/2024 6:40 AM [facility]STER COLONOSCOPY Routine 02/18/2024 6:00 PM R[facility]STER POCT GLUCOSE - ZEPEDA DOCKED DEVICE Routine 02/18/2024 3:27 PM R[facility]STER POCT GLUCOSE - ZEPEDA DOCKED DEVICE Routine 02/18/2024 12:33 PM R[facility]STER XR ABD KUB Today 02/18/2024 8:15 AM R[facility]STER CBC W/DIFF AUTOMATED Routine 02/18/2024 5:33 AM [facility]STER BASIC METABOLIC PANEL Routine 02/18/2024 5:33 AM [facility]STER POCT GLUCOSE - ZEPEDA DOCKED DEVICE Routine 02/17/2024 8:58 PM R[facility]STER POCT GLUCOSE - ZEPEDA DOCKED DEVICE Routine 02/17/2024 4:08 PM R[facility]STER POCT GLUCOSE - ZEPEDA DOCKED DEVICE Routine 02/17/2024 11:43 AM R[facility]STER POCT GLUCOSE - ZEPEDA DOCKED DEVICE Routine 02/17/2024 11:05 AM R[facility]STER POCT GLUCOSE - ZEPEDA DOCKED DEVICE Routine 02/17/2024 6:03 AM [facility]STER COMPREHENSIVE METABOLIC PANEL Routine 02/17/2024 5:58 AM R[facility]STER CBC W/DIFF AUTOMATED Routine 02/17/2024 5:58 AM R[facility]STER POCT GLUCOSE - ZEPEDA DOCKED DEVICE Routine 02/16/2024 9:[address] ABD+PEL W CON STAT 02/16/2024 2:24 PM RODBUSTER HC URINALYSIS AUTO W/O MICRO STAT 02/16/2024 12:56 PM R[facility]STER LIPASE STAT 02/16/2024 12:30 PM [facility]STER COMPREHENSIVE METABOLIC PANEL STAT 02/16/2024 12:30 PM R[facility]STER CBC W/DIFF AUTOMATED STAT 02/16/2024 12:30 PM [facility]STER LIPID PANEL Routine 01/08/2024 9:46 AM CDT Primary hypertension Mixed hyperlipidemia Type 2 diabetes mellitus without complication, with long-term current use of insulin ([facility]) HEMOGLOBIN, GLYCOSYLATED Routine 01/08/2024 9:46 AM CDT Primary hypertension Mixed hyperlipidemia Type 2 diabetes mellitus without complication, with long-term current use of insulin ([facility]) from Last 3 Months or Most Recently Relevant to Health Maintenance Results * DIABETIC RETINOPATHY EXAM (NEGATIVE) (02/22/2024) us [facility] Scanned SCANNING Final Resu lt Performing Organization Address City/[facility]/ZIP Co de Phone Number [facility] ONBASE * (ABNORMAL) POCT glucose (02/20/2024 12:22 PM RODBUSTER) Only the most recent of12 resultswithin the time period is included. GLUCOSE POC 146(H) 70 - 99 mg/dL 02/20/2024 12:27 PM R[facility]BUSTER [facility] 02/20/2024 12:2 2 PM R[facility]STER Karla Ralph TODDLER CAREGIVER POCT ORDERABLES - DEVICE Fi nal Result Performing Organization Address [facility] Co de Phone Number [facility] [address] [place] [address], [place] [phone] * (ABNORMAL) BASIC METABOLIC PANEL (02/20/2024 9:02 AM RODBUSTER) Only the most recent of3 resultswithin the time period is included. GLUCOSE 145(H) 70 - 99 MG/DL 02/20/2024 9:47 AM RODBUSTER [facility] BUN 10 7 - 18 MG/DL 02/20/2024 9:47 AM ROD[facility]STER [facility] CREATININE S/P/B 1.17 0.7 - 1.3 MG/DL 02/20/2024 9:47 AM R[facility]STER [facility] SODIUM S/P/B 137 136 - 145 MMOL/L 02/20/2024 9:47 AM R[facility]STER [facility] POTASSIUM S/P/B 3.8 3.5 - 5.1 MMOL/L 02/20/2024 9:47 AM [facility] Comment:SLIGHT HEMOLYSIS, RE SULT MAY BE AFFECTED. CHLORIDE S/P/B 103 97 - 115 MMOL/L 02/20/2024 9:47 AM [facility] CO2 28.3 21 - 32 MMOL/L 02/20/2024 9:47 AM [facility] CALCIUM S/P/B 8.6 8.5 - 10.1 MG/DL 02/20/2024 9:47 AM [facility] ANION GAP 5.7 2 - 10 MMOL/L 02/20/2024 9:47 AM [facility] BUN CREATININE RATIO 8.5 6 - 26 02/20/2024 9:47 AM [facility] GFR ESTIMATE 65(L) >90 ML/MIN/1.7 3 M2 02/20/2024 9:47 AM [facility] Comment: NOTE: eGFR is not calculated for patients <18 years of age or gender unknown. This is an estimated GFR calculation using the new CKD EPI creatinine equation without race and so does not require a correction factor for race. This estimated GFR should not be used for calculating drug doses. 02/20/2024 9:[address] [facility] Karla Ralph TODDLER CAREGIVER LABORATORY Final Resul t [facility] [address] [place] [address], [place] [phone] * CBC W/DIFF AUTOMATED (02/20/2024 9:[address] [facility]) Only the most recent of5 resultswithin the time period is included. WBC 6.62 4.5 - 11.0 x10'3/uL 02/20/2024 9:20 AM [facility] RBC 5.26 4.70 - 6.10 x10'6/uL 02/20/2024 9:20 AM [facility] HGB 14.8 14.0 - 18.0 G/DL 02/20/2024 9:20 AM [facility] HCT 46.1 43.0 - 54.0 % 02/20/2024 9:20 AM [facility] MCV 87.6 80.0 - 94.0 FL 02/20/2024 9:20 AM [facility] MCH 28.1 27.0 - 31.0 PG 02/20/2024 9:20 AM [facility] MCHC 32.1 32.0 - 36.0 G/DL 02/20/2024 9:20 AM [facility] RDW 13.6 11.5 - 14.5 % 02/20/2024 9:20 AM [facility] PLT 189 130 - 400 x10'3/uL 02/20/2024 9:20 AM [facility] MPV 11.9 9.3 - 12.2 FL 02/20/2024 9:20 AM [facility] DIFFERENTIAL TYPE AUTOMATED DIFFERENTIAL 02/20/2024 9:20 AM [facility] NEUTROPHILS % 45.1 % 02/20/2024 9:20 AM [facility] LYMPHOCYTES % 43.7 % 02/20/2024 9:20 AM [facility] MONOCYTES % 7.6 % 02/20/2024 9:20 AM [facility] EOSINOPHILS 2.6 % 02/20/2024 9:20 AM [facility] BASOPHILS 0.8 % 02/20/2024 9:20 AM [facility] IMMATURE GRANS % 0.2 % 02/20/20 9:20 AM [facility] ABS. NEUTROPHILS 3.00 1.80 - 7.70 x10'3/uL 02/20/2024 9:20 AM [facility] ABS. LYMPHOCYTES 2.89 1.00 - 4.80 x10'3/uL 02/20/2024 9:20 AM [facility] ABS. MONOCYTES 0.50 0.30 - 0.82 x10'3/uL 02/20/2024 9:20 AM [facility] ABS. EOSINOPHILS 0.17 0.04 - 0.54 x10'3/uL 02/20/2024 9:20 AM [facility] ABS. BASOPHILS 0.05 0.01 - 0.08 x10'3/uL 02/20/2024 9:20 AM [facility] ABS. IMMATURE GRANULOCYTES 0.01 0.00 - 0.49 x10'3/uL 02/20/2024 9:20 AM [facility] 02/20/2024 9:02 AM [facility]STER Karla Ralph NP LABORATORY Final Resul t [facility] [address] [place] [address], [place] [phone] * MAGNESIUM (02/20/2024 9:02 AM RODBUSTER) Only the most recent of2 resultswithin the time period is included. MAGNESIUM 2.1 1.8 - 2.4 MG/DL 02/20/2024 9:47 AM [facility] Comment:SLIGHT HEMOLYSIS, RE SULT MAY BE AFFECTED. 02/20/2024 9:02 AM RODBUSTER us Karla Ralph TODDLER CAREGIVER LABORATORY Final Resul t [facility] [address] [facility] [place] [address], [place] [phone] * Pathology (02/20/2024 12:00 AM RODBUSTER) PATHOLOGY [facility] ? Department of Laboratory Medicine ?[address] [facility] ?[place] [address] ? , extension [phone] ? Pathology Report ? Surgical Pathology Report Name: ABOUAMRA, FREDDIE M ?Specimen #: [id number] Age: 9 1945 (Age: 78) ? Location: [id number] Sex: M ?Procedure Date: 02/20/2024 Hospital #: [id number] ?Date Received: 02/22/2024 Date Reported: 02/23/2024 Provider: CORDELL COVARRUBIAS MD Source: Colon, cecum, polyp Clinical History: Constipation/fec al impaction. ?? Gross Description: Received in formalin, labeled with a patient label and as cecal polyp is a 0.3 cm piece of salcedo tissue. ??The specimen is entirely submitted in cassette 1. Gross examination (when applicable), interpretation, and sign out were performed at [facility], [address] [place] [address]. FINAL DIAGNOSIS: Colon, cecum polyp, biopsy: ? -Polypoid colonic mucosa with dilated crypts. Electronically Signed Out ? RODOLFO MILLER MD [facility] TISSUE CECUM STRUCTURE / Unknown 02/20/2024 11:38 AM RODBUSTER us Cordell Covarrubias MD PATHOLOGY/CYTOLOGY ORDERABLES Fi nal Result [facility] [address] [place] [address], [id number] * XR ABD KUB (02/18/2024 8:15 AM RODBUSTER) Anatomical Region Laterality Modality Abdomen Radiographic Gricelda ging 02/18/2024 9:07 AM RODBUSTER Impressions 02/18/2024 9:25 AM RODBUSTER IMPRESSION: Substantially decreased colonic stool since 02/16/2024 with mild stool volume presently. Mild to moderate air distention of the colon. Nonobstructive small bowel gas pattern. Ordered By: KARLA EMERSON Interpreted By: Alejandro Meza, 02/18/2024 9:07 AM Narrative 02/18/2024 9:25 AM RODBUSTER [address] [address] IMAGING STUDIES: ??XR ABD KUB ? DATE: ??02/18/2024 8:05 AM HISTORY: reassess constipation/impaction ?78-year-old male. Current inpatient. Reassess constipation/impaction. COMPARISON: ??CT abdomen pelvis with contrast 02/16/2024. Supine abdomen 01/26/2024. DISCUSSION: Supine view of the abdomen and pelvis on 2 images. Mild to moderate air distention of the ascending, transverse, and descending colon with mild air distention in the sigmoid colon. Cecal region is approximately 6.9 cm diameter and transverse colon and descending colon less than 6 cm diameter. Substantially decreased colonic stool since 02/16/2024 with only mild stool presently. Mild air within small bowel in a nonobstructive pattern. Stable elevation of the right hemidiaphragm. No appreciable acute opacity in the visualized lung bases. Fixation plate and screws across right ninth and eighth ribs and partially visualized of the seventh rib. Fixation screw extending through the right iliac bone to the right sacrum. Old posttraumatic deformities of the right superior and inferior pubic rami. Spinal, sacroiliac joints, symphysis pubis, and hip degenerative changes. Procedure Note Alejandro Meza MD - 02/18/[address] [address] IMAGING STUDIES: XR ABD KUBDATE: 02/18/2024 8:05 AM HISTORY: reassess constipation/impaction 78-year-old male. Currentinpatient. Reassess constipation/impaction. COMPARISON: CT abdomen pelvis with contrast 02/16/2024. Supine [id number]/26/2024. DISCUSSION: Supine view of the abdomen and pelvis on 2 images. Mild to moderate air distention of the ascending, transverse, anddescending colon with mild air distention in the sigmoid colon. Cecalregion is approximately 6.9 cm diameter and transverse colon anddescending colon less than 6 cm diameter. Substantially decreased colonicstool since 02/16/2024 with only mild stool presently. Mild air withinsmall bowel in a nonobstructive pattern. Stable elevation of the right hemidiaphragm. No appreciable acute opacityin the visualized lung bases. Fixation plate and screws across right ninth and eighth ribs and partiallyvisualized of the seventh rib. Fixation screw extending through the rightiliac bone to the right sacrum. Old posttraumatic deformities of the rightsuperior and inferior pubic rami. Spinal, sacroiliac joints, symphysispubis, and hip degenerative changes. IMPRESSION: Substantially decreased colonic stool since 02/16/2024 with mild stoolvolume presently. Mild to moderate air distention of the colon.Nonobstructive small bowel gas pattern. Ordered By: KARLA EMERSON Interpreted By: Alejandro Meza, 02/18/2024 9:07 AM us Karla Emerson TODDLER CAREGIVER GENERAL IMAGING Final Resul t * (ABNORMAL) COMPREHENSIVE METABOLIC PANEL (02/17/2024 5:58 AM [facility]) Only the most recent of2 resultswithin the time period is included. GLUCOSE 140(H) 70 - 99 MG/DL 02/17/2024 6:33 AM [facility] BUN 18 7 - 18 MG/DL 02/17/2024 6:33 AM [facility] CREATININE S/P/B 0.99 0.7 - 1.3 MG/DL 02/17/2024 6:33 AM [facility] SODIUM S/P/B 139 136 - 145 MMOL/L 02/17/2024 6:33 AM [facility] POTASSIUM S/P/B 3.4(L) 3.5 - 5.1 MMOL/L 02/17/2024 6:33 AM [facility] CHLORIDE S/P/B 105 97 - 115 MMOL/L 02/17/2024 6:33 AM [facility] CO2 27.1 21 - 32 MMOL/L 02/17/2024 6:33 AM [facility] CALCIUM S/P/B 8.7 8.5 - 10.1 MG/DL 02/17/2024 6:33 AM [facility] BILIRUBIN TOTAL S/P/B 0.9 0.2 - 1.2 MG/DL 02/17/2024 6:33 AM [facility] Comment: THIS ASSAY IS NOT RECOMMENDED FOR PATIENTS UNDERGOING TREATMENT WITH ELTROMBOPAG DUE TO THE POTENTIAL FOR FALSELY ELEVATED RESULTS. TOTAL PROTEIN S/P/B 7.0 6.4 - 8.2 G/DL 02/17/2024 6:33 AM [facility] ALBUMIN S/P/B 3.0(L) 3.4 - 5.0 G/DL 02/17/2024 6:33 AM [facility] AST 15 15 - 37 U/L 02/17/2024 6:33 AM [facility] ALT 21 16 - 60 U/L 02/17/2024 6:33 AM [facility] ALKALINE PHOSPHATASE S/P/B 74 50 - 136 U/L 02/17/2024 6:33 AM [facility] ANION GAP 6.9 2 - 10 MMOL/L 02/17/2024 6:33 AM [facility] BUN CREATININE RATIO 18.2 6 - 26 02/17/2024 6:33 AM [facility] A/G RATIO 0.8(L) 1.0 - 2.0 RATIO 02/17/2024 6:33 AM [facility] GFR ESTIMATE 79(L) >90 ML/MIN/1.7 3 M2 02/17/2024 6:33 AM [facility] Comment: NOTE: eGFR is not calculated for patients <18 years of age or gender unknown. This is an estimated GFR calculation using the new CKD EPI creatinine equation without race and so does not require a correction factor for race. This estimated GFR should not be used for calculating drug doses. 02/17/2024 5:58 AM [facility] us Sonia Engle CLAIMS ACCOUNT MANAGER LABORATORY Final Resul t [facility] [address] [place] [address], [place] [phone] * CT ABD+PEL W IV CON ONLY (02/16/2024 2:24 PM [facility]) Anatomical Region Laterality Modality Abdomen Computed Tomogra phy 02/16/2024 3:11 PM [facility] Impressions 02/16/2024 3:18 PM [facility] IMPRESSION: 1. ??Large amount of rectal stool, possible rectal fecal impaction. 2. ??No bowel distention to suggest bowel obstruction. 3. ??Stable minimal bilateral hydronephrosis. ??No obstructive stone. 4. ??Small indeterminate right renal lesion. 5. ??Other chronic or nonurgent findings as described above. Referred By: ?? Interpreted By: Ray Burch MD, 02/16/2024 3:11 PM Narrative 02/16/2024 3:18 PM [facility] [address] [place], [place] [address] EXAMINATION: CT ABD+PEL W CON CLINICAL HISTORY: Abdominal pain and constipation COMPARISON: 01/23/2024 DATE/TIME: 02/16/2024 2:05 PM TECHNIQUE: Multiplanar CT images of the abdomen and pelvis were obtained. ??IV contrast: uneventful intravenous administration of 100 mL Isovue 370. ??Oral contrast: None. ?? A dose lowering technique was used for this procedure, which may include, but is not limited to, dose reduction technique, automated exposure control, the use of iterative reconstruction, and ALARA (As Low As Reasonably Achievable) / Image Gently techniques. FINDINGS: Coronary artery calcifications. ??Minimal bibasilar atelectasis. ??Mild diffuse hepatic steatosis. ??Liver is otherwise negative. ??Spleen is negative. ??Gallbladder is negative. ??Bile ducts are negative. ??Pancreas is negative. ??Adrenal glands are negative. ??Multiple bilateral renal cysts which do not require follow-up. ??Additional tiny low-density bilateral renal lesions, too small to characterize. ??Additional round low-density 2.3 cm lesion in the right kidney upper pole remains indeterminate as it does not measure water density. ??This also contains a thin mural calcification. ??Suggest nonemergent further workup with MRI or CT, dedicated renal protocol. ??Minimal bilateral hydronephrosis and hydroureter, stable. ??No nephrolithiasis. ??No abnormal distention of the urinary bladder. ??Bladder wall thickness upper limits of normal. ??Mild to moderate prostatomegaly. ??Old right pubic rami fractures with chronic posttraumatic deformity displacing the prostate gland left of midline. Abdominal aorta is normal caliber with atherosclerotic calcification. ??There is a large amount stool in the rectum and distal sigmoid colon. ??The rectum is distended to 9 cm x 7.4 cm transverse dimension. ??Large amount stool elsewhere in the colon as well. ??No bowel obstruction. ??Small septations nodule in the ventral lower abdomen right of midline with associated soft tissue gas, likely related to medication injection, correlate clinically. ??No bowel wall thickening. ??Appendix is not clearly identified but no evidence for appendicitis. ??No acute osseous abnormality. ??Stable old compression fractures of L4 and L1. ??Right SI joint fixation screw. ??Appears unchanged, with the proximal aspect of the screw protruding 4 cm into the gluteal soft tissues. Procedure Note Ray Burch MD - 02/16/2024 [facility] [address] [place], [place] [address] EXAMINATION: CT ABD+PEL W CON CLINICAL HISTORY: Abdominal pain and constipation COMPARISON: 01/23/2024 DATE/TIME: 02/16/2024 2:05 PM TECHNIQUE: Multiplanar CT images of the abdomen and pelvis were obtained.IV contrast: uneventful intravenous administration of 100 mL Isovue 370.Oral contrast: None. A dose lowering technique was used for this procedure, which may include,but is not limited to, dose reduction technique, automated exposurecontrol, the use of iterative reconstruction, and ALARA (As Low AsReasonably Achievable) / Image Gently techniques. FINDINGS: Coronary artery calcifications. Minimal bibasilar atelectasis.Mild diffuse hepatic steatosis. Liver is otherwise negative. Spleen isnegative. Gallbladder is negative. Bile ducts are negative. Pancreas isnegative. Adrenal glands are negative. Multiple bilateral renal cystswhich do not require follow-up. Additional tiny low-density bilateralrenal lesions, too small to characterize. Additional round low-density2.3 cm lesion in the right kidney upper pole remains indeterminate as itdoes not measure water density. This also contains a thin muralcalcification. Suggest nonemergent further workup with MRI or CT,dedicated renal protocol. Minimal bilateral hydronephrosis andhydroureter, stable. No nephrolithiasis. No abnormal distention of theurinary bladder. Bladder wall thickness upper limits of normal. Mild tomoderate prostatomegaly. Old right pubic rami fractures with chronicposttraumatic deformity displacing the prostate gland left of midline. Abdominal aorta is normal caliber with atherosclerotic calcification.There is a large amount stool in the rectum and distal sigmoid colon. Therectum is distended to 9 cm x 7.4 cm transverse dimension. Large amountstool elsewhere in the colon as well. No bowel obstruction. Smallseptations nodule in the ventral lower abdomen right of midline withassociated soft tissue gas, likely related to medication injection,correlate clinically. No bowel wall thickening. Appendix is not clearlyidentified but no evidence for appendicitis. No acute osseousabnormality. Stable old compression fractures of L4 and L1. Right SIjoint fixation screw. Appears unchanged, with the proximal aspect of thescrew protruding 4 cm into the gluteal soft tissues. IMPRESSION: 1. Large amount of rectal stool, possible rectal fecal impaction. 2. No bowel distention to suggest bowel obstruction. 3. Stable minimal bilateral hydronephrosis. No obstructive stone. 4. Small indeterminate right renal lesion. 5. Other chronic or nonurgent findings as described above. Referred By: Interpreted By: Ray Burch MD, 02/16/2024 3:11 PM us Karla Lay MD CT Final Result * URINALYSIS (02/16/2024 12:56 PM [facility]) SPECIMEN TYPE URINE CLEAN CATCH 02/16/2024 1:12 PM [facility] COLOR (U) LIGHT YELLOW 02/16/2024 1:47 PM [facility] TRANSPARENCY CLEAR 02/16/2024 1:47 PM [facility] SPECIFIC GRAVITY (U) 1.013 1.001 - 1.030 02/16/2024 1:47 PM [facility] U PH 6.5 5.0 - 9.0 02/16/2024 1:47 PM [facility] LEUKOCYTES (U) NEGATIVE NEGATIVE 02/16/2024 1:47 PM [facility] NITRITES NEGATIVE NEGATIVE 02/16/2024 1:47 PM [facility] PROTEIN RANDOM (U) NEGATIVE <30 MG/DL 02/16/2024 1:47 PM [facility] GLUCOSE (U) NORMAL NORMAL MG/DL 02/16/2024 1:47 PM [facility] KETONES MG/DL (U) NEGATIVE NEGATIVE MG/DL 02/16/2024 1:47 PM [facility] UROBILINOGEN NORMAL NORMAL MG/DL 02/16/2024 1:47 PM [facility] BILIRUBIN (U) NEGATIVE NEGATIVE MG/DL 02/16/2024 1:47 PM [facility] BLOOD (U) NEGATIVE NEGATIVE 02/16/2024 1:47 PM [facility] URINE SPECIMEN OBTAINED BY CLEAN CATCH PROCEDURE / Unknown 02/16/2024 12:56 PM [facility] Karla Lay MD URINE ORDERABLES Final Resul t [facility] [address] [place] [id number], [place] [phone] * LIPASE (02/16/2024 12:30 PM [facility]) LIPASE 69 13 - 75 UNITS/L 02/16/2024 1:29 PM [facility] 02/16/2024 12:3 0 PM [facility] Karla Lay MD LABORATORY Final Result Performing Organization Address City/[facility]/ZIP Co de Phone Number [facility] [address] [place] [address], [place] [phone] * (ABNORMAL) HEMOGLOBIN, GLYCOSYLATED (01/08/2024 9:46 AM CDT) HGB A1C 8.3(H) <5.7 % 01/08/2024 12:43 PM CDT [facility] Comment: ADA GUIDELINES 2010 5.7 TO 6.4% INCREASED RISK OF DIABETES > OR = 6.5% CONSISTENT WITH DIABETES ESTIMATED AVG GLUCOSE 192 mg/dL 01/08/2024 12:43 PM CDT [facility] 01/08/2024 9:46 AM CDT us Chad Nicole MD LABORATORY Final Result [facility] [address] [place] [address], * (ABNORMAL) LIPID PANEL (01/08/2024 9:46 AM CDT) CHOLESTEROL 216(H) <200 MG/DL 01/08/2024 3:31 PM CDT [facility] TRIGLYCERIDES 345(H) <150 MG/DL 01/08/2024 3:31 PM CDT [facility] HDL 31(L) >40.0 MG/DL 01/11/2024 3:44 PM CDT [facility] LDL (CALCULATED) 116(H) <100 MG/DL 01/11/2024 3:44 PM CDT [facility] NON HDL CHOLESTEROL 185(H) <130 MG/DL 01/11/2024 3:44 PM CDT [facility] CHOL/HDL RATIO 7.0(H) 0.0 - 4.5 01/11/2024 3:44 PM CDT [facility] VLDL CALCULATION 69(H) 5 - 55 MG/DL 01/08/2024 3:31 PM CDT [facility] LIPID INTERPRETATION 01/08/2024 3:31 PM CDT [facility] Comment: NIH CONCENSUS REPORT RECOMMENDATIONS: ?ADULT ?CHILD ??LOW RISK: ?CHOLESTEROL ? <200 ? <170 ?TRIGLYCERIDE ?<150 ?--- ?HDL ? >=60 ?--- ?LDL ? <100 ? <110 ??BORDERLINE: ?CHOLESTEROL ? 200-239 ?? 170-199 ?TRIGLYCERIDE ?150-199 ? --- ?HDL ?40-59 ?--- ?LDL ? 100-159 ?? 110-129 ??HIGH RISK: ?CHOLESTEROL ? >=240 ?>=200 ?TRIGLYCERIDE ?>=200 ? --- ?HDL ?<40 ?--- ?LDL ? 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 ESBL - Extended Spectrum Bet a-lactamase Comment:10/02/2020 +ESBL Rectal culture 10/04/2020 10/04/2020 Insurance [place] Advance Directives * Full Code (Latest Code Status on File) Date Activated Date Inactivated Comments 02/22/2024 8:50 AM * Full Code Date Activated Date Inactivated Comments 02/16/2024 7:54 PM 02/20/2024 3:34 PM * Full Code Date Activated Date Inactivated Comments 01/28/2024 6:03 PM 02/16/2024 11:52 AM * Full Code Date Activated Date Inactivated Comments 01/23/2024 6:43 PM 01/27/2024 1:46 PM * Full Code Date Activated Date Inactivated Comments 05/07/2023 11:58 AM 07/14/2023 12:44 PM Care Teams Intelligence Engineer Relationship Specialty Start Date End Date Chad Nicole MD [address] [address] PCP - General FAMILY PRACTICE 02/20/20
--- NOTE | 2024-05-04 13:18 | ADMGEN ---
This patient, Tal George, was admitted to Intensive Care Unit-3. Patient/family oriented to hospital policies and general routines including ID bracelet, bed and alarms, visiting hours, pain management, procedures, bathroom and other care routines, personal items, smoking policy, room service/diet, and visiting hours. Information on how to activate the Rapid Response Team has been discussed. Patient/Family are encouraged to report perceived risks to care and to ask questions if they do not understand what they are told or what they should do.
[2024-05-04] MEDS: LACTATED RINGERS 1,000 ML 999 ML IV CONT (13:26)
--- NOTE | 2024-05-04 13:27 | P.CONIN_ITS ---
Assessment and Plan Assessment and plan (1) Chest pain: Code(s): R07.9 - Chest pain, unspecified Status: Acute Assessment and Plan: Coronary disease status post recent STEMI requiring 2 stents placement in LAD He had echocardiogram few days ago Now admitted with chest pain which appears noncardiac by history exam Status post cardiac catheterization which did not show any significant abnormality Chest pain likely pleuritic from influenza A Obtain CT chest to rule out any other abnormality (2) Influenza A: Code(s): J10.1 - Influenza due to other identified influenza virus with other respiratory manifestations Status: Acute Assessment and Plan: Isolation Tamiflu Currently on room air (3) Hypertension: Code(s): I10 - Essential (primary) hypertension Status: Acute Assessment and Plan: Hold hypertension medication and the blood pressure stabilized (4) SAJAN (acute kidney injury): Code(s): N17.9 - Acute kidney failure, unspecified Status: Acute Assessment and Plan: Presented with creatinine 2.18 which is worse than his discharge day creatinine which was 1 SAJAN can be secondary to dehydration versus contrast induced nephropathy. Patient was also started on ARB LR bolus and infusion Hold ARB Check CK urine electrolytes and renal ultrasound Consult nephrology Monitor urine output electrolytes and creatinine (5) Hyperlipidemia: Code(s): E78.5 - Hyperlipidemia, unspecified Status: Acute Assessment and Plan: Continue statin (6) Coronary artery disease: Code(s): I25.10 - Atherosclerotic heart disease of [place] coronary artery without angina pectoris Status: Acute Assessment and Plan: Coronary disease status post recent STEMI requiring 2 stents placement in LAD He had echocardiogram few days ago Now admitted with chest pain which appears noncardiac Status post cardiac catheterization Continue aspirin Brilinta and statin Hold beta-jacquelyn and ARB Echo Summary 1. Left ventricular systolic function is normal, estimated at 40%.Hypokinesis of anteroseptum, mid inferoseptum, apical septum, apical lateral. 2. The left ventricular diastolic function is grade I diastolic dysfunction. 3. There is trace aortic valve regurgitation. 4. There is trace mitral valve regurgitation. 5. There is mild tricuspid valve regurgitation. 6. No pulmonary hypertension, estimated pulmonary arterial systolic pressure is 25 mmHg. (7) Diabetes: Code(s): E11.9 - Type 2 diabetes mellitus without complications Status: Acute Assessment and Plan: Sliding scale insulin and Lantus Plan DVT prophylaxis -Lovenox Nutrition -diabetic diet Code Status - Full Code Bin Cleaner Consult Note Consult date: 05/04/24 Reason for consult: Chest pain, SAJAN, influenza HPI: Tal George is a 78 year old male of [place] descent with past medical history of diabetes hypertension coronary artery disease who was recently admitted for STEMI and discharged after PCI with 2 stents placement to LAD returned to ER with chief complaint of chest pain. Patient's family who was at bedside stated the patient after discharge developed fever, cough which was clear with no productive sputum and shortness of breath. He patient's son told me the patient had poor p.o. intake and decrease liquid intake and felt sick. Today he developed chest pain. Patient states that chest pain was on the left side of the chest, he was unable to give me the quality, rated at 9/10 with no radiation. Chest pain was worse with deep breathing and cough. Denies any nausea vomiting dizziness lightheadedness loss of consciousness or palpitation. He states that chest pain has now completely resolved. All other systems were reviewed and were negative. Today EMS was called with concern for heart attack because of chest pain and was brought to ER. EKG in the ER showed ST segment elevation in anterior lead. Family claims the patient has been compliant with his medications Patient was given aspirin nitro, Brilinta and heparin bolus and was taken to cardiac catheterization lab. Patient underwent cardiac catheterization which showed no significant abnormality with patent stents and LVEDP of 16 Other workup in the ER showed normal WBC, coags, elevated creatinine at 2.18 blood glucose 260 and PCR positive for influenza A Patient now admitted to ICU for further evaluation management Review of Systems 2 Review of Systems: All systems reviewed & are unremarkable except as noted in HPI and below (HPI) [facility] Past Medical History Medical History Compression fracture of L4 vertebra Hyperlipidemia Diabetes Hypertension Urinary retention Chronic indwelling Epps catheter Diabetes type 2, controlled Surgical History Surgical History Surgical history unknown Family History Family History Mother Family history unknown Social History Social History Smoking status: Never smoker Alcohol intake: never Substance use: never Substance use type: does not use Do You Feel Safe in your Home?: Yes Lack of Transportation: No Lack of Food: Never True Current Housing: I Have Housing Concerned About Future Housing: No Difficulty Paying Gas/Electric Bills: No Difficulty Paying for Meds: No Currently Unemployed: No Education: Master's Degree or Higher Difficulty w/ Childcare or Family Care: No Living arrangements: with family Gender identity (if verbalized by the patient): Male Sexual Orientation (if Verbalized by the Patient): Straight or Heterosexual Spiritual care concerns: No Meds Home Medications and Allergies Home Medications ?Medication ?Instructions ?Recorded ?Confirmed ?Type hydrochlorothiazide 12.5 mg capsule 12.5 mg PO QAM 05/08/22 06/03/22 History metformin 1,000 mg tablet 1,000 mg PO BID 05/08/22 06/03/22 History rosuvastatin 10 mg tablet 10 mg PO QAM 05/08/22 06/03/22 History valsartan 160 mg tablet 160 mg PO QAM 05/08/22 06/03/22 History ciprofloxacin HCl 500 mg tablet 500 mg PO Q12H #22 tabs 06/05/22 Rx (Cipro) finasteride 5 mg tablet (Proscar) 5 mg PO QAM #30 tabs 06/05/22 Rx glipizide 5 mg tablet 5 mg PO BIDWM #60 tabs 06/05/22 06/03/22 Rx polyethylene glycol 3350 17 gram 17 g PO BID #30 ea 06/05/22 Rx oral powder packet (Miralax) sennosides 8.6 mg-docusate sodium 1 tab PO HS #30 tabs 06/05/22 Rx 50 mg tablet (Senokot-S) tamsulosin 0.4 mg capsule (Flomax) 0.4 mg PO HS #30 caps 06/05/22 Rx tramadol 50 mg tablet 50 mg PO Q6H PRN pain #20 tabs 07/18/22 Rx polyethylene glycol 3350 17 17 g PO BID #510 grams 01/19/24 Rx gram/dose oral powder (Powderlax) Allergies Allergy/AdvReac Type Severity Reaction Status Date / Time gentamicin Allergy Swelling Verified 01/19/24 14:13 Vital Signs Vital Signs - 24 hr 05/04/24 11:58 05/04/24 12:12 Temperature 36.6 C Pulse Rate 103 H 98 Respiratory Rate 17 Blood Pressure 117/69 Pulse Oximetry 93 Oxygen Delivery Room Air Exam 2 Narrative: General: Pt is alert awake and in NAD Lungs/Chest: Trachea central Clear BS B/L, No crackles or wheezing. Cardiac: RRR. Normal S1 S2. No murmurs Circulation: Pedal pulses are intact and symmetrical. Right groin cath site does not show any hematoma swelling Abdomen: Normal bowel sounds. Soft. NT. ND. Extremities: No clubbing, cyanosis or edema. Warm : Epps in place Neurologic: Follows commands. Moves all 4 extremities PERRL AO x3 Skin: No Rash Results Labs 05/04/24 12:16 05/04/24 12:16 Labs: Short CBC 05/04/24 Range/Units 12:16 WBC 10.0 (4.5-10.0) K/mm3 Hgb 14.6 (14.0-18.0) g/dL Hct 44.5 (42.0-52.0) % Plt Count 221 (150-375) k/mm3 BMP 05/04/24 12:16 Sodium 134 L Potassium 4.1 Chloride 95 L Carbon Dioxide 20 L BUN 44 H D Creatinine 2.18 H Glucose 268 H Calcium 8.6 Cardiac Enzymes 05/04/24 Range/Units 12:16 Troponin I 7.280 H* (0.000-0.034) ng/mL Liver Function 05/04/24 Range/Units 12:16 Total Bilirubin 1.1 (0.2-1.3) mg/dL AST 60 H (17-59) U/L ALT 28 (6-50) U/L Alkaline Phosphatase 80 (38-126) U/L Albumin 3.9 (3.5-5.1) g/dL ECG Interpretation: ST elevation in leads V2 and V3 with reciprocal depression in inferior Quality VTE Prophylaxis VTE prophylaxis: mechanical ordered and pharmacologic ordered Hospitalist MIPS Advance Care Plan I have confirmed that the patient's Advanced Care Plan is present, code status is documented, or surrogate decision maker is listed in patient medical record.: Yes Medication Reconciliation I have utilized all available resources to obtain, update and review the patients current medications (includes all prescriptions, OTC, herbals, cannabis, and nutritional supplements).: Yes
[2024-05-04 13:53] LABS: Creatine Kinase 290 U/L (55-170)
[2024-05-04] MEDS: OSELTAMIVIR PHOSPHATE 30 MG CAPSULE PO (15:06)
[2024-05-04 15:13] LABS: MRSA (PCR) NOT DETECTED (NOT DETECTE)
--- NOTE | 2024-05-04 15:15 | P.CONNP_ITS ---
Assessment and Plan Assessment and plan (1) SAJAN (acute kidney injury): Code(s): N17.9 - Acute kidney failure, unspecified Status: Acute Assessment and Plan: * admission creatinine noted at 2.18mg/dl * suspect multifactorial etiology: * contrast exposure * concurrent ARB use prior to admission * possible prerenal factors * relative hypotension * follow-up on renal ultrasound, urine studies, and CPK * holding ARB therapy for now * follow trend of repeat labs and UOP (2) Chest pain: Code(s): R07.9 - Chest pain, unspecified Status: Acute Assessment and Plan: * known history of CAD with recent STEMI with placement of 2 stents in LAD (last hospitalization 04/30 - 05/04/24) * remains on aspirin/Brilinta/statin * holding beta-jacquelyn and ARB given relative hypotension and #1 * current admission chest pain appears non-cardiac by history/exam * repeat cardiac catheterizaton (on 05/04/24) without any new findings * CT of chest unremarkable * last Echo noted (on 05/02) noted: * left ventricular systolic function is normal, estimated at 40% * hypokinesis of anteroseptum, mid inferoseptum, apical septum, apical lateral. * grade I diastolic dysfunction * trace aortic valve regurgitation * trace mitral valve regurgitation. * mild tricuspid valve regurgitation. * no pulmonary hypertension * suspect secondary to influenza * Cardiology following * follow clinical symptoms (3) Influenza A: Code(s): J10.1 - Influenza due to other identified influenza virus with other respiratory manifestations Status: Acute Assessment and Plan: * on Tamiflu * follow respiratory status * on room air (4) Hypertension: Code(s): I10 - Essential (primary) hypertension Status: Acute Assessment and Plan: * noted by history * running a bit on he soft * BP medications on hold (5) Diabetes: Code(s): E11.9 - Type 2 diabetes mellitus without complications Status: Acute Assessment and Plan: * follow accu-cheks * glycemic control per hospitalist/tool grinder I will continue to follow the patient with you while he remains hospitalized and make further recommendations as deemed necessary. Thank you for allowing me to participate in the care of this patient. L History of Present Illness Reason for Consult Consult date: 05/04/24 Reason for consult: acute renal failure Chief Complaint Chief complaint: STEMI History of Present Illness Narrative: Most of the information that I have obtained is from review of the electronic medical record as well as discussion with the physician/nurses involved in the patient's care as patient does not speak [place] and no family is available to translate on my behalf. The patient is a 78-year-old male male with a past medical history as outlined below including a recent hospitalization here to [facility] for a STEMI with subsequent stent placement who return to [facility] Emergency Room complaints of chest pain. Apparently, following his recent discharge, the patient developed fever and cough in association with shortness of breath as well as his chest pain. Furthermore, the patient has had poor oral intake given this acute illness. On the day of admission, however is when his chest pain started which was localized to the left side his chest rated apparently 9 and a 10 in severity with no associated radiation. The chest pain was worse with deep inspiration cough well. He denies any nausea, vomiting, dizziness, lightheadedness, palpitations, or diaphoresis. Due to his chest pain, EMS was called he was subsequently transported to the emergency room for further assessment. Workup and evaluation emergency room demonstrated the patient be hemodynamically stable and afebrile . EKG in the ER showed ST segment elevation in the anterior leads and the patient was given aspirin, nitroglycerin, Brilinta, and heparin bolus and was subsequently taken to the cardiac cork slabs sawyer for urgent intervention. It should be noted that viral testing in the ER was positive for influenza. His cardiac catheterization demonstrated no significant abnormality with regard to any further coronary artery disease and also demonstrated that his stents were patent. He was subsequently admitted to the ICU postprocedure for further evaluation therapy. Renal consultation was requested after was noted that labs in the emergency room demonstrated elevated creatinine of 2.18 mg/dL. As mentioned above on his previous hospitalization, his renal function was well within normal limits and by the time of discharge his creatinine was fairly stable as well. does have risk factors for kidney disease in the form of hypertension, diabetes, and vascular disease as evident by his recent findings of coronary artery disease. It is felt that his acute kidney injury is possibly related to his previous hospitalization with regard to his ST-elevation VT in conjunction with the use of contrast for his cardiac catheterizations and subsequent initiation on a losartan/ARB therapy. Currently, the time my evaluation, he appears to be no acute distress. Review of Systems 2 Review of Systems: As per HPI. [facility] Past Medical History Medical History (Updated 05/05/24 @ 14:52 by Diane Pitt APRN) Hypertension Diabetes mellitus Compression fracture of L4 vertebra Hyperlipidemia Diabetes Hypertension Urinary retention Chronic indwelling Epps catheter Diabetes type 2, controlled Surgical History Surgical History (System 05/04/24 @ 15:55 by Balaji Ramos) Surgical history unknown Family History Family History Mother Family history unknown Social History Social History (System 05/04/24 @ 15:55 by Balaji Ramos) Smoking status: Never smoker Alcohol intake: never Substance use: never Substance use type: does not use Do You Feel Safe in your Home?: Yes Lack of Transportation: No Lack of Food: Never True Current Housing: I Have Housing Concerned About Future Housing: No Difficulty Paying Gas/Electric Bills: No Difficulty Paying for Meds: No Currently Unemployed: No Education: Master's Degree or Higher Difficulty w/ Childcare or Family Care: No Living arrangements: with family Gender identity (if verbalized by the patient): Male Sexual Orientation (if Verbalized by the Patient): Straight or Heterosexual Spiritual care concerns: No Meds Home Medications and Allergies Home Medications ?Medication ?Instructions ?Recorded ?Confirmed ?Type insulin glargine 100 unit/mL 18 unit subcut DAILY DM 09/06/23 05/04/24 History subcutaneous solution (Lantus U-100 Insulin) insulin lispro 100 unit/mL 1 sliding scale dose subcut ACHS dm 09/06/23 05/04/24 History subcutaneous pen lactulose 10 gram/15 mL oral 30 ml PO TID 04/30/24 05/04/24 History solution ticagrelor 90 mg tablet (Brilinta) 90 mg PO Q12HR #90 tabs 05/02/24 05/04/24 Rx aspirin 81 mg tablet,delayed 81 mg PO QAM #90 tabs 05/03/24 05/04/24 Rx release atorvastatin 80 mg tablet (Lipitor) 80 mg PO DAILY #90 tabs 05/03/24 05/04/24 Rx losartan 25 mg tablet 25 mg PO DAILY #90 tabs 05/03/24 05/04/24 Rx metoprolol succinate 50 mg 50 mg PO DAILY #90 tabs 05/03/24 05/04/24 Rx tablet,extended release 24 hr (Toprol XL) Allergies Allergy/AdvReac Type Severity Reaction Status Date / Time No Known Allergies Allergy Verified 05/04/24 17:17 Vital Signs Vital Signs Temp Pulse Resp BP Pulse Ox O2 Del Method 05/04/24 15:00 84 22 H 99/62 L 95 05/04/24 14:30 81 21 H 103/65 95 05/04/24 14:15 86 22 H 108/60 95 05/04/24 14:00 84 19 99/61 L 97 05/04/24 14:00 84 05/04/24 13:45 87 23 H 91/55 L 95 05/04/24 13:30 90 22 H 92/58 L 97 05/04/24 13:15 100.3 F H 90 22 H 107/61 97 05/04/24 12:12 98 05/04/24 11:58 97.8 F 103 H 17 117/69 93 Room Air Exam 2 Narrative: GENERAL APPEARANCE: welderly but well developed well nourished male in no acute distress HEENT: normocephalic, atraumatic, normal conjunctiva and sclera, nares patient NECK: no lymphadenopathy, thyromegaly, or JVD MOUTH: normal lips, teeth, and gums CARDIOVASCULAR: RRR, normal S1 and S2, no rub RESPIRATORY: clear to auscultation bilaterally ABDOMEN: soft, nontender, nondistended, positive bowel sounds present EXTREMITIES: no evidence of cyanosis, clubbing, or edema NEUROLOGICAL: alert and oriented x 3; CN II - XII intact bilaterally; no focal deficits noted Results Lab Results 05/06/24 04:13 05/06/24 04:13 Lab results: Most recent lab results Calcium 8.6 mg/dL (8.4-10.2) 05/04/24 12:16
[2024-05-04] MEDS: LACTATED RINGERS 1,000 ML 100 ML IV CONT (16:00)
[2024-05-04 16:57] LABS: Glucose Point of Care 204 mg/dl (65-105)
[2024-05-04 18:55] LABS: Sodium 130 mmol/L (137-145)
[2024-05-04 19:59] LABS: Toxigenic C. Diff NEGATIVE (NEGATIVE)
[2024-05-04] MEDS: INSULIN GLARGINE (*BKC) 100 UNITS/ML 15 UNITS SUB-Q (20:34)
[2024-05-04] MEDS: INSULIN ASPART (*BKC) 100 UNITS/ML SUB-Q (20:35)
[2024-05-04 20:42] LABS: Glucose Point of Care 211 mg/dl (65-105)
[2024-05-05] VITALS (11 sets, daily range): BP systolic 88–123; BP diastolic 51–77; PULSE 72–94; RESP 18–25; TEMP 36.4–37.9; O2SAT 92–97
--- NOTE | 2024-05-05 | ECHOL_ITS ---
Patient Info Name: Tal George Age: 78 years : 1945 Gender: Male Ht: 66 in Wt: 152 lbs BSA: 1.80 m2 HR: 72 bpm BP: 96 / 48 mmHg Technical Quality: Good Exam Date: 05/05/2024 9:29 AM Exam Location: Echo Lab Exam Room: ICU 3 Patient Status: Inpatient Admit Date: 05/04/2024 Staff Ordering Physician: Milo Sumner MD ([email or web address]) Heat Treater Apprentice: Cristina Correia RDCS Attending Provider: Milo Sumner MD ([email or web address]) Referring Physician: Burak RODRIGUEZ; Exam Type: CA echo limited Study Info Indications - EVAL FOR PERICARDIAL EFFUSION Limited two-dimensional transthoracic echocardiogram is performed. Summary 1. Pericardium is normal in appearance with no evidence for significant pericardial effusion. 2. The left ventricle is normal in size with mildly reduced systolic function. The left ventricular ejection fraction is visually estimated to 40-45%. 3. There is severe hypokinesis of the apex anterior, and anteroseptum. 4. The right ventricle is normal in size and systolic function. Left Ventricle The left ventricle is normal in size with mildly reduced systolic function. The left ventricular ejection fraction is visually estimated to 40-45%. There is severe hypokinesis of the apex anterior, and anteroseptum. Right Ventricle The right ventricle is normal in size and systolic function. Left Atria The left atrium is normal size. Right Atria The right atrium is normal size. Atrial Septum Atrial septum is not well visualized. Aortic Valve The aortic valve is trileaflet and sclerotic but opens well. Pulmonic Valve The pulmonic valve is not well visualized. Mitral Valve The mitral valve is normal. Tricuspid Valve The tricuspid valve is normal. Pericardium/Pleural Pericardium is normal in appearance with no evidence for significant pericardial effusion. Inferior Vena Cava Inferior vena cava is not well visualized. Aorta The aortic root at the level of the sinus of Valsalva measures 3.8 cm in diameter. Ventricles Name Value Normal LV Dimensions 2D/MM IVS Diastolic Thickness (2D) 1.1 cm 0.6-1.0 LVID Diastole (2D) 4.8 cm 4.2-5.8 LVIW Diastolic Thickness (2D) 0.9 cm 0.6-1.0 LVID Systole (2D) 3.5 cm 2.5-4.0 LV Mass (2D Cubed) 164.77 g 88.00-224.00 LV Mass Index (2D Cubed) 91 g/m2 49-115 Relative Wall Thickness (2D) 0.38 LV Fractional Shortening/Ejection Fraction 2D/MM LV Fractional Shortening (2D) 26 % 25-43 LV EF (2D Teicholz) 51 % 52-72 LV Diastolic Volume (4C MOD) 122 ml LV EF (4C MOD) 47 % LV Diastolic Volume (2C MOD) 112 ml LV EF (2C MOD) 39 % LV Diastolic Volume (BP MOD) 122 ml 62-150 LV Diastolic Volume Index (BP MOD) 68 ml/m2 34-74 LV Systolic Volume (BP MOD) 67 ml 21-61 LV Systolic Volume Index (BP MOD) 37 ml/m2 11-31 LV EF (BP MOD) 45 % 52-72 LV Diastolic Length (4C) 8.4 cm LV Systolic Length (4C) 7.1 cm LV Stroke Volume (4C MOD) 57 ml Report Signatures
[2024-05-05 04:35] LABS: Basophils Percent Auto 0.4 % (0.2-1.2); Eosinophils Percent Auto 0.4 % (0-4.4); Hematocrit 37.6 % (42.0-52.0); Hemoglobin 12.3 g/dL (14.0-18.0); Immature Granulocyte Absolute 0.02 K/mm3 (0.00-0.031); Immature Granulocyte Percent A 0.2 % (0-0.5); Immature Platelet Fraction Pct 4.4 % (0.9-11.2); Lymphocytes Absolute Auto 2.17 K/mm3 (0.9-3.2); Lymphocytes Percent Auto 24.3 % (18.3-44.2); Mean Corpuscular HGB Conc 32.7 g/dl (32-36); Mean Corpuscular Hemoglobin 28.5 pg (26-34); Mean Corpuscular Volume 87.2 fl (80-100); Mean Platelet Volume 13.6 fl (7.4-10.4); Monocytes Absolute Auto 1.5 K/mm3 (0.1-0.6); Neutrophils Absolute Auto 5.1 K/mm3 (1.3-6.7); Neutrophils Percent Auto 57.7 % (45.5-73.1); Platelet Count Result 209 k/mm3 (150-375); Red Blood Count 4.31 M/mm3 (4.6-6.20); Red Cell Distribution Width 14.2 % (11.5-14.5); White Blood Count 8.9 K/mm3 (4.5-10.0)
[2024-05-05 04:43] LABS: Alanine Aminotransferase 24 U/L (6-50); Albumin Level 3.2 g/dL (3.5-5.1); Alkaline Phosphatase 73 U/L (38-126); Anion Gap 11 mmol/L (4-12); Aspartate Amino Transferase 47 U/L (17-59); Bilirubin,Total 0.6 mg/dL (0.2-1.3); Blood Urea Nitrogen 43 mg/dL (9-20); Calcium 7.8 mg/dL (8.4-10.2); Carbon Dioxide 22 mmol/L (22-30); Chloride 101 mmol/L (98-107); Estimated CRCL calculation 30 ml/min; Estimated Glomerular Filt Rate 39; Glucose 133 mg/dL (65-110); Magnesium 2.1 mg/dL (1.6-2.3); Potassium 2.9 mmol/L (3.4-5.0); Sodium 134 mmol/L (137-145)
[2024-05-05 05:07] LABS: Total Protein Urine Random 34 mg/dL; Urea Random Urine 803 MG/DL
[2024-05-05 05:09] LABS: Creatinine Urine 129.7 mg/dL; Total Protein Urine Random 34 mg/dL; Ur Ttl Prot Creatinine Ratio 0.26 mg/mg (0-0.20)
[2024-05-05 05:13] LABS: Creatinine Urine 129.8 mg/dL; Sodium Urine Random 26 meq/L
[2024-05-05 05:27] LABS: Eosinophil Urine None Seen % (None Seen); Urine Eos QC 2nd Tech Confirmed
[2024-05-05 07:49] LABS: Glucose Point of Care 125 mg/dl (65-105)
[2024-05-05] MEDS: ENOXAPARIN 30 MG/0.3 ML SYRINGE SUB-Q (09:15)
[2024-05-05] MEDS: ATORVASTATIN 40 MG TABLET 80 MG PO (09:15)
[2024-05-05] MEDS: OSELTAMIVIR PHOSPHATE 30 MG CAPSULE PO (09:15)
[2024-05-05] MEDS: POTASSIUM BICARBONATE 25 MEQ TABEF 50 MEQ PO (09:15)
[2024-05-05] MEDS: ASPIRIN 81 MG ENTERIC TABLET PO (09:15)
[2024-05-05] MEDS: TICAGRELOR 90 MG TABLET PO ×2 (09:16→21:04)
--- NOTE | 2024-05-05 09:36 | WPDINTPN ---
Progress Note: A&P Assessment and Plan (1) Chest pain: Code(s): R07.9 - Chest pain, unspecified Status: Acute Assessment and Plan: Coronary disease status post recent STEMI requiring 2 stents placement in LAD He had echocardiogram few days ago with report mentioned below Now admitted with chest pain which appears noncardiac and. By history exam Status post cardiac catheterization which did not show any significant abnormality Chest pain likely pleuritic from influenza A CT chest was unremarkable (2) Influenza A: Code(s): J10.1 - Influenza due to other identified influenza virus with other respiratory manifestations Status: Acute Assessment and Plan: Isolation Tamiflu Currently on room air (3) Hypertension: Code(s): I10 - Essential (primary) hypertension Status: Acute Assessment and Plan: Hold hypertension medication and the blood pressure stabilized (4) SAJAN (acute kidney injury): Code(s): N17.9 - Acute kidney failure, unspecified Status: Acute Assessment and Plan: Presented with creatinine 2.18 which is worse than his discharge day creatinine which was 1 SAJAN can be secondary to dehydration versus contrast induced nephropathy. Patient was also started on ARB Patient was treated with LR bolus and infusion Hold ARB Renal ultrasound showed Bilateral renal cysts measuring up to 4.6 cm. Otherwise normal kidneys with no hydronephrosis. CK was slightly elevated at290 Nephrology consult Creatinine is improved to 1.7 today Monitor urine output electrolytes and creatinine Urinary retention management as below (5) Hyperlipidemia: Code(s): E78.5 - Hyperlipidemia, unspecified Status: Acute Assessment and Plan: Continue statin (6) Coronary artery disease: Code(s): I25.10 - Atherosclerotic heart disease of [place] coronary artery without angina pectoris Status: Acute Assessment and Plan: Coronary disease status post recent STEMI requiring 2 stents placement in LAD He had echocardiogram few days ago Now admitted with chest pain which appears noncardiac Status post cardiac catheterization Continue aspirin Brilinta and statin Hold beta-jacquelyn and ARB Echo Summary 1. Left ventricular systolic function is normal, estimated at 40%.Hypokinesis of anteroseptum, mid inferoseptum, apical septum, apical lateral. 2. The left ventricular diastolic function is grade I diastolic dysfunction. 3. There is trace aortic valve regurgitation. 4. There is trace mitral valve regurgitation. 5. There is mild tricuspid valve regurgitation. 6. No pulmonary hypertension, estimated pulmonary arterial systolic pressure is 25 mmHg. (7) Diabetes: Code(s): E11.9 - Type 2 diabetes mellitus without complications Status: Acute Assessment and Plan: Sliding scale insulin and Lantus (8) Urinary retention: Code(s): R33.9 - Retention of urine, unspecified Status: Acute Assessment and Plan: Patient does have history of BPH but is currently not on any treatment. He states he has difficulty urinating in bed and would like to be active and go to the bathroom Consult PT OT Up in chair Will use bedside commode depending on the activity Urology consulted Plan DVT prophylaxis -Lovenox Nutrition -diabetic diet Code Status - Full Code PT OT Incentive spirometry Up in chair Transfer out of ICU today Subjective Date/time seen: 05/05/24 Patient examined and interviewed in presence of patient's son who acted as director of placement when he could understand the question. Patient has limited [place]-speaking ability. Overnight patient had issues with retention and had to be straight cathed for urine output. He states that he does not have any difficulty at home and he cannot be in bed and would like to go to the bathroom for be able to urinate. He likes to sit on the toilet where he does not have any difficulty urinating. He denies any chest pain he does have some cough which is mostly dry but denies any shortness of breath. He does get confused sometimes overnight which is not new as per his son. All other systems were reviewed and were negative Patient is on room air with adequate blood pressure and mostly afebrile. He tolerated p.o. diet. Review of Systems Review of Systems: All systems reviewed & are unremarkable except as noted in HPI and below (HPI) Exam Narrative: General: Pt is alert awake and in NAD Lungs/Chest: Trachea central Clear BS B/L, No crackles or wheezing. Cardiac: RRR. Normal S1 S2. No murmurs Circulation: Pedal pulses are intact and symmetrical. Right groin cath site does not show any hematoma swelling Abdomen: Normal bowel sounds. Soft. NT. ND. Extremities: No clubbing, cyanosis or edema. Warm : Epps in place Neurologic: Follows commands. Moves all 4 extremities PERRL AO x3 Skin: No Rash Objective Data Vital Signs Vital Signs: Vital Signs - 24 hr 05/04/24 11:58 05/04/24 12:12 05/04/24 13:15 Temperature 36.6 C 37.9 C H Pulse Rate 103 H 98 90 Respiratory Rate 17 22 H Blood Pressure 117/69 107/61 Pulse Oximetry 93 97 Oxygen Delivery Room Air 05/04/24 13:30 05/04/24 13:45 05/04/24 14:00 Temperature Pulse Rate 90 87 84 Respiratory Rate 22 H 23 H Blood Pressure 92/58 L 91/55 L Pulse Oximetry 97 95 Oxygen Delivery 05/04/24 14:00 05/04/24 14:00 05/04/24 14:15 Temperature Pulse Rate 84 84 86 Respiratory Rate 19 19 22 H Blood Pressure 99/61 L 99/61 L 108/60 Pulse Oximetry 97 97 95 Oxygen Delivery 05/04/24 14:30 05/04/24 15:00 05/04/24 15:30 Temperature Pulse Rate 81 84 85 Respiratory Rate 21 H 22 H 22 H Blood Pressure 103/65 99/62 L 91/55 L Pulse Oximetry 95 95 91 Oxygen Delivery 05/04/24 16:00 05/04/24 16:00 05/04/24 16:00 Temperature Pulse Rate 79 88 Respiratory Rate 19 Blood Pressure 122/60 Pulse Oximetry 97 Oxygen Delivery Room Air 05/04/24 16:00 05/04/24 17:00 05/04/24 18:00 Temperature Pulse Rate 88 77 78 Respiratory Rate 19 17 Blood Pressure 122/60 119/66 Pulse Oximetry 95 Oxygen Delivery 05/04/24 18:00 05/04/24 18:00 05/04/24 19:00 Temperature Pulse Rate 80 80 81 Respiratory Rate 17 17 24 H Blood Pressure 123/66 123/66 111/59 L Pulse Oximetry 95 95 93 Oxygen Delivery 05/04/24 20:00 05/04/24 20:00 05/04/24 20:00 Temperature 36.8 C Pulse Rate 75 75 Respiratory Rate 22 H Blood Pressure 111/58 L Pulse Oximetry 95 Oxygen Delivery Room Air 05/04/24 22:00 05/04/24 22:00 05/05/24 00:00 Temperature Pulse Rate 72 72 Respiratory Rate 13 Blood Pressure 96/48 L Pulse Oximetry 91 Oxygen Delivery Room Air 05/05/24 00:00 05/05/24 00:00 05/05/24 02:00 Temperature 36.9 C Pulse Rate 81 81 77 Respiratory Rate 22 H Blood Pressure 88/51 L Pulse Oximetry 94 Oxygen Delivery 05/05/24 02:00 05/05/24 02:05 05/05/24 04:00 Temperature Pulse Rate 77 Respiratory Rate 21 H Blood Pressure 93/63 L Pulse Oximetry 92 Oxygen Delivery Room Air Room Air 05/05/24 04:00 05/05/24 04:00 05/05/24 06:00 Temperature 36.4 C Pulse Rate 92 74 77 Respiratory Rate 20 Blood Pressure 104/54 L Pulse Oximetry 96 Oxygen Delivery 05/05/24 06:00 05/05/24 08:00 05/05/24 08:00 Temperature Pulse Rate 77 80 Respiratory Rate 18 Blood Pressure 109/53 L Pulse Oximetry 96 96 Oxygen Delivery Room Air Intake/Output Intake/Output: Intake & Output 05/02/24 05/03/24 05/04/24 05/05/24 23:59 23:59 23:59 23:59 Intake Total 240 Output Total 1800 Balance 240 -1800 Meds/Results Medications: Active Medications Generic Name Dose Route Start Last Admin Trade Name Freq PRN Reason Stop Dose Admin Acetaminophen 1,000 mg 05/05/24 01:28 Acetaminophen 500 Mg Tablet PO Q6H PRN Mild Pain (1-3) or Fever Aspirin 81 mg 05/05/24 09:00 05/05/24 09:15 Aspirin 81 Mg Enteric Tablet PO 81 mg QAM DESIRAE Administration Atorvastatin Calcium 80 mg 05/05/24 09:00 05/05/24 09:15 Atorvastatin 40 Mg Tablet PO 80 mg DAILY DESIRAE Administration Dextrose 12.5 gm 05/04/24 13:15 Dextrose 50% 25 Gm/50 Ml Syringe IV PUSH PRN PRN Hypoglycemia Protocol Enoxaparin Sodium 30 mg 05/05/24 09:00 05/05/24 09:15 Enoxaparin 30 Mg/0.3 Ml Syringe SUB-Q 30 mg DAILY DESIRAE Administration Glucagon 1 mg 05/04/24 13:15 Glucagon For Inj 1 Mg Vial IM PRN PRN Hypoglycemia Protocol Glucose 15 gm 05/04/24 13:15 Glucose Oral Gel 15 Gm Of Glucse In 37.5 Gm Tube PO PRN PRN Hypoglycemia Protocol Dextrose 1,000 mls @ 100 mls/hr 05/04/24 13:15 Dextrose 5% 1,000 Ml IVPB PRN PRN Hypoglycemia Protocol Insulin Aspart 4 - 8 units 05/04/24 13:25 05/05/24 08:22 Insulin Aspart (*Bkc) 100 Units/Ml SUB-Q Not Given TIDWM DESIRAE Protocol Insulin Aspart 2 - 4 units 05/04/24 21:00 05/04/24 20:35 Insulin Aspart (*Bkc) 100 Units/Ml SUB-Q 2 units HS DESIRAE Administration Protocol Insulin Glargine 15 units 05/04/24 21:00 05/04/24 20:34 Insulin Glargine (*Bkc) 100 Units/Ml SUB-Q 15 units HS DESIRAE Administration Oseltamivir Phosphate 30 mg 05/04/24 13:30 05/05/24 09:15 Oseltamivir Phosphate 30 Mg Capsule PO 05/08/24 09:01 30 mg DAILY DESIRAE Administration Perflutren Lipid Microsphere 0 ml 05/04/24 14:23 Perflutren Lipid Microspheres 1.5 Ml Vial Diluted To 10 Ml Total Volume IV PUSH 05/07/24 14:23 ONCE PRN adequate visualization Protocol Potassium Chloride 40 meq 05/05/24 12:00 Potassium Chloride 20 Meq Packet (For Liquid) PO 05/05/24 12:01 ONCE ONE Ticagrelor 90 mg 05/05/24 09:00 05/05/24 09:16 Ticagrelor 90 Mg Tablet PO 90 mg Q12HR DESIARE Administration Radiology Results: ITS Impressions Renal Ultrasound 05/04/24 15:23 IMPRESSION: 1. Bilateral renal cysts measuring up to 4.6 cm. Otherwise normal kidneys with no hydronephrosis. Neck/Chest CT 05/04/24 16:59 IMPRESSION: 1. No etiology for the patient's symptoms. Labs Labs: Laboratory Results - last 24 hr 05/04/24 05/04/24 05/04/24 12:16 13:55 16:35 WBC 10.0 RBC 5.12 Hgb 14.6 Hct 44.5 MCV 86.9 MCH 28.5 MCHC 32.8 RDW 14.3 Plt Count 221 MPV 12.0 H Immature Gran % (Auto) 0.6 H Neut % (Auto) 60.9 Lymph % (Auto) 15.8 L [place] % (Auto) 13.2 H Eos % (Auto) 8.8 H Baso % (Auto) 0.7 Lymph # (Auto) 1.58 [place] # (Auto) 1.3 H Eos # (Auto) 0.9 H Baso # (Auto) 0.1 Abs Immat Gran (auto) 0.06 H Absolute Neuts (auto) 6.1 Absolute Nucleated RBC 0.000 Nucleated RBC % 0.0 Platelet Estimate Adequate % Immature Plt Fraction Anisocytosis 1+ Ovalocytes 1+ Schistocytes None seen PT 13.8 INR 1.0 APTT 29.8 Sodium 134 L Potassium 4.1 Chloride 95 L Carbon Dioxide 20 L Anion Gap 19 H BUN 44 H D Creatinine 2.18 H Estim Creat Clear Calc 24 Estimated GFR 30 L Glucose 268 H POC Capillary Glucose Calcium 8.6 Magnesium Total Bilirubin 1.1 AST 60 H ALT 28 Alkaline Phosphatase 80 Total Creatine Kinase 290 H Troponin I 7.280 H* Total Protein 8.0 Albumin 3.9 Triglycerides 166 H Cholesterol 224 H LDL Cholesterol Direct 147 HDL Direct 28 Urine Eosinophils U Random Total Protein Ur Random Sodium Ur Random Urea Urine Creatinine Protein/Creat Ratio 2 Nasal MRSA (PCR) Not detected C. difficile (PCR) Negative Influenza A (RT-PCR) Positive A Influenza B (RT-PCR) Negative RSV (RT-PCR) Negative SARS-CoV-2 RNA (RT-PCR) Negative Blood Type AB Positive Antibody Screen Negative 05/04/24 05/04/24 05/04/24 16:53 18:37 20:32 WBC RBC Hgb Hct MCV MCH MCHC RDW Plt Count MPV Immature Gran % (Auto) Neut % (Auto) Lymph % (Auto) [place] % (Auto) Eos % (Auto) Baso % (Auto) Lymph # (Auto) [place] # (Auto) Eos # (Auto) Baso # (Auto) Abs Immat Gran (auto) Absolute Neuts (auto) Absolute Nucleated RBC Nucleated RBC % Platelet Estimate % Immature Plt Fraction Anisocytosis Ovalocytes Schistocytes PT INR APTT Sodium 130 L Potassium Chloride Carbon Dioxide Anion Gap BUN Creatinine Estim Creat Clear Calc Estimated GFR Glucose POC Capillary Glucose 204 H 211 H Calcium Magnesium Total Bilirubin AST ALT Alkaline Phosphatase Total Creatine Kinase Troponin I Total Protein Albumin Triglycerides Cholesterol LDL Cholesterol Direct HDL Direct Urine Eosinophils U Random Total Protein Ur Random Sodium Ur Random Urea Urine Creatinine Protein/Creat Ratio 2 Nasal MRSA (PCR) C. difficile (PCR) Influenza A (RT-PCR) Influenza B (RT-PCR) RSV (RT-PCR) SARS-CoV-2 RNA (RT-PCR) Blood Type Antibody Screen 05/05/24 05/05/24 05/05/24 02:55 02:55 02:55 WBC RBC Hgb Hct MCV MCH MCHC RDW Plt Count MPV Immature Gran % (Auto) Neut % (Auto) Lymph % (Auto) [place] % (Auto) Eos % (Auto) Baso % (Auto) Lymph # (Auto) [place] # (Auto) Eos # (Auto) Baso # (Auto) Abs Immat Gran (auto) Absolute Neuts (auto) Absolute Nucleated RBC Nucleated RBC % Platelet Estimate % Immature Plt Fraction Anisocytosis Ovalocytes Schistocytes PT INR APTT Sodium Potassium Chloride Carbon Dioxide Anion Gap BUN Creatinine Estim Creat Clear Calc Estimated GFR Glucose POC Capillary Glucose Calcium Magnesium Total Bilirubin AST ALT Alkaline Phosphatase Total Creatine Kinase Troponin I Total Protein Albumin Triglycerides Cholesterol LDL Cholesterol Direct HDL Direct Urine Eosinophils None seen U Random Total Protein 34 34 Ur Random Sodium 26 Ur Random Urea 803 Urine Creatinine 129.8 129.7 Protein/Creat Ratio 2 0.26 H Nasal MRSA (PCR) C. difficile (PCR) Influenza A (RT-PCR) Influenza B (RT-PCR) RSV (RT-PCR) SARS-CoV-2 RNA (RT-PCR) Blood Type Antibody Screen 05/05/24 05/05/24 04:17 07:47 WBC 8.9 RBC 4.31 L Hgb 12.3 L Hct 37.6 L MCV 87.2 MCH 28.5 MCHC 32.7 RDW 14.2 Plt Count 209 MPV 13.6 H Immature Gran % (Auto) 0.2 Neut % (Auto) 57.7 Lymph % (Auto) 24.3 [place] % (Auto) 17.0 H Eos % (Auto) 0.4 Baso % (Auto) 0.4 Lymph # (Auto) 2.17 [place] # (Auto) 1.5 H Eos # (Auto) 0.0 Baso # (Auto) 0.0 Abs Immat Gran (auto) 0.02 Absolute Neuts (auto) 5.1 Absolute Nucleated RBC 0.000 Nucleated RBC % 0.0 Platelet Estimate % Immature Plt Fraction 4.4 Anisocytosis Ovalocytes Schistocytes PT INR APTT Sodium 134 L Potassium 2.9 L Chloride 101 Carbon Dioxide 22 Anion Gap 11 BUN 43 H Creatinine 1.72 H Estim Creat Clear Calc 30 Estimated GFR 39 L Glucose 133 H POC Capillary Glucose 125 H Calcium 7.8 L Magnesium 2.1 Total Bilirubin 0.6 AST 47 ALT 24 Alkaline Phosphatase 73 Total Creatine Kinase Troponin I Total Protein 6.0 L Albumin 3.2 L Triglycerides Cholesterol LDL Cholesterol Direct HDL Direct Urine Eosinophils U Random Total Protein Ur Random Sodium Ur Random Urea Urine Creatinine Protein/Creat Ratio 2 Nasal MRSA (PCR) C. difficile (PCR) Influenza A (RT-PCR) Influenza B (RT-PCR) RSV (RT-PCR) SARS-CoV-2 RNA (RT-PCR) Blood Type Antibody Screen Quality VTE Prophylaxis VTE prophylaxis: mechanical ordered and pharmacologic ordered
--- NOTE | 2024-05-05 09:50 | PM.PNCARD ---
Progress Note: A&P Assessment and Plan (1) Ischemic cardiomyopathy: Code(s): I25.5 - Ischemic cardiomyopathy Status: Acute (2) Coronary artery disease: Code(s): I25.10 - Atherosclerotic heart disease of jamul coronary artery without angina pectoris Status: Acute (3) Hypertension: Qualifiers: Hypertension type: primary hypertension Qualified Code(s): I10 - Essential (primary) hypertension Code(s): I10 - Essential (primary) hypertension Status: Acute (4) Diabetes mellitus: Qualifiers: Diabetes mellitus type: type 2 Diabetes mellitus complication status: without complication Code(s): E11.9 - Type 2 diabetes mellitus without complications Status: Acute (5) Influenza A: Code(s): J10.1 - Influenza due to other identified influenza virus with other respiratory manifestations Status: Acute Plan 78-year-old man with CAD status post PCI (STEMI), ischemic cardiomyopathy (LVEF 40-45%), diabetes, and hypertension presented with subjective fevers, cough, and rhinorrhea who was emergently brought to the cardiac catheterization lab due to EKG changes suggestive STEMI Influenza a -currently being treated with oseltamivir renally dosed CAD status post PCI -continue aspirin 81 mg p.o. daily and Brilinta 90 mg p.o. b.i.d. -outpatient staged PCI planning once recovered from viral illness Ischemic cardiomyopathy -continue Toprol 50 mg p.o. daily -losartan was held due to acute renal injury for which Nephrology has been consulted Diabetes -currently on glargine 15 units every evening with sliding scale Hyperlipidemia -continue atorvastatin 80 mg every evening Plan transfer care to hospitalist service for management of acute renal injury, diabetic management, and influenza a as well as awaiting PT and OT evaluation for dispo planning as patient and his family would prefer home care if he qualifies Subjective Date/time seen: 05/05/24 09:50 Interval history: His daughter provided translation for the family via telephone. The patient is not having any chest pain or shortness of breath. He denies any chest discomfort or pain when sleeping at night and he also denied any orthopnea. Review of Systems Cardiovascular: Cardiovascular: Reports as per HPI Respiratory: Respiratory: Reports as per HPI Exam Const: General: comfortable HENMT: Mouth: Yes moist mucous membranes Eyes: EOM: EOMs intact bilaterally Neck: Neck: no JVD Resp: Auscultation: clear to auscultation bilaterally Cardio: Rate: regular rate Rhythm: regular rhythm Extrem: General: no edema Objective Data Vital Signs Vital Signs: Vital Signs - 24 hr 05/04/24 11:58 05/04/24 12:12 05/04/24 13:15 Temperature 36.6 C 37.9 C H Pulse Rate 103 H 98 90 Respiratory Rate 17 22 H Blood Pressure 117/69 107/61 Pulse Oximetry 93 97 Oxygen Delivery Room Air 05/04/24 13:30 05/04/24 13:45 05/04/24 14:00 Temperature Pulse Rate 90 87 84 Respiratory Rate 22 H 23 H Blood Pressure 92/58 L 91/55 L Pulse Oximetry 97 95 Oxygen Delivery 05/04/24 14:00 05/04/24 14:00 05/04/24 14:15 Temperature Pulse Rate 84 84 86 Respiratory Rate 19 19 22 H Blood Pressure 99/61 L 99/61 L 108/60 Pulse Oximetry 97 97 95 Oxygen Delivery 05/04/24 14:30 05/04/24 15:00 05/04/24 15:30 Temperature Pulse Rate 81 84 85 Respiratory Rate 21 H 22 H 22 H Blood Pressure 103/65 99/62 L 91/55 L Pulse Oximetry 95 95 91 Oxygen Delivery 05/04/24 16:00 05/04/24 16:00 05/04/24 16:00 Temperature Pulse Rate 79 88 Respiratory Rate 19 Blood Pressure 122/60 Pulse Oximetry 97 Oxygen Delivery Room Air 05/04/24 16:00 05/04/24 17:00 05/04/24 18:00 Temperature Pulse Rate 88 77 78 Respiratory Rate 19 17 Blood Pressure 122/60 119/66 Pulse Oximetry 95 Oxygen Delivery 05/04/24 18:00 05/04/24 18:00 05/04/24 19:00 Temperature Pulse Rate 80 80 81 Respiratory Rate 17 17 24 H Blood Pressure 123/66 123/66 111/59 L Pulse Oximetry 95 95 93 Oxygen Delivery 05/04/24 20:00 05/04/24 20:00 05/04/24 20:00 Temperature 36.8 C Pulse Rate 75 75 Respiratory Rate 22 H Blood Pressure 111/58 L Pulse Oximetry 95 Oxygen Delivery Room Air 05/04/24 22:00 05/04/24 22:00 05/05/24 00:00 Temperature Pulse Rate 72 72 Respiratory Rate 13 Blood Pressure 96/48 L Pulse Oximetry 91 Oxygen Delivery Room Air 05/05/24 00:00 05/05/24 00:00 05/05/24 02:00 Temperature 36.9 C Pulse Rate 81 81 77 Respiratory Rate 22 H Blood Pressure 88/51 L Pulse Oximetry 94 Oxygen Delivery 05/05/24 02:00 05/05/24 02:05 05/05/24 04:00 Temperature Pulse Rate 77 Respiratory Rate 21 H Blood Pressure 93/63 L Pulse Oximetry 92 Oxygen Delivery Room Air Room Air 05/05/24 04:00 05/05/24 04:00 05/05/24 06:00 Temperature 36.4 C Pulse Rate 92 74 77 Respiratory Rate 20 Blood Pressure 104/54 L Pulse Oximetry 96 Oxygen Delivery 05/05/24 06:00 05/05/24 08:00 05/05/24 08:00 Temperature Pulse Rate 77 80 Respiratory Rate 18 Blood Pressure 109/53 L Pulse Oximetry 96 96 Oxygen Delivery Room Air 05/05/24 08:00 Temperature 37.3 C Pulse Rate 80 Respiratory Rate 25 H Blood Pressure 115/60 Pulse Oximetry 95 Oxygen Delivery Intake/Output Intake/Output: Intake & Output 05/02/24 05/03/24 05/04/24 05/05/24 23:59 23:59 23:59 23:59 Intake Total 240 Output Total 1800 Balance 240 -1800 Meds/Results Medications: Active Medications Generic Name Dose Route Start Last Admin Trade Name Freq PRN Reason Stop Dose Admin Acetaminophen 1,000 mg 05/05/24 01:28 Acetaminophen 500 Mg Tablet PO Q6H PRN Mild Pain (1-3) or Fever Aspirin 81 mg 05/05/24 09:00 05/05/24 09:15 Aspirin 81 Mg Enteric Tablet PO 81 mg QAM DESIRAE Administration Atorvastatin Calcium 80 mg 05/05/24 09:00 05/05/24 09:15 Atorvastatin 40 Mg Tablet PO 80 mg DAILY DESIRAE Administration Dextrose 12.5 gm 05/04/24 13:15 Dextrose 50% 25 Gm/50 Ml Syringe IV PUSH PRN PRN Hypoglycemia Protocol Enoxaparin Sodium 30 mg 05/05/24 09:00 05/05/24 09:15 Enoxaparin 30 Mg/0.3 Ml Syringe SUB-Q 30 mg DAILY DESIRAE Administration Glucagon 1 mg 05/04/24 13:15 Glucagon For Inj 1 Mg Vial IM PRN PRN Hypoglycemia Protocol Glucose 15 gm 05/04/24 13:15 Glucose Oral Gel 15 Gm Of Glucse In 37.5 Gm Tube PO PRN PRN Hypoglycemia Protocol Dextrose 1,000 mls @ 100 mls/hr 05/04/24 13:15 Dextrose 5% 1,000 Ml IVPB PRN PRN Hypoglycemia Protocol Insulin Aspart 4 - 8 units 05/04/24 13:25 05/05/24 08:22 Insulin Aspart (*Bkc) 100 Units/Ml SUB-Q Not Given TIDWM DESIRAE Protocol Insulin Aspart 2 - 4 units 05/04/24 21:00 05/04/24 20:35 Insulin Aspart (*Bkc) 100 Units/Ml SUB-Q 2 units HS DESIRAE Administration Protocol Insulin Glargine 15 units 05/04/24 21:00 05/04/24 20:34 Insulin Glargine (*Bkc) 100 Units/Ml SUB-Q 15 units HS DESIRAE Administration Oseltamivir Phosphate 30 mg 05/04/24 13:30 05/05/24 09:15 Oseltamivir Phosphate 30 Mg Capsule PO 05/08/24 09:01 30 mg DAILY DESIRAE Administration Perflutren Lipid Microsphere 0 ml 05/04/24 14:23 Perflutren Lipid Microspheres 1.5 Ml Vial Diluted To 10 Ml Total Volume IV PUSH 05/07/24 14:23 ONCE PRN adequate visualization Protocol Potassium Chloride 40 meq 05/05/24 12:00 Potassium Chloride 20 Meq Packet (For Liquid) PO 05/05/24 12:01 ONCE ONE Ticagrelor 90 mg 05/05/24 09:00 05/05/24 09:16 Ticagrelor 90 Mg Tablet PO 90 mg Q12HR DESIRAE Administration Radiology Results: ITS Impressions Renal Ultrasound 05/04/24 15:23 IMPRESSION: 1. Bilateral renal cysts measuring up to 4.6 cm. Otherwise normal kidneys with no hydronephrosis. Neck/Chest CT 05/04/24 16:59 IMPRESSION: 1. No etiology for the patient's symptoms. Labs Labs: Laboratory Results - last 24 hr 05/04/24 05/04/24 05/04/24 12:16 13:55 16:35 WBC 10.0 RBC 5.12 Hgb 14.6 Hct 44.5 MCV 86.9 MCH 28.5 MCHC 32.8 RDW 14.3 Plt Count 221 MPV 12.0 H Immature Gran % (Auto) 0.6 H Neut % (Auto) 60.9 Lymph % (Auto) 15.8 L [place] % (Auto) 13.2 H Eos % (Auto) 8.8 H Baso % (Auto) 0.7 Lymph # (Auto) 1.58 [place] # (Auto) 1.3 H Eos # (Auto) 0.9 H Baso # (Auto) 0.1 Abs Immat Gran (auto) 0.06 H Absolute Neuts (auto) 6.1 Absolute Nucleated RBC 0.000 Nucleated RBC % 0.0 Platelet Estimate Adequate % Immature Plt Fraction Anisocytosis 1+ Ovalocytes 1+ Schistocytes None seen PT 13.8 INR 1.0 APTT 29.8 Sodium 134 L Potassium 4.1 Chloride 95 L Carbon Dioxide 20 L Anion Gap 19 H BUN 44 H D Creatinine 2.18 H Estim Creat Clear Calc 24 Estimated GFR 30 L Glucose 268 H POC Capillary Glucose Calcium 8.6 Magnesium Total Bilirubin 1.1 AST 60 H ALT 28 Alkaline Phosphatase 80 Total Creatine Kinase 290 H Troponin I 7.280 H* Total Protein 8.0 Albumin 3.9 Triglycerides 166 H Cholesterol 224 H LDL Cholesterol Direct 147 HDL Direct 28 Urine Eosinophils U Random Total Protein Ur Random Sodium Ur Random Urea Urine Creatinine Protein/Creat Ratio 2 Nasal MRSA (PCR) Not detected C. difficile (PCR) Negative Influenza A (RT-PCR) Positive A Influenza B (RT-PCR) Negative RSV (RT-PCR) Negative SARS-CoV-2 RNA (RT-PCR) Negative Blood Type AB Positive Antibody Screen Negative 05/04/24 05/04/24 05/04/24 16:53 18:37 20:32 WBC RBC Hgb Hct MCV MCH MCHC RDW Plt Count MPV Immature Gran % (Auto) Neut % (Auto) Lymph % (Auto) [place] % (Auto) Eos % (Auto) Baso % (Auto) Lymph # (Auto) [place] # (Auto) Eos # (Auto) Baso # (Auto) Abs Immat Gran (auto) Absolute Neuts (auto) Absolute Nucleated RBC Nucleated RBC % Platelet Estimate % Immature Plt Fraction Anisocytosis Ovalocytes Schistocytes PT INR APTT Sodium 130 L Potassium Chloride Carbon Dioxide Anion Gap BUN Creatinine Estim Creat Clear Calc Estimated GFR Glucose POC Capillary Glucose 204 H 211 H Calcium Magnesium Total Bilirubin AST ALT Alkaline Phosphatase Total Creatine Kinase Troponin I Total Protein Albumin Triglycerides Cholesterol LDL Cholesterol Direct HDL Direct Urine Eosinophils U Random Total Protein Ur Random Sodium Ur Random Urea Urine Creatinine Protein/Creat Ratio 2 Nasal MRSA (PCR) C. difficile (PCR) Influenza A (RT-PCR) Influenza B (RT-PCR) RSV (RT-PCR) SARS-CoV-2 RNA (RT-PCR) Blood Type Antibody Screen 05/05/24 05/05/24 05/05/24 02:55 02:55 02:55 WBC RBC Hgb Hct MCV MCH MCHC RDW Plt Count MPV Immature Gran % (Auto) Neut % (Auto) Lymph % (Auto) [place] % (Auto) Eos % (Auto) Baso % (Auto) Lymph # (Auto) [place] # (Auto) Eos # (Auto) Baso # (Auto) Abs Immat Gran (auto) Absolute Neuts (auto) Absolute Nucleated RBC Nucleated RBC % Platelet Estimate % Immature Plt Fraction Anisocytosis Ovalocytes Schistocytes PT INR APTT Sodium Potassium Chloride Carbon Dioxide Anion Gap BUN Creatinine Estim Creat Clear Calc Estimated GFR Glucose POC Capillary Glucose Calcium Magnesium Total Bilirubin AST ALT Alkaline Phosphatase Total Creatine Kinase Troponin I Total Protein Albumin Triglycerides Cholesterol LDL Cholesterol Direct HDL Direct Urine Eosinophils None seen U Random Total Protein 34 34 Ur Random Sodium 26 Ur Random Urea 803 Urine Creatinine 129.8 129.7 Protein/Creat Ratio 2 0.26 H Nasal MRSA (PCR) C. difficile (PCR) Influenza A (RT-PCR) Influenza B (RT-PCR) RSV (RT-PCR) SARS-CoV-2 RNA (RT-PCR) Blood Type Antibody Screen 05/05/24 05/05/24 04:17 07:47 WBC 8.9 RBC 4.31 L Hgb 12.3 L Hct 37.6 L MCV 87.2 MCH 28.5 MCHC 32.7 RDW 14.2 Plt Count 209 MPV 13.6 H Immature Gran % (Auto) 0.2 Neut % (Auto) 57.7 Lymph % (Auto) 24.3 [place] % (Auto) 17.0 H Eos % (Auto) 0.4 Baso % (Auto) 0.4 Lymph # (Auto) 2.17 [place] # (Auto) 1.5 H Eos # (Auto) 0.0 Baso # (Auto) 0.0 Abs Immat Gran (auto) 0.02 Absolute Neuts (auto) 5.1 Absolute Nucleated RBC 0.000 Nucleated RBC % 0.0 Platelet Estimate % Immature Plt Fraction 4.4 Anisocytosis Ovalocytes Schistocytes PT INR APTT Sodium 134 L Potassium 2.9 L Chloride 101 Carbon Dioxide 22 Anion Gap 11 BUN 43 H Creatinine 1.72 H Estim Creat Clear Calc 30 Estimated GFR 39 L Glucose 133 H POC Capillary Glucose 125 H Calcium 7.8 L Magnesium 2.1 Total Bilirubin 0.6 AST 47 ALT 24 Alkaline Phosphatase 73 Total Creatine Kinase Troponin I Total Protein 6.0 L Albumin 3.2 L Triglycerides Cholesterol LDL Cholesterol Direct HDL Direct Urine Eosinophils U Random Total Protein Ur Random Sodium Ur Random Urea Urine Creatinine Protein/Creat Ratio 2 Nasal MRSA (PCR) C. difficile (PCR) Influenza A (RT-PCR) Influenza B (RT-PCR) RSV (RT-PCR) SARS-CoV-2 RNA (RT-PCR) Blood Type Antibody Screen
[2024-05-05 11:50] LABS: Glucose Point of Care 237 mg/dl (65-105)
[2024-05-05] MEDS: POTASSIUM CHLORIDE 20 MEQ PACKET (FOR LIQUID) 40 MEQ PO (11:52)
[2024-05-05] MEDS: INSULIN ASPART (*BKC) 100 UNITS/ML SUB-Q ×2 (11:52→21:03)
--- NOTE | 2024-05-05 12:10 | P.PNNP_ITS ---
Progress Note: A&P Assessment and Plan (1) SAJAN (acute kidney injury): Code(s): N17.9 - Acute kidney failure, unspecified Status: Acute Assessment and Plan: * admission creatinine noted at 2.18mg/dl * suspect multifactorial etiology: * contrast exposure * concurrent ARB use prior to admission * urinary retention (as noted overnight) * possible prerenal factors * relative hypotension * evaluation to date noted: * renal u/s without obstruction * urine electrolytes prerenal (but this could be a manifestation of his depressed EF) * CPK mildly elevated (but not enough to affect kidney function) * urine eosinophils negative * mild proteinuria * follow trend of repeat labs and UOP (2) Chest pain: Code(s): R07.9 - Chest pain, unspecified Status: Acute Assessment and Plan: * known history of CAD with recent STEMI with placement of 2 stents in LAD (last hospitalization 04/30 - 05/04/24) * remains on aspirin/Brilinta/statin * holding beta-jacquelyn and ARB given relative hypotension and #1 * current admission chest pain appears non-cardiac by history/exam * repeat cardiac catheterizaton (on 05/04/24) without any new findings * CT of chest unremarkable * last Echo noted (on 05/02) noted: * left ventricular systolic function is normal, estimated at 40% * hypokinesis of anteroseptum, mid inferoseptum, apical septum, apical lateral. * grade I diastolic dysfunction * trace aortic valve regurgitation * trace mitral valve regurgitation. * mild tricuspid valve regurgitation. * no pulmonary hypertension * suspect secondary to influenza * Cardiology following * follow clinical symptoms (3) Influenza A: Code(s): J10.1 - Influenza due to other identified influenza virus with other respiratory manifestations Status: Acute Assessment and Plan: * on Tamiflu * follow respiratory status * on room air (4) Hypertension: Code(s): I10 - Essential (primary) hypertension Status: Acute Assessment and Plan: * noted by history * running a bit on he soft * BP medications on hold (5) Urinary retention: Code(s): R33.9 - Retention of urine, unspecified Status: Acute Assessment and Plan: * known history of BP * events noted overnight requiring straight catheterization * possibly playing a role with #1 (?) * Urology consulted (6) Diabetes: Code(s): E11.9 - Type 2 diabetes mellitus without complications Status: Acute Assessment and Plan: * follow accu-cheks * glycemic 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 Subjective Date/time seen: 05/05/24 12:10 Interval history: Follow-up for acute kidney injury/acute renal failure. Renal function/creatinine appears to be doing better by trend of labs; he apparently had issues with urinary retention overnight requiring straight catheterization x 2 (PVR > 600cc) but nursing had difficulty placing indwelling addison catheter; no apparent distress voiced; discussed case with daughter by phone. Exam Narrative: General: elderly but WD/WN male in NAD Heart: normal S1 and S2; no rub Lungs: clear to auscultation Abdomen: soft, nontender, nondistended, positive bowel sounds Extremities: no cyanosis or clubbing; no edema Skin: warm and dry Objective Data Vital Signs Vital Signs: Vital Signs Temp Pulse Resp BP Pulse Ox O2 Del Method 05/05/24 12:00 94 05/05/24 10:00 82 05/05/24 08:00 99.2 F 80 25 H 115/60 95 05/05/24 08:00 80 05/05/24 08:00 96 Room Air 05/05/24 06:00 77 18 109/53 L 96 05/05/24 06:00 77 05/05/24 04:00 97.6 F 74 20 104/54 L 96 05/05/24 04:00 92 05/05/24 04:00 Room Air 05/05/24 02:05 Room Air 05/05/24 02:00 77 21 H 93/63 L 92 05/05/24 02:00 77 05/05/24 00:00 98.4 F 81 22 H 88/51 L 94 05/05/24 00:00 81 05/05/24 00:00 Room Air 05/04/24 22:00 72 13 96/48 L 91 05/04/24 22:00 72 05/04/24 20:00 Room Air 05/04/24 20:00 98.2 F 75 22 H 111/58 L 95 05/04/24 20:00 75 05/04/24 19:00 81 24 H 111/59 L 93 05/04/24 18:00 80 17 123/66 95 05/04/24 18:00 80 17 123/66 95 05/04/24 18:00 78 05/04/24 17:00 77 17 119/66 95 05/04/24 16:00 88 19 122/60 05/04/24 16:00 Room Air 05/04/24 16:00 88 19 122/60 97 05/04/24 16:00 79 05/04/24 15:30 85 22 H 91/55 L 91 05/04/24 15:00 84 22 H 99/62 L 95 Intake/Output Intake/Output: Intake & Output 05/02/24 05/03/24 05/04/24 05/05/24 23:59 23:59 23:59 23:59 Intake Total 240 480 Output Total 1800 Balance 240 -1320 Meds/Results Medications: Active Medications Generic Name Dose Route Start Last Admin Trade Name Freq PRN Reason Stop Dose Admin Acetaminophen 1,000 mg 05/05/24 01:28 Acetaminophen 500 Mg Tablet PO Q6H PRN Mild Pain (1-3) or Fever Aspirin 81 mg 05/05/24 09:00 05/05/24 09:15 Aspirin 81 Mg Enteric Tablet PO 81 mg QAM DESIRAE Administration Atorvastatin Calcium 80 mg 05/05/24 09:00 05/05/24 09:15 Atorvastatin 40 Mg Tablet PO 80 mg DAILY DESIRAE Administration Dextrose 12.5 gm 05/04/24 13:15 Dextrose 50% 25 Gm/50 Ml Syringe IV PUSH PRN PRN Hypoglycemia Protocol Enoxaparin Sodium 30 mg 05/05/24 09:00 05/05/24 09:15 Enoxaparin 30 Mg/0.3 Ml Syringe SUB-Q 30 mg DAILY DESIRAE Administration Glucagon 1 mg 05/04/24 13:15 Glucagon For Inj 1 Mg Vial IM PRN PRN Hypoglycemia Protocol Glucose 15 gm 05/04/24 13:15 Glucose Oral Gel 15 Gm Of Glucse In 37.5 Gm Tube PO PRN PRN Hypoglycemia Protocol Dextrose 1,000 mls @ 100 mls/hr 05/04/24 13:15 Dextrose 5% 1,000 Ml IVPB PRN PRN Hypoglycemia Protocol Insulin Aspart 4 - 8 units 05/04/24 13:25 05/05/24 11:52 Insulin Aspart (*Bkc) 100 Units/Ml SUB-Q 4 units TIDWM DESIRAE Administration Protocol Insulin Aspart 2 - 4 units 05/04/24 21:00 05/04/24 20:35 Insulin Aspart (*Bkc) 100 Units/Ml SUB-Q 2 units HS DESIRAE Administration Protocol Insulin Glargine 15 units 05/04/24 21:00 05/04/24 20:34 Insulin Glargine (*Bkc) 100 Units/Ml SUB-Q 15 units HS DESIRAE Administration Oseltamivir Phosphate 30 mg 05/04/24 13:30 05/05/24 09:15 Oseltamivir Phosphate 30 Mg Capsule PO 05/08/24 09:01 30 mg DAILY DESIRAE Administration Perflutren Lipid Microsphere 0 ml 05/04/24 14:23 Perflutren Lipid Microspheres 1.5 Ml Vial Diluted To 10 Ml Total Volume IV PUSH 05/07/24 14:23 ONCE PRN adequate visualization Protocol Tamsulosin HCl 0.4 mg 05/05/24 16:00 Tamsulosin Hcl 0.4 Mg Capsule PO QAM DESIRAE Ticagrelor 90 mg 05/05/24 09:00 05/05/24 09:16 Ticagrelor 90 Mg Tablet PO 90 mg Q12HR DESIRAE Administration Radiology Results: ITS Impressions Renal Ultrasound 05/04/24 15:23 IMPRESSION: 1. Bilateral renal cysts measuring up to 4.6 cm. Otherwise normal kidneys with no hydronephrosis. Neck/Chest CT 05/04/24 16:59 IMPRESSION: 1. No etiology for the patient's symptoms. Labs Labs: Vital Signs Temp Pulse Resp BP Pulse Ox O2 Del Method 05/05/24 12:00 94 05/05/24 10:00 82 05/05/24 08:00 99.2 F 80 25 H 115/60 95 05/05/24 08:00 80 05/05/24 08:00 96 Room Air 05/05/24 06:00 77 18 109/53 L 96 05/05/24 06:00 77 05/05/24 04:00 97.6 F 74 20 104/54 L 96 05/05/24 04:00 92 05/05/24 04:00 Room Air 05/05/24 02:05 Room Air 05/05/24 02:00 77 21 H 93/63 L 92 05/05/24 02:00 77 05/05/24 00:00 98.4 F 81 22 H 88/51 L 94 05/05/24 00:00 81 05/05/24 00:00 Room Air 05/04/24 22:00 72 13 96/48 L 91 05/04/24 22:00 72 05/04/24 20:00 Room Air 05/04/24 20:00 98.2 F 75 22 H 111/58 L 95 05/04/24 20:00 75 05/04/24 19:00 81 24 H 111/59 L 93 05/04/24 18:00 80 17 123/66 95 05/04/24 18:00 80 17 123/66 95 05/04/24 18:00 78 05/04/24 17:00 77 17 119/66 95 05/04/24 16:00 88 19 122/60 05/04/24 16:00 Room Air 05/04/24 16:00 88 19 122/60 97 05/04/24 16:00 79 05/04/24 15:30 85 22 H 91/55 L 91 05/04/24 15:00 84 22 H 99/62 L 95
--- NOTE | 2024-05-05 14:35 | P.CONUR_ITS ---
Assessment and Plan Assessment and plan (1) SAJAN (acute kidney injury): Code(s): N17.9 - Acute kidney failure, unspecified Status: Acute Assessment and Plan: Cr 1.72 from 2.2 Baseline Cr 0.9 ?Contrast-induced from heart cath 05/04/24 SANCHEZ negative for hydro and bladder abnormality (2) Constipation: Qualifiers: Constipation type: unspecified constipation type Qualified Code(s): K 59.00 - Constipation, unspecified Code(s): K59.00 - Constipation, unspecified Status: Acute Assessment and Plan: Chronic on TID lactulose Admitted with proctitis in 2023 5 BMs noted on I&Os yesterday (3) Urinary retention: Code(s): R33.9 - Retention of urine, unspecified Status: Acute Assessment and Plan: Required straight catheterization two times overnight for PVR bladder scan 600mL, now voiding spontaneously with repositioning - Etiology likely 2/2 known prostate enlargement with acute illness (Flu+, STEMI, limited mobility) (4) BPH (benign prostatic hyperplasia): Code(s): N40.0 - Benign prostatic hyperplasia without lower urinary tract symptoms Status: Acute Assessment and Plan: - 05/2022 CT AP: prostatomegaly - Previously on tamsulosin/finasteride as of 2022 - 09/2023 PSA 1.9, stable Plan - Restart daily tamsulosin and continue on discharge - Check KUB, r/o bowel distention - Check UA with culture, r/o UTI - Trend PVR bladder scan Q6H x4 - OK to straight catheterize for PVR >300mL; avoid indwelling Epps if possible - Recommend outpatient urology follow-up for advanced prostate/bladder workup Urology Consult Note HPI Date Seen: 05/05/24 Requesting Physician: Milo Sumner MD Primary Care Provider: Chad NicoleMD Consult Narrative Reason for consult: Urinary retention Narrative: Tal George is a 78 year old male admitted 05/04/24 with chest pain/STEMI, influenza A, SAJAN. He was recently hospitalized 04/30- with STEMI s/p stent placement now on DAPT. Urology consulted for evaluation of acute urinary retention. He required straight catheterization twice since midnight for PVR bladder scan 600mL. He has since been able to void spontaneously. On record review, he was last evaluated by inpatient urology in 2022 for suspected prostatitis, obstructive BPH. He was started on tamsulosin/finasteride at that time, however, neither of these medications are listed on his current home record. Lost to follow up. He has not been evaluated by outpatient urology. Medical history significant for CAD, HTN, DM, chronic constipation. Nonsmoker. On exam in the ICU, patient is ill-appearing but in no acute distress. present. Patient speaks very little [place], relies on family to assist. Denies issues at present. He is agreeable to PRN CIC, hopes to avoid indwelling Epps. PERTINENT LABS: 05/05/24 - WBC 8.9, HGB 12.3, Cr 1.72 from 2.2 (baseline Cr 0.9) 09/2023 - PSA 1.9 PERTINENT IMAGIN05/04/24 SANCHEZ - Bilateral renal cysts measuring up to 4.6cm, no stones, no hydronephrosis, normal bladder 05/2022 CT AP - Prostatomegaly Review of Systems 2 Constitutional: Constitutional: Reports body ache(s), Reports fatigue and Reports lethargy Eyes: Eyes: Reports no additional eye complaints ENT: Reports Normal hearing present Cardiovascular: Cardiovascular: Denies chest pain Respiratory: Respiratory: Reports cough and Denies dyspnea Gastrointestinal: Gastrointestinal: Reports diarrhea Genitourinary: Genitourinary: Denies hematuria, Denies dysuria and Denies flank pain Psychiatric: Psychiatric: Reports no additional psychiatric complaints [facility] Past Medical History Medical History (Updated 05/05/24 @ 14:52 by Diane Pitt APRN) Hypertension Diabetes mellitus Compression fracture of L4 vertebra Hyperlipidemia Diabetes Hypertension Urinary retention Chronic indwelling Epps catheter Diabetes type 2, controlled Surgical History Surgical History (System 05/04/24 @ 15:55 by Balaji Ramos) Surgical history unknown Family History Family History Mother Family history unknown Social History Social History (System 05/04/24 @ 15:55 by Balaji Ramos) Smoking status: Never smoker Alcohol intake: never Substance use: never Substance use type: does not use Do You Feel Safe in your Home?: Yes Lack of Transportation: No Lack of Food: Never True Current Housing: I Have Housing Concerned About Future Housing: No Difficulty Paying Gas/Electric Bills: No Difficulty Paying for Meds: No Currently Unemployed: No Education: Master's Degree or Higher Difficulty w/ Childcare or Family Care: No Living arrangements: with family Gender identity (if verbalized by the patient): Male Sexual Orientation (if Verbalized by the Patient): Straight or Heterosexual Spiritual care concerns: No Meds Home Medications and Allergies Home Medications ?Medication ?Instructions ?Recorded ?Confirmed ?Type insulin glargine 100 unit/mL 18 unit subcut DAILY DM 09/06/23 05/04/24 History subcutaneous solution (Lantus U-100 Insulin) insulin lispro 100 unit/mL 1 sliding scale dose subcut ACHS dm 09/06/23 05/04/24 History subcutaneous pen lactulose 10 gram/15 mL oral 30 ml PO TID 04/30/24 05/04/24 History solution ticagrelor 90 mg tablet (Brilinta) 90 mg PO Q12HR #90 tabs 05/02/24 05/04/24 Rx aspirin 81 mg tablet,delayed 81 mg PO QAM #90 tabs 05/03/24 05/04/24 Rx release atorvastatin 80 mg tablet (Lipitor) 80 mg PO DAILY #90 tabs 05/03/24 05/04/24 Rx losartan 25 mg tablet 25 mg PO DAILY #90 tabs 05/03/24 05/04/24 Rx metoprolol succinate 50 mg 50 mg PO DAILY #90 tabs 05/03/24 05/04/24 Rx tablet,extended release 24 hr (Toprol XL) Allergies Allergy/AdvReac Type Severity Reaction Status Date / Time No Known Allergies Allergy Verified 05/04/24 17:17 Vital Signs Vital Signs - 24 hr 05/04/24 15:00 05/04/24 15:30 05/04/24 16:00 Temperature Pulse Rate 84 85 79 Respiratory Rate 22 H 22 H Blood Pressure 99/62 L 91/55 L Pulse Oximetry 95 91 Oxygen Delivery 05/04/24 16:00 05/04/24 16:00 05/04/24 16:00 Temperature Pulse Rate 88 88 Respiratory Rate 19 19 Blood Pressure 122/60 122/60 Pulse Oximetry 97 Oxygen Delivery Room Air 05/04/24 17:00 05/04/24 18:00 05/04/24 18:00 Temperature Pulse Rate 77 78 80 Respiratory Rate 17 17 Blood Pressure 119/66 123/66 Pulse Oximetry 95 95 Oxygen Delivery 05/04/24 18:00 05/04/24 19:00 05/04/24 20:00 Temperature Pulse Rate 80 81 75 Respiratory Rate 17 24 H Blood Pressure 123/66 111/59 L Pulse Oximetry 95 93 Oxygen Delivery 05/04/24 20:00 05/04/24 20:00 05/04/24 22:00 Temperature 98.2 F Pulse Rate 75 72 Respiratory Rate 22 H Blood Pressure 111/58 L Pulse Oximetry 95 Oxygen Delivery Room Air 05/04/24 22:00 05/05/24 00:00 05/05/24 00:00 Temperature Pulse Rate 72 81 Respiratory Rate 13 Blood Pressure 96/48 L Pulse Oximetry 91 Oxygen Delivery Room Air 05/05/24 00:00 05/05/24 02:00 05/05/24 02:00 Temperature 98.4 F Pulse Rate 81 77 77 Respiratory Rate 22 H 21 H Blood Pressure 88/51 L 93/63 L Pulse Oximetry 94 92 Oxygen Delivery 05/05/24 02:05 05/05/24 04:00 05/05/24 04:00 Temperature Pulse Rate 92 Respiratory Rate Blood Pressure Pulse Oximetry Oxygen Delivery Room Air Room Air 05/05/24 04:00 05/05/24 06:00 05/05/24 06:00 Temperature 97.6 F Pulse Rate 74 77 77 Respiratory Rate 20 18 Blood Pressure 104/54 L 109/53 L Pulse Oximetry 96 96 Oxygen Delivery 05/05/24 08:00 05/05/24 08:00 05/05/24 08:00 Temperature 99.2 F Pulse Rate 80 80 Respiratory Rate 25 H Blood Pressure 115/60 Pulse Oximetry 96 95 Oxygen Delivery Room Air 05/05/24 10:00 05/05/24 12:00 Temperature Pulse Rate 82 94 Respiratory Rate Blood Pressure Pulse Oximetry Oxygen Delivery Exam 2 Const: General: no acute distress Eyes: General: appearance normal, both eyes and all related structures Resp: Effort & Inspection: normal respiratory effort Other: productive cough GI: Other: Soft, RLQ tender to palpation : Male General Exam: Yes normal external exam Skin: General skin exam: normal color Neuro: Speech: normal speech Psych: Speech and movement: Normal speech and movement present Affect: n ormal affect Results Labs 05/05/24 04:17 05/05/24 04:17 Labs: Short CBC 05/05/24 Range/Units 04:17 WBC 8.9 (4.5-10.0) K/mm3 Hgb 12.3 L (14.0-18.0) g/dL Hct 37.6 L (42.0-52.0) % Plt Count 209 (150-375) k/mm3 BMP 05/04/24 05/05/24 18:37 04:17 Sodium 130 L 134 L Potassium 2.9 L Chloride 101 Carbon Dioxide 22 BUN 43 H Creatinine 1.72 H Glucose 133 H Calcium 7.8 L Liver Function 05/05/24 Range/Units 04:17 Total Bilirubin 0.6 (0.2-1.3) mg/dL AST 47 (17-59) U/L ALT 24 (6-50) U/L Alkaline Phosphatase 73 (38-126) U/L Albumin 3.2 L (3.5-5.1) g/dL
--- NOTE | 2024-05-05 14:55 | P.PNIM_ITS ---
Progress Note: A&P Assessment and Plan (1) Chest pain: Code(s): R07.9 - Chest pain, unspecified Status: Acute Assessment and Plan: Coronary disease status post recent STEMI requiring 2 stents placement in LAD He had echocardiogram few days ago with report mentioned below Now admitted with chest pain which appears noncardiac and. By history exam Status post cardiac catheterization which did not show any significant abnormality Chest pain likely pleuritic from influenza A CT chest was unremarkable (2) Influenza A: Code(s): J10.1 - Influenza due to other identified influenza virus with other respiratory manifestations Status: Acute Assessment and Plan: Isolation Tamiflu Currently on room air (3) Hypertension: Code(s): I10 - Essential (primary) hypertension Status: Acute Assessment and Plan: Hold hypertension medication and the blood pressure stabilized (4) SAJAN (acute kidney injury): Code(s): N17.9 - Acute kidney failure, unspecified Status: Acute Assessment and Plan: Presented with creatinine 2.18 which is worse than his discharge day creatinine which was 1 SAJAN can be secondary to dehydration versus contrast induced nephropathy. Patient was also started on ARB Patient was treated with LR bolus and infusion Hold ARB Renal ultrasound showed Bilateral renal cysts measuring up to 4.6 cm. Otherwise normal kidneys with no hydronephrosis. CK was slightly elevated at290 Nephrology consult Creatinine is improved to 1.7 today Monitor urine output electrolytes and creatinine Urinary retention management as below (5) Hyperlipidemia: Code(s): E78.5 - Hyperlipidemia, unspecified Status: Acute Assessment and Plan: Continue statin (6) Coronary artery disease: Code(s): I25.10 - Atherosclerotic heart disease of [place] coronary artery without angina pectoris Status: Acute Assessment and Plan: Coronary disease status post recent STEMI requiring 2 stents placement in LAD He had echocardiogram few days ago Now admitted with chest pain which appears noncardiac Status post cardiac catheterization Continue aspirin Brilinta and statin Hold beta-jacquelyn and ARB Echo Summary 1. Left ventricular systolic function is normal, estimated at 40%.Hypokinesis of anteroseptum, mid inferoseptum, apical septum, apical lateral. 2. The left ventricular diastolic function is grade I diastolic dysfunction. 3. There is trace aortic valve regurgitation. 4. There is trace mitral valve regurgitation. 5. There is mild tricuspid valve regurgitation. 6. No pulmonary hypertension, estimated pulmonary arterial systolic pressure is 25 mmHg. (7) Diabetes: Code(s): E11.9 - Type 2 diabetes mellitus without complications Status: Acute Assessment and Plan: Sliding scale insulin and Lantus (8) Urinary retention: Code(s): R33.9 - Retention of urine, unspecified Status: Acute Assessment and Plan: Patient does have history of BPH but is currently not on any treatment. He states he has difficulty urinating in bed and would like to be active and go to the bathroom Consult PT OT Up in chair Will use bedside commode depending on the activity Urology consulted Plan DVT prophylaxis -Lovenox Nutrition -diabetic diet Code Status - Full Code PT OT Incentive spirometry Up in chair Transfer out of ICU today Subjective Date/time seen: 05/05/24 14:55 Interval history: On 04/30 patient underwent cardiac catheterization and received 2 stents. Patient was discharged on 05/03/2024. Patient returned again to hospital on 05/04 due to chest pain. Patient underwent cardiac cath which shows patent stents and cardiology planning outpatient staged PCI planning once recovered from viral illness (Influenza A). Review of Systems Review of Systems: All systems reviewed & are unremarkable except as noted in HPI and below (HPI) Exam Narrative: General: Pt is alert awake and in NAD Lungs/Chest: Trachea central Clear BS B/L, No crackles or wheezing. Cardiac: RRR. Normal S1 S2. No murmurs Circulation: Pedal pulses are intact and symmetrical. Right groin cath site does not show any hematoma swelling Abdomen: Normal bowel sounds. Soft. NT. ND. Extremities: No clubbing, cyanosis or edema. Warm : Epps in place Neurologic: Follows commands. Moves all 4 extremities PERRL AO x3 Skin: No Rash Objective Data Vital Signs Vital Signs: Vital Signs - 24 hr 05/04/24 15:00 05/04/24 15:30 05/04/24 16:00 Temperature Pulse Rate 84 85 79 Respiratory Rate 22 H 22 H Blood Pressure 99/62 L 91/55 L Pulse Oximetry 95 91 Oxygen Delivery 05/04/24 16:00 05/04/24 16:00 05/04/24 16:00 Temperature Pulse Rate 88 88 Respiratory Rate 19 19 Blood Pressure 122/60 122/60 Pulse Oximetry 97 Oxygen Delivery Room Air 05/04/24 17:00 05/04/24 18:00 05/04/24 18:00 Temperature Pulse Rate 77 78 80 Respiratory Rate 17 17 Blood Pressure 119/66 123/66 Pulse Oximetry 95 95 Oxygen Delivery 05/04/24 18:00 05/04/24 19:00 05/04/24 20:00 Temperature Pulse Rate 80 81 75 Respiratory Rate 17 24 H Blood Pressure 123/66 111/59 L Pulse Oximetry 95 93 Oxygen Delivery 05/04/24 20:00 05/04/24 20:00 05/04/24 22:00 Temperature 98.2 F Pulse Rate 75 72 Respiratory Rate 22 H Blood Pressure 111/58 L Pulse Oximetry 95 Oxygen Delivery Room Air 05/04/24 22:00 05/05/24 00:00 05/05/24 00:00 Temperature Pulse Rate 72 81 Respiratory Rate 13 Blood Pressure 96/48 L Pulse Oximetry 91 Oxygen Delivery Room Air 05/05/24 00:00 05/05/24 02:00 05/05/24 02:00 Temperature 98.4 F Pulse Rate 81 77 77 Respiratory Rate 22 H 21 H Blood Pressure 88/51 L 93/63 L Pulse Oximetry 94 92 Oxygen Delivery 05/05/24 02:05 05/05/24 04:00 05/05/24 04:00 Temperature Pulse Rate 92 Respiratory Rate Blood Pressure Pulse Oximetry Oxygen Delivery Room Air Room Air 05/05/24 04:00 05/05/24 06:00 05/05/24 06:00 Temperature 97.6 F Pulse Rate 74 77 77 Respiratory Rate 20 18 Blood Pressure 104/54 L 109/53 L Pulse Oximetry 96 96 Oxygen Delivery 05/05/24 08:00 05/05/24 08:00 05/05/24 08:00 Temperature 99.2 F Pulse Rate 80 80 Respiratory Rate 25 H Blood Pressure 115/60 Pulse Oximetry 96 95 Oxygen Delivery Room Air 05/05/24 10:00 05/05/24 12:00 Temperature Pulse Rate 82 94 Respiratory Rate Blood Pressure Pulse Oximetry Oxygen Delivery Intake/Output Intake/Output: Intake & Output 05/02/24 05/03/24 05/04/24 05/05/24 23:59 23:59 23:59 23:59 Intake Total 240 480 Output Total 1800 Balance 240 -1320 Meds/Results Medications: Active Medications Generic Name Dose Route Start Last Admin Trade Name Freq PRN Reason Stop Dose Admin Acetaminophen 1,000 mg 05/05/24 01:28 Acetaminophen 500 Mg Tablet PO Q6H PRN Mild Pain (1-3) or Fever Aspirin 81 mg 05/05/24 09:00 05/05/24 09:15 Aspirin 81 Mg Enteric Tablet PO 81 mg QAM DESIRAE Administration Atorvastatin Calcium 80 mg 05/05/24 09:00 05/05/24 09:15 Atorvastatin 40 Mg Tablet PO 80 mg DAILY DESIRAE Administration Dextrose 12.5 gm 05/04/24 13:15 Dextrose 50% 25 Gm/50 Ml Syringe IV PUSH PRN PRN Hypoglycemia Protocol Enoxaparin Sodium 30 mg 05/05/24 09:00 05/05/24 09:15 Enoxaparin 30 Mg/0.3 Ml Syringe SUB-Q 30 mg DAILY DESIRAE Administration Glucagon 1 mg 05/04/24 13:15 Glucagon For Inj 1 Mg Vial IM PRN PRN Hypoglycemia Protocol Glucose 15 gm 05/04/24 13:15 Glucose Oral Gel 15 Gm Of Glucse In 37.5 Gm Tube PO PRN PRN Hypoglycemia Protocol Dextrose 1,000 mls @ 100 mls/hr 05/04/24 13:15 Dextrose 5% 1,000 Ml IVPB PRN PRN Hypoglycemia Protocol Insulin Aspart 4 - 8 units 05/04/24 13:25 05/05/24 11:52 Insulin Aspart (*Bkc) 100 Units/Ml SUB-Q 4 units TIDWM DESIRAE Administration Protocol Insulin Aspart 2 - 4 units 05/04/24 21:00 05/04/24 20:35 Insulin Aspart (*Bkc) 100 Units/Ml SUB-Q 2 units HS DESIRAE Administration Protocol Insulin Glargine 15 units 05/04/24 21:00 05/04/24 20:34 Insulin Glargine (*Bkc) 100 Units/Ml SUB-Q 15 units HS DESIRAE Administration Oseltamivir Phosphate 30 mg 05/04/24 13:30 05/05/24 09:15 Oseltamivir Phosphate 30 Mg Capsule PO 05/08/24 09:01 30 mg DAILY DESIRAE Administration Perflutren Lipid Microsphere 0 ml 05/04/24 14:23 Perflutren Lipid Microspheres 1.5 Ml Vial Diluted To 10 Ml Total Volume IV PUSH 05/07/24 14:23 ONCE PRN adequate visualization Protocol Tamsulosin HCl 0.4 mg 05/05/24 16:00 Tamsulosin Hcl 0.4 Mg Capsule PO QAM DESIRAE Ticagrelor 90 mg 05/05/24 09:00 05/05/24 09:16 Ticagrelor 90 Mg Tablet PO 90 mg Q12HR DESIRAE Administration Radiology Results: ITS Impressions Renal Ultrasound 05/04/24 15:23 IMPRESSION: 1. Bilateral renal cysts measuring up to 4.6 cm. Otherwise normal kidneys with no hydronephrosis. Neck/Chest CT 05/04/24 16:59 IMPRESSION: 1. No etiology for the patient's symptoms. Labs Labs: Laboratory Results - last 24 hr 05/04/24 05/04/24 05/04/24 13:55 16:35 16:53 WBC RBC Hgb Hct MCV MCH MCHC RDW Plt Count MPV Immature Gran % (Auto) Neut % (Auto) Lymph % (Auto) [place] % (Auto) Eos % (Auto) Baso % (Auto) Lymph # (Auto) [place] # (Auto) Eos # (Auto) Baso # (Auto) Abs Immat Gran (auto) Absolute Neuts (auto) Absolute Nucleated RBC Nucleated RBC % % Immature Plt Fraction Sodium Potassium Chloride Carbon Dioxide Anion Gap BUN Creatinine Estim Creat Clear Calc Estimated GFR Glucose POC Capillary Glucose 204 H Hemoglobin A1c Calcium Magnesium Total Bilirubin AST ALT Alkaline Phosphatase Total Protein Albumin Urine Eosinophils U Random Total Protein Ur Random Sodium Ur Random Urea Urine Creatinine Protein/Creat Ratio 2 Nasal MRSA (PCR) Not detected C. difficile (PCR) Negative 05/04/24 05/04/24 05/05/24 18:37 20:32 02:55 WBC RBC Hgb Hct MCV MCH MCHC RDW Plt Count MPV Immature Gran % (Auto) Neut % (Auto) Lymph % (Auto) [place] % (Auto) Eos % (Auto) Baso % (Auto) Lymph # (Auto) [place] # (Auto) Eos # (Auto) Baso # (Auto) Abs Immat Gran (auto) Absolute Neuts (auto) Absolute Nucleated RBC Nucleated RBC % % Immature Plt Fraction Sodium 130 L Potassium Chloride Carbon Dioxide Anion Gap BUN Creatinine Estim Creat Clear Calc Estimated GFR Glucose POC Capillary Glucose 211 H Hemoglobin A1c Calcium Magnesium Total Bilirubin AST ALT Alkaline Phosphatase Total Protein Albumin Urine Eosinophils None seen U Random Total Protein 34 Ur Random Sodium Ur Random Urea Urine Creatinine Protein/Creat Ratio 2 Nasal MRSA (PCR) C. difficile (PCR) 05/05/24 05/05/24 05/05/24 02:55 02:55 04:13 WBC RBC Hgb Hct MCV MCH MCHC RDW Plt Count MPV Immature Gran % (Auto) Neut % (Auto) Lymph % (Auto) [place] % (Auto) Eos % (Auto) Baso % (Auto) Lymph # (Auto) [place] # (Auto) Eos # (Auto) Baso # (Auto) Abs Immat Gran (auto) Absolute Neuts (auto) Absolute Nucleated RBC Nucleated RBC % % Immature Plt Fraction Sodium Potassium Chloride Carbon Dioxide Anion Gap BUN Creatinine Estim Creat Clear Calc Estimated GFR Glucose POC Capillary Glucose Hemoglobin A1c 9.0 H Calcium Magnesium Total Bilirubin AST ALT Alkaline Phosphatase Total Protein Albumin Urine Eosinophils U Random Total Protein 34 Ur Random Sodium 26 Ur Random Urea 803 Urine Creatinine 129.8 129.7 Protein/Creat Ratio 2 0.26 H Nasal MRSA (PCR) C. difficile (PCR) 05/05/24 05/05/24 05/05/24 04:17 07:47 11:46 WBC 8.9 RBC 4.31 L Hgb 12.3 L Hct 37.6 L MCV 87.2 MCH 28.5 MCHC 32.7 RDW 14.2 Plt Count 209 MPV 13.6 H Immature Gran % (Auto) 0.2 Neut % (Auto) 57.7 Lymph % (Auto) 24.3 [place] % (Auto) 17.0 H Eos % (Auto) 0.4 Baso % (Auto) 0.4 Lymph # (Auto) 2.17 [place] # (Auto) 1.5 H Eos # (Auto) 0.0 Baso # (Auto) 0.0 Abs Immat Gran (auto) 0.02 Absolute Neuts (auto) 5.1 Absolute Nucleated RBC 0.000 Nucleated RBC % 0.0 % Immature Plt Fraction 4.4 Sodium 134 L Potassium 2.9 L Chloride 101 Carbon Dioxide 22 Anion Gap 11 BUN 43 H Creatinine 1.72 H Estim Creat Clear Calc 30 Estimated GFR 39 L Glucose 133 H POC Capillary Glucose 125 H 237 H Hemoglobin A1c Calcium 7.8 L Magnesium 2.1 Total Bilirubin 0.6 AST 47 ALT 24 Alkaline Phosphatase 73 Total Protein 6.0 L Albumin 3.2 L Urine Eosinophils U Random Total Protein Ur Random Sodium Ur Random Urea Urine Creatinine Protein/Creat Ratio 2 Nasal MRSA (PCR) C. difficile (PCR) Quality VTE Prophylaxis VTE prophylaxis: mechanical ordered and pharmacologic ordered Hospitalist MIPS Advance Care Plan I have confirmed that the patient's Advanced Care Plan is present, code status is documented, or surrogate decision maker is listed in patient medical record.: Yes Medication Reconciliation I have utilized all available resources to obtain, update and review the patients current medications (includes all prescriptions, OTC, herbals, cannabis, and nutritional supplements).: Yes
[2024-05-05 15:21] LABS: Add Urine Microscopic? YES; Appearance Urine Cloudy (Clear); Bacteria Urine None Seen /hpf; Bilirubin Urine Negative (Negative); Blood Urine 2+ (Negative); Color Urine Yellow (Yellow); Glucose Urine UA Negative (Negative); Ketones Urine Negative (Negative); Leukocyte Esterase Ur Trace LEU/UL (Negative); Nitrate Urine Negative (Negative); Non Pathogenic Casts 0-2; Protein Urine 2+ mg/dL (Negative); RBC Urine 0-2 /hpf (0-2); Specific Grav Ur 1.026 (1.001-1.035); Squamous Epithelial Cell Urine Few /hpf (Few); Urobilinogen Urine 0.2 mg/dL (<2.0); pH Urine 5.5 (5.0-9.0)
[2024-05-05] MEDS: TAMSULOSIN HCL 0.4 MG CAPSULE PO (16:23)
[2024-05-05] MEDS: ACETAMINOPHEN 500 MG TABLET 1000 MG PO (16:24)
[2024-05-05 16:25] LABS: Glucose Point of Care 152 mg/dl (65-105)
[2024-05-05] MEDS: INSULIN GLARGINE (*BKC) 100 UNITS/ML 15 UNITS SUB-Q (21:04)
[2024-05-05 21:10] LABS: Glucose Point of Care 254 mg/dl (65-105)
[2024-05-06] VITALS (9 sets, daily range): BP systolic 122–129; BP diastolic 66–72; PULSE 68–91; RESP 15–22; TEMP 36.4–36.8; O2SAT 96–97
[2024-05-06 04:34] LABS: Basophils Percent Auto 0.3 % (0.2-1.2); Eosinophils Absolute Auto 0.1 K/mm3 (0-0.3); Eosinophils Percent Auto 0.8 % (0-4.4); Hematocrit 38.6 % (42.0-52.0); Hemoglobin 12.2 g/dL (14.0-18.0); Immature Granulocyte Absolute 0.02 K/mm3 (0.00-0.031); Immature Granulocyte Percent A 0.3 % (0-0.5); Immature Platelet Fraction Pct 4.9 % (0.9-11.2); Lymphocytes Absolute Auto 1.98 K/mm3 (0.9-3.2); Lymphocytes Percent Auto 30.3 % (18.3-44.2); Mean Corpuscular HGB Conc 31.6 g/dl (32-36); Mean Corpuscular Hemoglobin 27.9 pg (26-34); Mean Corpuscular Volume 88.3 fl (80-100); Monocytes Absolute Auto 0.8 K/mm3 (0.1-0.6); Monocytes Percent Auto 12.7 % (2.6-8.5); Neutrophils Absolute Auto 3.6 K/mm3 (1.3-6.7); Neutrophils Percent Auto 55.6 % (45.5-73.1); Platelet Count Result 187 k/mm3 (150-375); Red Blood Count 4.37 M/mm3 (4.6-6.20); White Blood Count 6.5 K/mm3 (4.5-10.0)
[2024-05-06 04:51] LABS: Alanine Aminotransferase 23 U/L (6-50); Alkaline Phosphatase 76 U/L (38-126); Anion Gap 12 mmol/L (4-12); Aspartate Amino Transferase 41 U/L (17-59); Bilirubin,Total 0.7 mg/dL (0.2-1.3); Blood Urea Nitrogen 34 mg/dL (9-20); Calcium 8.1 mg/dL (8.4-10.2); Carbon Dioxide 19 mmol/L (22-30); Chloride 104 mmol/L (98-107); Estimated CRCL calculation 35 ml/min; Estimated Glomerular Filt Rate 47; Glucose 159 mg/dL (65-110); Magnesium 2.1 mg/dL (1.6-2.3); Potassium 3.4 mmol/L (3.4-5.0); Sodium 135 mmol/L (137-145)
[2024-05-06 08:21] LABS: Glucose Point of Care 162 mg/dl (65-105)
--- NOTE | 2024-05-06 08:25 | WPDUROPN2 ---
Progress Note: A&P Assessment and Plan (1) BPH (benign prostatic hyperplasia): Code(s): N40.0 - Benign prostatic hyperplasia without lower urinary tract symptoms Status: Acute (2) Urinary retention: Code(s): R33.9 - Retention of urine, unspecified Status: Acute (3) SAJAN (acute kidney injury): Code(s): N17.9 - Acute kidney failure, unspecified Status: Acute Plan - Isolation, Influenza A+ - Urine does not appear to be infected on UA, culture pending - SAJAN resolving, Cr downtrending - Continue CIC PRN for PVR bladder scan >300mL, avoid indwelling Epps - Continue tamsulosin on discharge - Plan outpatient urology follow-up for prostate/bladder management, discussed with patient and family yesterday - No plan for inpatient urologic surgical intervention. Subjective Subjective Date/Time Seen: 05/06/24 08:25 Interval history: NAEO; Patient resting comfortably. Continues to recover in the ICU. No family present. Afebrile overnight UA does not appear grossly infected, culture pending No PVR bladder scans documented Renal function improving Exam Const: General: comfortable and no acute distress Resp: Effort & Inspection: normal respiratory effort : General: Yes bladder normal to palpation Neuro: Speech: normal speech Psych: Mental Status: mental status grossly normal Objective Data Vital Signs Vital Signs: Vital Signs - 24 hr 05/05/24 10:00 05/05/24 12:00 05/05/24 16:00 Temperature Pulse Rate 82 94 85 Respiratory Rate Blood Pressure Pulse Oximetry Oxygen Delivery 05/05/24 16:00 05/05/24 16:24 05/05/24 17:24 Temperature 100.2 F H 100.2 F H 99.3 F Pulse Rate 88 Respiratory Rate 24 H Blood Pressure 123/77 Pulse Oximetry 97 Oxygen Delivery 05/05/24 20:00 05/05/24 20:00 05/06/24 00:00 Temperature Pulse Rate 72 76 Respiratory Rate Blood Pressure Pulse Oximetry 97 Oxygen Delivery Room Air 05/06/24 00:00 05/06/24 03:49 05/06/24 04:00 Temperature 98.0 F Pulse Rate 79 78 Respiratory Rate 16 16 Blood Pressure 123/66 Pulse Oximetry 97 Oxygen Delivery Intake/Output Intake/Output: Intake & Output 05/03/24 05/04/24 05/05/2405/06/25 23:59 23:59 23:59 23:59 Intake Total 240 720 0 Output Total 1200 250 Balance 240 -480 -250 Meds/Results Medications: Active Medications Generic Name Dose Route Start Last Admin Trade Name Freq PRN Reason Stop Dose Admin Acetaminophen 1,000 mg 05/05/24 01:28 05/05/24 16:24 Acetaminophen 500 Mg Tablet PO 1,000 mg Q6H PRN Administration Mild Pain (1-3) or Fever Aspirin 81 mg 05/05/24 09:00 05/05/24 09:15 Aspirin 81 Mg Enteric Tablet PO 81 mg QAM DESIRAE Administration Atorvastatin Calcium 80 mg 05/05/24 09:00 05/05/24 09:15 Atorvastatin 40 Mg Tablet PO 80 mg DAILY DESIRAE Administration Dextrose 12.5 gm 05/04/24 13:15 Dextrose 50% 25 Gm/50 Ml Syringe IV PUSH PRN PRN Hypoglycemia Protocol Enoxaparin Sodium 30 mg 05/05/24 09:00 05/05/24 09:15 Enoxaparin 30 Mg/0.3 Ml Syringe SUB-Q 30 mg DAILY DESIRAE Administration Glucagon 1 mg 05/04/24 13:15 Glucagon For Inj 1 Mg Vial IM PRN PRN Hypoglycemia Protocol Glucose 15 gm 05/04/24 13:15 Glucose Oral Gel 15 Gm Of Glucse In 37.5 Gm Tube PO PRN PRN Hypoglycemia Protocol Dextrose 1,000 mls @ 100 mls/hr 05/04/24 13:15 Dextrose 5% 1,000 Ml IVPB PRN PRN Hypoglycemia Protocol Insulin Aspart 4 - 8 units 05/04/24 13:25 05/05/24 16:25 Insulin Aspart (*Bkc) 100 Units/Ml SUB-Q Not Given TIDWM DESIRAE Protocol Insulin Aspart 2 - 4 units 05/04/24 21:00 05/05/24 21:03 Insulin Aspart (*Bkc) 100 Units/Ml SUB-Q 2 units HS DESIRAE Administration Protocol Insulin Glargine 15 units 05/04/24 21:00 05/05/24 21:04 Insulin Glargine (*Bkc) 100 Units/Ml SUB-Q 15 units HS DESIRAE Administration Oseltamivir Phosphate 30 mg 05/04/24 13:30 05/05/24 09:15 Oseltamivir Phosphate 30 Mg Capsule PO 05/08/24 09:01 30 mg DAILY DESIRAE Administration Perflutren Lipid Microsphere 0 ml 05/04/24 14:23 Perflutren Lipid Microspheres 1.5 Ml Vial Diluted To 10 Ml Total Volume IV PUSH 05/07/24 14:23 ONCE PRN adequate visualization Protocol Tamsulosin HCl 0.4 mg 05/05/24 16:00 05/05/24 16:23 Tamsulosin Hcl 0.4 Mg Capsule PO 0.4 mg QAM DESIRAE Administration Ticagrelor 90 mg 05/05/24 09:00 05/05/24 21:04 Ticagrelor 90 Mg Tablet PO 90 mg Q12HR DESIRAE Administration Radiology Results: ITS Impressions Renal Ultrasound 05/04/24 15:23 IMPRESSION: 1. Bilateral renal cysts measuring up to 4.6 cm. Otherwise normal kidneys with no hydronephrosis. Neck/Chest CT 05/04/24 16:59 IMPRESSION: 1. No etiology for the patient's symptoms. Abdomen X-Ray 05/05/24 15:44 IMPRESSION: Nonspecific, nonobstructive bowel gas pattern, as detailed above. Labs Labs: Laboratory Results - last 24 hr 05/05/24 05/05/24 05/05/24 04:13 11:46 15:08 WBC RBC Hgb Hct MCV MCH MCHC RDW Plt Count MPV Immature Gran % (Auto) Neut % (Auto) Lymph % (Auto) [place] % (Auto) Eos % (Auto) Baso % (Auto) Lymph # (Auto) [place] # (Auto) Eos # (Auto) Baso # (Auto) Abs Immat Gran (auto) Absolute Neuts (auto) Absolute Nucleated RBC Nucleated RBC % % Immature Plt Fraction Sodium Potassium Chloride Carbon Dioxide Anion Gap BUN Creatinine Estim Creat Clear Calc Estimated GFR Glucose POC Capillary Glucose 237 H Hemoglobin A1c 9.0 H Calcium Magnesium Total Bilirubin AST ALT Alkaline Phosphatase Total Protein Albumin Urine Color Yellow Urine Appearance Cloudy H Urine pH 5.5 Ur Specific [place] 1.026 Urine Protein 2+ H Urine Glucose (UA) Negative Urine Ketones Negative Ur Blood (Man) 2+ H Urine Nitrate Negative Urine Bilirubin Negative Urine Urobilinogen 0.2 Ur Leukocyte Esterase Trace H Urine RBC 0-2 Urine WBC 6-10 H Ur Squamous Epith Cells Few Urine Bacteria None seen Urine Casts 0-2 05/05/24 05/05/24 05/06/24 16:16 21:02 04:13 WBC 6.5 RBC 4.37 L Hgb 12.2 L Hct 38.6 L MCV 88.3 MCH 27.9 MCHC 31.6 L RDW 14.0 Plt Count 187 MPV TNP Immature Gran % (Auto) 0.3 Neut % (Auto) 55.6 Lymph % (Auto) 30.3 [place] % (Auto) 12.7 H Eos % (Auto) 0.8 Baso % (Auto) 0.3 Lymph # (Auto) 1.98 [place] # (Auto) 0.8 H Eos # (Auto) 0.1 Baso # (Auto) 0.0 Abs Immat Gran (auto) 0.02 Absolute Neuts (auto) 3.6 Absolute Nucleated RBC 0.000 Nucleated RBC % 0.0 % Immature Plt Fraction 4.9 Sodium 135 L Potassium 3.4 Chloride 104 Carbon Dioxide 19 L Anion Gap 12 BUN 34 H Creatinine 1.46 H Estim Creat Clear Calc 35 Estimated GFR 47 L Glucose 159 H POC Capillary Glucose 152 H 254 H Hemoglobin A1c Calcium 8.1 L Magnesium 2.1 Total Bilirubin 0.7 AST 41 ALT 23 Alkaline Phosphatase 76 Total Protein 6.0 L Albumin 3.0 L Urine Color Urine Appearance Urine pH Ur Specific [place] Urine Protein Urine Glucose (UA) Urine Ketones Ur Blood (Man) Urine Nitrate Urine Bilirubin Urine Urobilinogen Ur Leukocyte Esterase Urine RBC Urine WBC Ur Squamous Epith Cells Urine Bacteria Urine Casts 05/06/24 07:40 WBC RBC Hgb Hct MCV MCH MCHC RDW Plt Count MPV Immature Gran % (Auto) Neut % (Auto) Lymph % (Auto) [place] % (Auto) Eos % (Auto) Baso % (Auto) Lymph # (Auto) [place] # (Auto) Eos # (Auto) Baso # (Auto) Abs Immat Gran (auto) Absolute Neuts (auto) Absolute Nucleated RBC Nucleated RBC % % Immature Plt Fraction Sodium Potassium Chloride Carbon Dioxide Anion Gap BUN Creatinine Estim Creat Clear Calc Estimated GFR Glucose POC Capillary Glucose 162 H Hemoglobin A1c Calcium Magnesium Total Bilirubin AST ALT Alkaline Phosphatase Total Protein Albumin Urine Color Urine Appearance Urine pH Ur Specific [place] Urine Protein Urine Glucose (UA) Urine Ketones Ur Blood (Man) Urine Nitrate Urine Bilirubin Urine Urobilinogen Ur Leukocyte Esterase Urine RBC Urine WBC Ur Squamous Epith Cells Urine Bacteria Urine Casts
[2024-05-06] MEDS: ATORVASTATIN 40 MG TABLET 80 MG PO (10:20)
[2024-05-06] MEDS: TICAGRELOR 90 MG TABLET PO ×2 (10:20→20:20)
[2024-05-06] MEDS: OSELTAMIVIR PHOSPHATE 30 MG CAPSULE PO (10:20)
[2024-05-06] MEDS: ACETAMINOPHEN 500 MG TABLET 1000 MG PO ×2 (10:20→17:27)
[2024-05-06] MEDS: ASPIRIN 81 MG ENTERIC TABLET PO (10:20)
[2024-05-06] MEDS: TAMSULOSIN HCL 0.4 MG CAPSULE PO (10:20)
[2024-05-06] MEDS: ENOXAPARIN 30 MG/0.3 ML SYRINGE SUB-Q (10:21)
--- NOTE | 2024-05-06 10:51 | PM.PNCARD ---
Progress Note: A&P Assessment and Plan (1) Ischemic cardiomyopathy: Code(s): I25.5 - Ischemic cardiomyopathy Status: Acute (2) Coronary artery disease: Code(s): I25.10 - Atherosclerotic heart disease of [place] coronary artery without angina pectoris Status: Acute (3) Hypertension: Qualifiers: Hypertension type: primary hypertension Qualified Code(s): I10 - Essential (primary) hypertension Code(s): I10 - Essential (primary) hypertension Status: Acute (4) Diabetes mellitus: Qualifiers: Diabetes mellitus type: type 2 Diabetes mellitus complication status: without complication Code(s): E11.9 - Type 2 diabetes mellitus without complications Status: Acute (5) Influenza A: Code(s): J10.1 - Influenza due to other identified influenza virus with other respiratory manifestations Status: Acute Plan 78-year-old man with CAD status post LAD PCI for STEMI on 04/30, ischemic cardiomyopathy (LVEF 40-45%), diabetes, and hypertension presented with subjective fevers, cough, and rhinorrhea who was emergently brought to the cardiac catheterization lab due to EKG changes suggestive STEMI. Cardiac catheterization shows patent LAD stents, otherwise stable angiographic findings of LCX/RCA disease. LVEDP is 16mmHg. Found to have influenza A. Influenza A -Currently being treated with oseltamivir renally dosed CAD status post PCI -Continue Aspirin 81 mg PO Daily and Brilinta 90 mg PO BID, along with high intensity statin. -Outpatient staged PCI planning once recovered from viral illness Ischemic cardiomyopathy -I am going to resume his Toprol 50mg once daily. -Losartan was held due to acute renal injury for which Nephrology has been consulted Diabetes -Management as per primary team Hyperlipidemia -Continue Atorvastatin 80 mg every evening Plan to transfer care to hospitalist service for management of acute renal injury, diabetic management, and influenza A as well as awaiting PT and OT evaluation for dispo planning as patient and his family would prefer home care if he qualifies. Subjective Date/time seen: 05/06/24 10:51 Interval history: Reason for visit: Recent STEMI Date of service 05/06: Denies pain, states he feels just sick overall. Review of Systems Cardiovascular: Cardiovascular: Reports as per HPI Exam Const: General: no acute distress HENMT: Mouth: Yes moist mucous membranes Eyes: General: appearance normal, both eyes and all related structures Sclera: sclerae normal Resp: Effort & Inspection: normal respiratory effort Cardio: Rate: regular rate Rhythm: regular rhythm Skin: General skin exam: normal color Neuro: Speech: normal speech Psych: Mental Status: mental status grossly normal Affect: normal affect Objective Data Vital Signs Vital Signs: Vital Signs - 24 hr 05/05/24 12:00 05/05/24 16:00 05/05/24 16:00 Temperature 37.9 C H Pulse Rate 94 85 88 Respiratory Rate 24 H Blood Pressure 123/77 Pulse Oximetry 97 Oxygen Delivery 05/05/24 16:24 05/05/24 17:24 05/05/24 20:00 Temperature 37.9 C H 37.4 C Pulse Rate Respiratory Rate Blood Pressure Pulse Oximetry 97 Oxygen Delivery Room Air 05/05/24 20:00 05/06/24 00:00 05/06/24 00:00 Temperature Pulse Rate 72 76 Respiratory Rate 16 Blood Pressure Pulse Oximetry Oxygen Delivery 05/06/24 03:49 05/06/24 04:00 05/06/24 08:00 Temperature 36.7 C 36.4 C Pulse Rate 79 78 87 Respiratory Rate 16 22 H Blood Pressure 123/66 122/72 Pulse Oximetry 97 96 Oxygen Delivery Intake/Output Intake/Output: Intake & Output 05/03/24 05/04/24 05/05/24 05/06/24 23:59 23:59 23:59 23:59 Intake Total 240 720 120 Output Total 1200 250 Balance 240 -480 -130 Meds/Results Medications: Active Medications Generic Name Dose Route Start Last Admin Trade Name Freq PRN Reason Stop Dose Admin Acetaminophen 1,000 mg 05/05/24 01:28 05/06/24 10:20 Acetaminophen 500 Mg Tablet PO 1,000 mg Q6H PRN Administration Mild Pain (1-3) or Fever Aspirin 81 mg 05/05/24 09:00 05/06/24 10:20 Aspirin 81 Mg Enteric Tablet PO 81 mg QAM DESIRAE Administration Atorvastatin Calcium 80 mg 05/05/24 09:00 05/06/24 10:20 Atorvastatin 40 Mg Tablet PO 80 mg DAILY DESIRAE Administration Dextrose 12.5 gm 05/04/24 13:15 Dextrose 50% 25 Gm/50 Ml Syringe IV PUSH PRN PRN Hypoglycemia Protocol Enoxaparin Sodium 30 mg 05/05/24 09:00 05/06/24 10:21 Enoxaparin 30 Mg/0.3 Ml Syringe SUB-Q 30 mg DAILY DESIRAE Administration Glucagon 1 mg 05/04/24 13:15 Glucagon For Inj 1 Mg Vial IM PRN PRN Hypoglycemia Protocol Glucose 15 gm 05/04/24 13:15 Glucose Oral Gel 15 Gm Of Glucse In 37.5 Gm Tube PO PRN PRN Hypoglycemia Protocol Dextrose 1,000 mls @ 100 mls/hr 05/04/24 13:15 Dextrose 5% 1,000 Ml IVPB PRN PRN Hypoglycemia Protocol Insulin Aspart 4 - 8 units 05/04/24 13:25 05/06/24 08:20 Insulin Aspart (*Bkc) 100 Units/Ml SUB-Q Not Given TIDWM DESIRAE Protocol Insulin Aspart 2 - 4 units 05/04/24 21:00 05/05/24 21:03 Insulin Aspart (*Bkc) 100 Units/Ml SUB-Q 2 units HS DESIRAE Administration Protocol Insulin Glargine 15 units 05/04/24 21:00 05/05/24 21:04 Insulin Glargine (*Bkc) 100 Units/Ml SUB-Q 15 units HS DESIRAE Administration Oseltamivir Phosphate 30 mg 05/04/24 13:30 05/06/24 10:20 Oseltamivir Phosphate 30 Mg Capsule PO 05/08/24 09:01 30 mg DAILY DESIRAE Administration Perflutren Lipid Microsphere 0 ml 05/04/24 14:23 Perflutren Lipid Microspheres 1.5 Ml Vial Diluted To 10 Ml Total Volume IV PUSH 05/07/24 14:23 ONCE PRN adequate visualization Protocol Tamsulosin HCl 0.4 mg 05/05/24 16:00 05/06/24 10:20 Tamsulosin Hcl 0.4 Mg Capsule PO 0.4 mg QAM DESIRAE Administration Ticagrelor 90 mg 05/05/24 09:00 05/06/24 10:20 Ticagrelor 90 Mg Tablet PO 90 mg Q12HR DESIRAE Administration Radiology Results: ITS Impressions Renal Ultrasound 05/04/24 15:23 IMPRESSION: 1. Bilateral renal cysts measuring up to 4.6 cm. Otherwise normal kidneys with no hydronephrosis. Neck/Chest CT 05/04/24 16:59 IMPRESSION: 1. No etiology for the patient's symptoms. Abdomen X-Ray 05/05/24 15:44 IMPRESSION: Nonspecific, nonobstructive bowel gas pattern, as detailed above. Labs Labs: Laboratory Results - last 24 hr 05/05/24 05/05/24 05/05/24 04:13 11:46 15:08 WBC RBC Hgb Hct MCV MCH MCHC RDW Plt Count MPV Immature Gran % (Auto) Neut % (Auto) Lymph % (Auto) [place] % (Auto) Eos % (Auto) Baso % (Auto) Lymph # (Auto) [place] # (Auto) Eos # (Auto) Baso # (Auto) Abs Immat Gran (auto) Absolute Neuts (auto) Absolute Nucleated RBC Nucleated RBC % % Immature Plt Fraction Sodium Potassium Chloride Carbon Dioxide Anion Gap BUN Creatinine Estim Creat Clear Calc Estimated GFR Glucose POC Capillary Glucose 237 H Hemoglobin A1c 9.0 H Calcium Magnesium Total Bilirubin AST ALT Alkaline Phosphatase Total Protein Albumin Urine Color Yellow Urine Appearance Cloudy H Urine pH 5.5 Ur Specific [place] 1.026 Urine Protein 2+ H Urine Glucose (UA) Negative Urine Ketones Negative Ur Blood (Man) 2+ H Urine Nitrate Negative Urine Bilirubin Negative Urine Urobilinogen 0.2 Ur Leukocyte Esterase Trace H Urine RBC 0-2 Urine WBC 6-10 H Ur Squamous Epith Cells Few Urine Bacteria None seen Urine Casts 0-2 05/05/24 05/05/24 05/06/24 16:16 21:02 04:13 WBC 6.5 RBC 4.37 L Hgb 12.2 L Hct 38.6 L MCV 88.3 MCH 27.9 MCHC 31.6 L RDW 14.0 Plt Count 187 MPV TNP Immature Gran % (Auto) 0.3 Neut % (Auto) 55.6 Lymph % (Auto) 30.3 [place] % (Auto) 12.7 H Eos % (Auto) 0.8 Baso % (Auto) 0.3 Lymph # (Auto) 1.98 [place] # (Auto) 0.8 H Eos # (Auto) 0.1 Baso # (Auto) 0.0 Abs Immat Gran (auto) 0.02 Absolute Neuts (auto) 3.6 Absolute Nucleated RBC 0.000 Nucleated RBC % 0.0 % Immature Plt Fraction 4.9 Sodium 135 L Potassium 3.4 Chloride 104 Carbon Dioxide 19 L Anion Gap 12 BUN 34 H Creatinine 1.46 H Estim Creat Clear Calc 35 Estimated GFR 47 L Glucose 159 H POC Capillary Glucose 152 H 254 H Hemoglobin A1c Calcium 8.1 L Magnesium 2.1 Total Bilirubin 0.7 AST 41 ALT 23 Alkaline Phosphatase 76 Total Protein 6.0 L Albumin 3.0 L Urine Color Urine Appearance Urine pH Ur Specific [place] Urine Protein Urine Glucose (UA) Urine Ketones Ur Blood (Man) Urine Nitrate Urine Bilirubin Urine Urobilinogen Ur Leukocyte Esterase Urine RBC Urine WBC Ur Squamous Epith Cells Urine Bacteria Urine Casts 05/06/24 07:40 WBC RBC Hgb Hct MCV MCH MCHC RDW Plt Count MPV Immature Gran % (Auto) Neut % (Auto) Lymph % (Auto) [place] % (Auto) Eos % (Auto) Baso % (Auto) Lymph # (Auto) [place] # (Auto) Eos # (Auto) Baso # (Auto) Abs Immat Gran (auto) Absolute Neuts (auto) Absolute Nucleated RBC Nucleated RBC % % Immature Plt Fraction Sodium Potassium Chloride Carbon Dioxide Anion Gap BUN Creatinine Estim Creat Clear Calc Estimated GFR Glucose POC Capillary Glucose 162 H Hemoglobin A1c Calcium Magnesium Total Bilirubin AST ALT Alkaline Phosphatase Total Protein Albumin Urine Color Urine Appearance Urine pH Ur Specific [place] Urine Protein Urine Glucose (UA) Urine Ketones Ur Blood (Man) Urine Nitrate Urine Bilirubin Urine Urobilinogen Ur Leukocyte Esterase Urine RBC Urine WBC Ur Squamous Epith Cells Urine Bacteria Urine Casts
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
[2024-05-06 11:48] LABS: Glucose Point of Care 223 mg/dl (65-105)
[2024-05-06] MEDS: METOPROLOL SUCCINATE EXT REL 50 MG TABCR PO (11:51)
[2024-05-06] MEDS: INSULIN ASPART (*BKC) 100 UNITS/ML SUB-Q ×2 (12:03→17:26)
--- NOTE | 2024-05-06 15:17 | PCPTNOTE ---
pt worked with OT and just got back into bed and is now resting, family asked PT to come back tomorrow for eval after pt is rested, will follow
--- NOTE | 2024-05-06 15:27 | PM.IMPN ---
Progress Note: A&P Assessment and Plan (1) Chest pain: Code(s): R07.9 - Chest pain, unspecified Status: Acute Assessment and Plan: Coronary disease status post recent STEMI requiring 2 stents placement in LAD He had echocardiogram few days ago with report mentioned below Now admitted with chest pain which appears noncardiac and. By history exam Status post cardiac catheterization which did not show any significant abnormality Chest pain likely pleuritic from influenza A CT chest was unremarkable (2) Influenza A: Code(s): J10.1 - Influenza due to other identified influenza virus with other respiratory manifestations Status: Acute Assessment and Plan: Isolation Tamiflu Currently on room air (3) Hypertension: Code(s): I10 - Essential (primary) hypertension Status: Acute Assessment and Plan: Hold hypertension medication and the blood pressure stabilized (4) SAJAN (acute kidney injury): Code(s): N17.9 - Acute kidney failure, unspecified Status: Acute Assessment and Plan: Presented with creatinine 2.18 which is worse than his discharge day creatinine which was 1 SAJAN can be secondary to dehydration versus contrast induced nephropathy. Patient was also started on ARB Patient was treated with LR bolus and infusion Hold ARB Renal ultrasound showed Bilateral renal cysts measuring up to 4.6 cm. Otherwise normal kidneys with no hydronephrosis. CK was slightly elevated at290 Nephrology consult Creatinine is improved to 1.46 today Monitor urine output electrolytes and creatinine Urinary retention management as below (5) Hyperlipidemia: Code(s): E78.5 - Hyperlipidemia, unspecified Status: Acute Assessment and Plan: Continue statin (6) Coronary artery disease: Code(s): I25.10 - Atherosclerotic heart disease of [place] coronary artery without angina pectoris Status: Acute Assessment and Plan: Coronary disease status post recent STEMI requiring 2 stents placement in LAD He had echocardiogram few days ago Now admitted with chest pain which appears noncardiac Status post cardiac catheterization Continue aspirin Brilinta and statin Hold beta-jacquelyn and ARB Echo Summary 1. Left ventricular systolic function is normal, estimated at 40%.Hypokinesis of anteroseptum, mid inferoseptum, apical septum, apical lateral. 2. The left ventricular diastolic function is grade I diastolic dysfunction. 3. There is trace aortic valve regurgitation. 4. There is trace mitral valve regurgitation. 5. There is mild tricuspid valve regurgitation. 6. No pulmonary hypertension, estimated pulmonary arterial systolic pressure is 25 mmHg. (7) Diabetes: Code(s): E11.9 - Type 2 diabetes mellitus without complications Status: Acute Assessment and Plan: Sliding scale insulin and Lantus (8) Urinary retention: Code(s): R33.9 - Retention of urine, unspecified Status: Acute Assessment and Plan: Patient does have history of BPH but is currently not on any treatment. He states he has difficulty urinating in bed and would like to be active and go to the bathroom Consult PT OT Up in chair Will use bedside commode depending on the activity Urology consulted Plan DVT prophylaxis -Lovenox Nutrition -diabetic diet Code Status - Full Code PT OT Incentive spirometry Up in chair Transfer out of ICU today Subjective Date/time seen: 05/06/24 15:27 Interval history: Patient is tired. His son was present during the encounter. He is using accessory muscles for breathing and looks tired and answers only with one or two words. Discussed with care taker. Patient will benefit from rehab. Unfortunately because of his insurance he can't be qualified for rehab. Emphasized on cardiac rehabilitation. Discussed with Cardiology. If patient is unable to be discharged tomorrow will change the service to Medicine. Review of Systems Review of Systems: All systems reviewed & are unremarkable except as noted in HPI and below (HPI) Exam Narrative: General: Pt is alert awake and in NAD Lungs/Chest: Trachea central Clear BS B/L, No crackles or wheezing. Cardiac: RRR. Normal S1 S2. No murmurs Circulation: Pedal pulses are intact and symmetrical. Right groin cath site does not show any hematoma swelling Abdomen: Normal bowel sounds. Soft. NT. ND. Extremities: No clubbing, cyanosis or edema. Warm : Epps in place Neurologic: Follows commands. Moves all 4 extremities PERRL AO x3 Skin: No Rash Objective Data Vital Signs Vital Signs: Vital Signs - 24 hr 05/05/24 16:00 05/05/24 16:00 05/05/24 16:24 Temperature 100.2 F H 100.2 F H Pulse Rate 85 88 Respiratory Rate 24 H Blood Pressure 123/77 Pulse Oximetry 97 Oxygen Delivery 05/05/24 17:24 05/05/24 20:00 05/05/24 20:00 Temperature 99.3 F Pulse Rate 72 Respiratory Rate Blood Pressure Pulse Oximetry 97 Oxygen Delivery Room Air 05/06/24 00:00 05/06/24 00:00 05/06/24 03:49 Temperature 98.0 F Pulse Rate 76 79 Respiratory Rate 16 16 Blood Pressure 123/66 Pulse Oximetry 97 Oxygen Delivery 05/06/24 04:00 05/06/24 08:00 05/06/24 08:00 Temperature 97.6 F Pulse Rate 78 87 Respiratory Rate 22 H Blood Pressure 122/72 Pulse Oximetry 96 Oxygen Delivery Room Air 05/06/24 08:00 05/06/24 11:51 05/06/24 12:00 Temperature Pulse Rate 91 88 88 Respiratory Rate Blood Pressure Pulse Oximetry Oxygen Delivery 05/06/24 13:46 Temperature Pulse Rate Respiratory Rate Blood Pressure Pulse Oximetry Oxygen Delivery Room Air Intake/Output Intake/Output: Intake & Output 05/03/24 05/04/24 05/05/24 05/06/24 23:59 23:59 23:59 23:59 Intake Total 240 720 320 Output Total 1200 250 Balance 240 -480 70 Meds/Results Medications: Active Medications Generic Name Dose Route Start Last Admin Trade Name Freq PRN Reason Stop Dose Admin Acetaminophen 1,000 mg 05/05/24 01:28 05/06/24 10:20 Acetaminophen 500 Mg Tablet PO 1,000 mg Q6H PRN Administration Mild Pain (1-3) or Fever Aspirin 81 mg 05/05/24 09:00 05/06/24 10:20 Aspirin 81 Mg Enteric Tablet PO 81 mg QAM DESIRAE Administration Atorvastatin Calcium 80 mg 05/05/24 09:00 05/06/24 10:20 Atorvastatin 40 Mg Tablet PO 80 mg DAILY DESIRAE Administration Dextrose 12.5 gm 05/04/24 13:15 Dextrose 50% 25 Gm/50 Ml Syringe IV PUSH PRN PRN Hypoglycemia Protocol Enoxaparin Sodium 30 mg 05/05/24 09:00 05/06/24 10:21 Enoxaparin 30 Mg/0.3 Ml Syringe SUB-Q 30 mg DAILY DESIRAE Administration Glucagon 1 mg 05/04/24 13:15 Glucagon For Inj 1 Mg Vial IM PRN PRN Hypoglycemia Protocol Glucose 15 gm 05/04/24 13:15 Glucose Oral Gel 15 Gm Of Glucse In 37.5 Gm Tube PO PRN PRN Hypoglycemia Protocol Dextrose 1,000 mls @ 100 mls/hr 05/04/24 13:15 Dextrose 5% 1,000 Ml IVPB PRN PRN Hypoglycemia Protocol Insulin Aspart 4 - 8 units 05/04/24 13:25 05/06/24 12:03 Insulin Aspart (*Bkc) 100 Units/Ml SUB-Q 4 units TIDWM DESIRAE Administration Protocol Insulin Aspart 2 - 4 units 05/04/24 21:00 05/05/24 21:03 Insulin Aspart (*Bkc) 100 Units/Ml SUB-Q 2 units HS DESIRAE Administration Protocol Insulin Glargine 15 units 05/04/24 21:00 05/05/24 21:04 Insulin Glargine (*Bkc) 100 Units/Ml SUB-Q 15 units HS DESIRAE Administration Metoprolol Succinate 50 mg 05/06/24 11:00 05/06/24 11:51 Metoprolol Succinate Ext Rel 50 Mg Tabcr PO 50 mg QAM DESIRAE Administration Oseltamivir Phosphate 30 mg 05/04/24 13:30 05/06/24 10:20 Oseltamivir Phosphate 30 Mg Capsule PO 05/08/24 09:01 30 mg DAILY DESIRAE Administration Perflutren Lipid Microsphere 0 ml 05/04/24 14:23 Perflutren Lipid Microspheres 1.5 Ml Vial Diluted To 10 Ml Total Volume IV PUSH 05/07/24 14:23 ONCE PRN adequate visualization Protocol Tamsulosin HCl 0.4 mg 05/05/24 16:00 05/06/24 10:20 Tamsulosin Hcl 0.4 Mg Capsule PO 0.4 mg QAM DESIRAE Administration Ticagrelor 90 mg 05/05/24 09:00 05/06/24 10:20 Ticagrelor 90 Mg Tablet PO 90 mg Q12HR DESIRAE Administration Radiology Results: ITS Impressions Renal Ultrasound 05/04/24 15:23 IMPRESSION: 1. Bilateral renal cysts measuring up to 4.6 cm. Otherwise normal kidneys with no hydronephrosis. Neck/Chest CT 05/04/24 16:59 IMPRESSION: 1. No etiology for the patient's symptoms. Abdomen X-Ray 05/05/24 15:44 IMPRESSION: Nonspecific, nonobstructive bowel gas pattern, as detailed above. Labs Labs: Laboratory Results - last 24 hr 05/05/24 05/05/24 05/05/24 15:08 16:16 21:02 WBC RBC Hgb Hct MCV MCH MCHC RDW Plt Count MPV Immature Gran % (Auto) Neut % (Auto) Lymph % (Auto) [place] % (Auto) Eos % (Auto) Baso % (Auto) Lymph # (Auto) [place] # (Auto) Eos # (Auto) Baso # (Auto) Abs Immat Gran (auto) Absolute Neuts (auto) Absolute Nucleated RBC Nucleated RBC % % Immature Plt Fraction Sodium Potassium Chloride Carbon Dioxide Anion Gap BUN Creatinine Estim Creat Clear Calc Estimated GFR Glucose POC Capillary Glucose 152 H 254 H Calcium Magnesium Total Bilirubin AST ALT Alkaline Phosphatase Total Protein Albumin Urine Color Yellow Urine Appearance Cloudy H Urine pH 5.5 Ur Specific [place] 1.026 Urine Protein 2+ H Urine Glucose (UA) Negative Urine Ketones Negative Ur Blood (Man) 2+ H Urine Nitrate Negative Urine Bilirubin Negative Urine Urobilinogen 0.2 Ur Leukocyte Esterase Trace H Urine RBC 0-2 Urine WBC 6-10 H Ur Squamous Epith Cells Few Urine Bacteria None seen Urine Casts 0-2 05/06/24 05/06/24 05/06/24 04:13 07:40 11:33 WBC 6.5 RBC 4.37 L Hgb 12.2 L Hct 38.6 L MCV 88.3 MCH 27.9 MCHC 31.6 L RDW 14.0 Plt Count 187 MPV TNP Immature Gran % (Auto) 0.3 Neut % (Auto) 55.6 Lymph % (Auto) 30.3 [place] % (Auto) 12.7 H Eos % (Auto) 0.8 Baso % (Auto) 0.3 Lymph # (Auto) 1.98 [place] # (Auto) 0.8 H Eos # (Auto) 0.1 Baso # (Auto) 0.0 Abs Immat Gran (auto) 0.02 Absolute Neuts (auto) 3.6 Absolute Nucleated RBC 0.000 Nucleated RBC % 0.0 % Immature Plt Fraction 4.9 Sodium 135 L Potassium 3.4 Chloride 104 Carbon Dioxide 19 L Anion Gap 12 BUN 34 H Creatinine 1.46 H Estim Creat Clear Calc 35 Estimated GFR 47 L Glucose 159 H POC Capillary Glucose 162 H 223 H Calcium 8.1 L Magnesium 2.1 Total Bilirubin 0.7 AST 41 ALT 23 Alkaline Phosphatase 76 Total Protein 6.0 L Albumin 3.0 L Urine Color Urine Appearance Urine pH Ur Specific [place] Urine Protein Urine Glucose (UA) Urine Ketones Ur Blood (Man) Urine Nitrate Urine Bilirubin Urine Urobilinogen Ur Leukocyte Esterase Urine RBC Urine WBC Ur Squamous Epith Cells Urine Bacteria Urine Casts Quality VTE Prophylaxis VTE prophylaxis: mechanical ordered and pharmacologic ordered Hospitalist MIPS Advance Care Plan I have confirmed that the patient's Advanced Care Plan is present, code status is documented, or surrogate decision maker is listed in patient medical record.: Yes Medication Reconciliation I have utilized all available resources to obtain, update and review the patients current medications (includes all prescriptions, OTC, herbals, cannabis, and nutritional supplements).: Yes
[2024-05-06 16:58] LABS: Glucose Point of Care 204 mg/dl (65-105)
[2024-05-06 19:37] LABS: Glucose Point of Care 126 mg/dl (65-105)
[2024-05-06] MEDS: INSULIN GLARGINE (*BKC) 100 UNITS/ML 15 UNITS SUB-Q (20:20)
[2024-05-06] MEDS: guaiFENesin 12 HR 600 MG TABCR PO (20:20)
[2024-05-07] VITALS (12 sets, daily range): BP systolic 105–136; BP diastolic 66–71; PULSE 64–81; RESP 13–24; TEMP 37–38.7; O2SAT 91–99
--- NOTE | 2024-05-07 04:19 | PC.NURSE ---
Patient calling out to get up to bathroom or use bedside commode. Patient nearly fell when getting up to the commode 2 prior times this shift. RN attempted to explain to patient that it is unsafe for him to continue to try to get up to the commode as he is extremely weak this evening. Patient offered bedpan numerous times but patient swinging at staff saying No, this is wrong! 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 Patient has addison catheter to drain urine and has been offered the bedpan 3 times. Patient continues to refuse bedpan and will wait for family. Will continue to monitor.
--- NOTE | 2024-05-07 05:11 | PC.NURSE ---
Air Breaker Operator at bedside to draw morning labs. Patient refused and said No need. Dr. Acevedo notified of patient refusal. No new orders at this time. Will continue to monitor.
[2024-05-07 07:55] LABS: Glucose Point of Care 247 mg/dl (65-105)
[2024-05-07] MEDS: OSELTAMIVIR PHOSPHATE 30 MG CAPSULE PO (08:24)
[2024-05-07] MEDS: guaiFENesin 12 HR 600 MG TABCR PO ×2 (08:25→21:03)
[2024-05-07] MEDS: ATORVASTATIN 40 MG TABLET 80 MG PO (08:26)
[2024-05-07] MEDS: ASPIRIN 81 MG ENTERIC TABLET PO (08:26)
[2024-05-07] MEDS: TAMSULOSIN HCL 0.4 MG CAPSULE PO (08:26)
[2024-05-07] MEDS: METOPROLOL SUCCINATE EXT REL 50 MG TABCR PO (08:26)
[2024-05-07] MEDS: TICAGRELOR 90 MG TABLET PO ×2 (08:26→21:03)
[2024-05-07] MEDS: INSULIN ASPART (*BKC) 100 UNITS/ML SUB-Q ×2 (08:27→21:05)
[2024-05-07] MEDS: ENOXAPARIN 30 MG/0.3 ML SYRINGE SUB-Q (08:27)
[2024-05-07] MEDS: ACETAMINOPHEN 500 MG TABLET 1000 MG PO ×2 (08:31→21:08)
[2024-05-07 09:07] LABS: Basophils Percent Auto 0.5 % (0.2-1.2); Eosinophils Percent Auto 0.5 % (0-4.4); Hematocrit 40.6 % (42.0-52.0); Hemoglobin 12.9 g/dL (14.0-18.0); Immature Granulocyte Absolute 0.04 K/mm3 (0.00-0.031); Immature Granulocyte Percent A 0.7 % (0-0.5); Lymphocytes Absolute Auto 1.51 K/mm3 (0.9-3.2); Lymphocytes Percent Auto 24.7 % (18.3-44.2); Mean Corpuscular HGB Conc 31.8 g/dl (32-36); Mean Corpuscular Hemoglobin 27.8 pg (26-34); Mean Corpuscular Volume 87.5 fl (80-100); Mean Platelet Volume 13.4 fl (7.4-10.4); Monocytes Absolute Auto 0.5 K/mm3 (0.1-0.6); Neutrophils Percent Auto 65.6 % (45.5-73.1); Platelet Count Result 198 k/mm3 (150-375); Red Blood Count 4.64 M/mm3 (4.6-6.20); Red Cell Distribution Width 13.9 % (11.5-14.5); White Blood Count 6.1 K/mm3 (4.5-10.0)
[2024-05-07 09:27] LABS: Alanine Aminotransferase 24 U/L (6-50); Albumin Level 3.6 g/dL (3.5-5.1); Alkaline Phosphatase 77 U/L (38-126); Anion Gap 14 mmol/L (4-12); Aspartate Amino Transferase 39 U/L (17-59); Bilirubin,Total 0.6 mg/dL (0.2-1.3); Blood Urea Nitrogen 22 mg/dL (9-20); Calcium 8.4 mg/dL (8.4-10.2); Carbon Dioxide 24 mmol/L (22-30); Chloride 97 mmol/L (98-107); Estimated CRCL calculation 37 ml/min; Estimated Glomerular Filt Rate 51; Glucose 267 mg/dL (65-110); Magnesium 1.9 mg/dL (1.6-2.3); Sodium 135 mmol/L (137-145)
--- NOTE | 2024-05-07 09:55 | P.PNCA_ITS ---
Progress Note: A&P Assessment and Plan (1) Ischemic cardiomyopathy: Code(s): I25.5 - Ischemic cardiomyopathy Status: Acute (2) Coronary artery disease: Code(s): I25.10 - Atherosclerotic heart disease of [place] coronary artery without angina pectoris Status: Acute (3) Hypertension: Qualifiers: Hypertension type: primary hypertension Qualified Code(s): I10 - Essential (primary) hypertension Code(s): I10 - Essential (primary) hypertension Status: Acute (4) Diabetes mellitus: Qualifiers: Diabetes mellitus type: type 2 Diabetes mellitus complication status: without complication Code(s): E11.9 - Type 2 diabetes mellitus without complications Status: Acute (5) Influenza A: Code(s): J10.1 - Influenza due to other identified influenza virus with other respiratory manifestations Status: Acute Plan 78-year-old man with CAD status post LAD PCI for STEMI on 04/30, ischemic cardiomyopathy (LVEF 40-45%), diabetes, and hypertension presented with subjective fevers, cough, and rhinorrhea who was emergently brought to the cardiac catheterization lab due to EKG changes suggestive STEMI. Cardiac catheterization shows patent LAD stents, otherwise stable angiographic findings of LCX/RCA disease. LVEDP is 16mmHg. Found to have influenza A. Influenza A -Currently being treated with Oseltamivir -Having fevers overnight. Will check blood cultures. CAD status post PCI -Continue Aspirin 81 mg PO Daily and Brilinta 90 mg PO BID, along with high intensity statin. -Outpatient staged PCI planning once recovered from viral illness Ischemic cardiomyopathy -Continue Toprol 50mg once daily. -Losartan was held due to acute renal injury for which Nephrology has been consulted. Will continue to hold Losartan until SAJAN resolves. Diabetes -Management as per primary team Hyperlipidemia -Continue Atorvastatin 80 mg every evening Recommendations and plan discussed with ICU Physician. Subjective Date/time seen: 05/07/24 09:55 Interval history: Reason for visit: Recent STEMI HPI: This is a 78 year old male who was recently discharged from [facility] after an anterior STEMI s/p 2 JOSE to the LAD. Had an uncomplicated hospital course. Patient is Maltese speaking only so family present with him was used for emergent interpretation. Family reports that after hospital discharge, he started having runny nose, cough, subjective fevers. Upon EMS arrival, he had reported chest pain, although unable to further elicit any details. EKG showed ST elevations in the anterior leads, particularly V2, with reciprocal depression in the inferior leads. Although he did have mild persistent ST elevations post PCI after his initial STEMI, these ST elevations are more prominent. Therefore, we decided to proceed with emergent cardiac catheterization to ensure patency of the LAD stents. Family reports full compliance with DAPT therapy since hospital discharge. Date of service 05/05: His daughter provided translation for the family via telephone. The patient is not having any chest pain or shortness of breath. He denies any chest discomfort or pain when sleeping at night and he also denied any orthopnea. Date of service 05/06: Denies pain, states he feels just sick overall. Date of service 05/07: Quite lethargic this morning, falls asleep easily when awaken. Started having fevers last night, last temperature of 101.4. RN reports that he had to have addison placed last night. SCr is getting better. Review of Systems Review of Systems: ROS unobtainable: Yes unobtainable due to mental status Exam Const: General: no acute distress Other: Appears ill, quite sleepy this morning HENMT: Mouth: Yes dry mucous membranes Eyes: General: appearance normal, both eyes and all related structures Sclera: sclerae normal Resp: Effort & Inspection: normal respiratory effort Cardio: Rate: regular rate Rhythm: regular rhythm Objective Data Vital Signs Vital Signs: Vital Signs - 24 hr 05/06/24 11:51 05/06/24 12:00 05/06/24 13:46 Temperature Pulse Rate 88 88 Respiratory Rate Blood Pressure Pulse Oximetry Oxygen Delivery Room Air 05/06/24 16:00 05/06/24 16:00 05/06/24 20:00 Temperature 36.8 C Pulse Rate 84 75 77 Respiratory Rate 15 Blood Pressure 129/68 Pulse Oximetry 96 Oxygen Delivery 05/06/24 20:45 05/07/24 00:00 05/07/24 00:00 Temperature 37.0 C Pulse Rate 68 64 67 Respiratory Rate 20 13 Blood Pressure 123/66 Pulse Oximetry 98 Oxygen Delivery Room Air 05/07/24 04:00 05/07/24 08:00 05/07/24 08:26 Temperature 38.6 C H Pulse Rate 75 80 80 Respiratory Rate 24 H Blood Pressure 136/71 Pulse Oximetry 91 Oxygen Delivery 05/07/24 08:31 Temperature 38.7 C H Pulse Rate Respiratory Rate Blood Pressure Pulse Oximetry Oxygen Delivery Intake/Output Intake/Output: Intake & Output 05/04/24 05/05/24 05/06/24 05/07/24 23:59 23:59 23:59 23:59 Intake Total 240 720 520 450 Output Total 1200 250 750 Balance 240 -480 270 -300 Meds/Results Medications: Active Medications Generic Name Dose Route Start Last Admin Trade Name Freq PRN Reason Stop Dose Admin Acetaminophen 1,000 mg 05/05/24 01:28 05/07/24 08:31 Acetaminophen 500 Mg Tablet PO 1,000 mg Q6H PRN Administration Mild Pain (1-3) or Fever Aspirin 81 mg 05/05/24 09:00 05/07/24 08:26 Aspirin 81 Mg Enteric Tablet PO 81 mg QAM DESIRAE Administration Atorvastatin Calcium 80 mg 05/05/24 09:00 05/07/24 08:26 Atorvastatin 40 Mg Tablet PO 80 mg DAILY DESIRAE Administration Dextrose 12.5 gm 05/04/24 13:15 Dextrose 50% 25 Gm/50 Ml Syringe IV PUSH PRN PRN Hypoglycemia Protocol Enoxaparin Sodium 30 mg 05/05/24 09:00 05/07/24 08:27 Enoxaparin 30 Mg/0.3 Ml Syringe SUB-Q 30 mg DAILY DESIRAE Administration Glucagon 1 mg 05/04/24 13:15 Glucagon For Inj 1 Mg Vial IM PRN PRN Hypoglycemia Protocol Glucose 15 gm 05/04/24 13:15 Glucose Oral Gel 15 Gm Of Glucse In 37.5 Gm Tube PO PRN PRN Hypoglycemia Protocol Guaifenesin 600 mg 05/06/24 21:00 05/07/24 08:25 Guaifenesin 12 Hr 600 Mg Tabcr PO 600 mg Q12HR DESIRAE Administration Dextrose 1,000 mls @ 100 mls/hr 05/04/24 13:15 Dextrose 5% 1,000 Ml IVPB PRN PRN Hypoglycemia Protocol Insulin Aspart 4 - 8 units 05/04/24 13:25 05/07/24 08:27 Insulin Aspart (*Bkc) 100 Units/Ml SUB-Q 4 units TIDWM DESIRAE Administration Protocol Insulin Aspart 2 - 4 units 05/04/24 21:00 05/06/24 20:20 Insulin Aspart (*Bkc) 100 Units/Ml SUB-Q Not Given HS DESIRAE Protocol Insulin Glargine 15 units 05/04/24 21:00 05/06/24 20:20 Insulin Glargine (*Bkc) 100 Units/Ml SUB-Q 15 units HS DESIRAE Administration Metoprolol Succinate 50 mg 05/06/24 11:00 05/07/24 08:26 Metoprolol Succinate Ext Rel 50 Mg Tabcr PO 50 mg QAM DESIRAE Administration Oseltamivir Phosphate 30 mg 05/04/24 13:30 05/07/24 08:24 Oseltamivir Phosphate 30 Mg Capsule PO 05/08/24 09:01 30 mg DAILY DESIRAE Administration Perflutren Lipid Microsphere 0 ml 05/04/24 14:23 Perflutren Lipid Microspheres 1.5 Ml Vial Diluted To 10 Ml Total Volume IV PUSH 05/07/24 14:23 ONCE PRN adequate visualization Protocol Tamsulosin HCl 0.4 mg 05/05/24 16:00 05/07/24 08:26 Tamsulosin Hcl 0.4 Mg Capsule PO 0.4 mg QAM DESIRAE Administration Ticagrelor 90 mg 05/05/24 09:00 05/07/24 08:26 Ticagrelor 90 Mg Tablet PO 90 mg Q12HR DESIRAE Administration Radiology Results: ITS Impressions Renal Ultrasound 05/04/24 15:23 IMPRESSION: 1. Bilateral renal cysts measuring up to 4.6 cm. Otherwise normal kidneys with no hydronephrosis. Neck/Chest CT 05/04/24 16:59 IMPRESSION: 1. No etiology for the patient's symptoms. Abdomen X-Ray 05/05/24 15:44 IMPRESSION: Nonspecific, nonobstructive bowel gas pattern, as detailed above. Labs Labs: Laboratory Results - last 24 hr 05/06/24 05/06/24 05/06/24 11:33 16:55 19:35 WBC RBC Hgb Hct MCV MCH MCHC RDW Plt Count MPV Immature Gran % (Auto) Neut % (Auto) Lymph % (Auto) [place] % (Auto) Eos % (Auto) Baso % (Auto) Lymph # (Auto) [place] # (Auto) Eos # (Auto) Baso # (Auto) Abs Immat Gran (auto) Absolute Neuts (auto) Absolute Nucleated RBC Nucleated RBC % % Immature Plt Fraction Sodium Potassium Chloride Carbon Dioxide Anion Gap BUN Creatinine Estim Creat Clear Calc Estimated GFR Glucose POC Capillary Glucose 223 H 204 H 126 H Calcium Magnesium Total Bilirubin AST ALT Alkaline Phosphatase Total Protein Albumin 05/07/24 05/07/24 07:30 08:57 WBC 6.1 RBC 4.64 Hgb 12.9 L Hct 40.6 L MCV 87.5 MCH 27.8 MCHC 31.8 L RDW 13.9 Plt Count 198 MPV 13.4 H Immature Gran % (Auto) 0.7 H Neut % (Auto) 65.6 Lymph % (Auto) 24.7 [place] % (Auto) 8.0 Eos % (Auto) 0.5 Baso % (Auto) 0.5 Lymph # (Auto) 1.51 [place] # (Auto) 0.5 Eos # (Auto) 0.0 Baso # (Auto) 0.0 Abs Immat Gran (auto) 0.04 H Absolute Neuts (auto) 4.0 Absolute Nucleated RBC 0.000 Nucleated RBC % 0.0 % Immature Plt Fraction 6.0 Sodium 135 L Potassium 4.0 Chloride 97 L Carbon Dioxide 24 Anion Gap 14 H BUN 22 H D Creatinine 1.37 H Estim Creat Clear Calc 37 Estimated GFR 51 L Glucose 267 H POC Capillary Glucose 247 H Calcium 8.4 Magnesium 1.9 Total Bilirubin 0.6 AST 39 ALT 24 Alkaline Phosphatase 77 Total Protein 7.0 Albumin 3.6
--- NOTE | 2024-05-07 10:02 | PM.IMPN ---
Progress Note: A&P Assessment and Plan (1) Chest pain: Code(s): R07.9 - Chest pain, unspecified Status: Acute Assessment and Plan: Coronary disease status post recent STEMI requiring 2 stents placement in LAD He had echocardiogram few days ago with report mentioned below Now admitted with chest pain which appears noncardiac and. By history exam Status post cardiac catheterization which did not show any significant abnormality Chest pain likely pleuritic from influenza A CT chest was unremarkable (2) Influenza A: Code(s): J10.1 - Influenza due to other identified influenza virus with other respiratory manifestations Status: Acute Assessment and Plan: Isolation Tamiflu Currently on room air (3) Hypertension: Code(s): I10 - Essential (primary) hypertension Status: Acute Assessment and Plan: Hold hypertension medication and the blood pressure stabilized (4) SAJAN (acute kidney injury): Code(s): N17.9 - Acute kidney failure, unspecified Status: Acute Assessment and Plan: Presented with creatinine 2.18 which is worse than his discharge day creatinine which was 1 SAJAN can be secondary to dehydration versus contrast induced nephropathy. Patient was also started on ARB Patient was treated with LR bolus and infusion Hold ARB Renal ultrasound showed Bilateral renal cysts measuring up to 4.6 cm. Otherwise normal kidneys with no hydronephrosis. CK was slightly elevated at 290 Nephrology following Creatinine is improved to 1.37 today Urinary retention management as below Will give some fluids today and monitor urine output electrolytes and creatinine. (5) Hyperlipidemia: Code(s): E78.5 - Hyperlipidemia, unspecified Status: Acute Assessment and Plan: Continue statin (6) Coronary artery disease: Code(s): I25.10 - Atherosclerotic heart disease of [place] coronary artery without angina pectoris Status: Acute Assessment and Plan: Coronary disease status post recent STEMI requiring 2 stents placement in LAD He had echocardiogram few days ago Now admitted with chest pain which appears noncardiac Status post cardiac catheterization Continue aspirin Brilinta and statin Continue beta-jacquelyn but hold ARB Echo Summary 1. Left ventricular systolic function is normal, estimated at 40%.Hypokinesis of anteroseptum, mid inferoseptum, apical septum, apical lateral. 2. The left ventricular diastolic function is grade I diastolic dysfunction. 3. There is trace aortic valve regurgitation. 4. There is trace mitral valve regurgitation. 5. There is mild tricuspid valve regurgitation. 6. No pulmonary hypertension, estimated pulmonary arterial systolic pressure is 25 mmHg. (7) Diabetes: Code(s): E11.9 - Type 2 diabetes mellitus without complications Status: Acute Assessment and Plan: Sliding scale insulin Increase Lantus to (8) Urinary retention: Code(s): R33.9 - Retention of urine, unspecified Status: Acute Assessment and Plan: Patient does have history of BPH but is currently not on any treatment. He states he has difficulty urinating in bed and would like to be active and go to the bathroom Consulted PT OT Urology consulted Patient now has Epps catheter (9) Fever: Code(s): R50.9 - Fever, unspecified Status: Acute Assessment and Plan: Febrile overnight. Normal WBC with normal differential Blood cultures ordered Check UA micro and urine culture Check procalcitonin level Could be secondary to influenza A or atelectasis P.r.n. Tylenol . Hold antibiotics at this time Plan DVT prophylaxis -Lovenox Nutrition -diabetic diet Code Status - Full Code PT OT Incentive spirometry Up in chair Subjective Date/time seen: 05/07/24 Feels weak and tired. Febrile overnight Denies any chest pain shortness a breath cough or abdominal pain. Tolerating p.o. diet. Urine output on the lower side. He was unable to urinate last night hence a Epps catheter had to be inserted. Sinus rhythm on the monitor Other vitals acceptable All other systems were reviewed and were negative Review of Systems Review of Systems: All systems reviewed & are unremarkable except as noted in HPI and below (HPI) Exam Narrative: General: Pt is alert awake and in NAD Lungs/Chest: Trachea central Clear BS B/L, No crackles or wheezing. Cardiac: RRR. Normal S1 S2. No murmurs Circulation: Pedal pulses are intact and symmetrical. Right groin cath site does not show any hematoma swelling Abdomen: Normal bowel sounds. Soft. NT. ND. Extremities: No clubbing, cyanosis or edema. Warm : Epps in place Neurologic: Follows commands. Moves all 4 extremities PERRL AO x3 Skin: No Rash Objective Data Vital Signs Vital Signs: Vital Signs - 24 hr 05/06/24 11:51 05/06/24 12:00 05/06/24 13:46 Temperature Pulse Rate 88 88 Respiratory Rate Blood Pressure Pulse Oximetry Oxygen Delivery Room Air 05/06/24 16:00 05/06/24 16:00 05/06/24 20:00 Temperature 36.8 C Pulse Rate 84 75 77 Respiratory Rate 15 Blood Pressure 129/68 Pulse Oximetry 96 Oxygen Delivery 05/06/24 20:45 05/07/24 00:00 05/07/24 00:00 Temperature 37.0 C Pulse Rate 68 64 67 Respiratory Rate 20 13 Blood Pressure 123/66 Pulse Oximetry 98 Oxygen Delivery Room Air 05/07/24 04:00 05/07/24 08:00 05/07/24 08:26 Temperature 38.6 C H Pulse Rate 75 80 80 Respiratory Rate 24 H Blood Pressure 136/71 Pulse Oximetry 91 Oxygen Delivery 05/07/24 08:31 Temperature 38.7 C H Pulse Rate Respiratory Rate Blood Pressure Pulse Oximetry Oxygen Delivery Intake/Output Intake/Output: Intake & Output 05/04/24 05/05/24 05/06/24 05/07/24 23:59 23:59 23:59 23:59 Intake Total 240 720 520 450 Output Total 1200 250 750 Balance 240 -480 270 -300 Meds/Results Medications: Active Medications Generic Name Dose Route Start Last Admin Trade Name Freq PRN Reason Stop Dose Admin Acetaminophen 1,000 mg 05/05/24 01:28 05/07/24 08:31 Acetaminophen 500 Mg Tablet PO 1,000 mg Q6H PRN Administration Mild Pain (1-3) or Fever Aspirin 81 mg 05/05/24 09:00 05/07/24 08:26 Aspirin 81 Mg Enteric Tablet PO 81 mg QAM DESIRAE Administration Atorvastatin Calcium 80 mg 05/05/24 09:00 05/07/24 08:26 Atorvastatin 40 Mg Tablet PO 80 mg DAILY DESIRAE Administration Dextrose 12.5 gm 05/04/24 13:15 Dextrose 50% 25 Gm/50 Ml Syringe IV PUSH PRN PRN Hypoglycemia Protocol Enoxaparin Sodium 30 mg 05/05/24 09:00 05/07/24 08:27 Enoxaparin 30 Mg/0.3 Ml Syringe SUB-Q 30 mg DAILY DESIRAE Administration Glucagon 1 mg 05/04/24 13:15 Glucagon For Inj 1 Mg Vial IM PRN PRN Hypoglycemia Protocol Glucose 15 gm 05/04/24 13:15 Glucose Oral Gel 15 Gm Of Glucse In 37.5 Gm Tube PO PRN PRN Hypoglycemia Protocol Guaifenesin 600 mg 05/06/24 21:00 05/07/24 08:25 Guaifenesin 12 Hr 600 Mg Tabcr PO 600 mg Q12HR DESIRAE Administration Dextrose 1,000 mls @ 100 mls/hr 05/04/24 13:15 Dextrose 5% 1,000 Ml IVPB PRN PRN Hypoglycemia Protocol Insulin Aspart 4 - 8 units 05/04/24 13:25 05/07/24 08:27 Insulin Aspart (*Bkc) 100 Units/Ml SUB-Q 4 units TIDWM DESIRAE Administration Protocol Insulin Aspart 2 - 4 units 05/04/24 21:00 05/06/24 20:20 Insulin Aspart (*Bkc) 100 Units/Ml SUB-Q Not Given HS DESIRAE Protocol Insulin Glargine 15 units 05/04/24 21:00 05/06/24 20:20 Insulin Glargine (*Bkc) 100 Units/Ml SUB-Q 15 units HS DESIRAE Administration Metoprolol Succinate 50 mg 05/06/24 11:00 05/07/24 08:26 Metoprolol Succinate Ext Rel 50 Mg Tabcr PO 50 mg QAM DESIRAE Administration Oseltamivir Phosphate 30 mg 05/04/24 13:30 05/07/24 08:24 Oseltamivir Phosphate 30 Mg Capsule PO 05/08/24 09:01 30 mg DAILY DESIRAE Administration Perflutren Lipid Microsphere 0 ml 05/04/24 14:23 Perflutren Lipid Microspheres 1.5 Ml Vial Diluted To 10 Ml Total Volume IV PUSH 05/07/24 14:23 ONCE PRN adequate visualization Protocol Tamsulosin HCl 0.4 mg 05/05/24 16:00 05/07/24 08:26 Tamsulosin Hcl 0.4 Mg Capsule PO 0.4 mg QAM DESIRAE Administration Ticagrelor 90 mg 05/05/24 09:00 05/07/24 08:26 Ticagrelor 90 Mg Tablet PO 90 mg Q12HR DESIRAE Administration Radiology Results: ITS Impressions Renal Ultrasound 05/04/24 15:23 IMPRESSION: 1. Bilateral renal cysts measuring up to 4.6 cm. Otherwise normal kidneys with no hydronephrosis. Neck/Chest CT 05/04/24 16:59 IMPRESSION: 1. No etiology for the patient's symptoms. Abdomen X-Ray 05/05/24 15:44 IMPRESSION: Nonspecific, nonobstructive bowel gas pattern, as detailed above. Labs Labs: Laboratory Results - last 24 hr 0105/06/24 05/06/24 11:33 16:55 19:35 WBC RBC Hgb Hct MCV MCH MCHC RDW Plt Count MPV Immature Gran % (Auto) Neut % (Auto) Lymph % (Auto) [place] % (Auto) Eos % (Auto) Baso % (Auto) Lymph # (Auto) [place] # (Auto) Eos # (Auto) Baso # (Auto) Abs Immat Gran (auto) Absolute Neuts (auto) Absolute Nucleated RBC Nucleated RBC % % Immature Plt Fraction Sodium Potassium Chloride Carbon Dioxide Anion Gap BUN Creatinine Estim Creat Clear Calc Estimated GFR Glucose POC Capillary Glucose 223 H 204 H 126 H Calcium Magnesium Total Bilirubin AST ALT Alkaline Phosphatase Total Protein Albumin 05/07/24 05/07/24 07:30 08:57 WBC 6.1 RBC 4.64 Hgb 12.9 L Hct 40.6 L MCV 87.5 MCH 27.8 MCHC 31.8 L RDW 13.9 Plt Count 198 MPV 13.4 H Immature Gran % (Auto) 0.7 H Neut % (Auto) 65.6 Lymph % (Auto) 24.7 [place] % (Auto) 8.0 Eos % (Auto) 0.5 Baso % (Auto) 0.5 Lymph # (Auto) 1.51 [place] # (Auto) 0.5 Eos # (Auto) 0.0 Baso # (Auto) 0.0 Abs Immat Gran (auto) 0.04 H Absolute Neuts (auto) 4.0 Absolute Nucleated RBC 0.000 Nucleated RBC % 0.0 % Immature Plt Fraction 6.0 Sodium 135 L Potassium 4.0 Chloride 97 L Carbon Dioxide 24 Anion Gap 14 H BUN 22 H D Creatinine 1.37 H Estim Creat Clear Calc 37 Estimated GFR 51 L Glucose 267 H POC Capillary Glucose 247 H Calcium 8.4 Magnesium 1.9 Total Bilirubin 0.6 AST 39 ALT 24 Alkaline Phosphatase 77 Total Protein 7.0 Albumin 3.6 Quality VTE Prophylaxis VTE prophylaxis: mechanical ordered and pharmacologic ordered
[2024-05-07] MEDS: LACTATED RINGERS 1,000 ML 100 ML IV CONT (11:12)
[2024-05-07 11:17] LABS: Add Urine Microscopic? YES; Appearance Urine Cloudy (Clear); Bacteria Urine None Seen /hpf; Bilirubin Urine Negative (Negative); Blood Urine 3+ (Negative); Color Urine Yellow (Yellow); Glucose Urine UA Trace mg/dL (Negative); Ketones Urine Trace mg/dL (Negative); Leukocyte Esterase Ur 1+ LEU/UL (Negative); Need Manual Microscopic Reviewed; Nitrate Urine Negative (Negative); Protein Urine 2+ mg/dL (Negative); RBC Urine 51-100 /hpf (0-2); Specific Grav Ur 1.024 (1.001-1.035); Squamous Epithelial Cell Urine Occasional /hpf (Few); pH Urine 5.5 (5.0-9.0)
[2024-05-07 11:34] LABS: Procalcitonin 0.3 ng/mL
[2024-05-07 11:59] LABS: Glucose Point of Care 178 mg/dl (65-105)
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
[2024-05-07 16:11] LABS: Glucose Point of Care 185 mg/dl (65-105)
[2024-05-07 17:19] LABS: Glucose Point of Care 192 mg/dl (65-105)
[2024-05-07] MEDS: INSULIN GLARGINE (*BKC) 100 UNITS/ML 20 UNITS SUB-Q (21:04)
[2024-05-07 21:08] LABS: Glucose Point of Care 228 mg/dl (65-105)
--- NOTE | 2024-05-07 22:57 | PC.NURSE ---
Rome Segura was contacted and made aware that patient is moving to room 341.
[2024-05-08] VITALS (10 sets, daily range): BP systolic 116–120; BP diastolic 63–86; PULSE 62–93; RESP 16; TEMP 36.4–36.9; O2SAT 98–100
--- NOTE | 2024-05-08 00:13 | PC.NURSE ---
2330 05/07 report given to Felipe COLLADO on [address] [place] [address].
--- NOTE | 2024-05-08 00:13 | PC.NURSE ---
2356 05/07 Patient transferred to room 341 with belongings and chart via wheelchair.
--- NOTE | 2024-05-08 00:13 | PC.NURSE ---
This patient, Tal George, was received from [ICU-3 ] on 05/08/24 at 0013. Patient/family oriented to unit policies and routines
[2024-05-08 01:57] LABS: Glucose Point of Care 122 mg/dl (65-105)
[2024-05-08 09:05] LABS: Basophils Percent Auto 0.4 % (0.2-1.2); Eosinophils Absolute Auto 0.1 K/mm3 (0-0.3); Eosinophils Percent Auto 0.7 % (0-4.4); Hematocrit 38.7 % (42.0-52.0); Hemoglobin 12.7 g/dL (14.0-18.0); Immature Granulocyte Absolute 0.06 K/mm3 (0.00-0.031); Immature Granulocyte Percent A 0.7 % (0-0.5); Lymphocytes Absolute Auto 2.44 K/mm3 (0.9-3.2); Mean Corpuscular HGB Conc 32.8 g/dl (32-36); Mean Corpuscular Hemoglobin 28.5 pg (26-34); Mean Platelet Volume 12.4 fl (7.4-10.4); Monocytes Absolute Auto 0.6 K/mm3 (0.1-0.6); Monocytes Percent Auto 7.7 % (2.6-8.5); Neutrophils Absolute Auto 4.9 K/mm3 (1.3-6.7); Neutrophils Percent Auto 60.5 % (45.5-73.1); Platelet Count Result 197 k/mm3 (150-375); Red Blood Count 4.45 M/mm3 (4.6-6.20); Red Cell Distribution Width 13.9 % (11.5-14.5); White Blood Count 8.1 K/mm3 (4.5-10.0)
[2024-05-08] MEDS: ENOXAPARIN 40 MG/0.4 ML SYRINGE SUB-Q (09:19)
[2024-05-08] MEDS: TAMSULOSIN HCL 0.4 MG CAPSULE PO (09:20)
[2024-05-08] MEDS: METOPROLOL SUCCINATE EXT REL 50 MG TABCR PO (09:20)
[2024-05-08] MEDS: ASPIRIN 81 MG ENTERIC TABLET PO (09:20)
[2024-05-08] MEDS: guaiFENesin 12 HR 600 MG TABCR PO ×2 (09:20→20:45)
[2024-05-08] MEDS: ATORVASTATIN 40 MG TABLET 80 MG PO (09:20)
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
[2024-05-08] MEDS: OSELTAMIVIR PHOSPHATE 30 MG CAPSULE PO (09:30)
[2024-05-08] MEDS: TICAGRELOR 90 MG TABLET PO ×2 (09:30→20:45)
[2024-05-08 09:39] LABS: Alanine Aminotransferase 25 U/L (6-50); Albumin Level 3.5 g/dL (3.5-5.1); Alkaline Phosphatase 85 U/L (38-126); Anion Gap 10 mmol/L (4-12); Aspartate Amino Transferase 41 U/L (17-59); Bilirubin,Total 0.7 mg/dL (0.2-1.3); Blood Urea Nitrogen 17 mg/dL (9-20); Calcium 8.4 mg/dL (8.4-10.2); Carbon Dioxide 27 mmol/L (22-30); Chloride 103 mmol/L (98-107); Estimated CRCL calculation 43 ml/min; Estimated Glomerular Filt Rate 60; Glucose 143 mg/dL (65-110); Magnesium 1.8 mg/dL (1.6-2.3); Phosphorus 2.7 mg/dL (2.5-4.5); Potassium 3.6 mmol/L (3.4-5.0); Sodium 140 mmol/L (137-145)
[2024-05-08 10:05] LABS: Atypical Lymphocytes Present; Platelet Estimate Adequate (Adequate); Schistocytes None Seen
[2024-05-08 12:25] LABS: Glucose Point of Care 181 mg/dl (65-105)
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
--- NOTE | 2024-05-08 15:21 | PM.PNCARD ---
Progress Note: A&P Assessment and Plan (1) Ischemic cardiomyopathy: Code(s): I25.5 - Ischemic cardiomyopathy Status: Acute (2) Coronary artery disease: Code(s): I25.10 - Atherosclerotic heart disease of [place] coronary artery without angina pectoris Status: Acute (3) Hypertension: Qualifiers: Hypertension type: primary hypertension Qualified Code(s): I10 - Essential (primary) hypertension Code(s): I10 - Essential (primary) hypertension Status: Acute (4) Diabetes mellitus: Qualifiers: Diabetes mellitus type: type 2 Diabetes mellitus complication status: without complication Code(s): E11.9 - Type 2 diabetes mellitus without complications Status: Acute (5) Influenza A: Code(s): J10.1 - Influenza due to other identified influenza virus with other respiratory manifestations Status: Acute Plan 78-year-old man with CAD status post LAD PCI for STEMI on 04/30, ischemic cardiomyopathy (LVEF 40-45%), diabetes, and hypertension presented with subjective fevers, cough, and rhinorrhea who was emergently brought to the cardiac catheterization lab due to EKG changes suggestive STEMI. Cardiac catheterization shows patent LAD stents, otherwise stable angiographic findings of LCX/RCA disease. LVEDP is 16mmHg. Found to have influenza A. Influenza A -Currently being treated with Oseltamivir CAD status post PCI -Continue Aspirin 81 mg PO Daily and Brilinta 90 mg PO BID, along with high intensity statin. -Outpatient staged PCI planning once recovered from viral illness Ischemic cardiomyopathy -Continue Toprol 50mg once daily. -Losartan was held due to acute renal injury for which Nephrology has been consulted. Will continue to hold Losartan until SAJAN resolves. Once SAJAN resolves, would like to get patient back on at least a low dose of Losartan given reduced LVEF. Diabetes -Management as per primary team Hyperlipidemia -Continue Atorvastatin 80 mg every evening Urinary retention -Has Epps in place. Management as per Urology. Subjective Date/time seen: 05/08/24 15:21 Interval history: Reason for visit: Recent STEMI HPI: This is a 78 year old male who was recently discharged from [facility] after an anterior STEMI s/p 2 JOSE to the LAD. Had an uncomplicated hospital course. Patient is [place] speaking only so family present with him was used for emergent interpretation. Family reports that after hospital discharge, he started having runny nose, cough, subjective fevers. Upon EMS arrival, he had reported chest pain, although unable to further elicit any details. EKG showed ST elevations in the anterior leads, particularly V2, with reciprocal depression in the inferior leads. Although he did have mild persistent ST elevations post PCI after his initial STEMI, these ST elevations are more prominent. Therefore, we decided to proceed with emergent cardiac catheterization to ensure patency of the LAD stents. Family reports full compliance with DAPT therapy since hospital discharge. Date of service 05/05: His daughter provided translation for the family via telephone. The patient is not having any chest pain or shortness of breath. He denies any chest discomfort or pain when sleeping at night and he also denied any orthopnea. Date of service 05/06: Denies pain, states he feels just sick overall. Date of service 05/07: Quite lethargic this morning, falls asleep easily when awaken. Started having fevers last night, last temperature of 101.4. RN reports that he had to have Epps placed last night. SCr is getting better. Date of service 05/08: He looks better this morning, talkative. He states he feels good. Review of Systems Cardiovascular: Cardiovascular: Reports as per HPI Exam Const: General: comfortable and no acute distress HENMT: Mouth: Yes dry mucous membranes Eyes: General: appearance normal, both eyes and all related structures Sclera: sclerae normal Resp: Effort & Inspection: normal respiratory effort Cardio: Rate: regular rate Rhythm: regular rhythm Neuro: Speech: normal speech Psych: Mental Status: mental status grossly normal Affect: normal affect Objective Data Vital Signs Vital Signs: Vital Signs - 24 hr 05/07/24 16:00 05/07/24 16:00 05/07/24 20:00 Temperature 37.4 C Pulse Rate 72 71 74 Respiratory Rate 16 Blood Pressure 105/67 Pulse Oximetry 99 Oxygen Delivery 05/07/24 21:00 05/07/24 21:08 05/07/24 22:20 Temperature 38.4 C H 38.1 C H Pulse Rate 76 Respiratory Rate 21 H Blood Pressure Pulse Oximetry 97 Oxygen Delivery Room Air 05/08/24 00:00 05/08/24 01:00 05/08/24 04:00 Temperature 36.4 C Pulse Rate 76 62 66 Respiratory Rate 16 Blood Pressure 116/63 Pulse Oximetry 100 Oxygen Delivery 05/08/24 09:20 05/08/24 09:20 Temperature Pulse Rate 75 Respiratory Rate Blood Pressure Pulse Oximetry 98 Oxygen Delivery Room Air Intake/Output Intake/Output: Intake & Output 05/05/24 05/06/24 05/07/24 05/08/24 23:59 23:59 23:59 23:59 Intake Total 487 196 2072 120 Output Total 6024 285 5156 1000 Balance -480 270 0 -880 Meds/Results Medications: Active Medications Generic Name Dose Route Start Last Admin Trade Name Freq PRN Reason Stop Dose Admin Acetaminophen 1,000 mg 05/05/24 01:28 05/07/24 21:08 Acetaminophen 500 Mg Tablet PO 1,000 mg Q6H PRN Administration Mild Pain (1-3) or Fever Aspirin 81 mg 05/05/24 09:00 05/08/24 09:20 Aspirin 81 Mg Enteric Tablet PO 81 mg QAM DESIRAE Administration Atorvastatin Calcium 80 mg 05/05/24 09:00 05/08/24 09:20 Atorvastatin 40 Mg Tablet PO 80 mg DAILY DESIRAE Administration Dextrose 12.5 gm 05/04/24 13:15 Dextrose 50% 25 Gm/50 Ml Syringe IV PUSH PRN PRN Hypoglycemia Protocol Enoxaparin Sodium 40 mg 05/08/24 09:00 05/08/24 09:19 Enoxaparin 40 Mg/0.4 Ml Syringe SUB-Q 40 mg DAILY DESIRAE Administration Glucagon 1 mg 05/04/24 13:15 Glucagon For Inj 1 Mg Vial IM PRN PRN Hypoglycemia Protocol Glucose 15 gm 05/04/24 13:15 Glucose Oral Gel 15 Gm Of Glucse In 37.5 Gm Tube PO PRN PRN Hypoglycemia Protocol Guaifenesin 600 mg 05/06/24 21:00 05/08/24 09:20 Guaifenesin 12 Hr 600 Mg Tabcr PO 600 mg Q12HR DESIRAE Administration Dextrose 1,000 mls @ 100 mls/hr 05/04/24 13:15 Dextrose 5% 1,000 Ml IVPB PRN PRN Hypoglycemia Protocol Insulin Aspart 4 - 8 units 05/04/24 13:25 05/08/24 12:28 Insulin Aspart (*Bkc) 100 Units/Ml SUB-Q Not Given TIDWM DESIRAE Protocol Insulin Aspart 2 - 4 units 05/04/24 21:00 05/07/24 21:05 Insulin Aspart (*Bkc) 100 Units/Ml SUB-Q 2 units HS DESIRAE Administration Protocol Insulin Glargine 20 units 05/07/24 21:00 05/07/24 21:04 Insulin Glargine (*Bkc) 100 Units/Ml SUB-Q 20 units HS DESIRAE Administration Metoprolol Succinate 50 mg 05/06/24 11:00 05/08/24 09:20 Metoprolol Succinate Ext Rel 50 Mg Tabcr PO 50 mg QAM DESIRAE Administration Tamsulosin HCl 0.4 mg 05/05/24 16:00 05/08/24 09:20 Tamsulosin Hcl 0.4 Mg Capsule PO 0.4 mg QAM DESIRAE Administration Ticagrelor 90 mg 05/05/24 09:00 05/08/24 09:30 Ticagrelor 90 Mg Tablet PO 90 mg Q12HR DESIRAE Administration Radiology Results: ITS Impressions Renal Ultrasound 05/04/24 15:23 IMPRESSION: 1. Bilateral renal cysts measuring up to 4.6 cm. Otherwise normal kidneys with no hydronephrosis. Neck/Chest CT 05/04/24 16:59 IMPRESSION: 1. No etiology for the patient's symptoms. Abdomen X-Ray 05/05/24 15:44 IMPRESSION: Nonspecific, nonobstructive bowel gas pattern, as detailed above. Head CT 05/07/24 14:13 IMPRESSION: No acute intracranial process. Labs Labs: Laboratory Results - last 24 hr 05/07/24 05/07/24 05/07/24 16:06 17:13 20:59 WBC RBC Hgb Hct MCV MCH MCHC RDW Plt Count MPV Immature Gran % (Auto) Neut % (Auto) Lymph % (Auto) [place] % (Auto) Eos % (Auto) Baso % (Auto) Lymph # (Auto) [place] # (Auto) Eos # (Auto) Baso # (Auto) Abs Immat Gran (auto) Absolute Neuts (auto) Absolute Nucleated RBC Nucleated RBC % Atypical Lymphocytes Platelet Estimate Schistocytes Sodium Potassium Chloride Carbon Dioxide Anion Gap BUN Creatinine Estim Creat Clear Calc Estimated GFR Glucose POC Capillary Glucose 185 H 192 H 228 H Calcium Phosphorus Magnesium Total Bilirubin AST ALT Alkaline Phosphatase Total Protein Albumin 05/08/24 05/08/24 05/08/24 01:46 08:58 12:21 WBC 8.1 RBC 4.45 L Hgb 12.7 L Hct 38.7 L MCV 87.0 MCH 28.5 MCHC 32.8 RDW 13.9 Plt Count 197 MPV 12.4 H Immature Gran % (Auto) 0.7 H Neut % (Auto) 60.5 Lymph % (Auto) 30.0 [place] % (Auto) 7.7 Eos % (Auto) 0.7 Baso % (Auto) 0.4 Lymph # (Auto) 2.44 [place] # (Auto) 0.6 Eos # (Auto) 0.1 Baso # (Auto) 0.0 Abs Immat Gran (auto) 0.06 H Absolute Neuts (auto) 4.9 Absolute Nucleated RBC 0.000 Nucleated RBC % 0.0 Atypical Lymphocytes Present Platelet Estimate Adequate Schistocytes None seen Sodium 140 Potassium 3.6 Chloride 103 Carbon Dioxide 27 Anion Gap 10 BUN 17 Creatinine 1.18 Estim Creat Clear Calc 43 Estimated GFR 60 Glucose 143 H POC Capillary Glucose 122 H 181 H Calcium 8.4 Phosphorus 2.7 Magnesium 1.8 Total Bilirubin 0.7 AST 41 ALT 25 Alkaline Phosphatase 85 Total Protein 7.0 Albumin 3.5
[2024-05-08 17:58] LABS: Glucose Point of Care 245 mg/dl (65-105)
[2024-05-08] MEDS: INSULIN ASPART (*BKC) 100 UNITS/ML SUB-Q ×2 (18:14→20:51)
[2024-05-08] MEDS: INSULIN GLARGINE (*BKC) 100 UNITS/ML 20 UNITS SUB-Q (20:45)
[2024-05-08 21:32] LABS: Glucose Point of Care 232 mg/dl (65-105)
[2024-05-09] VITALS: PULSE 63
[2024-05-09 04:00] VITALS: PULSE 81
[2024-05-09 05:58] LABS: Basophils Percent Auto 0.2 % (0.2-1.2); Eosinophils Absolute Auto 0.1 K/mm3 (0-0.3); Eosinophils Percent Auto 1.3 % (0-4.4); Hematocrit 33.5 % (42.0-52.0); Immature Granulocyte Absolute 0.04 K/mm3 (0.00-0.031); Immature Granulocyte Percent A 0.5 % (0-0.5); Lymphocytes Absolute Auto 3.01 K/mm3 (0.9-3.2); Lymphocytes Percent Auto 35.2 % (18.3-44.2); Mean Corpuscular HGB Conc 32.8 g/dl (32-36); Mean Corpuscular Hemoglobin 28.3 pg (26-34); Mean Corpuscular Volume 86.1 fl (80-100); Mean Platelet Volume 12.2 fl (7.4-10.4); Monocytes Absolute Auto 0.7 K/mm3 (0.1-0.6); Monocytes Percent Auto 8.1 % (2.6-8.5); Neutrophils Absolute Auto 4.7 K/mm3 (1.3-6.7); Neutrophils Percent Auto 54.7 % (45.5-73.1); Platelet Count Result 186 k/mm3 (150-375); Red Blood Count 3.89 M/mm3 (4.6-6.20); Red Cell Distribution Width 13.9 % (11.5-14.5); White Blood Count 8.5 K/mm3 (4.5-10.0)
[2024-05-09 06:00] VITALS: BP 112/60; PULSE 73; RESP 16; TEMP 36.6; O2SAT 97
[2024-05-09 06:14] LABS: Alanine Aminotransferase 21 U/L (6-50); Alkaline Phosphatase 70 U/L (38-126); Anion Gap 8 mmol/L (4-12); Aspartate Amino Transferase 33 U/L (17-59); Bilirubin,Total 0.7 mg/dL (0.2-1.3); Blood Urea Nitrogen 13 mg/dL (9-20); Carbon Dioxide 24 mmol/L (22-30); Chloride 104 mmol/L (98-107); Estimated CRCL calculation 45 ml/min; Estimated Glomerular Filt Rate > 60; Glucose 96 mg/dL (65-110); Magnesium 1.8 mg/dL (1.6-2.3); Potassium 3.2 mmol/L (3.4-5.0); Sodium 136 mmol/L (137-145)
[2024-05-09 08:46] LABS: Glucose Point of Care 100 mg/dl (65-105)
[2024-05-09] MEDS: ENOXAPARIN 40 MG/0.4 ML SYRINGE SUB-Q (09:24)
[2024-05-09 09:25] VITALS: PULSE 78
[2024-05-09] MEDS: ASPIRIN 81 MG ENTERIC TABLET PO (09:25)
[2024-05-09] MEDS: TICAGRELOR 90 MG TABLET PO (09:25)
[2024-05-09] MEDS: POTASSIUM CHLORIDE 20 MEQ ER TABLET 40 MEQ PO (09:25)
[2024-05-09] MEDS: TAMSULOSIN HCL 0.4 MG CAPSULE PO (09:25)
[2024-05-09] MEDS: ATORVASTATIN 40 MG TABLET 80 MG PO (09:25)
[2024-05-09] MEDS: guaiFENesin 12 HR 600 MG TABCR PO (09:25)
[2024-05-09] MEDS: METOPROLOL SUCCINATE EXT REL 50 MG TABCR PO (09:25)
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
[2024-05-09] MEDS: POTASSIUM CHLORIDE 20 MEQ PACKET (FOR LIQUID) PO (11:25)
[2024-05-09 12:16] LABS: Glucose Point of Care 128 mg/dl (65-105)
[2024-05-09 13:13] LABS: Potassium 4.6 mmol/L (3.4-5.0)
--- NOTE | 2024-05-09 14:39 | PM.PNCARD ---
Progress Note: A&P Assessment and Plan (1) Ischemic cardiomyopathy: Code(s): I25.5 - Ischemic cardiomyopathy Status: Acute (2) SAJAN (acute kidney injury): Code(s): N17.9 - Acute kidney failure, unspecified Status: Acute (3) Influenza A: Code(s): J10.1 - Influenza due to other identified influenza virus with other respiratory manifestations Status: Acute Plan 78-year-old man with CAD status post LAD PCI for STEMI on 04/30, ischemic cardiomyopathy (LVEF 40-45%), diabetes, and hypertension presented with influenza a infection with EKG changes suggestive of STEMI found to have patent stents and stable angiographic obstructive disease whose hospital course is complicated by acute kidney injury and urinary retention CAD status post PCI -continue aspirin 81 mg p.o. daily and Brilinta 90 mg every 12 hours -continue atorvastatin 80 mg every evening Ischemic cardiomyopathy -losartan on hold secondary to renal injury which has not recovered however Arb can be resume outpatient -continue Toprol 50 mg p.o. daily Hyperlipidemia -atorvastatin 80 mg every evening Acute renal injury -multifactorial with contrast use as well as urinary retention both of which resolved -on tamsulosin now Influenza a infection -received doses of oseltamivir Patient can be discharged to follow-up with outpatient cardiology Subjective Date/time seen: 05/09/24 14:39 Interval history: No chest pain or shortness of breath. Is currently on room air. Has use rolling walker. Has also been urinating. Review of Systems Cardiovascular: Cardiovascular: Reports as per HPI Respiratory: Respiratory: Reports as per HPI Exam Const: General: comfortable Eyes: EOM: EOMs intact bilaterally Neck: Neck: no JVD Resp: Effort & Inspection: normal respiratory effort Auscultation: rhonchi Cardio: Rate: regular rate Rhythm: regular rhythm Extrem: General: no pedal edema Objective Data Vital Signs Vital Signs: Vital Signs - 24 hr 05/08/24 16:00 05/08/24 16:35 05/08/24 20:00 Temperature 36.5 C Pulse Rate 93 90 Respiratory Rate 16 Blood Pressure 120/86 Pulse Oximetry 99 Oxygen Delivery Room Air 05/08/24 20:00 05/08/24 21:39 05/09/24 00:00 Temperature 36.9 C Pulse Rate 65 70 63 Respiratory Rate 16 Blood Pressure 119/66 Pulse Oximetry 98 Oxygen Delivery 05/09/24 04:00 05/09/24 06:00 05/09/24 09:25 Temperature 36.6 C Pulse Rate 81 73 78 Respiratory Rate 16 Blood Pressure 112/60 Pulse Oximetry 97 Oxygen Delivery Intake/Output Intake/Output: Intake & Output 05/06/24 05/07/24 05/08/24 05/09/24 23:59 23:59 23:59 23:59 Intake Total 520 1800 790 630 Output Total 250 1800 1850 425 Balance 270 0 -1060 205 Meds/Results Medications: Active Medications Generic Name Dose Route Start Last Admin Trade Name Freq PRN Reason Stop Dose Admin Acetaminophen 1,000 mg 05/05/24 01:28 05/07/24 21:08 Acetaminophen 500 Mg Tablet PO 1,000 mg Q6H PRN Administration Mild Pain (1-3) or Fever Aspirin 81 mg 05/05/24 09:00 05/09/24 09:25 Aspirin 81 Mg Enteric Tablet PO 81 mg QAM DESIRAE Administration Atorvastatin Calcium 80 mg 05/05/24 09:00 05/09/24 09:25 Atorvastatin 40 Mg Tablet PO 80 mg DAILY DESIRAE Administration Dextrose 12.5 gm 05/04/24 13:15 Dextrose 50% 25 Gm/50 Ml Syringe IV PUSH PRN PRN Hypoglycemia Protocol Enoxaparin Sodium 40 mg 05/08/24 09:00 05/09/24 09:24 Enoxaparin 40 Mg/0.4 Ml Syringe SUB-Q 40 mg DAILY DESIRAE Administration Glucagon 1 mg 05/04/24 13:15 Glucagon For Inj 1 Mg Vial IM PRN PRN Hypoglycemia Protocol Glucose 15 gm 05/04/24 13:15 Glucose Oral Gel 15 Gm Of Glucse In 37.5 Gm Tube PO PRN PRN Hypoglycemia Protocol Guaifenesin 600 mg 05/06/24 21:00 05/09/24 09:25 Guaifenesin 12 Hr 600 Mg Tabcr PO 600 mg Q12HR DESIRAE Administration Dextrose 1,000 mls @ 100 mls/hr 05/04/24 13:15 Dextrose 5% 1,000 Ml IVPB PRN PRN Hypoglycemia Protocol Insulin Aspart 4 - 8 units 05/04/24 13:25 05/09/24 12:36 Insulin Aspart (*Bkc) 100 Units/Ml SUB-Q Not Given TIDWM DESIRAE Protocol Insulin Aspart 2 - 4 units 05/04/24 21:00 05/08/24 20:51 Insulin Aspart (*Bkc) 100 Units/Ml SUB-Q 2 units HS DESIRAE Administration Protocol Insulin Glargine 20 units 05/07/24 21:00 05/08/24 20:45 Insulin Glargine (*Bkc) 100 Units/Ml SUB-Q 20 units HS DESIRAE Administration Metoprolol Succinate 50 mg 05/06/24 11:00 05/09/24 09:25 Metoprolol Succinate Ext Rel 50 Mg Tabcr PO 50 mg QAM DESIRAE Administration Tamsulosin HCl 0.4 mg 05/05/24 16:00 05/09/24 09:25 Tamsulosin Hcl 0.4 Mg Capsule PO 0.4 mg QAM DESIRAE Administration Ticagrelor 90 mg 05/05/24 09:00 05/09/24 09:25 Ticagrelor 90 Mg Tablet PO 90 mg Q12HR DESIRAE Administration Radiology Results: ITS Impressions Renal Ultrasound 05/04/24 15:23 IMPRESSION: 1. Bilateral renal cysts measuring up to 4.6 cm. Otherwise normal kidneys with no hydronephrosis. Neck/Chest CT 05/04/24 16:59 IMPRESSION: 1. No etiology for the patient's symptoms. Abdomen X-Ray 05/05/24 15:44 IMPRESSION: Nonspecific, nonobstructive bowel gas pattern, as detailed above. Head CT 05/07/24 14:13 IMPRESSION: No acute intracranial process. Labs Labs: Laboratory Results - last 24 hr 05/08/24 05/08/24 05/09/24 17:55 20:51 05:27 WBC 8.5 RBC 3.89 L Hgb 11.0 L Hct 33.5 L MCV 86.1 MCH 28.3 MCHC 32.8 RDW 13.9 Plt Count 186 MPV 12.2 H Immature Gran % (Auto) 0.5 Neut % (Auto) 54.7 Lymph % (Auto) 35.2 [place] % (Auto) 8.1 Eos % (Auto) 1.3 Baso % (Auto) 0.2 Lymph # (Auto) 3.01 [place] # (Auto) 0.7 H Eos # (Auto) 0.1 Baso # (Auto) 0.0 Abs Immat Gran (auto) 0.04 H Absolute Neuts (auto) 4.7 Absolute Nucleated RBC 0.000 Nucleated RBC % 0.0 Sodium 136 L Potassium 3.2 L Chloride 104 Carbon Dioxide 24 Anion Gap 8 BUN 13 Creatinine 1.13 Estim Creat Clear Calc 45 Estimated GFR > 60 Glucose 96 POC Capillary Glucose 245 H 232 H Calcium 8.0 L Magnesium 1.8 Total Bilirubin 0.7 AST 33 ALT 21 Alkaline Phosphatase 70 Total Protein 6.0 L Albumin 3.0 L 05/09/24 05/09/24 05/09/24 08:33 12:09 13:02 WBC RBC Hgb Hct MCV MCH MCHC RDW Plt Count MPV Immature Gran % (Auto) Neut % (Auto) Lymph % (Auto) [place] % (Auto) Eos % (Auto) Baso % (Auto) Lymph # (Auto) [place] # (Auto) Eos # (Auto) Baso # (Auto) Abs Immat Gran (auto) Absolute Neuts (auto) Absolute Nucleated RBC Nucleated RBC % Sodium Potassium 4.6 Chloride Carbon Dioxide Anion Gap BUN Creatinine Estim Creat Clear Calc Estimated GFR Glucose POC Capillary Glucose 100 128 H Calcium Magnesium Total Bilirubin AST ALT Alkaline Phosphatase Total Protein Albumin
--- NOTE | 2024-05-09 14:40 | PM.DS ---
DS: Admitting Diagnosis Discharge Date 05/09/2024 Admitting Diagnosis Influenza A DS: Discharge Diagnosis Discharge Diagnosis (1) Chest pain: Code(s): R07.9 - Chest pain, unspecified Status: Acute Assessment and Plan: Resolved On 04/30 patient underwent cardiac catheterization and received 2 stents. Patient was discharged on 05/03/2024. Patient returned again to hospital on 05/04 due to chest pain and Influenza A. Patient underwent cardiac cath which showed patent stents and cardiology planning outpatient staged PCI planning once recovered from viral illness (Influenza A). Coronary disease status post recent STEMI requiring 2 stents placement in LAD He had echocardiogram few days ago with report mentioned below Now admitted with chest pain which appears noncardiac and. By history exam Status post cardiac catheterization which did not show any significant abnormality Chest pain likely pleuritic from influenza A CT chest was unremarkable (2) Influenza A: Code(s): J10.1 - Influenza due to other identified influenza virus with other respiratory manifestations Status: Acute Assessment and Plan: Resolved Completed Tamiflu Currently on room air (3) Hypertension: Code(s): I10 - Essential (primary) hypertension Status: Acute Assessment and Plan: Hold Losartan (4) SAJAN (acute kidney injury): Code(s): N17.9 - Acute kidney failure, unspecified Status: Acute Assessment and Plan: Cr trending down. Hold ARB, discuss with Nephrology Renal ultrasound showed Bilateral renal cysts measuring up to 4.6 cm. Otherwise normal kidneys with no hydronephrosis. CK was slightly elevated at 290 Nephrology following Creatinine is improved to 1.13 today (5) Hyperlipidemia: Code(s): E78.5 - Hyperlipidemia, unspecified Status: Acute Assessment and Plan: Continue statin (6) Coronary artery disease: Code(s): I25.10 - Atherosclerotic heart disease of mohegan coronary artery without angina pectoris Status: Acute Assessment and Plan: Coronary disease status post recent STEMI requiring 2 stents placement in LAD He had echocardiogram few days ago Admitted with chest pain which appears noncardiac Status post cardiac catheterization Continue aspirin Brilinta and statin Continue beta-jacquelyn but hold ARB Echo Summary 1. Left ventricular systolic function is normal, estimated at 40%.Hypokinesis of anteroseptum, mid inferoseptum, apical septum, apical lateral. 2. The left ventricular diastolic function is grade I diastolic dysfunction. 3. There is trace aortic valve regurgitation. 4. There is trace mitral valve regurgitation. 5. There is mild tricuspid valve regurgitation. 6. No pulmonary hypertension, estimated pulmonary arterial systolic pressure is 25 mmHg. (7) Diabetes: Code(s): E11.9 - Type 2 diabetes mellitus without complications Status: Acute Assessment and Plan: Continue home regimen (8) Urinary retention: Code(s): R33.9 - Retention of urine, unspecified Status: Acute Assessment and Plan: Patient does have history of BPH but is currently not on any treatment. He states he has difficulty urinating in bed and would like to be active and go to the bathroom Consulted PT OT f/ u Urology Patient now has Epps catheter (9) Fever: Code(s): R50.9 - Fever, unspecified Status: Acute Assessment and Plan: Resolved DS: Summary Hospital Course Hospital Course: This is a 78 year old male who was recently discharged from [place] after an anterior STEMI s/p 2 JOSE to the LAD. Had an uncomplicated hospital course. Patient is Georgian speaking only so family present with him was used for emergent interpretation. Family reports that after hospital discharge, he started having runny nose, cough, subjective fevers. Upon EMS arrival, he had reported chest pain, although unable to further elicit any details. EKG showed ST elevations in the anterior leads, particularly V2, with reciprocal depression in the inferior leads. Although he did have mild persistent ST elevations post PCI after his initial STEMI, these ST elevations are more prominent. Therefore, we decided to proceed with emergent cardiac catheterization to ensure patency of the LAD stents. Family reports full compliance with DAPT therapy since hospital discharge. Cardiac Cath report: LEFT HEART CATHETERIZATION FINDINGS: 1. Left main: The left main coronary artery is widely patent without any significant obstructive disease. 2. Left anterior descending: Patent stents in the proximal and mid LAD. No obstructive disease in the LAD. 3. Left circumflex: The proximal LCX has a 70-80% stenosis. The mid LCX has 80% stenosis just prior to take off of OM2. The remainder of the LCX branch is diffusely diseased. OM1 is a small caliber vessel with diffuse 90% stenosis in the proximal-mid portion. OM2 has 80% stenosis. 4. Right coronary artery: The RCA is the dominant vessel. The RCA is heavily calcified. The mid RCA has a 50% stenosis. Remainder of the RCA has diffuse mild disease. The distal RPDA is a small caliber vessel with a 90% stenosis in the mid portion. 5. Left ventricle: A. End-diastolic pressure 16 mmHg. B. LV gram deferred. C. No significant gradient across aortic valve on catheter pullback. I assumed care on 05/05: As mentioned above On 04/30 patient underwent cardiac catheterization and received 2 stents. Patient was discharged on 05/03/2024. Patient returned again to hospital on 05/04 due to chest pain and Influenza A. Patient underwent cardiac cath which showed patent stents and cardiology planning outpatient staged PCI planning once recovered from viral illness (Influenza A). As per cardiology, continue aspirin 81 mg p.o. q.d. and Brilinta 90 mg p.o. b.i.d. and planning staged PCI as he recovered from the viral illness as outpatient. Advised to continue Toprol 50 mg p.o. q.d. and losartan was held due to SAJAN. Advised to discuss with the Nephrology and continue losartan as outpatient. Patient also has urinary retention and currently is in Epps. Advised to follow up with Urology as outpatient. Of note patient completed Tamiflu peak Patient is discharged with the following instructions: Please discuss with Transmission And Coordination Engineer when Losartan to be continued. Please do BMP in a week to check Cr. Please follow up with Urology for Epps. Patient needs cardiac rehabilitation. Check blood pressure 1 to 2 times a day. Record and bring into your doctor for review. Call your doctor if your blood pressure is greater than 180/110 or less than 90/45. Walk with cane or other assist device. Take precautions to avoid falls. Rise slowly from a lying or sitting position. Pause before standing or walking. Contact your doctor or call 911 and come to the Emergency Room if you have any type of trauma, lightheadedness with standing or other worrisome symptoms. Avoid NSAIDs (ibuprofen, naproxen, Aleve). Tylenol is safe to take. Follow-up with your primary care provider in 1-2 weeks. Please call for appointment. Follow-up with Cardiology in 1-2 weeks. Please call for an appointment. Status at Discharge Cognitive/behavioral status at discharge: Stable Time Spent with Patient Time attestation: Total time spent providing and/or coordinating discharge services: 45 minutes Exam Narrative: General: Pt is alert awake and in NAD Lungs/Chest: Trachea central Clear BS B/L, No crackles or wheezing. Cardiac: RRR. Normal S1 S2. No murmurs Circulation: Pedal pulses are intact and symmetrical. Right groin cath site does not show any hematoma swelling Abdomen: Normal bowel sounds. Soft. NT. ND. Extremities: No clubbing, cyanosis or edema. Warm : Epps in place Neurologic: Follows commands. Moves all 4 extremities PERRL AO x3 Skin: No Rash DS: Data Data Completed and Pending Labs on day of discharge: Labs from last 24 hours 05/09/24 05/09/24 05/09/24 13:02 12:09 08:33 WBC RBC Hgb Hct MCV MCH MCHC RDW Plt Count MPV Immature Gran % (Auto) Neut % (Auto) Lymph % (Auto) [place] % (Auto) Eos % (Auto) Baso % (Auto) Lymph # (Auto) [place] # (Auto) Eos # (Auto) Baso # (Auto) Abs Immat Gran (auto) Absolute Neuts (auto) Absolute Nucleated RBC Nucleated RBC % Sodium Potassium 4.6 Chloride Carbon Dioxide Anion Gap BUN Creatinine Estim Creat Clear Calc Estimated GFR Glucose POC Capillary Glucose 128 H 100 Calcium Magnesium Total Bilirubin AST ALT Alkaline Phosphatase Total Protein Albumin 05/09/24 05/08/24 05/08/24 05:27 20:51 17:55 WBC 8.5 RBC 3.89 L Hgb 11.0 L Hct 33.5 L MCV 86.1 MCH 28.3 MCHC 32.8 RDW 13.9 Plt Count 186 MPV 12.2 H Immature Gran % (Auto) 0.5 Neut % (Auto) 54.7 Lymph % (Auto) 35.2 [place] % (Auto) 8.1 Eos % (Auto) 1.3 Baso % (Auto) 0.2 Lymph # (Auto) 3.01 [place] # (Auto) 0.7 H Eos # (Auto) 0.1 Baso # (Auto) 0.0 Abs Immat Gran (auto) 0.04 H Absolute Neuts (auto) 4.7 Absolute Nucleated RBC 0.000 Nucleated RBC % 0.0 Sodium 136 L Potassium 3.2 L Chloride 104 Carbon Dioxide 24 Anion Gap 8 BUN 13 Creatinine 1.13 Estim Creat Clear Calc 45 Estimated GFR > 60 Glucose 96 POC Capillary Glucose 232 H 245 H Calcium 8.0 L Magnesium 1.8 Total Bilirubin 0.7 AST 33 ALT 21 Alkaline Phosphatase 70 Total Protein 6.0 L Albumin 3.0 L Preliminary micro results at discharge 05/07/24 10:52 Blood Culture - Preliminary Blood 05/07/24 10:52 Blood Culture - Preliminary Blood 05/04/24 14:44 Blood Culture - Preliminary Blood 05/04/24 14:57 Blood Culture - Preliminary Blood Discharge Plan Discharge Attending physician on discharge: Raffi Cabrera Consulting providers: Randolph Ayala; Raffi Cabrera; Cory Baez Discharging Clinician: Raffi Cabrera Anticipated Discharge Date/Time: 05/09/24 14:27 Patient Disposition: Home Health Service Activity: other - see discharge instructions Diet: heart healthy and diabetic Discharge Instructions: Per Care Coordination Patient has been accepted to have [facility] Home Health for RN, PT, OT RN please fax completed discharge instructions to [phone] Please discuss with Transmission And Coordination Engineer when Losartan to be continued. Please do BMP in a week to check Cr. Please follow up with Urology for Epps. Patient needs cardiac rehabilitation. Check blood pressure 1 to 2 times a day. Record and bring into your doctor for review. Call your doctor if your blood pressure is greater than 180/110 or less than 90/45. Walk with cane or other assist device. Take precautions to avoid falls. Rise slowly from a lying or sitting position. Pause before standing or walking. Contact your doctor or call 911 and come to the Emergency Room if you have any type of trauma, lightheadedness with standing or other worrisome symptoms. Avoid NSAIDs (ibuprofen, naproxen, Aleve). Tylenol is safe to take. Follow-up with your primary care provider in 1-2 weeks. Please call for appointment. Follow-up with Cardiology in 1-2 weeks. Please call for an appointment. Thank you for using [facility] for your health care needs. Patient Instructions: Antibiotic Form Patient Language: Georgian Stand Alone Forms: General Discharge Information Follow-up/Referrals: Randolph Ayala MD [Physician] - (Please discuss with Transmission And Coordination Engineer if Losartan needs to be continued. Ordered BMP to monitor Cr.) Cory Baez MD [Physician] - 3 Weeks (Follow-up with first-available MD at [facility] for advanced prostate/bladder management.) Milo Sumner MD [Physician] - (Please discuss with Transmission And Coordination Engineer if Losartan needs to be continued. Ordered BMP to monitor Cr.) Bonnie,Chad Perry MD [Primary Care Provider] - (Please discuss with Transmission And Coordination Engineer if Losartan needs to be continued. Ordered BMP to monitor Cr.) Discharge Medications: New tamsulosin 0.4 mg Capsule 0.4 mg PO QAM Qty: 30 0RF guaifenesin [Mucus Relief ER] 600 mg Tablet Extended Release 12hr 600 mg PO Q12HR Qty: 30 0RF Continued lactulose 10 gram/15 mL solution 30 ml PO TID Brilinta 90 mg Tablet 90 mg PO Q12HR Qty: 90 3RF aspirin 81 mg Tablet,Delayed Release (Dr/Ec) 81 mg PO QAM Qty: 90 3RF atorvastatin [Lipitor] 80 mg tablet 80 mg PO DAILY Qty: 90 3RF metoprolol succinate [Toprol XL] 50 mg tablet extended release 24 hr 50 mg PO DAILY Qty: 90 3RF insulin glargine [Lantus U-100 Insulin] 100 unit/mL solution 18 unit SUBCUT DAILY insulin lispro 100 unit/mL insulin pen 1 sliding scale dose SUBCUT ACHS Held losartan 25 mg Tablet 25 mg PO DAILY Qty: 90 3RF Hold Instructions: Resume on 06/03/24. Please discuss with Transmission And Coordination Engineer if needs to be continued. Other Ambulatory Orders: Comprehensive Metabolic Panel (Routine) Timeframe: 1 Week Location: Determined by Patient Ordered By: Raffi Cabrera Date of admission: 05/04/24 12:09 Primary Care Provider: BonnieChad Admitting Provider: Milo Sumner Attending physician on admission: Milo Sumner Condition: Stable
== END 2024-05-09 15:25 | disposition home health service (06) | DRG 113 ==
LOC: ANHED 12:13 → ANHICU 19:45 → ANH3MED 05-09 11:05 → ANHICU 05-10 12:18
PROVIDERS: Internal Medicine; Internal Medicine Nephrology; Nurse Practitioner; Admitting Provider Internal Medicine; Emergency Provider Emergency Medicine; PCP Family Medicine Sports Medicine; Visit Provider General Practice
PROC: 4A023N7 Measurement of Cardiac Sampling and Pressure, Left Heart, Percutaneous Approach (ICD-10-PCS; CPT 93452; principal; 2024-05-04 12:10)
PROC: 4A023N7 Measurement of Cardiac Sampling and Pressure, Left Heart, Percutaneous Approach (ICD-10-PCS; 2024-05-04 12:10)
DX: J10.1 Influenza due to other identified influenza virus with other respiratory manifestations (principal); R07.89 Other chest pain; I21.3 ST elevation (STEMI) myocardial infarction of unspecified site; I25.5 Ischemic cardiomyopathy; I25.10 Atherosclerotic heart disease of native coronary artery without angina pectoris; E78.5 Hyperlipidemia, unspecified; N17.9 Acute kidney failure, unspecified; I10 Essential (primary) hypertension; E11.9 Type 2 diabetes mellitus without complications; R33.9 Retention of urine, unspecified; N40.0 Benign prostatic hyperplasia without lower urinary tract symptoms; N14.11 Contrast-induced nephropathy; T50.8X5A Adverse effect of diagnostic agents, initial encounter; E86.0 Dehydration
CPT/HCPCS: 36415; 70450; 70490; 71250; 74018; 76775; 80053; 80061; 81001; 81050; 82550; 82570; 82948; 83036; 83735; 84100; 84132; 84145; 84156; 84295; 84300; 84484; 84540; 85025; 85055; 85610; 85730; 85999; 86850; 86900; 86901; 87040; 87086; 87493; 87637; 87641; 93005; 93308; 93458; 97161; 97166; 97530; 99285; A9270; C1760; C1769; C1887; C1894; G0269; J0583; J1644; J1650; J1815; J2003; J7040; J7120